=== PATIENT | female | born 1955 | race Caucasian/White ===

== ENCOUNTER 2023-12-22 08:09 | Outpatient (REF) | payer OTHER, SELFPAY ==
--- NOTE | ~2023-12-22 | MM_ITS ---
EXAMINATION: BONE DENSITOMETRY CLINICAL INDICATION: Asymptomatic menopausal state. COMPARISON: This is the patient's baseline examination. TECHNIQUE: Using a [employer] DXA System (software version: 13.1) manufactured by [employer], dual-energy x-ray absorptiometry was performed of the lumbar spine and left hip. The images are of good technical quality. Summary results are attached. FINDINGS: LEFT FEMUR, NECK: BMD 0.972 g/cm2, Z-score 0.5, T-score -0.5, normal. LEFT FEMUR, TOTAL: BMD 1.031 g/cm2, Z-score 0.9, T-score 0.2, normal. AP SPINE L1-L4: BMD 1.189 g/cm2, Z-score 0.9, T-score 0.1, normal. IDENTIFIED RISK FACTORS: Height loss, history of fracture (adult), menopause. HISTORY OF FRACTURE: Spine. MEDICATIONS: Calcium supplements or multivitamin, vitamin D. MM/XR DEXA axial skeleton IMPRESSION: 1. DIAGNOSIS: Normal bone density based on the lowest T-score value of -0.5 in the femoral neck applying World Health Organization criteria. 2. 10-YEAR FRACTURE RISK PREDICTION, FRAX: According to the guidelines, FRAX calculation should only be performed on patients in the osteopenia bone density category. Therefore, FRAX was not performed on this patient. 3. Treatment Recommendations: NOF guidelines recommend consideration for treatment in postmenopausal women and men age 50 and older presenting with the following: -A hip or vertebral (clinical or morphometric) fracture. -T-score less than or equal to -2.5 at the femoral neck or spine after appropriate evaluation to exclude secondary causes. -Low bone mass at the hip or spine and a 10-year fracture probability by FRAX of greater than or equal to 3% for hip fracture or greater than or equal to 20% for major osteoporotic fracture based on the [place] adapted WHO algorithm. 4. Other Recommendations: All treatment decisions require clinical judgment and consideration of individual patient factors, including patient preferences, comorbidities, previous drug use, risk factors not captured in the FRAX model (e.g. frailty, falls, vitamin D deficiency, increased bone turnover, interval significant decline in bone density) and possible under or overestimation of fracture risk by FRAX. FUTURE SCAN RECOMMENDATION: People with diagnosed cases of osteoporosis or at high risk for fracture should have regular bone mineral density tests. For patients eligible for Medicare, routine testing is allowed once every 2 years. The testing frequency can be increased to one year for patients who have rapidly progressing disease, those who are receiving or discontinuing medical therapy to restore bone mass, or have additional risk factors.
== END 2023-12-22 08:10 | disposition home or self-care (01) ==
LOC: HO.MAMMO 08:09
PROVIDERS: PCP Internal Medicine; Visit Provider Internal Medicine
DX: Z13.820 Encounter for screening for osteoporosis (principal); Z78.0 Asymptomatic menopausal state
CPT/HCPCS: 77080

== ENCOUNTER → 2024-01-15 09:02 | Outpatient (BNVA) | payer OTHER, MEDICARE, SELFPAY | PROVIDERS: PCP Internal Medicine; Visit Provider Surgery ==

== ENCOUNTER 2024-02-09 07:58 | Outpatient (AMB) | payer OTHER, SELFPAY ==
--- NOTE | 2024-02-09 08:27 | A.OFFVIS_ITS ---
VS Expanded 02/09/24 08:49 Height 5 ft 3.5 in Weight 201 lb 2 oz BMI 35.1 Body Fat % 42 Body Fat Mass 84.4 Fat Free Mass 116.6 Visceral Fat Rating 13 Body Water % 40.6 Body Water Mass 81.6 Basal Metabolic Rate/Score 1,589 Intake Visit Reasons: [employer] SWL BMI 35.1 Allergies Sulfa (Sulfonamide Antibiotics) Allergy (Intermediate, Verified 02/09/24 08:27) rash Medication List - Last Reconciled 02/09/24 by Juan Thibodeaux MD amlodipine 5 mg PO DAILY calcium carbonate 500 mg PO DAILY citalopram 10 mg PO DAILY citalopram 20 mg PO DAILY estradiol 0.01%(0.1mg/gram) 1 g vaginal 2XW hydrochlorothiazide 12.5 mg PO DAILY levothyroxine mcg PO multivitamin 1 tab PO DAILY omeprazole 20 mg PO DAILY HPI HPI [employer] SWL BMI 35.1: Details: Start time: 8.14am, End time: 8.59am ?I spent 40 minutes speaking with the patient on the phone plus an additional 5 minutes reviewing and updating records for a total of 45 minutes HPI Comments Details: Previous weight loss efforts: extensive trial of different commercial diets Wakes up: 7am, Sleeps: 10pm Breakfast: 10am (eggs, toast, yogurt) Lunch: 1pm (chicken or ham salad) Dinner: 6pm (chicken, turkey) Snacks: 11am (crackers, fruits), occasionally 4pm (fruits or crackers), 8pm (cheese and crackers) Exercise: [employer] Fluids: Coffee: 1-2 cups/day (black), tea iced: rarely, soda: none, juice: none, ETOH: 1/wk (1 glass of wine) PFSH Medical History (Updated 02/09/24 @ 08:55 by Juan Thibodeaux MD) Hypothyroidism GERD (gastroesophageal reflux disease) Anxiety Depression Hypertension Sleep apnea treated with continuous positive airway pressure (CPAP) Surgical History (Updated 01/15/24 @ 10:23 by Juana Redd CMA) Hx of esophagogastroduodenoscopy Hx of colonoscopy Hx of tubal ligation Family History (Updated 01/15/24 @ 10:20 by Juana Redd CMA) Mother Lung cancer Brother Throat cancer Sister Colon cancer Maternal Aunt Cancer Breast CA Social History (Updated 01/15/24 @ 09:53 by Juana Redd [facility]) Alcohol intake: current Alcohol intake frequency: other Comment: 1 wkly Patient Tobacco Use Status: Never used Tobacco Telehealth Telehealth Telehealth Platform: Telephone Location of provider rendering services: practice address Location of patient: address on file Patient Identification confirmed using: Name, : Yes Telehealth method: voice only Patient verbally consented to treatment: Yes Patient verbally consented to billing insurance company: Yes Patient informed of any privacy concerns related to visit: Yes Minutes spent on Phone/Video with Pt.: 45 Assessment & Plan Assessment & Plan (1) Obesity: Code(s): E66.9 - Obesity, unspecified Category: Medical Qualifiers: Obesity type: due to excess calories Obesity classification: adult class 2 (BMI 35 - 39.9) Serious obesity comorbidity presence: with serious comorbidity Body mass index: BMI 35.0-35.9 Qualified Code(s): E66.01 - Morbid (severe) obesity due to excess calories; Z68.35 - Body mass index [BMI] 35.0- 35.9, adult Plan: 1.? Plan for lap sleeve gastrectomy. If diaphragmatic or ventral hernias are present at time of surgery, these will be repaired laparoscopically as well. Risks and complications were discussed in detail including possible conversion to an open procedure, anastomotic leak, bleeding requiring transfusion, small bowel obstruction, , DVT and pulmonary embolism, cardiac, or pulmonary complications, as fci complications such as anastomotic ulcer, insufficient weight loss and vitamin deficiencies. I emphasized the importance of close follow-up, adherence to instructions and good communication. Meal to include lean meat (beef, fish, pork, turkey, chicken), or guatemalan yogurt, or egg whites, or beans with a salad with olive oil and fruits (berries, pears, apples, kiwi). Avoid salt, breads, potatoes, rice, pasta, desserts. 2. You will receive a link of our software del to generate an individualized nutritional and exercise plan specific for you. Please send me a screenshot of the plans you will generate 3.? Please send me weight measurements as soon as possible and then once a week . Always include your diet and exercise plan. 4. The best choice would be to purchase a stationary bike, elliptical or treadmill at home that can track calories. Let me know if you do so I can give y ou an exercise plan. 5. Please follow the diet plan exactly without any change. If you don't like something about the plan or you feel hungry you need to communicate with me so I can help you revise the plan. You should not change the plan yourself. 6. To be scheduled for EGD due to history of GERD. The possibility of biopsies was discussed. Patient needs to avoid use of NSAIDs and aspirin for 1 week prior to EGD. Risks of perforation and bleeding was discussed with the patient. This will be an outpatient procedure with IV sedation. Orders: Orders Hemoglobin A1c Today E03.9 - Hypothyroidism, unspecified, E66.9 - Obesity, unspecified, G47.30 - Sleep apnea, unspecified, I10 - Essential (primary) hypertension, K21.9 - Gastro-esophageal reflux disease without esophagitis, Z68.35 - Body mass index [BMI] 35.0-35.9, adult Complete Blood Count Auto Diff Today E03.9 - Hypothyroidism, unspecified, E66.9 - Obesity, unspecified, G47.30 - Sleep apnea, unspecified, I10 - Essential (primary) hypertension, K21.9 - Gastro-esophageal reflux disease without esoph agitis, Z68.35 - Body mass index [BMI] 35.0-35.9, adult Zinc Today E03.9 - Hypothyroidism, unspecified, E66.9 - Obesity, unspecified, G47.30 - Sleep apnea, unspecified, I10 - Essential (primary) hypertension, K21.9 - Gastro-esophageal reflux disease without esophagitis, Z68.35 - Body mass index [BMI] 35.0-35.9, adult TSH reflex Free T4 Today E03.9 - Hypothyroidism, unspecified, E66.9 - Obesity, unspecified, G47.30 - Sleep apnea, unspecified, I10 - Essential (primary) hypertension, K21.9 - Gastro-esophageal reflux disease without esophagitis, Z68.35 - Body mass index [BMI] 35.0-35.9, adult Vitamin D 25-OH Total Today E03.9 - Hypothyroidism, unspecified, E66.9 - Obesity, unspecified, G47.30 - Sleep apnea, unspecified, I10 - Essential (primary) hypertension, K21.9 - Gastro-esophageal reflux disease without esophagitis, Z68.35 - Body mass index [BMI] 35.0-35.9, adult XR chest 2V Today E03.9 - Hypothyroidism, unspecified, E66.9 - Obesity, unspecified, G47.30 - Sleep apnea, unspecified, I10 - Essential (primary) hypertension, K21.9 - Gastro-esophageal reflux disease without esophagitis, Z68.35 - Body mass index [BMI] 35.0-35.9, adult FL upper GI w air Today E03.9 - Hypothyroidism, unspecified, E66.9 - Obesity, unspecified, G47.30 - Sleep apnea, unspecified, I10 - Essential (primary) hypertension, K21.9 - Gastro-esophageal reflux disease without esophagitis, Z68.35 - Body mass index [BMI] 35.0-35.9, adult Insulin Today E03.9 - Hypothyroidism, unspecified, E66.9 - Obesity, unspecified, G47.30 - Sleep apnea, unspecified, I10 - Essential (primary) hypertension, K21.9 - Gastro-esophageal reflux disease without esophagitis, Z68.35 - Body mass index [BMI] 35.0-35.9, adult H Pylori Breath Test Today E03.9 - Hypothyroidism, unspecified, E66.9 - Obesity, unspecified, G47.30 - Sleep apnea, unspecified, I10 - Essential (primary) hypertension, K21.9 - Gastro-esophageal reflux disease without esophagitis, Z68.35 - Body mass index [BMI] 35.0-35.9, adult Lipid Panel Today E03.9 - Hypothyroidism, unspecified, E66.9 - Obesity, unspecified, G47.30 - Sleep apnea, unspecified, I10 - Essential (primary) hypertension, K21.9 - Gastro-esophageal reflux disease without esophagitis, Z68.35 - Body mass index [BMI] 35.0-35.9, adult IRON PROFILE Today E03.9 - Hypothyroidism, unspecified, E66.9 - Obesity, unspecified, G47.30 - Sleep apnea, unspecified, I10 - Essential (primary) hypertension, K21.9 - Gastro-esophageal reflux disease without esophagitis, Z68.35 - Body mass index [BMI] 35.0-35.9, adult Comprehensive Met. Panel Today E03.9 - Hypothyroidism, unspecified, E66.9 - Obesity, unspecified, G47.30 - Sleep apnea, unspecified, I10 - Essential (primary) hypertension, K21.9 - Gastro-esophageal reflux disease without esophagitis, Z68.35 - Body mass index [BMI] 35.0-35.9, adult Vitamin B12 and Folate Today E03.9 - Hypothyroidism, unspecified, E66.9 - Obesity, unspecified, G47.30 - Sleep apnea, unspecified, I10 - Essential (primary) hypertension, K21.9 - Gastro-esophageal reflux disease without esophagitis, Z68.35 - Body mass index [BMI] 35.0-35.9, adult C Reactive Protein Today E03.9 - Hypothyroidism, unspecified, E66.9 - Obesity, unspecified, G47.30 - Sleep apnea, unspecified, I10 - Essential (primary) hypertension, K21.9 - Gastro-esophageal reflux disease without esophagitis, Z68.35 - Body mass index [BMI] 35.0-35.9, adult Vitamin B1 Today E03.9 - Hypothyroidism, unspecified, E66.9 - Obesity, unspecified, G47.30 - Sleep apnea, unspecified, I10 - Essential (primary) hypertension, K21.9 - Gastro-esophageal reflux disease without esophagitis, Z68.35 - Body mass index [BMI] 35.0-35.9, adult Vitamin A Today E03.9 - Hypothyroidism, unspecified, E66.9 - Obesity, unspecified, G47.30 - Sleep apnea, unspecified, I10 - Essential (primary) hypertension, K21.9 - Gastro-esophageal reflux disease without esophagitis, Z68.35 - Body mass index [BMI] 35.0-35.9, adult Ferritin Today E03.9 - Hypothyroidism, unspecified, E66.9 - Obesity, unspecified, G47.30 - Sleep apnea, unspecified, I10 - Essential (primary) hypertension, K21.9 - Gastro-esophageal reflux disease without esophagitis, Z68.35 - Body mass index [BMI] 35.0-35.9, adult US abdomen comp w elastography Today E03.9 - Hypothyroidism, unspecified, E66.9 - Obesity, unspecified, G47.30 - Sleep apnea, unspecified, I10 - Essential (primary) hypertension, K21.9 - Gastro-esophageal reflux disease without esophagitis, Z68.35 - Body mass index [BMI] 35.0-35.9, adult ECG 12 lead EKG Today E03.9 - Hypothyroidism, unspecified, E66.9 - Obesity, unspecified, G47.30 - Sleep apnea, unspecified, I10 - Essential (primary) hypertension, K21.9 - Gastro-esophageal reflux disease without esophagitis, Z68.35 - Body mass index [BMI] 35.0-35.9, adult Referrals Nutrition/Dietitian Referral E03.9 - Hypothyroidism, unspecified, E66.9 - Obesity, unspecified, G47.30 - Sleep apnea, unspecified, I10 - Essential (primary) hypertension, K21.9 - Gastro-esophageal reflux disease without esophagitis, Z68.35 - Body mass index [BMI] 35.0-35.9, adult Behavioral Health Referral E03.9 - Hypothyroidism, unspecified, E66.9 - Obesity, unspecified, G47.30 - Sleep apnea, unspecified, I10 - Essential (primary) hypertension, K21.9 - Gastro-esophageal reflux disease without esophagitis, Z68.35 - Body mass index [BMI] 35.0-35.9, adult
[2024-02-09 08:49] VITALS: BMI 35.1
== END 2024-02-09 09:00 | disposition home or self-care (01) ==
LOC: HO.HBS 07:58
PROVIDERS: PCP Internal Medicine; Visit Provider Surgery
DX: E66.01 Morbid (severe) obesity due to excess calories (principal); Z68.35 Body mass index [BMI] 35.0-35.9, adult
CPT/HCPCS: 99204

== ENCOUNTER → 2024-02-09 07:58 | Outpatient (BNVA) | payer OTHER, MEDICARE, SELFPAY | PROVIDERS: PCP Internal Medicine; Visit Provider Surgery ==

== ENCOUNTER 2024-02-21 09:23 | Outpatient (REF) | payer MEDICARE, SELFPAY ==
--- NOTE | ~2024-02-21 | US_ITS ---
EXAMINATION: US COMPLETE ABDOMEN WITH LIVER ELASTOGRAPHY CLINICAL INFORMATION: Obesity. COMPARISON: None available. TECHNIQUE: Real-time imaging of the abdominal viscera. Noninvasive ultrasound liver fibrosis assessment is performed using [employer] point quantification shear wave elastography (pSWE) with a C5-2 MHz transducer. Multiple elastography samples are obtained. FINDINGS: PANCREAS: The visualized pancreatic head and body are normal in appearance. The remainder of the pancreas is obscured from visualization by the overlying bowel gas. ABDOMINAL AORTA: The proximal, middle, and distal aortic segments are normal in caliber. INFERIOR VENA CAVA: Visualized portions are normal. LIVER: The liver demonstrates normal size and contour with question of mildly increased echogenicity. No focal lesion or intrahepatic biliary duct dilatation. The right lobe measures 13.8 cm in length. The left lobe measures 12.6 cm in length. Portal flow is towards the liver (hepatopetal). Shear wave liver elastography median stiffness is 1.57 m/s (reference: normal median stiffness is 1.3 m/s or less). IQR/median stiffness to assess sampling precision is 0.12 (reference: good quality data set is IQR/median stiffness of 0.15 or less). GALLBLADDER: There is a 1.2 x 0.5 x 1.1 cm mobile structure in the gallbladder either representing a sludge ball or a nonshadowing stone. The gallbladder is physiologically distended without evidence of wall thickening or pericholecystic fluid. COMMON BILE DUCT: Normal in caliber measuring 0.5 cm in diameter. RIGHT KIDNEY: Normal. No hydronephrosis. No renal calculi or focal parenchymal lesions. The kidney measures 11.0 cm in maximum dimension. LEFT KIDNEY: . No hydronephrosis. No renal calculi . The kidney measures 10.8 cm in maximum dimension. There are pelvic benign Bosniak class I renal cysts noted, the largest measuring 1.4 cm which require no additional imaging or followup. No solid renal masses are seen. SPLEEN: Normal. The spleen measures 12.0 cm in maximum dimension. FREE FLUID: None. US/US abdomen comp w elastography IMPRESSION: 1. Normal sized liver with question of increased echogenicity. 2. Liver elastography: In the absence of other known clinical signs, measurements rule out compensated advanced chronic liver disease. If there are known clinical signs, further testing may be needed for confirmation. REFERENCE: Society of Radiologists in Ultrasound Liver Stiffness Thresholds (2020): LIVER STIFFNESS THRESHOLDS: *Liver Stiffness equal or less than 1.3 m/s: High probability of being normal. *Liver Stiffness less than 1.7 m/s: In the absence of other known clinical signs, rules out compensated advanced chronic liver disease. *Liver Stiffness 1.7-2.1 m/s: Suggestive of compensated advanced chronic liver disease but need further test for confirmation. *Liver Stiffness over 2.1 m/s: Rules in compensated advanced chronic liver disease. *Liver Stiffness over 2.4 m/s: Suggestive of clinically significant portal hypertension. QUALITY OF DATA SET: *IQR/Median value equal or less than 0.15 implies a quality data set. *IQR/Median value over 0.15 implies a poor quality data set. SIGNIFICANT CHANGE FROM PRIOR EXAM: Significant change if liver stiffness measurement is 10% or greater from prior exam. OTHER CONSIDERATIONS: The stage of liver fibrosis may be overestimated in the setting of acute hepatitis, liver inflammation, elevated liver function tests, hepatic vascular congestion, obstructive cholestasis, non-fasting state, and infiltrative diseases such as amyloidosis and lymphoma. In some patients with NAFLD, the liver stiffness thresholds for compensated advanced chronic liver disease may be lower. In causes other than viral hepatitis and NAFLD, liver stiffness thresholds are not well established. Electronically signed by: Valentin Blackburn MD 02/28/2024 05:04 PM EDT
== END 2024-02-21 09:24 | disposition home or self-care (01) ==
LOC: HO.US 09:23
PROVIDERS: PCP Internal Medicine; Visit Provider Surgery
DX: E66.9 Obesity, unspecified (principal); Z68.35 Body mass index [BMI] 35.0-35.9, adult; G47.30 Sleep apnea, unspecified; I10 Essential (primary) hypertension; K21.9 Gastro-esophageal reflux disease without esophagitis; E03.9 Hypothyroidism, unspecified
CPT/HCPCS: 76700; 76981

== ENCOUNTER 2024-02-23 10:29 | Outpatient (REF) | payer MEDICARE, SELFPAY ==
--- NOTE | ~2024-02-23 | XR_ITS ---
EXAMINATION: XR CHEST CLINICAL INFORMATION: E66.9 - Obesity, unspecified COMPARISON: None available. TECHNIQUE: 2 views of the chest were obtained. FINDINGS: The cardiac, hilar, and mediastinal contours are normal. The lungs are clear bilaterally. There is no pneumothorax or pleural effusion. There is no focal osseous or soft tissue abnormality. There are spinal degenerative changes. XR/XR chest 2V IMPRESSION: No active pulmonary disease. Electronically signed by: Vidal Michaels MD 05/04/2024 09:17 PM EST
--- NOTE | 2024-02-23 10:37 | ECG_ITS ---
Test Reason : OBS Blood Pressure : / mmHG Vent. Rate : 060 BPM Atrial Rate : 060 BPM P-R Int : 168 ms QRS Dur : 090 ms QT Int : 436 ms P-R-T Axes : 034 004 030 degrees QTc Int : 436 ms Normal sinus rhythm Minimal voltage criteria for LVH, may be normal variant ( R in aVL ) Borderline ECG No previous ECGs available Referred By: Juan Thibodeaux Electronically Signed By:LUDWIG ALLEN
[2024-02-23 10:57] LABS: MANUAL DIFF FLAG NO
[2024-02-23 11:44] LABS: Basophils Absolute Auto 0.1 X10*3/uL (0.0-0.2); Basophils Percent Auto 0.9 % (0-2); Eosinophils Absolute Auto 0.2 X10*3/uL (0.0-0.4); Eosinophils Percent Auto 2.4 % (0-4); Hematocrit 37.6 % (37.0-47.0); Hemoglobin 12.5 g/dl (12.0-16.0); Imm Gran Abs Auto 0.02 X10*3/uL (0.00-0.03); Imm Gran Pct Auto 0.3 % (0.0-0.4); Lymphocytes Percent Auto 29.5 % (20-40); Mean Corpuscular HGB Conc 33.2 g/dl (31.0-35.0); Mean Corpuscular Hemoglobin 29.8 pg (27.0-33.0); Mean Corpuscular Volume 89.5 fL (80.0-98.0); Mean Platelet Volume 11.5 fL (9.4-12.3); Monocytes Absolute Auto 0.7 X10*3/uL (0.1-1.2); Monocytes Percent Auto 9.9 % (2-11); Neutrophils Absolute Auto 3.9 x10*3/uL (2.0-8.3); Platelet Count 192 X10*3/uL (160-400); Red Cell Distribution Width 12.6 % (11.0-16.0); White Blood Count 6.8 X10*3/uL (4.8-10.8)
[2024-02-23 12:13] LABS: Estimated Average Glucose 105 mg/dL; Hemoglobin A1c % 5.3 % (<6.0)
[2024-02-23 12:38] LABS: Alanine Aminotransferase 15 U/L (0-31); Albumin Level 4.1 g/dL (3.5-5.0); Alkaline Phosphatase 58 U/L (39-117); Anion Gap 10 (12-20); Aspartate Amino Transferase 14 U/L (5-31); Bilirubin Total 0.5 mg/dL (0.0-1.0); Blood Urea Nitrogen 14 mg/dL (9-16); Calcium 9.6 mg/dL (8.4-10.2); Carbon Dioxide 28 mmol/L (22-29); Chloride 107 mmol/L (96-108); Cholesterol 220 mg/dL (<200); Estimated Glomerular Filt Rate > 60; Glucose Random 96 mg/dL (60-115); HDL Cholesterol 48 mg/dL (>40); Iron 96 mcg/dL (30-160); LDL Cholesterol Calculated 146 mg/dL (<100); Percent Iron Saturation 36 % (15-50); Sodium 141 mmol/L (135-145); Total Iron Binding Capacity 269 mcg/dL (228-428); Total Protein 7.7 g/dL (6.5-8.0); Triglycerides 131 mg/dL (<150); Unsaturated Iron Binding 173 ug/dL
[2024-02-23 12:45] LABS: Ferritin 135 ng/mL (10-250); Insulin 7 uU/mL (2-29); TSH reflex Free T4 1.13 uIU/mL (0.32-4.0); Vitamin D 25-OH Total 36.8 ng/mL (>30)
[2024-02-23 13:02] LABS: Folate 10.7 ng/mL (> or = 4.0); Vitamin B12 309 pg/mL (200-900)
[2024-02-27 05:02] LABS: Zinc 74 mcg/dL (60-130)
[2024-02-28 18:59] LABS: Vitamin A 48 mcg/dL (38-98)
[2024-03-03 07:43] LABS: Vitamin B1 8 nmol/L (8-30)
== END 2024-02-23 10:30 | disposition home or self-care (01) ==
LOC: HO.LAB 10:29
PROVIDERS: PCP Internal Medicine; Visit Provider Surgery
DX: E66.9 Obesity, unspecified (principal); Z68.35 Body mass index [BMI] 35.0-35.9, adult; G47.30 Sleep apnea, unspecified; I10 Essential (primary) hypertension; K21.9 Gastro-esophageal reflux disease without esophagitis; E03.9 Hypothyroidism, unspecified; Z13.1 Encounter for screening for diabetes mellitus
CPT/HCPCS: 36415; 71046; 80053; 80061; 82306; 82607; 82728; 82746; 83036; 83525; 83540; 84425; 84443; 84590; 84630; 85025; 86140; 93005

== ENCOUNTER → 2024-02-23 10:58 | Outpatient (BNV) | payer MEDICARE, SELFPAY | PROVIDERS: PCP Internal Medicine; Visit Provider Radiology Diagnostic Radiology | DX: E66.9 Obesity, unspecified (principal) | CPT/HCPCS: 71046 ==

== ENCOUNTER 2024-03-01 08:40 | Outpatient (REF) | payer MEDICARE, SELFPAY ==
--- NOTE | ~2024-03-01 | MM_ITS ---
EXAMINATION: MM SCREENING DIGITAL BREAST TOMOSYNTHESIS, BILATERAL CLINICAL INFORMATION: Screening. Asymptomatic. COMPARISON: Mammography: Comparison is made with available priors TECHNIQUE: Digital breast mammography with tomosynthesis is performed in both the craniocaudal and mediolateral oblique views along with computer-aided detection (CAD). FINDINGS: There are scattered areas of fibroglandular density (ACR BI-RADS breast composition Category b). Right: Focal asymmetry upper outer breast posterior depth with associated architectural distortion. No suspicious calcifications or other abnormal findings. Left: Focal asymmetry lower central breast anterior to middle depth. No suspicious calcifications or other abnormal findings. MM/MM tomosynthesis screening BI IMPRESSION: Additional imaging is recommended ASSESSMENT: BI-RADS BI-RADS 0 - Incomplete: Needs additional Imaging. RECOMMENDATION: 1. Additional views of the bilateral breasts 2. Targeted ultrasound if warranted after review of the additional views. 3. Radiology department staff will contact the patient for additional imaging. Additional Imaging required This examination should not preclude the clinical evaluation of a suspicious palpable abnormality. This patient's information was entered into a reminder system with a target due date for their next mammogram. Electronically signed by: Corinna Vergara DO 03/10/2024 06:35 PM EDT
== END 2024-03-01 08:41 | disposition home or self-care (01) ==
LOC: HO.MAMMO 08:40
PROVIDERS: PCP Internal Medicine; Visit Provider Internal Medicine
DX: Z12.31 Encounter for screening mammogram for malignant neoplasm of breast (principal)
CPT/HCPCS: 77063; 77067

== ENCOUNTER → 2024-03-01 08:43 | Outpatient (BNV) | payer MEDICARE, SELFPAY | PROVIDERS: PCP Internal Medicine; Visit Provider Internal Medicine | DX: Z12.31 Encounter for screening mammogram for malignant neoplasm of breast (principal) | CPT/HCPCS: 77063; 77067 ==

== ENCOUNTER 2024-03-05 10:41 | Day surgery (SDC) | payer MEDICARE, SELFPAY ==
--- NOTE | 2024-03-01 14:31 | P.CONAN_ITS ---
Documented by User: Anni Stafford NP 03/01/24 14:31 HPI - Anesthesia Eval Consult details Narrative: 68yo F for Upper Endoscopy PMFSH Active Problems Active Problems: All Active Problems Hypothyroidism (Acute) GERD (gastroesophageal reflux disease) (Acute) Anxiety (Acute) Depression (Acute) Hypertension (Acute) Sleep apnea treated with continuous positive airway pressure (CPAP) (Acute) BMI 35.0-35.9,adult (Acute) Obesity (Acute) Past Medical History Medical History Hypothyroidism GERD (gastroesophageal reflux disease) Anxiety Depression Hypertension Sleep apnea treated with continuous positive airway pressure (CPAP) Family History Family History Mother Lung cancer Brother Throat cancer Sister Colon cancer Maternal Aunt Cancer Breast CA Surgical History Surgical History Hx of esophagogastroduodenoscopy Hx of colonoscopy Hx of tubal ligation Social History Social History Are you a primary adult care provider to a significant other at home: No Do you presently have visiting nurse or other home services: No Alcohol intake: current Alcohol intake frequency: a few times a month Comment: 1 wkly Patient Tobacco Use Status: Never used Tobacco Use of substances other than those prescribed or required for medical reasons: No Have you been hit, kicked, punched, or otherwise hurt by someone within the past year? If so, by whom?: No Are you DNR?: No Advance Directives: No Advance Directives Information Provided: Yes Recently lost weight without trying: No How much weight loss: Not applicable Eating poorly because of decreased appetite: No Nutrition screen score: 0 Nutrition Risks: No Nutritional Risk Patient : No : No Poor oral hygiene: No Meds Allergies Allergy/AdvReac Type Severity Reaction Status Date / Time Sulfa (Sulfonamide Allergy Intermediate rash Verified 03/05/24 11:33 Antibiotics) Home Medications ?Medication ?Instructions ?Recorded ?Confirmed ?Last Taken ?Type amlodipine 5 mg tablet 5 mg PO DAILY 01/15/24 03/05/24 03/04/24 History calcium carbonate 500 mg PO DAILY 01/15/24 03/05/24 Unknown History citalopram 10 mg tablet 10 mg PO DAILY 01/15/24 03/05/24 Unknown History citalopram 20 mg tablet 20 mg PO DAILY 01/15/24 03/05/24 Unknown History estradiol 0.01% (0.1 mg/gram) 1 g vaginal 2XW 01/15/24 03/05/24 Unknown History vaginal cream levothyroxine 100 mcg tablet 100 mcg PO DAILY 01/15/24 03/05/24 Unknown History multivitamin 1 tab PO DAILY 01/15/24 03/05/24 Unknown History omeprazole 20 mg capsule,delayed 20 mg PO DAILY 01/15/24 03/05/24 Unknown History release hydrochlorothiazide 12.5 mg tablet 12.5 mg PO DAILY 02/09/24 03/05/24 03/04/24 History Assessment and Plan Assessment Anesthesia Assessment: Chart Reviewed Documented by User: Clarita Yoo MD 03/05/24 11:48 PMFSH Past Medical History Medical History Hypothyroidism GERD (gastroesophageal reflux disease) Anxiety Depression Hypertension Sleep apnea treated with continuous positive airway pressure (CPAP) Family History Family History Mother Lung cancer Brother Throat cancer Sister Colon cancer Maternal Aunt Cancer Breast CA Family history of problems with anesthesia: No Surgical History Surgical History Hx of esophagogastroduodenoscopy Hx of colonoscopy Hx of tubal ligation History of Problems with Anesthesia: No Social History Social History Are you a primary adult care provider to a significant other at home: No Do you presently have visiting nurse or other home services: No Alcohol intake: current Alcohol intake frequency: a few times a month Comment: 1 wkly Patient Tobacco Use Status: Never used Tobacco Use of substances other than those prescribed or required for medical reasons: No Have you been hit, kicked, punched, or otherwise hurt by someone within the past year? If so, by whom?: No Are you DNR?: No Advance Directives: No Advance Directives Information Provided: Yes Recently lost weight without trying: No How much weight loss: Not applicable Eating poorly because of decreased appetite: No Nutrition screen score: 0 Nutrition Risks: No Nutritional Risk Patient : No : No Poor oral hygiene: No Meds Allergies Allergy/AdvReac Type Severity Reaction Status Date / Time Sulfa (Sulfonamide Allergy Intermediate rash Verified 03/05/24 11:33 Antibiotics) Home Medications ?Medication ?Instructions ?Recorded ?Confirmed ?Last Taken ?Type amlodipine 5 mg tablet 5 mg PO DAILY 01/15/24 03/05/24 03/04/24 History calcium carbonate 500 mg PO DAILY 01/15/24 03/05/24 Unknown History citalopram 10 mg tablet 10 mg PO DAILY 01/15/24 03/05/24 Unknown History citalopram 20 mg tablet 20 mg PO DAILY 01/15/24 03/05/24 Unknown History estradiol 0.01% (0.1 mg/gram) 1 g vaginal 2XW 01/15/24 03/05/24 Unknown History vaginal cream levothyroxine 100 mcg tablet 100 mcg PO DAILY 01/15/24 03/05/24 Unknown History multivitamin 1 tab PO DAILY 01/15/24 03/05/24 Unknown History omeprazole 20 mg capsule,delayed 20 mg PO DAILY 01/15/24 03/05/24 Unknown History release hydrochlorothiazide 12.5 mg tablet 12.5 mg PO DAILY 02/09/24 03/05/24 03/04/24 History Exam Airway Mallampati Class: II TM Dist: >3cm Neck ROM: Full Heart: rrr Lungs: cta Assessment and Plan Assessment Anesthesia Assessment: Anesthesia Plan Discussed Final Anesthetic Review Family History of Problems with Anesthesia: No History of Problems with Anesthesia: No NPO: Yes ASA Class: III Final Preanesthetic Review: No Changes in Pt Med Stat, Meds/Allgs Chart Review ed, Consent Obtained/Reviewed and Anes Risks/Benef Reviewed Patient Risk: Intermediate Procedure Risk: Low Anesthetic Plan Anesthetic Plan: MAC: Disposition: Standard PACU
[2024-03-05 11:42] VITALS: BP 149/80; PULSE 71; RESP 16; TEMP 36.6; O2SAT 98; BMI 36.2
[2024-03-05] MEDS: Lactated Ringers 1,000 ML 80 ML IVCONT (11:53)
--- NOTE | 2024-03-05 12:36 | MHC.SHP ---
Pre-Procedural Eval Section A - 24 Hr Update-Section A only Date of Service: 03/05/24 The patient is an INPATIENT: No The patient has been examined within 24 hours of the surgical procedure. The History & Physical has been completed within 30 days and I have reviewed it.: Yes Section B - Complete if H&P > 30 days Chief Complaint: Morbid (severe) obesity due to excess calories Details of Present Illness: GERD Relevant Family History (Specify if Yes): No Relevant Social History: None Present Medications: None Medical History: No relevant PMH History of Previous Operations: No relevant previous surgery Allergies: Allergies Allergy/AdvReac Type Severity Reaction Status Date / Time Sulfa (Sulfonamide Allergy Intermediate rash Verified 03/05/24 11:33 Antibiotics) Review of Systems Sugical H&P ROS: Negative: Constitution, Cardiovascular, Respiratory, Neurological, Psychiatric, Hem-Onc, Allergic/Immunologic, Gastrointestinal, Genitourinary, Musculoskeletal, Integumentary, Endocrine and Eyes/Ears/Nose/Throat Exam Surgical H&P Exam: Normal: HEENT, Normal: Heart, Normal: Lungs, Normal: Extremities, Normal: Abdomen, Normal: Skin and Normal: Neurological Plan Diagnosis/Plan: Unchanged (EGD to assess etiology of GERD. Risks of bleeding and perforation were discussed with the patient and she is in agreement with the plan.) I have reviewed the history and physical and performed a pertinent physical examination on my patient. No changes have occurred unless specified. Time Spent With Patient Time: Total time managing care of this patient today ____ minutes.
--- NOTE | 2024-03-05 13:11 | PM.OP ---
Brief Operative Note Date of Service: 03/05/24 Pre-op diagnosis: GERD Post-op diagnosis: same Procedure: PROCEDURE DATE: 03/05/2024 PREOPERATIVE DIAGNOSIS: GERD POSTOPERATIVE DIAGNOSIS: ?Same as above. 1) gastric polyps PROCEDURE: Uahpdisd-[id number]-hzlswafbiubz with biopsies and polypectomy Surgeon: ?Ramez Thibodeaux M.D.. Ph.D. Sewing Machines Salesperson: None ? Anesthesia: IV sedation Estimated blood loss: ?Minimal FINDINGS AND PROCEDURE: ? OPERATIVE INDICATIONS: ?The patient is a 68 year old female known to me who is interested in bariatric surgery. The patient has GERD. Based on this information I recommended an upper endoscopy to evaluate the patient's symptoms. Risks and complications of the surgery were discussed with the patient in advance particularly the possibility of perforation or bleeding that may require surgical intervention. The patient understood the risks and was in agreement with the plan. ? PROCEDURE: After informed consent was obtained by the patient, the patient was ?transferred to the Operating Room and was placed in the supine position.? After successful induction of IV sedation, a mouth block was inserted and the patient was placed in the left lateral decubitus position. An upper endoscopy was performed next, the oropharynx and esophagus appeared within the normal limits. There was no hiatal hernia. The z-line was smooth. Two biopsies were obtained from the distal esophagus 2-3 cm proximal to the GE junction and two additional biopsies from the GE junction. The stomach was entered and it appeared to be of normal size. There were multiple polyps throughout the body of the stomach. One of them was removed with the foceps. There was no gastritis. There was no stricture or ulcer. A biopsy was obtained from the gastric fundus and the antrum. No significant bleeding was noted from any of the biopsy sites. Retroflexion of the scope confirmed a normal GE junction. The scope was then advanced into the duodenum which appeared to be normal as well. At that point the duodenum ?and the stomach were decompressed and the scope was withdrawn from the patient's mouth. The patient extubated and was transferred in stable condition to the Recovery Room for further care. I was present and performed all steps of the procedure. There were no residents to assist with this case. Ramez Thibodeaux M.D., Ph.D. Surgeon: Juan Thibodeaux MD Was an Sewing Machines Salesperson used for this Procedure?: No Estimated blood loss (mL): 0 IV fluids (mL): 400 Urine output (mL): 0 (No Victoria to record output) Pathology: other (1) antrum x1, 2) fundus x1, 3) GE junction x2, 4) distal esophagus x2, 5) gastric polyp x1) Condition: stable Disposition: PACU
[2024-03-05 13:15] VITALS: BP 140/91; PULSE 86; RESP 16; TEMP 36.1; O2SAT 94
[2024-03-05 13:30] VITALS: BP 144/96; PULSE 86; RESP 18; TEMP 36.9; O2SAT 99
== END 2024-03-05 14:10 | disposition home or self-care (01) ==
PROVIDERS: PCP Internal Medicine; Visit Provider Surgery
PROC: 0DJ08ZZ Inspection of Upper Intestinal Tract, Via Natural or Artificial Opening Endoscopic (ICD-10-PCS; CPT 43235; principal; 2024-03-05 12:20)
DX: K21.9 Gastro-esophageal reflux disease without esophagitis (principal); E66.9 Obesity, unspecified; Z68.35 Body mass index [BMI] 35.0-35.9, adult; K31.7 Polyp of stomach and duodenum; E03.9 Hypothyroidism, unspecified; I10 Essential (primary) hypertension; G47.30 Sleep apnea, unspecified; F32.A Depression, unspecified; F41.9 Anxiety disorder, unspecified; Z99.89 Dependence on other enabling machines and devices; Z79.899 Other long term (current) drug therapy; Z88.2 Allergy status to sulfonamides
CPT/HCPCS: 43239; 88305; 88313; 88342; J1100; J1596; J2250; J2704

== ENCOUNTER → 2024-03-05 10:41 | Outpatient (BNV) | payer MEDICARE, SELFPAY | PROVIDERS: PCP Internal Medicine; Visit Provider Surgery | DX: K31.7 Polyp of stomach and duodenum (principal) | CPT/HCPCS: 43239 ==

== ENCOUNTER → 2024-03-11 08:15 | Outpatient (BNVA) | payer MEDICARE, SELFPAY | PROVIDERS: PCP Internal Medicine; Visit Provider Counselor Mental Health ==

== ENCOUNTER → 2024-03-11 08:15 | Outpatient (AMB) | payer MEDICARE, SELFPAY ==
--- NOTE | 2024-03-11 08:00 | MHC.WMTHER ---
Intake Intake Visit Reasons: VIDEO BH Intake Allergies Sulfa (Sulfonamide Antibiotics) Allergy (Intermediate, Verified 03/05/24 11:33) rash PFSH Medical History Hypothyroidism GERD (gastroesophageal reflux disease) Anxiety Depression Hypertension Sleep apnea treated with continuous positive airway pressure (CPAP) Surgical History Hx of esophagogastroduodenoscopy Hx of colonoscopy Hx of tubal ligation Family History Mother Lung cancer Brother Throat cancer Sister Colon cancer Maternal Aunt Cancer Breast CA Social History Are you a primary healthcare specialist to a significant other at home: No Do you presently have visiting nurse or other home services: No Alcohol intake: current Alcohol intake frequency: a few times a month Comment: 1 wkly Patient Tobacco Use Status: Never used Tobacco Behavioral Health Assessment Weight Management Therapy Therapy Notes Details PT is a 68 years old Female, who presents for a visit to complete BH assessment as part of surgical weight loss program. Presenting Concerns Referral Source WMP Provider. PT started the program on 02/09/[address] Espinoza Reason for referral Completion of behavioral health assessment as part of process for weight-loss surgery. Precipitating Event Obesity. Living Situation Current Living Situation Rent At risk of losing current housing? No Satisfied with current living situation? Yes Comments PT lives alone. Food/Weight/Diet History/Relationship with weight She has been heavy since her 31 y/0 daughter was born. History/Relationship with dieting Multiple types of diets. 2 years ago started the WMP at [facility], she was not approved by insurance. Tried Phentermine years ago, but had side effects. Got prescribed Semaglutide but insurance did not approved. Social History Family history and relationship PT is since 2004. She has 2 adult daughters who are 31 and 33. Lost her brother last year due to bone cancer, and she has another 2 brothers and 1 sister. Parents . PT recently moved to [place], where she can be close to her family. She has some cousins and her aunt whom she's very close and a close friend who retired. 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 Developmental history and status PT had reading struggles growing up but never diagnosed with anything. Back then there was no IAP or special ed. Support. Social support In regards surgery, Youngest daughter is encouraging her to do this, and a good friend who knows about it. Aunt, daughters, 3 good friends and a close cousin. Community support PCP. Alevism/Spirituality None. Cultural/Ethnic information . Dad was [place] and mother Telugu. Legal Involvement and History Current or historical involvement with the legal system? None reported. Education Highest grade completed Associate's degree in director global medical affairs education Preferred learning style Written, Learn by doing and Visual Currently enrolled in educational program? No Interested in further educational program? No Educational Interests/Skills Volunteers in the [employer] and the [facility] [employer]. 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 She would like to take fun courses like cooking class, jewelry class. 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 ) and Retired (retired in Jun 2022.) Meaningful activities Attends the [employer] Volunteering Likes to sew, make jewelry, likes to go to [employer] and fair markets. Financial Situation Describe current financial situation Comfortable Financial assistance? None (Social security and alf fund. ) Service Service? No Mental Health and Addiction Treatment Current/Past substance abuse? No Comments Alcohol: usually once at week on weekends, usually splits 1 beer with a friend or has 1 glass of winr. Cigarettes/Tobacco: None. Cannabis/Edibles: None. Current/Past addictive behavior concerns? No Psychiatric history She attended counseling for couple years in 2004 as she was going trough divorce and her mom the year before. She was in therapy for about 5 years. At that time she was diagnosed with Depression. She has been taking citalopram 10mg since 2004. Currently she's not in any type of MH treatment and feels she's stable with her medication. Denies ever been in crisis or hospitalized for mental health. Questionnaires PHQ-9 Over the last 2 weeks, how often have you been bothered by any of the following problems? 1. Little interest or pleasure in doing things: more than half the days 2. Feeling down, depressed, or hopeless: several days 3. Trouble falling or staying asleep, or sleeping too much: more than half the days 4. Feeling tired or having little energy: more than half the days 5. Poor appetite or overeating: more than half the days 6. Feeling bad about yourself - or that you are a failure or have let yourself or your family down: more than half the days 7. Trouble concentrating on things, such as reading the newspaper or watching television: more than half the days 8. Moving or speaking so slowly that other people could have noticed. Or the opposite - being so fidgety or restless that you have been moving around a lot more than usual: not at all 9. Thoughts that you would be better off or of hurting yourself in some way: not at all Total score: 13 Depression Screening Interpretation: Positive (Scores from New PT pack - New one will be administered at next visit. ) Depression Screening Done: Yes Source: Developed by Drs. Walter Verdugo, Patricia Jarquin, Renny Brasher and colleagues, with an educational wiley from [employer]. Binge Eating Scale Group 1 A. I don't feel self-conscious about my wt. or body size when I'm with others. B. I feel concerned about how I look to others, but it normally does not make me fell disappointed with myself C. I do get self-conscious about my appearance and wt. which makes me feel disappointed in myself. D. I feel very self-conscious about my wt. and frequently I feel intense shame and disgust for myself. I try to avoid social contacts because of my self-consciousness. Response Group 1: C Group 2 A. I don't have any difficulty eating slowly in the proper manner. B. Although I seem to gobble down foods, I don't end up feeling stuffed because of eating to much. C. At times, I tend to eat quickly and then, I feel uncomfortably full afterwards. D. I have the habit of bolting down my food, without really chewing it. When this happens I usually feel uncomfortably stuffed because I've eaten to much. Response Group 2: C Group 3 A. I feel capable to control my eating urges when I want to. B. I feel like I have failed to control my eating more than the average person. C. I feel utterly helpless when it comes to feeling in control of my eating urges. D. Because I feel so helpless about controlling my eating I have become very desperate about trying to get control. Response Group 3: B Group 4 A. I don't have the habit of eating when I'm bored. B. I sometimes eat when I'm bored, but often I'm able to get busy and get my mind off food. C. I have a regular habit of eating when I'm bored, but occasionally, I can use some other activity to get my mind off eating. D. I have a strong habit of eating when I'm bored. Nothing seems to help me breath the habit. Response Group 4: D Group 5 A. I'm usually physically hungry when I eat something. B. Occasionally, I eat something on impulse even though I really am not hungry. C. I have the regular habit of eating foods, that I might not really enjoy, to satisfy a hungry feeling even though physically, I don't need the food. D. Although I'm not physically hungry, I get a hungry feeling in my mouth that only seems to be satisfied when I eat a food, like sandwich, that fills my mouth. Sometimes, when I eat the food to satisfy my mouth hunger, I then spit the food out so I won't gain weight. Response Group 5: C Group 6 A. I don't feel any guilt or self-hate after I overeat. B. After I overeat, occasionally I feel guilt or self-hate. C. Almost all the time I experience strong guilt or self-hate after I overeat. Response Group 6: B Group 7 A. I don't lose total control of my eating when dieting even after periods when I overeat. B. Sometimes when I eat a forbidden food on a diet, I feel like I blew it and eat even more. C. Frequently, I have the habit of saying to myself, I've blown it now, why not go all the way, when I overeat on a diet. When that happens I eat more. D. I have a regular habit of starting a strict diets for myself but I break the diets by going on an eating binge. My life seems to be either a feast or famine. Response Group 7: B Group 8 A. I rarely eat so much food that I feel uncomfortably stuffed afterwards. B. Usually about once a month, I each such a quantity of food, I end up feeling very stuffed. C. I have regular periods during the month when I eat large amounts of food, either at mealtime or at snacks. D. I eat so much food that I regularly feel quite uncomfortable after eating and sometimes a bit nauseous. Response Group 8: C Group 9 A. My level of calorie intake does not go up very high or go down very low on a regular basis. B. Sometimes after I overeat, I will try to reduce my caloric intake to almost nothing to compensate for the excess calories I've eaten. C. I have a regular habit of overeating during the night. It seems that my routine is not to be hungry in the morning but overeat in the evening. D. In my adult years, I have had week-long periods where I practically starve myself. This follows periods when I overeat. It seems I live a life of either feast or famine. Response Group 9: B Group 10 A. I usually am able to stop eating when I want to. I know when enough is enough. B. Every so often, I experience a compulsion to eat which I can't seem to control. C. Frequently, I experience strong urges to eat which I seem unable to control, but at other times I can control my eating urges. D. I feel incapable of controlling urges to eat. I have a fear of not being able to stop eating voluntarily. Response Group 10: B Group 11 A. I don't have any problem stopping eating when I feel full. B. I usually can stop eating when I feel full but occasionally overeat leaving me feeling uncomfortably stuffed. C. I have a problem stopping eating once I start and usually I feel uncomfortably stuffed after I eat a meal. D. Because I have a problem not being able to stop eating when I want, I sometimes have to induce vomiting to relieve my stuffed feeling. Response Group 11: B Group 12 A. I seem to eat just as much when I'm with others, Family social gatherings as when I'm by myself. B. Sometimes, when I'm with other persons, I don't eat as much as I want to eat because I'm self-conscious about my eating. C. Frequently, I eat only a small amount of food when others are present, because I'm very embarrassed about my eating. D. I feel so ashamed about overeating that I pick times to overeat when I know no one will see me. I feel like a closet eater. Response Group 12: B Group 13 A. I eat three meals a day with only an occasional between meal snack. B. I eat 3 meals a day, but I also normally snack between meals. C. When I am snacking heavily, I get in the habit of skipping regular meals. D. There are regular periods when I seem to be continually eating, with no planned meals. Response Group 13: C Group 14 A. I don't think much about trying to control unwanted eating urges. B. At least some of the time, I feel my thoughts are pre-occupied with trying to control my eating urges. C. I feel that frequently I spend much time thinking about how much I ate or about trying not to eat anymore. D. It seems to me that most of my waking hours are pre-occupied by thoughts about eating or not eating. I feel like I'm constantly struggling not to eat. Response Group 14: B Group 15 A. I don't think about food a great deal. B. I have strong craving for food but they last only for brief periods of time. C. I have days when I can't seem to think about anything else but food. D. Most of my days seem to be pre-occupied with thoughts about food. I feel like I live to eat. Response Group 15: C Group 16 A. I usually know whether or not I'm physically hungry. I take the right portion of food to satisfy me. B. Occasionally, I feel uncertain about knowing whether or not I'm physically hungry. A these times it's hard to know how much food I should take to satisfy me. C. Even though I might know how many calories I should eat, I don't have any idea what is a normal amount of food for me. Response Group 16: B Binge Eating Score: 24 Score less than 17 Minimal Risk Score between 18-26 Moderate Risk Score between 27-46 High Risk Assessment & Plan Assessment & Plan (1) Depression: Code(s): F32.A - Depression, unspecified Qualifiers: Depression Type: unspecified Qualified Code(s): F32.A - Depression, unspecified Plan PT not cleared today as We will meet again on to continue assessment. BES will be reviewed and PHQ9 repeated at next visit. Telehealth Telehealth Telehealth Platform: [employer] Location of provider rendering services: other Location of patient: address on file Patient Identification confirmed using: Name, : Yes Telehealth method: video Patient verbally consented to treatment: Yes Patient verbally consented to billing insurance company: Yes Patient informed of any privacy concerns related to visit: Yes Minutes spent on Phone/Video with Pt.: 60 Coding Level of Care Code New Pt Tele Psy Diag Eval ([id number]) Patient Type New Diagnoses Depression, unspecified depression type F32.A Depression Type: unspecified Time Spent (min) 55 Comment Start time:8:05, End time: 9:00
== END ==
PROVIDERS: PCP Internal Medicine; Visit Provider Counselor Mental Health
DX: F32.A Depression, unspecified (principal)
CPT/HCPCS: 90791

== ENCOUNTER → 2024-03-28 14:59 | Outpatient (BNVA) | payer OTHER, MEDICARE, SELFPAY | PROVIDERS: PCP Internal Medicine; Visit Provider Counselor Mental Health ==

== ENCOUNTER → 2024-03-28 14:59 | Outpatient (AMB) | payer MEDICARE, SELFPAY ==
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
== END ==
LOC: HO.HBST 14:59
PROVIDERS: PCP Internal Medicine; Visit Provider Counselor Mental Health
DX: F32.A Depression, unspecified (principal)
CPT/HCPCS: 90837

== ENCOUNTER 2024-04-01 07:57 | Outpatient (AMB) | payer MEDICARE, SELFPAY ==
--- NOTE | 2024-04-01 09:14 | A.OFFVIS_ITS ---
VS Expanded 04/01/24 09:32 Height 5 ft 3 in Weight 198 lb 4 oz BMI 35.1 Body Fat % 47.1 Body Fat Mass 93.4 Fat Free Mass 105 Visceral Fat Rating 17 Body Water % 36.3 Body Water Mass 72 Basal Metabolic Rate/Score 1,406 Intake Visit Reasons: TV Pre Op LSG 04/10/24 *SEE COMMENTS* Allergies Sulfa (Sulfonamide Antibiotics) Allergy (Intermediate, Verified 04/01/24 09:15) rash Medication List - Last Reconciled 04/01/24 by Juan Thbiodeaux MD amlodipine 5 mg PO DAILY calcium carbonate 500 mg PO DAILY citalopram 10 mg PO DAILY citalopram 20 mg PO DAILY estradiol 0.01%(0.1mg/gram) 1 g vaginal 2XW hydrochlorothiazide 12.5 mg PO DAILY levothyroxine 100 mcg PO DAILY mecobalamin (vitamin B12) 1,000 mcg sublingual DAILY multivitamin 1 tab PO DAILY omeprazole 20 mg PO DAILY ondansetron 4 mg PO Q12H pantoprazole 40 mg PO DAILY polyethylene glycol 3350 17 grams PO DAILY sucralfate 10 mL PO BID HPI HPI TV Pre Op LSG 04/10/24 *SEE COMMENTS*: Details: Start time: 9.05am, End time: 9.35am ?I spent 25 minutes speaking with the patient on the phone plus an additional 5 minutes reviewing and updating records for a total of 30 minutes [facility] Medical History (Updated 03/11/24 @ 12:28 by Loni Almaguer [facility]) Hypothyroidism GERD (gastroesophageal reflux disease) Anxiety Depression Hypertension Sleep apnea treated with continuous positive airway pressure (CPAP) Surgical History (Updated 03/29/24 @ 12:27 by Huma Bishop RN) Hx of esophagogastroduodenoscopy (03/05/24) Hx of colonoscopy Hx of tubal ligation Family History Mother Lung cancer Brother Throat cancer Sister Colon cancer Maternal Aunt Cancer Breast CA Social History Are you a primary patient care technician to a significant other at home: No Do you presently have visiting nurse or other home services: No Alcohol intake: current Alcohol intake frequency: a few times a month Comment: 1 wkly Patient Tobacco Use Status: Never used Tobacco Telehealth Telehealth Telehealth Platform: Telephone Location of provider rendering services: practice address Location of patient: address on file Patient Identification confirmed using: Name, : Yes Telehealth method: voice only Patient verbally consented to treatment: Yes Patient verbally consented to billing insurance company: Yes Patient informed of any privacy concerns related to visit: Yes Minutes spent on Phone/Video with Pt.: 30 Assessment & Plan Assessment & Plan (1) Obesity: Code(s): E66.9 - Obesity, unspecified Category: Medical Qualifiers: Obesity type: due to excess calories Obesity classification: adult class 2 (BMI 35 - 39.9) Serious obesity comorbidity presence: with serious comorbidity Body mass index: BMI 35.0-35.9 Qualified Code(s): E66.01 - Morbid (severe) obesity due to excess calories; Z68.35 - Body mass index [BMI] 35.0- 35.9, adult Plan: 1. Plan for lap sleeve gastrectomy including upper GI endoscopy. All tests has been completed and reviewed and the patient is cleared for the surgery. ?If diaphragmatic or ventral hernias are present at time of surgery, these will be repaired laparoscopically as well. Risks and complications were discussed in detail including possible conversion to an open procedure, anastomotic leak, bleeding requiring transfusion, small bowel obstruction, , DVT and pulmonary embolism, cardiac, or pulmonary complications, as nursing home complications such as anastomotic ulcer, insufficient weight loss and vitamin deficiencies. I emphasized the importance of close follow-up, adherence to instructions and good communication. So far she has proven to be an excellent communicator and very compliant with all our directions accomplishing a great weight loss. I believe that she is an excellent candidate and she is ready. 2. Preop prescriptions were provided and explained the purpose of each one. Need to be purchased preop. Start Pantoprazole now as you get it from the pharmacy, 1 pill per day. Sucralfate and Zofran are for after surgery as needed. 3. Bowel prep: please do 7 packets ?of Miralax mixing each one with a an 8oz glass of water, crystal light, gatorade zero, or propel ?on 04/08/24 and the same amount on 04/09/24. The Miralax you begin with one packet at a time in 8oz water or crystal light, gatorade zero, or propel ?as early in the day as you can and you do them back to back until you finish them. Continue the protein shakes during ?the bowel prep. 4. Needs to purchase 1oz medicine cups . 5. Needs to purchase Children's liquid Tylenol for postop pain control. 6. Avoid aspirin, motrin, Advil, Aleve, Ibuprofen, Naproxyn. Tylenol is OK. 7. She needs to purchase the Celebrate multivitamins from the hospital's gift shop. 8. Will do basic preop blood work-up any day between Monday04/01/24 and Monday04/05/24 fasting for 12 hours and is scheduled to see the Anesthesiologist prior to the day of surgery. 9. Importance of adherence to postop folllow-up and recommendations was underscored and she understands that. 10. Continue to avoid food and bars and continue with 3 Celebrate REBUILD protein shakes (ONE scoop EACH in 8oz almond milk) at 7am-9am, 10am-12pm and 1pm-3pm and two more Celebrate REBUILD protein shakes with TWO scoops in 8oz of almond milk at at 4pm-6pm and 7pm-9pm 11. No soups, broths or V8 12. The patient's?medical?history has been reviewed and they are considered low risk for post op DVT and therefore DVT prophylaxis is not considered necessary. Travel after surgery was reviewed. The patient has not disclosed any travel plans during the first 30 days after surgery and they have been advised that within the first 30 days after surgery any bus, plane, train or car travel over 2 hours in duration is contraindicated due to the possibility of developing blood clots from immobility. Any travel, needs to include periods of ambulation of 10 minutes in duration every 2 hours.? Patient was instructed to discuss any plans for travel during this period with their bariatric surgeon.? 13. Use your CPAP daily and bring it to the hospital with your mask 14. As of tomorrow, please check your blood pressure daily in the morning. If your blood pressure is: Below 120/70: do not take the Amlodipine or Hydrochlorothiazide 121/71 to 135/85: take HALF Amlodipine and HALF Hydrochlorothiazide Over 136/86: take the whole pill of Amlodipine and whole pill of Hydrochlorothiazide 15. Please take at the day of surgery the following medications: Only the Amlodipine and Hydrochlorothiazide if the blood pressure is high enough based on the parameters descibed in the previous bullet number. 16. Stop any control pills and don't use them for one month after surgery 17. Absolutely no smoking or vaping, or marijuana until the surgery and for at least the first 4 weeks. Only nicotine patches are allowed. 18. Send me weight measurements on Saturday 04/28 and then on Monday04/10/24 the day of surgery before you go to the hospital. 19. Avoid any steroids by mouth for any reason. Let me know if someone prescribes them to you 20. These instructions supersede anything else you read in the handbook, anything you watched in videos or classes or you were told by any other provider. If there is any conflict, you follow the above instructions and nothing else. Orders: Orders Comprehensive Met. Panel Today E03.9 - Hypothyroidism, unspecified, E66.01 - Morbid (severe) obesity due to excess calories, G47.30 - Sleep apnea, unspecified, I10 - Essential (primary) hypertension, K21.9 - Gastro-esophageal reflux disease without esophagitis, Z68.35 - Body mass index [BMI] 35.0-35.9, adult Prothrombin Time INR Today E03.9 - Hypothyroidism, unspecified, E66.01 - Morbid (severe) obesity due to excess calories, G47.30 - Sleep apnea, unspecified, I10 - Essential (primary) hypertension, K21.9 - Gastro-esophageal reflux disease without esophagitis, Z68.35 - Body mass index [BMI] 35.0-35.9, adult Hemoglobin A1c Today E03.9 - Hypothyroidism, unspecified, E66.01 - Morbid (severe) obesity due to excess calories, G47.30 - Sleep apnea, unspecified, I10 - Essential (primary) hypertension, K21.9 - Gastro-esophageal reflux disease without esophagitis, Z68.35 - Body mass index [BMI] 35.0-35.9, adult Lipid Panel Today E03.9 - Hypothyroidism, unspecified, E66.01 - Morbid (severe) obesity due to excess calories, G47.30 - Sleep apnea, unspecified, I10 - Essential (primary) hypertension, K21.9 - Gastro-esophageal reflux disease without esophagitis, Z68.35 - Body mass index [BMI] 35.0-35.9, adult C Reactive Protein Today E03.9 - Hypothyroidism, unspecified, E66.01 - Morbid (severe) obesity due to excess calories, G47.30 - Sleep apnea, unspecified, I10 - Essential (primary) hypertension, K21.9 - Gastro-esophageal reflux disease without esophagitis, Z68.35 - Body mass index [BMI] 35.0-35.9, adult Complete Blood Count Auto Diff Today E03.9 - Hypothyroidism, unspecified, E66.01 - Morbid (severe) obesity due to excess calories, G47.30 - Sleep apnea, unspecified, I10 - Essential (primary) hypertension, K21.9 - Gastro-esophageal reflux disease without esophagitis, Z68.35 - Body mass index [BMI] 35.0-35.9, adult TSH reflex Free T4 Today E03.9 - Hypothyroidism, unspecified, E66.01 - Morbid (severe) obesity due to excess calories, G47.30 - Sleep apnea, unspecified, I10 - Essential (primary) hypertension, K21.9 - Gastro-esophageal reflux disease without esophagitis, Z68.35 - Body mass index [BMI] 35.0-35.9, adult Type and Screen Today E03.9 - Hypothyroidism, unspecified, E66.01 - Morbid (severe) obesity due to excess calories, G47.30 - Sleep apnea, unspecified, I10 - Essential (primary) hypertension, K21.9 - Gastro-esophageal reflux disease without esophagitis, Z68.35 - Body mass index [BMI] 35.0-35.9, adult Partial Thromboplastin Time Today E03.9 - Hypothyroidism, unspecified, E66.01 - Morbid (severe) obesity due to excess calories, G47.30 - Sleep apnea, unspecified, I10 - Essential (primary) hypertension, K21.9 - Gastro-esophageal reflux disease without esophagitis, Z68.35 - Body mass index [BMI] 35.0-35.9, adult Insulin Today E03.9 - Hypothyroidism, unspecified, E66.01 - Morbid (severe) obesity due to excess calories, G47.30 - Sleep apnea, unspecified, I10 - Essential (primary) hypertension, K21.9 - Gastro-esophageal reflux disease without esophagitis, Z68.35 - Body mass index [BMI] 35.0-35.9, adult Medications: New sucralfate 10 mL PO BID 600 mL 2RF K21.9 - Gastro-esophageal reflux disease without esophagitis polyethylene glycol 3350 Mix each measuring cup with 8oz of water, Crystal light, or Gatorade zero, or Propel and do 7 measuring cups on 04/08/24 and another 7 measuring cups on 04/09/24 17 grams PO DAILY 238 grams 0RF Z01.818 - Encounter for other preprocedural examination pantoprazole 40 mg PO DAILY 90 tabs 0RF K21.9 - Gastro-esophageal reflux diseas e without esophagitis ondansetron Only take one every 12 hours as needed if you have nausea 4 mg PO Q12H 20 tabs 0RF nausea and vomiting R11.0 - Nausea
[2024-04-01 09:32] VITALS: BMI 35.1
== END 2024-04-01 09:36 | disposition home or self-care (01) ==
LOC: HO.HBS 07:57
PROVIDERS: PCP Internal Medicine; Visit Provider Surgery
DX: E66.01 Morbid (severe) obesity due to excess calories (principal); Z68.35 Body mass index [BMI] 35.0-35.9, adult
CPT/HCPCS: 99443

== ENCOUNTER 2024-04-01 10:00 | Outpatient (REF) | payer MEDICARE, SELFPAY ==
--- NOTE | ~2024-04-01 | FL_ITS ---
EXAMINATION: XR FLUOROSCOPY UPPER GI WITH AIR CLINICAL INFORMATION: Preoperative evaluation prior to bariatric surgery. COMPARISON: None TECHNIQUE: Fluoroscopic air contrast upper GI examination was performed utilizing standard techniques with thin and thick barium and effervescent granules. Numerous spot images were obtained. FINDINGS: Dual and single contrast images of the esophagus demonstrate normal caliber, contour, and mucosal pattern. No evidence of stricture, mass, or ulcerations identified. Esophageal peristalsis was normal. A small type I hiatal hernia is present. No significant gastroesophageal reflux was seen during the course of the examination and on reflux views. Dual contrast and single contrast images of the stomach demonstrated a normal contour. The gastric rugal folds have a thickened appearance, suggestive of gastritis. There is a small well-circumscribed filling defect in the body the stomach that likely represents a gastric polyp. No masses or ulcerations are seen. Contrast freely passed into the gastric antrum and duodenal bulb without delay. Single and air-contrast images of the duodenal bulb demonstrate no abnormality. The duodenal sweep has a normal appearance, course, and mucosal fold appearance. The imaged proximal jejunum has a normal fold pattern and caliber. FLUOROSCOPY TIME: 5 minutes 3 seconds Number of Spot Images: 6 Number of Cine: 16 DOSE AREA PRODUCT: 4144 uGy-m2 (microgray-meter squared) FL/FL upper GI w air IMPRESSION: 1. Small type I hiatal hernia. 2. Thickened appearance the gastric rugal folds, suggestive of gastritis. 3. Small well-circumscribed filling defect in the body the stomach that likely represents a gastric polyp. Recommend correlation with EGD. This procedure was performed by Matteo Elliott PA-C, and supervised by Dr. Michaels Electronically signed by: Vidal Michaels MD 04/04/2024 03:12 PM EDT
[2024-04-01 11:17] LABS: MANUAL DIFF FLAG NO
[2024-04-01 11:44] LABS: Basophils Absolute Auto 0.1 X10*3/uL (0.0-0.2); Basophils Percent Auto 0.8 % (0-2); Eosinophils Absolute Auto 0.2 X10*3/uL (0.0-0.4); Imm Gran Abs Auto 0.02 X10*3/uL (0.00-0.03); Imm Gran Pct Auto 0.3 % (0.0-0.4); Lymphocytes Absolute Auto 2.1 X10*3/uL (1.2-4.9); Lymphocytes Percent Auto 26.4 % (20-40); Mean Corpuscular HGB Conc 34.2 g/dl (31.0-35.0); Mean Corpuscular Hemoglobin 30.5 pg (27.0-33.0); Mean Corpuscular Volume 89.2 fL (80.0-98.0); Mean Platelet Volume 11.2 fL (9.4-12.3); Monocytes Absolute Auto 0.6 X10*3/uL (0.1-1.2); Monocytes Percent Auto 8.1 % (2-11); Neutrophils Percent Auto 62.4 % (45-73); Platelet Count 213 X10*3/uL (160-400); Red Blood Count 4.26 X10*6/uL (4.20-5.50); Red Cell Distribution Width 12.8 % (11.0-16.0); White Blood Count 7.9 X10*3/uL (4.8-10.8)
[2024-04-01 11:46] LABS: Prothrombin Time 11.9 SEC (10.9-12.4)
[2024-04-01 11:49] LABS: Partial Thromboplastin Time 33.5 SEC (26.0-36.8)
[2024-04-01 11:56] LABS: Estimated Average Glucose 108 mg/dL; Hemoglobin A1C 117.8306 umol/L; Hemoglobin A1c % 5.4 % (<6.0); Total Hemoglobin (HGBA1C) 3284.0897 umol/L
[2024-04-01 12:49] LABS: Alanine Aminotransferase 19 U/L (0-31); Albumin Level 4.4 g/dL (3.5-5.0); Alkaline Phosphatase 59 U/L (39-117); Anion Gap 13 (12-20); Aspartate Amino Transferase 22 U/L (5-31); Bilirubin Total 0.5 mg/dL (0.0-1.0); Blood Urea Nitrogen 17 mg/dL (9-16); C Reactive Protein 1.12 mg/dL (< or = 0.50); Carbon Dioxide 26 mmol/L (22-29); Chloride 104 mmol/L (96-108); Cholesterol 238 mg/dL (<200); Estimated Glomerular Filt Rate > 60; Glucose Random 97 mg/dL (60-115); HDL Cholesterol 55 mg/dL (>40); LDL Cholesterol Calculated 159 mg/dL (<100); Potassium 3.6 mmol/L (3.3-5.1); Sodium 139 mmol/L (135-145); Total Protein 8.1 g/dL (6.5-8.0); Triglycerides 120 mg/dL (<150)
[2024-04-01 12:58] LABS: Insulin 12 uU/mL (2-29); TSH reflex Free T4 0.87 uIU/mL (0.32-4.0)
== END 2024-04-01 10:01 | disposition home or self-care (01) ==
LOC: HO.XRAY 10:00
PROVIDERS: PCP Internal Medicine; Visit Provider Surgery
DX: Z01.818 Encounter for other preprocedural examination (principal); Z13.1 Encounter for screening for diabetes mellitus; E66.9 Obesity, unspecified; Z68.35 Body mass index [BMI] 35.0-35.9, adult; G47.30 Sleep apnea, unspecified; I10 Essential (primary) hypertension; K21.9 Gastro-esophageal reflux disease without esophagitis; E03.9 Hypothyroidism, unspecified
CPT/HCPCS: 36415; 74246; 80053; 80061; 83036; 83525; 84443; 85025; 85610; 85730; 86140

== ENCOUNTER → 2024-04-01 10:08 | Outpatient (BNV) | payer MEDICARE, SELFPAY | PROVIDERS: PCP Internal Medicine; Visit Provider Physician Assistant Surgical | DX: K31.7 Polyp of stomach and duodenum (principal) | CPT/HCPCS: 74246 ==

== ENCOUNTER 2024-04-10 06:07 | Inpatient (IN) | payer MEDICARE, SELFPAY ==
[2024-04-01 15:22] VITALS: BMI 34.5
--- NOTE | 2024-04-08 14:48 | HO.ANESPROP2 ---
Documented by User: Anni Stafford NP 04/08/24 14:49 HPI - Anesthesia Eval Consult details Narrative: 68yo F for Gastrectomy Sleeve,EGD,possibel Diaphragmatic Hernia,possible Ventral Hernia,possible Open PMFSH Active Problems Active Problems: All Active Problems BMI 35.0-35.9,adult (Acute) Obesity (Acute) Hypothyroidism (Acute) GERD (gastroesophageal reflux disease) (Acute) Anxiety (Acute) Depression (Acute) Hypertension (Acute) Sleep apnea treated with continuous positive airway pressure (CPAP) (Acute) Past Medical History Medical History Presence of pessary Back pain History of one miscarriage Hypothyroidism GERD (gastroesophageal reflux disease) Anxiety Depression Hypertension Sleep apnea treated with continuous positive airway pressure (CPAP) Family History Family History Mother Lung cancer Brother Throat cancer Sister Colon cancer PONV (postoperative nausea and vomiting) Maternal Aunt Breast CA Cancer Family history of problems with anesthesia: No Surgical History Surgical History Hx of wisdom tooth extraction Hx of dilation and curettage Hx of esophagogastroduodenoscopy (03/05/24) Hx of colonoscopy Hx of tubal ligation History of Problems with Anesthesia: No Social History Social History Household Members: None Housing: Apartment Are you a primary patient care technician instructor to a significant other at home: No Do you presently have visiting nurse or other home services: No Alcohol intake: current Alcohol intake frequency: a few times a month Comment: 1 wkly Patient Tobacco Use Status: Never used Tobacco e-Cigarette/Vaping Use: Never Used Use of substances other than those prescribed or required for medical reasons: No Have you been hit, kicked, punched, or otherwise hurt by someone within the past year? If so, by whom?: No Are you DNR?: No Advance Directives: No Advance Directives Information Provided: Yes Advance Directives on File: No Recently lost weight without trying: No Nutrition Risks: No Nutritional Risk Poor oral hygiene: No Meds Allergies Allergy/AdvReac Type Severity Reaction Status Date / Time Sulfa (Sulfonamide Allergy Intermediate rash Verified 04/01/24 09:15 Antibiotics) Home Medications ?Medication ?Instructions ?Recorded ?Confirmed ?Last Taken ?Type amlodipine 5 mg tablet 5 mg PO DAILY 01/15/24 04/01/24 03/04/24 History calcium carbonate 500 mg PO DAILY 01/15/24 04/01/24 Unknown History citalopram 10 mg tablet 10 mg PO DAILY 01/15/24 04/01/24 Unknown History citalopram 20 mg tablet 20 mg PO DAILY 01/15/24 04/01/24 Unknown History levothyroxine 100 mcg tablet 100 mcg PO DAILY 01/15/24 04/01/24 Unknown History multivitamin 1 tab PO DAILY 01/15/24 04/01/24 Unknown History omeprazole 20 mg capsule,delayed 20 mg PO DAILY 01/15/24 04/01/24 Unknown History release hydrochlorothiazide 12.5 mg tablet 12.5 mg PO DAILY 02/09/24 04/01/24 03/04/24 History ondansetron 4 mg disintegrating 4 mg PO Q12H PRN nausea and 04/10/24 04/01/24 Unknown History tablet vomiting pantoprazole 40 mg tablet,delayed 40 mg PO DAILY@0630 04/10/24 04/10/24 Unknown History release Exam Height,Weight and Vital Signs: Height 5 ft 3.5 in Weight 89.811 kg Pertinent Lab Results Pertinent Lab Results: Laboratory Tests 04/01/24 10:57 Blood Type A Positive Antibody Screen NEGATIVE Laboratory Tests 04/01/24 11:16 WBC 7.9 Hgb 13.0 Hct 38.0 Plt Count 213 Sodium 139 Potassium 3.6 Chloride 104 Carbon Dioxide 26 BUN 17 H Creatinine 0.78 Narrative Narrative: EKG 02/2024 Vent. Rate : 060 BPM Atrial Rate : 060 BPM P-R Int : 168 ms QRS Dur : 090 ms QT Int : 436 ms P-R-T Axes : 034 004 030 degrees QTc Int : 436 ms Normal sinus rhythm Minimal voltage criteria for LVH, may be normal variant ( R in aVL ) Borderline ECG No previous ECGs available Assessment and Plan Assessment Anesthesia Assessment: Chart Reviewed Final Anesthetic Review Family History of Problems with Anesthesia: No History of Problems with Anesthesia: No Documented by User: Emi Bran MD 04/10/24 07:31 HPI - Anesthesia Eval Consult details Narrative: 68yo F for EGD, LapRoscopic Sleeve Gastrectomy, possibel Diaphragmatic Hernia repair,possible Ventral Hernia repair, possible Open PMFSH Past Medical History Medical History Presence of pessary Back pain History of one miscarriage Hypothyroidism GERD (gastroesophageal reflux disease) Anxiety Depression Hypertension Sleep apnea treated with continuous positive airway pressure (CPAP) Family History Family History Mother Lung cancer Brother Throat cancer Sister Colon cancer PONV (postoperative nausea and vomiting) Maternal Aunt Breast CA Cancer Family history of problems with anesthesia: No Surgical History Surgical History Hx of wisdom tooth extraction Hx of dilation and curettage Hx of esophagogastroduodenoscopy (03/05/24) Hx of colonoscopy Hx of tubal ligation History of Problems with Anesthesia: No Social History Social History Household Members: None Housing: Apartment Are you a primary patient care technician instructor to a significant other at home: No Do you presently have visiting nurse or other home services: No Alcohol intake: current Alcohol intake frequency: a few times a month Comment: 1 wkly Patient Tobacco Use Status: Never used Tobacco e-Cigarette/Vaping Use: Never Used Use of substances other than those prescribed or required for medical reasons: No Have you been hit, kicked, punched, or otherwise hurt by someone within the past year? If so, by whom?: No Are you DNR?: No Advance Directives: No Advance Directives Information Provided: Yes Advance Directives on File: No Recently lost weight without trying: No Nutrition Risks: No Nutritional Risk Poor oral hygiene: No Meds Allergies Allergy/AdvReac Type Severity Reaction Status Date / Time Sulfa (Sulfonamide Allergy Intermediate rash Verified 04/01/24 09:15 Antibiotics) Home Medications ?Medication ?Instructions ?Recorded ?Confirmed ?Last Taken ?Type amlodipine 5 mg tablet 5 mg PO DAILY 01/15/24 04/01/24 03/04/24 History calcium carbonate 500 mg PO DAILY 01/15/24 04/01/24 Unknown History citalopram 10 mg tablet 10 mg PO DAILY 01/15/24 04/01/24 Unknown History citalopram 20 mg tablet 20 mg PO DAILY 01/15/24 04/01/24 Unknown History levothyroxine 100 mcg tablet 100 mcg PO DAILY 01/15/24 04/01/24 Unknown History multivitamin 1 tab PO DAILY 01/15/24 04/01/24 Unknown History omeprazole 20 mg capsule,delayed 20 mg PO DAILY 01/15/24 04/01/24 Unknown History release hydrochlorothiazide 12.5 mg tablet 12.5 mg PO DAILY 02/09/24 04/01/24 03/04/24 History ondansetron 4 mg disintegrating 4 mg PO Q12H PRN nausea and 04/10/24 04/01/24 Unknown History tablet vomiting pantoprazole 40 mg tablet,delayed 40 mg PO DAILY@0630 04/10/24 04/10/24 Unknown History release Exam Height,Weight and Vital Signs: Height 5 ft 3.5 in Weight 89.811 kg Vital Signs Temp Pulse Resp BP Pulse Ox O2 Del Method 04/10/24 06:27 96.8 F 77 16 134/78 96 Room Air Airway Mallampati Class: II TM Dist: >3cm Neck ROM: Full Loose/Missing/Broken Teeth: Yes (Teeth extracted. Denies broken or loose teeth) Heart: RRR Lungs: CTAB Assessment and Plan Assessment Anesthesia Assessment: Anesthesia Plan Discussed and Chart Reviewed Final Anesthetic Review Family History of Problems with Anesthesia: No History of Problems with Anesthesia: No NPO: Yes ASA Class: III Final Preanesthetic Review: No Changes in Pt Med Stat, Meds/Allgs Chart Reviewed, Consent Obtained/Reviewed and Anes Risks/Benef Reviewed Patient Risk: Intermediate Procedure Risk: Intermediate Assessment/Block/Sedation in SS: Assess/Block/Sedation-SS Anesthetic Plan Anesthetic Plan: GA Disposition: Standard PACU and Inp. Admit - Standard Bed
[2024-04-10] VITALS (12 sets, daily range): BP systolic 117–134; BP diastolic 58–78; PULSE 63–77; RESP 10–20; TEMP 36–36.4; O2SAT 93–98; BMI 33.0
[2024-04-10] MEDS: Lactated Ringers 1,000 ML 999 ML IV (06:48)
[2024-04-10] MEDS: Aprepitant 32 MG/4.4 ML VIAL IVPUSH (06:54)
--- NOTE | 2024-04-10 07:34 | MHC.SHP ---
Pre-Procedural Eval Section A - 24 Hr Update-Section A only Date of Service: 04/10/24 The patient is an INPATIENT: Yes The patient has been examined within 24 hours of the surgical procedure. The History & Physical has been completed within 30 days and I have reviewed it.: Yes Section B - Complete if H&P > 30 days Chief Complaint: Obesity Relevant Family History (Specify if Yes): No Relevant Social History: None Present Medications: None Medical History: No relevant PMH History of Previous Operations: No relevant previous surgery Allergies: Allergies Allergy/AdvReac Type Severity Reaction Status Date / Time Sulfa (Sulfonamide Allergy Intermediate rash Verified 04/01/24 09:15 Antibiotics) Review of Systems Sugical H&P ROS: Negative: Constitution, Cardiovascular, Respiratory, Neurological, Psychiatric, Hem-Onc, Allergic/Immunologic, Gastrointestinal, Genitourinary, Musculoskeletal, Integumentary, Endocrine and Eyes/Ears/Nose/Throat Exam Surgical H&P Exam: Normal: HEENT, Normal: Heart, Normal: Lungs, Normal: Extremities, Normal: Abdomen, Normal: Skin and Normal: Neurological Plan Diagnosis/Plan: Unchanged I have reviewed the history and physical and performed a pertinent physical examination on my patient. No changes have occurred unless specified. Time Spent With Patient Time: Total time managing care of this patient today ____ minutes.
[2024-04-10] MEDS: ceFAZolin Sodium/Dextrose,Iso 2 GM/50 ML PIGGYBACK IV ×2 (07:50→13:21)
[2024-04-10] MEDS: Acetaminophen 1,000 MG/100 ML PIGGYBACK 400 MG IV (09:45)
[2024-04-10] MEDS: Haloperidol Lactate 5 MG/ML VIAL 1 MG IVPUSH (10:24)
--- NOTE | 2024-04-10 10:24 | PM.OP ---
Brief Operative Note Date of Service: 04/10/24 Pre-op diagnosis: Severe obesity with a BMI of 35 kg/m2 and comorbidities (see below) Post-op diagnosis: same Procedure: INITIAL PATIENT BMI ON PRESENTATION AT OUR OFFICE: 35 kg/m2 LAST BMI BEFORE SURGERY: 35 kg/m2 COMORBIDITIES: hypertension, sleep apnea on CPAP, depression, anxiety, GERD, hypothyroidism, liver steatosis PROCEDURE: Esophago-gastroscopy, laparoscopic lysis of adhesions, laparoscopic sleeve gastrectomy and laparoscopic gastropexy INDICATIONS: This is a 68 year-old female who was electively scheduled for laparoscopic, possibly open sleeve gastrectomy. The risks and complications of the procedure were discussed with the patient in advance, particularly the possibility of ; pulmonary embolism; staple line leak; bleeding; GERD; cardiac, pulmonary, or renal complications; as well as long-term problems such as insufficient weight loss, vitamin deficiency, strictures, or ulcers. The patient understood all the risks, and was in agreement to proceed with surgery. DESCRIPTION OF PROCEDURE: After informed consent was obtained from the patient, the patient was given preoperative antibiotics, and was transferred to the operating room. After successful induction of general anesthesia, pneumatic compression devices were placed on both lower extremities. An upper endoscopy was performed next. The oropharynx and esophagus appeared to be within normal limits. There was no diaphragmatic hernia present consistent with the findings of the preoperative upper GI. The stomach was entered. Then after all fluid and air were suctioned and the stomach was fully decompressed, the scope was withdrawn and secured in the mid esophagus. The patient was then prepped and draped in the usual sterile manner, and abdominal access was established at the right upper quadrant with the Ely technique. A 12 mm blunt port was inserted, and the abdomen was insufflated with CO2 to a pressure of 15 mmHg. Under direct visualization, additional ports were placed, specifically two 5 mm Versi-step ports to the left upper quadrant, and a 5 mm Versi-Step port to the right upper quadrant. 1% lidocaine plain was used to infiltrate all port sites as well as all fascia defects. Using the EndoClose suture passer device, I placed a #1 Polysorb tie across the falciform ligament in order to retract it up against the abdominal wall and prevent injury of the ligament with our instruments during the procedure. Following that, the patient was placed in a steep reverse Trendelenburg position. An additional 5 mm port was placed to the right flank for the Mediflex retractor that was used to retract the left lobe of the liver. The gastro-esophageal fat pad was opened with the ultrasonic device (Thunderbeat, Olympus) and the anterior esophagus and hiatus were exposed. The angle of His was opened with the ultrasonic device the fundus of the stomach from any diaphragmatic and splenic attachments. I then opened the gastrocolic ligament between the transverse colon and the greater curvature of the stomach with the ultrasonic device to enter the lesser sac and facilitate the ligation of the short gastric vessels. I started at a mid-point along the greater curvature and using the Thunderbeat, all short gastric vessels were divided all the way to the angle of His until the left jass was completely dissected at its entirety. I then divided the gastro-colic ligament distally to a distance of about 3-4 cm proximal to the pylorus. There were extensive congenital adhesions between the pancreas and posterior gastric wall. Those were lysed completely with the ultrasonic device. Adhesiolysis took approximately 45 min to complete. The stomach was then divided transversely with two Endo AMADO-45 purple and four AMADO-60 articulating purple loads using the [employer] stapler and loads. Every effort was made that the gastric sleeve had a tubular shape and an even caliber throughout. Once the sleeve resection was completed, the staple line of the gastric sleeve was reinforced with Hemoclips. The resected stomach was retrieved without difficulty from the Ely port. A gastropexy was then performed in order to prevent postoperative GERD and partial gastric volvulus. Several interrupted 2.0 Surgidac sutures were placed between the sleeve's staple line and the previously divided greater omentum and gastro-colic ligament using the Endo-Stitch device. ?An upper endoscopy was performed. There was no narrowing at the GE junction. The scope was easily advanced all the way to the pylorus which was clearly visualized. There was no narrowing anywhere and the sleeve's caliber was even throughout. The sleeve's staple line was inspected and there was no evidence of ischemia, bleeding or dehiscence. At that point the gastroscope was withdrawn from the patient?s mouth while we were decompressing the bowel and the stomach from any remaining air. I looked into the lesser sac to see how the sleeve was situating and it was situating well. There was no bleeding from the staple line, spleen, or short gastric vessels. The Mediflex retractor was removed, and the undersurface of the liver was inspected and there was no bleeding. The patient was placed in supine position. I closed the fascial defect of the 12 mm port site with a figure of eight #1 Polysorb suture. Then 30cc Ropivacaine plain with 10 mg of Dexamethasone were used to infiltrate the fascial closure as well as all skin incisions. At this point, the abdomen was deflated, all ports were removed under direct vision, and no bleeding was noted from any of the port sites. The skin incisions were irrigated with saline and were closed with 4-0 absorbable monofilament sutures. Steri-Strips and OpSites were used to cover all incisions. The patient was extubated and was transferred in stable condition to the recovery room for further care. I was present and performed all cline parts of the procedure. Ms. Ceron was the salon shampoo assistant. There were no residents to assist with this case. Ramez Thibodeaux MD, PhD, FACS Surgeon: Juan Thibodeaux MD Anesthesia: GETA, local and other (TAP block) Was an Compensation Specialist used for this Procedure?: Yes Compensation Specialist: Marlin Ceron Estimated blood loss (mL): 10 IV fluids (mL): 2,000 Urine output (mL): 0 (No Victoria to record output) Pathology: other (1) Stomach, 2) fat pad x2) Condition: stable Disposition: PACU
--- NOTE | 2024-04-10 10:32 | P.PNGS_ITS ---
Subjective Subjective Date of Service: 04/11/24 Interval history: Feels well. Mild incisional pain. She is tolerating phase 1 bariatric diet Physical Exam 2 Vital Signs: Vital Signs: Last Vital Signs Temp 97.5 F 04/10/24 10:19 Pulse 72 04/10/24 10:24 Resp 11 L 04/10/24 10:24 BP 117/71 04/10/24 10:24 Pulse Ox 94 04/10/24 10:24 O2 Del Method Nasal Cannula wit h Capnography 04/10/24 10:24 O2 Flow Rate 2 04/10/24 10:24 BMI result Body Mass Index 33.0 GI: Inspection: Yes normal to inspection, Yes incision (clean, dry and intact) and Yes obesity Palpation (GI): Soft to palpation Extrem: Right lower extremity: normal to inspection (no calf tenderness) L eft lower extremity: normal to inspection (no calf tenderness) Objective Data Active Medications Fentanyl (Fentanyl Citrate/Pf 100 Mcg/2 Ml Vial) 25 mcg IVPUSH Q5M PRN PRN Reason: Pain, Moderate to Severe (Pain Scale 4-10) Stop: 04/10/24 13:32 Hydromorphone HCl (Hydromorphone Hcl 0.5 Mg/0.5 Ml Syringe) 0.25 mg IVPUSH Q5M PRN PRN Reason: Pain, Moderate to Severe (Pain Scale 4-10) Stop: 04/10/24 13:32 Lactated Ringer's (Lr) 1,000 mls @ 100 mls/hr IVCONT .Q10H PATRICK Last Admin: 04/10/24 06:48 Dose: Not Given Documented By: RUMA Non-Admin Reason: Duplicate Order Labs 04/11/24 05:39 04/10/24 10:47 Procedures Date of Service Date of Service: 04/11/24 Progress Note: A&P Assessment and plan (1) Obesity: Status: Acute Assessment and Plan: s/p laparoscopic sleeve gastrectomy, lysis of adhesions, diaphragmatic hernia repair and gastropexy Doing well Will check am labs and if OK the patient will be discharged home (2) BMI 35.0-35.9,adult: Status: Acute (3) Hypothyroidism: Status: Acute (4) Hypertension: Status: Acute (5) Anxiety: Status: Acute (6) Depression: Status: Acute (7) GERD (gastroesophageal reflux disease): Status: Acute (8) Sleep apnea treated with continuous positive airway pressure (CPAP): Status: Acute (9) Fatty liver: Status: Acute (10) Hepatomegaly: Status: Acute (11) Congenital intra-abdominal adhesions: Status: Acute (12) S/P laparoscopic sleeve gastrectomy: Status: Acute Time Spent With Patient Time: Total time managing care of this patient today ____ minutes. Quality Stroke Does the patient have a stroke diagnosis?: No VTE Prior VTE?: No VTE Risk Level:: Surgical - moderate VTE Device Contraindication: N/A - Device Ordered VTE Drug Contraindication: Treatment Not Indicated
--- NOTE | 2024-04-10 10:36 | P.DS_ITS ---
DS: Providers Provider Date of Service: 04/11/24 Date of admission: 04/10/24 06:07 Primary care physician: Hector Soares DO, MD DS: Diagnosis Discharge Diagnosis (1) Obesity: Status: Acute (2) BMI 35.0-35.9,adult: Status: Acute (3) Hypothyroidism: Status: Acute (4) Hypertension: Status: Acute (5) Anxiety: Status: Acute (6) Depression: Status: Acute (7) GERD (gastroesophageal reflux disease): Status: Acute (8) Sleep apnea treated with continuous positive airway pressure (CPAP): Status: Acute (9) Fatty liver: Status: Acute (10) Hepatomegaly: Status: Acute (11) Congenital intra-abdominal adhesions: Status: Acute (12) S/P laparoscopic sleeve gastrectomy: Status: Acute DS: Summary Hospital Course Hospital Course: ADMITTING DIAGNOSIS: morbid obesity,?fatty liver, hypothyroidism, HTN, TOM, GERD, anxiety, depression ? DISCHARGE DIAGNOSIS: same, s/p laparoscopic sleeve gastrectomy and gastropexy ? PAST SURGICAL HISTORY:? Hx of esophagogastroduodenoscopy Hx of colonoscopy Hx of tubal ligation ? PROCEDURE: upper endoscopy, laparoscopic sleeve gastrectomy and repair of diaphragmatic hernia hernia ? DISCHARGE SUMMARY: ? History of Present Illness: ? The patient is a?68 year-old woman with a BMI of?33 kg/m2 and associated co- morbidities as described above. The patient had extensive work-up, lost?12.2 lbs preoperatively and was electively scheduled for laparoscopic, possible open sleeve gastrectomy and gastropexy. Risks and complications of the surgery were discussed with the patient in advance, particularly the possibility of , p ulmonary embolism, anastomotic leak, bleeding, bowel injury, GERD, cardiac, renal or pulmonary complications. The patient understood all the risks and was in agreement with the surgical plan. ? Hospital Course: ? The patient underwent an uneventful laparoscopic sleeve gastrectomy with gastropexy on the day of admission. Postoperatively, the patient was transferred to the surgical floor. The patient received IV Acetaminophen and IV dilaudid for pain control. Patient was started on bariatric phase 1 diet POD #0. On postoperative day one, the patient was feeling well without nausea, vomiting, fevers, or tachycardia. The patient had some mild incisional pain and the abdomen was soft.? ? On the morning of postoperative day one, the patient was continued on 1 ounce of water or ice every half hour. During the day, the patient did fairly well, having some incisional pain, but able to ambulate adequately and to tolerate liquids well. ? Since the patient is doing well, we decided that the patient was ready to be discharged. The patient was given instructions to follow-up with me next week and to call my office for any fever over 101, persistent abdominal pain, nausea, vomiting, GERD, symptoms of DVT such as calf tenderness, or leg swelling, or pulmonary embolism such as chest pain or shortness of breath.? The patient was also instructed to drink 40-60 ounces of liquids per day using the 1-ounce cups. The patient had been given prescriptions for Tylenol for pain, Zofran prn for nausea, and pantoprazole and carafate previously. The patient was encouraged to ambulate and use the incentive spirometer. The patient was allowed to shower, but no baths, and encouraged to stay active at home. All of these instructions were given to the patient personally. All questions were answered and the patient understood all instructions, the instructions were also given to the patient in print. Time Attestation Discharge Coordination Time (in mins): 30 Quality: Safe Use of Opioids Does Pt have an Active Cancer Diagnosis on the Problem List?: No Quality: Stroke Does the patient have a stroke diagnosis?: No Physical Exam Vital Signs: Vital Signs: Last Vital Signs Temp 97.5 F 04/10/24 10:19 Pulse 67 04/10/24 10:34 Resp 10 L 04/10/24 10:34 BP 117/65 04/10/24 10:34 Pulse Ox 96 04/10/24 10:34 O2 Del Method Nasal Cannula wit h Capnography 04/10/24 10:34 O2 Flow Rate 3 04/10/24 10:34 BMI result Body Mass Index 33.0 DS: Data Data Completed and Pending Pending studies at discharge: Pending at discharge 04/10/24 10:07 Surgical [PTH] Routine Discharge Plan Discharge Anticipated Discharge Date/Time: 04/11/24 10:00 Patient Disposition: Home, Self-Care Discharge Diagnosis: s/p laparoscopic sleeve gastrectomy with gastropexy Referrals: Hector Soares DO, MD [Primary Care Provider] - 1 Week Discharge Medications: Continued pantoprazole 40 mg tablet,delayed release (DR/EC) 40 mg PO DAILY@0630 levothyroxine 100 mcg tablet 100 mcg PO DAILY citalopram 10 mg tablet 10 mg PO DAILY citalopram 20 mg tablet 20 mg PO DAILY Held amlodipine 5 mg tablet 5 mg PO DAILY Hold Instructions: Resume on 04/12/24. Check your blood pressure every morning as soon as you wake up and send it to Dr. Thibodeaux. Do no take the blood pressure medication if the blood pressure is below 120/70. Wait every day to hear back from Dr. Thibodeaux before you take the medication. Discontinued mecobalamin (vitamin B12) 1,000 mcg tablet,disintegrating 1,000 mcg sublingual DAILY Qty: 90 0RF Rx Instructions: place tablet under tongue and allow to dissolve for at least30 secs before swallowing calcium carbonate 500 mg calcium (1,250 mg) tablet 500 mg PO DAILY multivitamin Tablet 1 tab PO DAILY hydrochlorothiazide 12.5 mg tablet 12.5 mg PO DAILY Discharge Orders: Discharge Order (Routine); Ordered 04/11/24 Ordered By: Juan Thibodeaux Activity on Discharge: No heavy lifting Stand Alone Forms: Patient Portal Discharge page Print Language: Welsh Care Plan Goals: weight loss Health Concerns: obesity Plan of Treatment: No tub baths, sex or returning to work until discussed at first post op appointment. No alcohol, tobacco or illegal drug use. Continue to use incentive spirometer hourly while awake. Walk in home for 5- 10 minutes every 2 hours during the first week. Wear abdominal binder with activity. Follow all meal plan instructions from your bariatric surgeon. Review bariatric handbook and call with any questions. Discharge Instructions 1. Please call your doctor or come back to the emergency room should any new symptoms arise. 2. Activity: abstain from alcohol,? limited stair climbing, no bending, no driving, no exercise, no illicit substances, no lifting, no sex, no tub bath, no work. 4. Diet: follow your bariatric surgeons recommendations for advancing diet. 5. Dressing Change/Wound Care: Your incisions are covered with waterproof d ressings. You can shower with these and pat dry. Do not rub over dressings or incisions. If the area is tender, you may apply an ice pack for short intervals (no more than 20 minutes on, followed by at least 20 minutes off). Do not apply heat. Do not use creams, lotions, or topical antibiotics unless instructed to do so by your surgeon. 6. Call your doctor if: - Your temperature exceeds 101.5 F - You experience excessive pain or swelling - You have an unexpected reaction to medication - You have excessive bleeding - You experience continued vomiting/nausea - Your incision begins to separate - Your incision shows signs of infection such as increased redness, swelling, excessive pain, heat, or drainage (light blood or clear fluid is normal) General instructions: No lifting greater than 10 lbs for the next 6 weeks. [address] driving within 24 hours of taking narcotic pain medications. If you do not move your bowels in the next 2 days, please take milk of magnesia over the counter. Please follow the post op diet and do not advance your diet until you are seen in the office in about 2 weeks. Please walk around your home every hour or two to prevent blood clots from forming in your legs. You do not need to wake from sleeping to walk. Please sleep in a bed or couch to prevent kinking at the hips and knees. Please take your incentive spirometer (your lung building maintenance custodian) home with you and use it for the next few days to prevent pneumonias. You may shower, no hot tubs, baths or swimming pools. Please call the office with any questions or concerns such as increasing abdominal pain, fever, chills, shortness of breath, chest pain, leg pain or swelling, or redness or drainage from your incisions. Please make sure you are consuming 40-60 ounces of total fluids per day. Avoid all carbonation. Do not hesitate to contact the office with any questions at . The patient's medical history has been reviewed and they are considered low risk for post op DVT and therefore DVT prophylaxis is not considered necessary. Travel after surgery was reviewed. The patient has not disclosed any travel plans during the first 30 days after surgery and they have been advised that within the first 30 days after surgery any bus, plane, train or car travel over 2 hours in duration is contraindicated due to the possibility of developing blood clots from immobility. Any travel, needs to include periods of ambulation of 10 minutes in duration every 2 hours.? The patient was instructed to discuss any plans for travel during this period with their bariatric surgeon. Assessment: s/p laparoscopic sleeve gastrectomy with gastropexy Discharge Date/Time: 04/11/24 09:34
[2024-04-10] MEDS: Metoclopramide HCl 10 MG/2 ML VIAL IVPUSH (10:51)
[2024-04-10 10:58] LABS: Hematocrit 33.8 % (37.0-47.0); Hemoglobin 11.6 g/dl (12.0-16.0)
[2024-04-10 11:11] LABS: Anion Gap 14 (12-20); Blood Urea Nitrogen 17 mg/dL (9-16); Calcium 8.9 mg/dL (8.4-10.2); Carbon Dioxide 24 mmol/L (22-29); Chloride 103 mmol/L (96-108); Creatinine Clr Calc Pharmacy 70.8; Estimated Glomerular Filt Rate > 60; Glucose Random 137 mg/dL (60-115); Potassium 3.9 mmol/L (3.3-5.1); Sodium 137 mmol/L (135-145)
[2024-04-10] MEDS: Lactated Ringers 1,000 ML 100 ML IVCONT ×2 (12:43→22:50)
--- NOTE | 2024-04-10 13:27 | PHA.MEDREC ---
Addendum entered by Roselia Chester RPh 04/10/24 14:05: Reviewed by [facility] Original Note: Pharmacy Consult ? Medication Reconciliation Pharmacy reviewed med rec done by nursing. Claims matched list. I spoke with patient and she was able to confirm the medications. She confirmed her Levothyroxine 100mcg tab once daily in the morning. She confirmed her Dr switched her Omeprazole 20mg to Pantoprazole 40mg tabs once daily about 1 week ago. The patient confirmed she has Ondansentron 4mg and Sucralfate oral suspension at home and is going to start those after her surgery. Patient states she finished the Polethylene Glycol powder a few days ago for surgery. She confimed she took her Amlodipine 5mg tab and Hydrochlorothiazide 12.5 mg tab this morning and everything else was yesterday.
[2024-04-10] MEDS: Acetaminophen 1,000 MG/100 ML PIGGYBACK 16.7 MG IV ×2 (15:20→20:59)
[2024-04-10] MEDS: Famotidine/PF 20 MG/2 ML VIAL IVPUSH (21:00)
[2024-04-10] MEDS: 0.9 % Sodium Chloride Flush 3 ML SYRINGE IVFLUSH (21:00)
[2024-04-11] MEDS: Acetaminophen 1,000 MG/100 ML PIGGYBACK 16.7 MG IV (03:05)
[2024-04-11 03:23] VITALS: BP 133/68; PULSE 63; RESP 16; TEMP 36.1; O2SAT 96
[2024-04-11] MEDS: Levothyroxine Sodium 100 MCG TABLET PO (05:53)
[2024-04-11 07:39] VITALS: BP 127/62; PULSE 61; RESP 16; TEMP 36.1; O2SAT 98
[2024-04-11 07:52] LABS: Anion Gap 16 (12-20); Blood Urea Nitrogen 14 mg/dL (9-16); Carbon Dioxide 20 mmol/L (22-29); Chloride 105 mmol/L (96-108); Creatinine Clr Calc Pharmacy 84.5; Estimated Glomerular Filt Rate > 60; Glucose Random 77 mg/dL (60-115); Potassium 4.1 mmol/L (3.3-5.1); Sodium 137 mmol/L (135-145)
[2024-04-11] MEDS: Famotidine/PF 20 MG/2 ML VIAL IVPUSH (08:25)
--- NOTE | 2024-04-11 09:01 | HO.POSTANES ---
Post Anesthesia Evaluation Post Anesthesia Evaluation Date of Service: 04/10/24 Vital Signs: Vital Signs Temp Pulse Resp BP Pulse Ox O2 Del Method 04/11/24 07:39 96.9 F 61 16 127/62 98 Room Air 04/11/24 03:23 96.9 F 63 16 133/68 96 Room Air 04/10/24 23:42 96.8 F 64 16 125/69 96 Room Air Anesthesia: General Endotracheal-GETA Mental Status: Awake Pain Control: Satisfactory Nausea/Vomiting: None Hydration: Adequate Anesthesia-Related Issues: No Anes. Related Issues
--- NOTE | 2024-04-11 09:15 | MHC.CM.PN ---
IMM delivered. Patient lives in an apartment alone. Functionally independent. Uses CPAP, supplies through [employer]. PCP Hector Soares DO Reports she has an HCP naming her brother, Garrett Cespedes, as HCA. Copy requested. DP: Medically cleared for dc home self care. Friend will transport at 930am.
[2024-04-11 09:17] LABS: Basophils Percent Auto 0.3 % (0-2); Eosinophils Percent Auto 0.1 % (0-4); Hematocrit 36.5 % (37.0-47.0); Hemoglobin 12.3 g/dl (12.0-16.0); Imm Gran Abs Auto 0.04 X10*3/uL (0.00-0.03); Imm Gran Pct Auto 0.3 % (0.0-0.4); Lymphocytes Absolute Auto 2.5 X10*3/uL (1.2-4.9); Lymphocytes Percent Auto 19.5 % (20-40); Mean Corpuscular HGB Conc 33.7 g/dl (31.0-35.0); Mean Corpuscular Hemoglobin 29.9 pg (27.0-33.0); Mean Corpuscular Volume 88.6 fL (80.0-98.0); Mean Platelet Volume 11.7 fL (9.4-12.3); Monocytes Absolute Auto 1.1 X10*3/uL (0.1-1.2); Monocytes Percent Auto 8.2 % (2-11); Neutrophils Absolute Auto 9.2 x10*3/uL (2.0-8.3); Neutrophils Percent Auto 71.6 % (45-73); Platelet Count 203 X10*3/uL (160-400); Red Blood Count 4.12 X10*6/uL (4.20-5.50); Red Cell Distribution Width 12.6 % (11.0-16.0); White Blood Count 12.8 X10*3/uL (4.8-10.8)
[2024-04-11 09:21] LABS: MANUAL DIFF FLAG NO
== END 2024-04-11 09:34 | disposition home or self-care (01) | DRG 620 ==
LOC: HO.SSSA 06:08 → HO.S3 10:25
PROVIDERS: Physician Assistant Surgical; Admitting Provider Surgery; PCP Internal Medicine; Visit Provider Surgery
PROC: 0DB64Z3 Excision of Stomach, Percutaneous Endoscopic Approach, Vertical (ICD-10-PCS; CPT 43845; principal; 2024-04-10 07:30)
DX: E66.01 Morbid (severe) obesity due to excess calories (principal); Q43.3 Congenital malformations of intestinal fixation; E03.9 Hypothyroidism, unspecified; I10 Essential (primary) hypertension; G47.33 Obstructive sleep apnea (adult) (pediatric); F41.9 Anxiety disorder, unspecified; F32.A Depression, unspecified; K21.9 Gastro-esophageal reflux disease without esophagitis; K76.0 Fatty (change of) liver, not elsewhere classified; Z68.35 Body mass index [BMI] 35.0-35.9, adult; Z79.890 Hormone replacement therapy; Z79.899 Other long term (current) drug therapy
CPT/HCPCS: 36415; 80048; 85014; 85018; 85025; 86850; 86900; 86901; 88304; 88305; 88307; 88342; A4649; C9145; J0131; J0690; J1100; J1171; J1630; J2003; J2250; J2405; J2704; J2765; J2795; J3010; J7120

== ENCOUNTER → 2024-04-10 06:07 | Outpatient (BNV) | payer MEDICARE, SELFPAY | PROVIDERS: Admitting Provider Surgery; PCP Internal Medicine; Visit Provider Surgery | DX: E66.01 Morbid (severe) obesity due to excess calories (principal); Z68.35 Body mass index [BMI] 35.0-35.9, adult; Z98.84 Bariatric surgery status | CPT/HCPCS: 43659; 43775; 99024; 99499 ==

== ENCOUNTER 2024-04-16 12:05 | Outpatient (AMB) | payer MEDICARE, SELFPAY ==
--- NOTE | 2024-04-16 12:15 | MHC.OFFVISWM ---
VS Expanded 04/16/24 12:26 BP 130/80 Blood Pressure Location Rt brachial Blood Pressure Position Sitting Pulse 78 Pulse Source Pulse Oximeter Temp 98.5 F Temperature Source Temporal Artery Scan Pulse Oximetry 97 Oxygen Delivery Method Room Air Height 5 ft 3 in Weight 182 lb BMI 32.2 Body Fat % 42.1 Body Fat Mass 76.6 Fat Free Mass 105.4 Visceral Fat Rating 12.0 Body Water % 40.8 Body Water Mass 74.2 Muscle Mass/Score 100.0 Basal Metabolic Rate/Score 1,454 Intake Visit Reasons: (OV) PO LSG 04/10/24 Allergies Sulfa (Sulfonamide Antibiotics) Allergy (Intermediate, Verified 04/16/24 12:20) rash HPI Comments Details: Patient is a pleasant 68-year-old female who is 6 days post sleeve gastrectomy performed on 04/10/2024. She is tolerating 3 celebrate rebuild shakes with 1 scoop each and proximally 40 oz of fluids. She has moved her bowels and offers no significant complaints today. [facility] Medical History Presence of pessary Back pain History of one miscarriage Hypothyroidism GERD (gastroesophageal reflux disease) Anxiety Depression Hypertension Sleep apnea treated with continuous positive airway pressure (CPAP) Surgical History Hx of wisdom tooth extraction Hx of dilation and curettage Hx of esophagogastroduodenoscopy (03/05/24) Hx of colonoscopy Hx of tubal ligation Family History Mother Lung cancer Brother Throat cancer Sister Colon cancer PONV (postoperative nausea and vomiting) Maternal Aunt Breast CA Cancer Social History Household Members: Children Caregiver staying overnight: No Housing: Apartment Are you a primary health care specialist to a significant other at home: No Do you presently have visiting nurse or other home services: No 75 years or older and lives alone: No Alcohol intake: current Alcohol intake frequency: a few times a month Comment: 1 wkly Patient Tobacco Use Status: Never used Tobacco e-Cigarette/Vaping Use: Never Used service: No Physical Exam Vital Signs: Last Vital Signs Temp 98.5 F 04/16/24 12:26 Pulse 78 04/16/24 12:26 BP 130/80 04/16/24 12:26 Pulse Ox 97 04/16/24 12:26 Oxygen Delivery Method Room Air 04/16/24 12:26 BMI result Body Mass Index 32.2 GI Inspection: Yes incision (Clean, dry, intact.) Assessment & Plan Assessment & Plan (1) S/P laparoscopic sleeve gastrectomy: Code(s): Z98.84 - Bariatric surgery status Category: Surgical Plan: POD 6 s/p LSG on 04/10/[address] Thibodeaux Weight loss prior to surgery was 3.7 pounds or 1.8 % TBWL. Original weight on 02/09/2024 was 201.2 pounds and op weight was 197.5 pounds. Be sure to text Dr Thibodeaux exactly 1 week after surgery your weight from your home scale so he can adjust your meal plan. Continue meal plan until f/u catracho Stringer in 2 weeks May shower, no submersion in bath for another week Continue abdominal binder with activity and exercise for the next 2 weeks. Exercise prior to surgery was walking outside, stationary bike and gym membership at the [facility] and may resume No abdominal exercises for 6 weeks post operatively Will be emailed link to post op video for review Reminded of the pace of drinking, 2 mL per minute, 1 oz/15 min.
[2024-04-16 12:26] VITALS: BP 130/80; PULSE 78; TEMP 36.9; O2SAT 97; BMI 32.2
== END 2024-04-16 14:38 | disposition home or self-care (01) ==
PROVIDERS: PCP Internal Medicine; Visit Provider Physician Assistant Surgical
DX: Z98.84 Bariatric surgery status (principal)
CPT/HCPCS: 99024

== ENCOUNTER → 2024-04-16 12:05 | Outpatient (BNVA) | payer MEDICARE, SELFPAY | PROVIDERS: PCP Internal Medicine; Visit Provider Physician Assistant Surgical | DX: Z48.815 Encounter for surgical aftercare following surgery on the digestive system (principal); Z98.84 Bariatric surgery status | CPT/HCPCS: 99212 ==

== ENCOUNTER → 2024-04-17 08:09 | Outpatient (BNVA) | payer MEDICARE, SELFPAY | PROVIDERS: PCP Internal Medicine; Visit Provider Counselor Mental Health ==

== ENCOUNTER → 2024-04-17 08:09 | Outpatient (AMB) | payer OTHER, SELFPAY ==
--- NOTE | 2024-04-17 08:05 | A.OFFWM_ITS ---
Intake Intake Visit Reasons: VIDEO PO LSG 04/10/24 Allergies Sulfa (Sulfonamide Antibiotics) Allergy (Intermediate, Verified 04/16/24 12:20) rash PFSH Medical History Presence of pessary Back pain History of one miscarriage Hypothyroidism GERD (gastroesophageal reflux disease) Anxiety Depression Hypertension Sleep apnea treated with continuous positive airway pressure (CPAP) Surgical History Hx of wisdom tooth extraction Hx of dilation and curettage Hx of esophagogastroduodenoscopy (03/05/24) Hx of colonoscopy Hx of tubal ligation Family History Mother Lung cancer Brother Throat cancer Sister Colon cancer PONV (postoperative nausea and vomiting) Maternal Aunt Breast CA Cancer Social History Household Members: Children Caregiver staying overnight: No Housing: Apartment Are you a primary healthcare consultant to a significant other at home: No Do you presently have visiting nurse or other home services: No 75 years or older and lives alone: No Alcohol intake: current Alcohol intake frequency: a few times a month Comment: 1 wkly Patient Tobacco Use Status: Never used Tobacco e-Cigarette/Vaping Use: Never Used service: No Behavioral Health Assessment Weight Management Therapy Therapy Notes Details Subjective: PT reports she had a good recovery. She had bariatric surgery on 04/10/2024. PT reports feeling well emotionally, slight worries about her adjustment and with desires to return to work next week as she likes to be busy. PT stated her provider has recommended not to return to work next week and focus on her recovery. PT also presents concern about not taking psych meds since had the surgery. Objective: PT presents for a follow up visit. Assessed functioning and mental status. Processed her recovery and adjustment post-op. Reflected on underlying reasons to return to work next week and analyzed pros/cons, while gently challenge underlying anxiety and fears of getting bored and/or feeling lonely when not doing things. Decision making exercise for her to keep in mind importance of allow time to adjust to post-op life and new habits she's learning. Validated and normalized her feelings while reflected on safety and importance to follow instructions, communicate with provider and follow their recommend ations. Discussed supports and hobbies/interest and ways to engage in these while in recovery. Behavior activation discussed to structure her day, while proving tips to follow meal plan. PT was educated about h SSRI's work in the brain for depression, and was advised to discuss with her PC-provider about if not continuing current meds will be beneficial or not as she might have sudden depressive Sx or if she can lower the dosage and start tampering to eventually be off since this has been her intention. Reminded client to be aware of her body and Sx for early detection of possible relapse with depression. Assessment/Response: * Mental status: mild worried but good functioning. denies depression * Risk reported/identified: None. PT open, active and engaged. She was reflective and responded well to modality. Plan: PHQ-9 will be administered at next visit. We will be working on triggers and emotions around food as the holidays are coming. Assessment & Plan Assessment & Plan (1) Depression: Code(s): F32.A - Depression, unspecified Qualifiers: Depression Type: unspecified Qualified Code(s): F32.A - Depression, unspecified Plan PT was instructed to reach out to PCP for guidance around starting her psych meds. She has not take them since surgery but is afraid her symptoms of depression might return, however she have thought for a while to be of of them. Next del in 1 week. 04/24/2024 at 11am, Telehealth Telehealth Telehealth Telehealth Platform: [facility] Location of provider rendering services: other Location of patient: address on file Patient Identification confirmed using: Name, : Yes Telehealth method: video Patient verbally consented to treatment: Yes Patient verbally consented to billing insurance company: Yes Patient informed of any privacy concerns related to visit: Yes Minutes spent on Phone/Video with Pt.: 55 Coding Level of Care Code Established Pt Tele Psytx >53 mins ([id number]) Patient Type Established Diagnoses Depression, unspecified depression type F32.A Depression Type: unspecified Time Spent (min) 55 Comment Start time: 8:05am, End time: 9:00am.
== END ==
PROVIDERS: PCP Internal Medicine; Visit Provider Counselor Mental Health
DX: F32.A Depression, unspecified (principal)
CPT/HCPCS: 90837

== ENCOUNTER 2024-04-24 10:21 | Outpatient (AMB) | payer MEDICARE, SELFPAY ==
--- NOTE | 2024-04-24 10:10 | MHC.WMTHER ---
Intake Intake Visit Reasons: VIDEO PO LSG 04/10/24 Allergies Sulfa (Sulfonamide Antibiotics) Allergy (Intermediate, Verified 05/22/24 08:35) rash PFSH Medical History (Updated 05/22/24 @ 09:31 by Giacomo Lewis MD) 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 Presence of pessary Back pain History of one miscarriage Hypothyroidism GERD (gastroesophageal reflux disease) Anxiety Depression Hypertension Sleep apnea treated with continuous positive airway pressure (CPAP) Surgical History S/P laparoscopic sleeve gastrectomy Hx of wisdom tooth extraction Hx of dilation and curettage Hx of esophagogastroduodenoscopy (03/05/24) Hx of colonoscopy Hx of tubal ligation Family History Mother Lung cancer Brother Multiple myeloma Sister PONV (postoperative nausea and vomiting) Breast CA, Onset Age: 40 Maternal Aunt Colon cancer Family/Other Breast CA, Onset Age: 40 Maternal Uncle Esophageal cancer Prostate cancer Maternal Aunt Lung cancer Maternal Aunt Cancer of kidney Maternal Aunt Breast CA Social History Household Members: Children Housing: Apartment Are you a primary critical care cns to a significant other at home: No Do you presently have visiting nurse or other home services: No Alcohol intake: current Alcohol intake frequency: a few times a month Comment: 1 wkly Patient Tobacco Use Status: Never used Tobacco e-Cigarette/Vaping Use: Never Used service: No Behavioral Health Assessment Weight Management Therapy Therapy Notes Details Subjective: -PT reports she is doing very well. Sleeping good, denies having food thoughts or cravings for anything. starting to feel hungry in the mornings. -PT has some mild challenges as she only has 2 flavors of shake. -During the weekend she went to a craft fair and had some challenges with the smells of soup as she enjoys soup. - has been doing at least 3 walks at week, her goal is 4-5. She's planning to return to the gym next week. - Most recent weight 179Lbs. - PT attended the peer support yesterday. Reports it was great. - Re-started the Citalopram 30mg again on Monday per PCP advise. Objective: PT presents for a follow up visit via Telehealth. Discussed functioning and progress. Processed ongoing challenges with a close friend. Supportive client adopting assertive approach to address issues, become open an direct and set some boundaries around food situation. Used Supportive therapy CPT and CBT interventions. Assessment/Response: Mental status: Euthymic. open, alert, oritned X3. Good functioning. Risk reported/identified: WNL. PT engaged and cooperative, stable Sx. Responded well to modality. Food/Weight/Diet Expectations of change Initial weight pre-op: 201Lbs 04/16 - PO: 182Lbs 04/24 - PO: 179Lbs Assessment & Plan Assessment & Plan (1) Depression: Code(s): F32.A - Depression, unspecified Qualifiers: Depression Type: unspecified Qualified Code(s): F32.A - Depression, unspecified Plan Follow up in 3 weeks. Next del: 05/15/2024 at 1pm, Telehealth. Telehealth Telehealth Telehealth Platform: [facility] Location of provider rendering services: other Location of patient: address on file Patient Identification confirmed using: Name, : Yes Telehealth method: video Patient verbally consented to treatment: Yes Patient verbally consented to billing insurance company: Yes Patient informed of any privacy concerns related to visit: Yes Minutes spent on Phone/Video with Pt.: 55 Coding Level of Care Code Established Pt Tele Psytx >53 mins (39555) Patient Type Established Diagnoses Depression, unspecified depression type F32.A Depression Type: unspecified Time Spent (min) 55
== END 2024-04-24 15:11 | disposition home or self-care (01) ==
PROVIDERS: PCP Internal Medicine; Visit Provider Counselor Mental Health
DX: F32.A Depression, unspecified (principal)
CPT/HCPCS: 90837

== ENCOUNTER → 2024-04-29 13:30 | Outpatient (BNV) | payer MEDICARE, SELFPAY | PROVIDERS: PCP Internal Medicine; Visit Provider Radiology Diagnostic Radiology | DX: N63.15 Unspecified lump in the right breast, overlapping quadrants (principal) | CPT/HCPCS: 76642; 77066; G0279 ==

== ENCOUNTER 2024-04-29 14:18 | Outpatient (REF) | payer MEDICARE, SELFPAY ==
--- NOTE | ~2024-04-29 | MM_ITS ---
EXAMINATION: MM DIAGNOSTIC DIGITAL BREAST TOMOSYNTHESIS, BILATERAL US BREAST LIMITED, BILATERAL MAMMOGRAPHY: CLINICAL INFORMATION: Diagnostic exam; follow-up LEFT breast focal asymmetries in the 6:00 axis, mid to anterior depth; follow-up RIGHT breast upper outer focal asymmetry with possible area of distortion, posterior one third. COMPARISON: Mammography: Screening mammography 03/01/2024, and outside exams 09/26/2022, 05/05/2020, 04/17/2020, 03/13/2018 ([facility]) TECHNIQUE: Digital breast tomosynthesis is performed in the following views: Bilateral 3-D spot compression CC and MLO views. Computer-aided diagnosis was used for this study. This was followed by targeted bilateral breast ultrasound. FINDINGS: There are scattered areas of fibroglandular density (ACR BI-RADS breast composition Category b). RIGHT BREAST: -Within the approximate 9:00 axis of the right breast, posterior one third, there is a focus of architectural distortion present, suspicious. We will evaluate this with ultrasound. LEFT BREAST: -Within the 6:00 and 7:00 axes of the mid to anterior left breast, there is an oval circumscribed mass measuring 0.6 cm in diameter, and an abutting circumscribed oval mass or masses measuring 1.6 cm. We will evaluate these with ultrasound. Prior ultrasound left 05/05/2020 demonstrated cysts in this region. ULTRASOUND: CLINICAL INFORMATION: As above. COMPARISON: Left breast ultrasound 05/05/2020. TECHNIQUE: Targeted sonographic evaluation bilateral breasts was performed using a high frequency linear transducer. Right breast upper outer quadrant was examined as well as the right axilla; left breast 6:00 and 7:00 regions were evaluated to include the regions of mammographic concern. Selected archived documentation. FINDINGS: RIGHT BREAST: - The 9:00 axis, 13 cm from the nipple, there is a 0.8 x 0.9 x 0.9 cm mixed echogenicity oval lesion, wider than tall, posterior acoustic shadowing, irregular margins, with mild echogenic changes in the surrounding fat with an appearance of sonographic desmoplasia. Finding is suspicious and ultrasound-guided biopsy is recommended. No abnormal lymph nodes detected in the right axilla. LEFT BREAST: - There is a minimally complicated cysts measuring 1.2 x 1.3 x 0.8 cm in the 7:00 axis left breast, 3 cm from the nipple. Immediately adjacent in the 6:00 axis of the left breast, there is a 5 mm oval minimally complicated cyst. Essentially both are similar in appearance to 05/05/2020. These are benign. No further follow-up recommended. MM/MM tomosynthesis added view BI IMPRESSION: 1. Suspicious 0.8 x 0.9 x 0.9 cm mixed echogenicity oval mass 9:00 axis right breast, 13 cm from the nipple, for which ultrasound-guided biopsy is recommended. 2. No abnormal right lymphadenopathy identified. 3. Benign cysts inferior anterior left breast. 4. Findings and recommendations were discussed with the patient in detail, who appears in understanding. OVERALL ASSESSMENT: Mammography: BI-RADS 4 - Suspicious finding Ultrasound: BI-RADS 4 - Suspicious finding RECOMMENDATION: Biopsy recommended This patient's information was entered into a reminder system with a target due date for their next mammogram. Electronically signed by: Vidal Michaels MD 04/29/2024 03:47 PM [facility]
== END 2024-04-29 14:19 | disposition home or self-care (01) ==
LOC: HO.MAMMO 14:18
PROVIDERS: PCP Internal Medicine; Visit Provider Internal Medicine
DX: N64.89 Other specified disorders of breast (principal)
CPT/HCPCS: 76642; 77062; 77066

== ENCOUNTER 2024-05-07 11:49 | Outpatient (AMB) | payer MEDICARE, SELFPAY ==
--- NOTE | 2024-05-07 11:51 | A.OFFVIS_ITS ---
VS Expanded 05/07/24 11:58 BP 121/67 Blood Pressure Location Rt brachial Blood Pressure Position Sitting Pulse 70 Pulse Source Pulse Oximeter Temp 96.9 F Temperature Source Temporal Artery Scan Pulse Oximetry 96 Oxygen Delivery Method Room Air Height 5 ft 3 in Weight 173 lb BMI 30.6 Body Fat % 39.9 Body Fat Mass 69.0 Fat Free Mass 103.8 Visceral Fat Rating 11.0 Body Water % 42.3 Body Water Mass 73.2 Muscle Mass/Score 98.6 Basal Metabolic Rate/Score 1,423 Intake Visit Reasons: (OV) PO LSG 04/10/24 Allergies Sulfa (Sulfonamide Antibiotics) Allergy (Intermediate, Verified 05/07/24 11:53) rash HPI Comments Details: This?a?68?yo female who is s/p LSG without hiatal hernia repair on?04/10/2024. Presents for 1 month post op visit. Weight today is 173 pounds, with a BMI of 30.6. There has been a 28.2 pound weight loss,(initial weight 201.2 pounds) since starting the program on 02/09/2024 reflecting a 14% total body weight loss and a weight loss of 24.5 pounds since surgery (operative weight 197.5 pounds) reflecting a 12.4% TBWL since surgery. No complaints of nausea, emesis, abdominal pain or reflux. Reports infrequent but normal bowel movements every [] days and uses stool softeners regularly. Original weight on 02/09/2024 was 201.2 pounds and op weight was 197.5 pounds. Present meal plan includes: Celebrate rebuild 2 scoops at 8-10, 11-1 Celebrate rebuild 1 scoop at 2-4 Celebrate or Orgain bar at 5-8 Drinking 12 oz ? Exercise routine includes: stationary bike 20 min 2-3 x per day, burning 300 ami per day walking 2-3 mi 3 d per week [facility] Medical History (Updated 05/02/24 @ 00:03 by Yamilka Osorio) Presence of pessary Back pain History of one miscarriage Hypothyroidism GERD (gastroesophageal reflux disease) Anxiety Depression Hypertension Sleep apnea treated with continuous positive airway pressure (CPAP) Surgical History (Updated 05/07/24 @ 11:58 by Socorro Montana CMA) S/P laparoscopic sleeve gastrectomy Hx of wisdom tooth extraction Hx of dilation and curettage Hx of esophagogastroduodenoscopy (03/05/24) Hx of colonoscopy Hx of tubal ligation Family History Mother Lung cancer Brother Throat cancer Sister Colon cancer PONV (postoperative nausea and vomiting) Maternal Aunt Breast CA Cancer Social History Household Members: Children Caregiver staying overnight: No Housing: Apartment Are you a primary intensive care medicine specialist to a significant other at home: No Do you presently have visiting nurse or other home services: No 75 years or older and lives alone: No Alcohol intake: current Alcohol intake frequency: a few times a month Comment: 1 wkly Patient Tobacco Use Status: Never used Tobacco e-Cigarette/Vaping Use: Never Used service: No Physical Exam Vital Signs: Last Vital Signs Temp 96.9 F 05/07/24 11:58 Pulse 70 05/07/24 11:58 BP 121/67 05/07/24 11:58 Pulse Ox 96 05/07/24 11:58 Oxygen Delivery Method Room Air 05/07/24 11:58 BMI result Body Mass Index 30.6 Const General: healthy appearing and no acute distress Resp Effort & Inspection: normal respiratory effort Auscultation: clear to auscultation bilaterally Cardio Rate: regular rate Rhythm: regular rhythm GI Auscultation: normal bowel sounds Extrem General: Yes normal to inspection Assessment & Plan Assessment & Plan (1) S/P laparoscopic sleeve gastrectomy: Code(s): Z98.84 - Bariatric surgery status Category: Surgical Plan: Patient will continue to correspond with Dr. Thibodeaux on a weekly basis. Strongly encouraged to increase her fluid intake including water, crystal light, Gatorade zero. Discussed the relation between fluid intake and constipation. She will continue to monitor and increase her fluids for a goal of 50-60 oz per day. Continue to exercise as she is doing. Return to clinic 3-4 weeks.
[2024-05-07 11:58] VITALS: BP 121/67; PULSE 70; TEMP 36.1; O2SAT 96; BMI 30.6
== END 2024-05-07 13:02 | disposition home or self-care (01) ==
PROVIDERS: PCP Internal Medicine; Visit Provider Physician Assistant Surgical
DX: Z98.84 Bariatric surgery status (principal)
CPT/HCPCS: 99024

== ENCOUNTER → 2024-05-07 11:49 | Outpatient (BNVA) | payer MEDICARE, SELFPAY | PROVIDERS: PCP Internal Medicine; Visit Provider Physician Assistant Surgical | DX: Z71.3 Dietary counseling and surveillance (principal); Z98.84 Bariatric surgery status | CPT/HCPCS: 99212 ==

== ENCOUNTER 2024-05-09 14:34 | Outpatient (AMB) | payer MEDICARE, SELFPAY ==
--- NOTE | 2024-05-09 14:38 | MHC.OFFVIS ---
Vital Signs 05/09/24 15:07 Height 5 ft 3 in Weight 175 lb 8 oz BMI 31.1 BP 137/65 Blood Pressure Location Lt brachial Position Sitting Pulse 76 Intake Visit Reasons: (R) Breast US BX 9:00 asymmetry Intake Note: Patient is seen in office for ultrasound biospy consult, right breast 9 0'clock asymmetry. Pt c/o: had multiple cyst in the past under observation, had a mm and a new lump was found and is sched to be bx, denies prior breast surgeries or complications Bx sched: 05/16/24 us/mm: 04/29/24 Rn Transplant Required: No Director Of Recruitment: Director Of Recruitment Present Accompanied by: Family/Other Allergies Sulfa (Sulfonamide Antibiotics) Allergy (Intermediate, Verified 05/09/24 14:51) rash HPI Comments Details: 68-year-old female patient found to have a suspicious density in the right breast at the 9 o'clock position confirmed by ultrasound on 04/29/2024. Findings were felt to be suspicious for malignancy an ultrasound-guided core biopsy was recommended (BI-RADS 4). She denies a previous history of breast problems or breast surgery but does have a strong family history of breast cancer including her sister (40), maternal cousin, and maternal aunt all with breast cancer. She denies any breast symptoms including breast pain, skin changes, nipple discharge or palpable masses. She is 3 para 2 with 1 miscarriage and did not breastfeed her children. She is scheduled for an ultrasound-guided core biopsy at the [facility] on 05/16/2024. [facility] Medical History Presence of pessary Back pain History of one miscarriage Hypothyroidism GERD (gastroesophageal reflux disease) Anxiety Depression Hypertension Sleep apnea treated with continuous positive airway pressure (CPAP) Surgical History S/P laparoscopic sleeve gastrectomy Hx of wisdom tooth extraction Hx of dilation and curettage Hx of esophagogastroduodenoscopy (03/05/24) Hx of colonoscopy Hx of tubal ligation Family History Mother Lung cancer Brother Multiple myeloma Sister PONV (postoperative nausea and vomiting) Breast CA, Onset Age: 40 Maternal Aunt Colon cancer Family/Other Breast CA, Onset Age: 40 Maternal Uncle Esophageal cancer Prostate cancer Maternal Aunt Lung cancer Maternal Aunt Cancer of kidney Maternal Aunt Breast CA Social History Household Members: Children Caregiver staying overnight: No Housing: Apartment Are you a primary pharmacy care coordinator to a significant other at home: No Do you presently have visiting nurse or other home services: No 75 years or older and lives alone: No Alcohol intake: current Alcohol intake frequency: a few times a month Comment: 1 wkly Patient Tobacco Use Status: Never used Tobacco e-Cigarette/Vaping Use: Never Used service: No Female Reproductive History Menstrual Age of Menarche: 14 Age of menopause: 51 Total pregnancies: 3 Number of Living Children: 2 Review of Systems Const All systems reviewed & are unremarkable except as noted in HPI and below Denies chills, Denies fever(s), Denies headache(s), Denies poor appetite and Denies weakness ENT Denies headache(s) Card Denies chest pain, Denies irregular heart rhythm, Denies palpitations and Denies dyspnea Resp Denies cough, Denies excessive phlegm production and Denies dyspnea GI Denies abdominal pain, Denies bloating, Denies change in bowel habits, Denies constipation, Denies heartburn, Denies diarrhea, Denies nausea and Denies vomiting Denies urinary frequency Musc Denies back pain, Denies muscle weakness and Denies numbness Skin/Breast Denies changing lesions and Denies unusual bruising Neuro Denies headache(s), Denies numbness, Denies paresthesias and Denies weakness Psych Denies anxiety and Denies depression Endo Denies palpitations Dimitrios/Lymph Denies lymphadenopathy Physical Exam Const General: cooperative and no acute distress Nutritional Appearance: well nourished Orientation/consciousness: patient oriented x3 Limitations: no limitations HEENT Head: Yes normocephalic and Yes atraumatic Ears: hearing grossly normal bilaterally Chest Other: Left breast: No skin change, no nipple retraction, no nipple discharge, no palpable mass, no enlarged lymph nodes. Right breast: No skin change, no nipple retraction, no nipple discharge, palpable density noted in the 9 o'clock position mobile within the breast tissue measuring approximately 1 cm in diameter, no enlarged lymph nodes Chest/axillae images: 1. Site of palpable mass, no fixation to chest wall or skin, no skin changes. Resp Effort & Inspection: normal respiratory effort, no audible wheezes, no cough and no respiratory distress Cardio Jugular venous distension: no JVD GI Inspection: Yes normal to inspection Skin Other: Warm, dry, no rash Neuro General: patient oriented x3 Extrem General: Yes no clubbing, cyanosis or edema Assessment & Plan Assessment & Plan (1) Abnormal mammogram of right breast: Code(s): R92.8 - Other abnormal and inconclusive findings on diagnostic imaging of breast Category: Medical (2) Abnormal ultrasound of breast: Code(s): R92.8 - Other abnormal and inconclusive findings on diagnostic imaging of breast Category: Medical Plan 68-year-old female patient presenting with a recent screening mammogram and subsequent follow-up mammogram and ultrasound which confirmed a suspicious density in the right breast at the 9 o'clock position felt to be high suspicion for malignancy (BI-RADS 4). On examination there is indeed a palpable mass in the 9 o'clock position corresponding to the mammogram and ultrasound findings. She denies a previous history of breast problems or breast surgery. She does have a strong family history of breast cancer in her sister and maternal cousin and maternal aunt. She is scheduled for an ultrasound-guided core biopsy at the [facility] on 05/16/2024. We did discussed genetic testing and she is not interested at this time but will consider in the future. I have asked her to return approximately 1 week following the biopsy to review the pathology results and discuss treatment options. She expressed understanding and agrees with the plan. Coding Level of Care Code New Pt Level 4 (85606) Diagnoses Abnormal mammogram of right breast R92.8 Abnormal ultrasound of breast R92.8
[2024-05-09 15:07] VITALS: BP 137/65; PULSE 76; BMI 31.1
--- OUTSIDE RECORDS SUMMARY | 2024-05-15 04:06 | XMS_ITS ---
Author Organization [facility], Address [address] [place] [address] Care Team Providers Care Head Transfer Clerk Name Role Phone David Cortes Unavailable [phone] ALLERGIES, ADVERSE REACTIONS, ALERTS Substance Code Code System Type Reaction Severity Status Start Date End Date Sulfa (Sulfonamide Antibiotics) RxNorm Drug allergy () 0 Sulfa (Sulfonamide Antibiotics) Unknown Drug allergy () 1 No known non-drug allergies RxNorm Other substance tonya rgy () 1 MEDICATIONS Medication Code Code System Start Date Stop Date Route Dosage Directions Fill Instructions Levoxyl RxNorm 022 citalopram RxNorm 022 amlodipine RxNorm 022 hydrochlorothiazide RxNorm 022 Paxlovid (EUA) 3363258 RxNorm 022 2021 oral 3 LEVOTHYROXINE 0.100MG (100MCG) TAB RxNorm 023 ALBUTEROL HFA INH (200 PUFFS)8.5GM RxNorm 2021 2 OMEPRAZOLE 20MG CAPSULES RxNorm 2021 benzonatate 418762 RxNorm 022 022 oral 1 tamsulosin 065397 RxNorm 02/06/20 oral 1 PROBLEMS Problem Name Code Code System Start Date End Date Stat Hypertension 71873092 [facility] 10/25/2021 Active Depression 42951678 [facility] 10/25/2021 Active Hypothyroidism 49576439 [facility] 10/25/2021 Activ e COVID-19, confirmed by labor atory testing 779034674 [facility] 10/25/2021 Inactive Asthma 472960355 [facility] Active Gastro-esophageal reflux disease 741395488 [facility] Active Cystocele, unspecified 822781105 [facility] 02/05/2023 Active Retention of urine, unspecified 367866294 [facility] 02/05/2023 Active ENCOUNTERS Encounter Diagnosis Code Code System Date Stat us Cystocele, unspecified 041308640 [facility] 02/05/2023 Ac tive Retention of urine, unspecified 504723744 [facility] 2022 Active IMMUNIZATIONS * None VITAL SIGNS Code Code System Vitals Name Date Value and Un its 8462-4 [facility] Blood Pressure-Diastolic 02/05/2023 83 mmHg 8480-6 [facility] Blood Pressure-Systolic 02/05/2023 1 21 mmHg 8867-4 [facility] Heart Rate 02/05/2023 78 /min 9279-1 [facility] Respiratory Rate 02/05/2023 18 /min 8310-5 inc Body Temperature 02/05/2023 97.8 F 57241-3 inc Oxygen Saturation 02/05/2023 96 % SOCIAL HISTORY * None PROCEDURES * None MEDICAL EQUIPMENT * Patient has no history of implantable devices ASSESSMENT * None TREATMENT PLAN Type Description Date MEDICATION Take 1 cap by mouth daily 02/06/20 23 APPOINTMENT If not feeling luzmaria r in 3 day(s), please see your primary care physician. If you do not have a primary care physician, please return to this clinic. 02/05/2023 Lab Tests None GOALS * None HEALTH CONCERNS * No Health Concerns FUNCTIONAL AND COGNITIVE STATUS * None CONSULTATION NOTES * None DISCHARGE SUMMARY NOTES * None HISTORY AND PHYSICAL NOTES * Reason for visit - Illness IMAGING NOTES * None LABORATORY REPORT NARRATIVE NOTES * None PATHOLOGY REPORT NARRATIVE NOTES * None PROGRESS NOTES * None
--- OUTSIDE RECORDS SUMMARY | 2024-05-15 04:06 | XMS_ITS ---
Author Organization [facility], Address [address] [place] [address] Care Team Providers Care Student Counselor Name Role Phone David Cortes Unavailable [phone] ALLERGIES, ADVERSE REACTIONS, ALERTS Substance Code Code System Type Reaction Severity Status Start Date End Date Sulfa (Sulfonamide Antibiotics) Unknown Drug allergy () 1 Sulfa (Sulfonamide Antibiotics) RxNorm Drug allergy () 0 No known non-drug allergies RxNorm Other substance tonya rgy () 1 MEDICATIONS Medication Code Code System Start Date Stop Date Route Dosage Directions Fill Instructions Levoxyl RxNorm 022 citalopram RxNorm 022 amlodipine RxNorm 022 hydrochlorothiazide RxNorm 022 Paxlovid (EUA) 0187084 RxNorm 022 2021 oral 3 LEVOTHYROXINE 0.100MG (100MCG) TAB RxNorm 023 ALBUTEROL HFA INH (200 PUFFS)8.5GM RxNorm 2021 2 OMEPRAZOLE 20MG CAPSULES RxNorm 2021 benzonatate 565483 RxNorm 022 022 oral 1 tamsulosin 967867 RxNorm 02/06/20 oral 1 PROBLEMS Problem Name Code Code System Start Date End Date Stat Hypertension 64549461 [facility] 10/25/2021 Active Depression 31742927 [facility] 10/25/2021 Active Hypothyroidism 91364105 [facility] 10/25/2021 Activ e COVID-19, confirmed by labor atory testing 485900661 [facility] 10/25/2021 Inactive Asthma 791670500 [facility] Active Gastro-esophageal reflux disease 922251821 [facility] Active Cystocele, unspecified 626345934 [facility] 02/05/2023 Active Retention of urine, unspecified 848931360 [facility] 02/05/2023 Active ENCOUNTERS Encounter Diagnosis Code Code System Date Stat us Cystocele, unspecified 489912572 [facility] 02/05/2023 Ac tive Retention of urine, unspecified 032872789 [facility] 2022 Active IMMUNIZATIONS * None VITAL SIGNS Code Code System Vitals Name Date Value and Un its 8462-4 [facility] Blood Pressure-Diastolic 02/05/2023 83 mmHg 8480-6 [facility] Blood Pressure-Systolic 02/05/2023 1 21 mmHg 8867-4 [facility] Heart Rate 02/05/2023 78 /min 9279-1 [facility] Respiratory Rate 02/05/2023 18 /min 8310-5 inc Body Temperature 02/05/2023 97.8 F 61663-0 inc Oxygen Saturation 02/05/2023 96 % SOCIAL [...]
== END 2024-05-09 15:12 | disposition home or self-care (01) ==
PROVIDERS: PCP Internal Medicine; Visit Provider Surgery
DX: R92.8 Other abnormal and inconclusive findings on diagnostic imaging of breast (principal)
CPT/HCPCS: 99204

== ENCOUNTER → 2024-05-09 14:34 | Outpatient (BNVA) | payer MEDICARE, SELFPAY | PROVIDERS: PCP Internal Medicine; Visit Provider Surgery | DX: R92.8 Other abnormal and inconclusive findings on diagnostic imaging of breast (principal) | CPT/HCPCS: 99202 ==

== ENCOUNTER → 2024-05-15 13:12 | Outpatient (AMB) | payer MEDICARE, SELFPAY ==
--- NOTE | 2024-05-15 13:05 | A.OFFWM_ITS ---
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 Presence of pessary Back pain History of one miscarriage Hypothyroidism GERD (gastroesophageal reflux disease) Anxiety Depression Hypertension Sleep apnea treated with continuous positive airway pressure (CPAP) Surgical History S/P laparoscopic sleeve gastrectomy Hx of wisdom tooth extraction Hx of dilation and curettage Hx of esophagogastroduodenoscopy (03/05/24) Hx of colonoscopy Hx of tubal ligation Family History Mother Lung cancer Brother Multiple myeloma Sister PONV (postoperative nausea and vomiting) Breast CA, Onset Age: 40 Maternal Aunt Colon cancer Family/Other Breast CA, Onset Age: 40 Maternal Uncle Esophageal cancer Prostate cancer Maternal Aunt Lung cancer Maternal Aunt Cancer of kidney Maternal Aunt Breast CA Social History Household Members: Children Caregiver staying overnight: No Housing: Apartment Are you a primary acute care occupational therapist to a significant other at home: No Do you presently have visiting nurse or other home services: No 75 years or older and lives alone: No Alcohol intake: current Alcohol intake frequency: holidays/special occasions only Comment: 1 wkly Patient Tobacco Use Status: Never used Tobacco e-Cigarette/Vaping Use: Never Used service: No Female Reproductive History Menstrual Age of Menarche: 14 Behavioral Health Assessment Weight Management Therapy Therapy Notes Details Subjective: PT reports feeling very well emotionally. Had a great time during and has been able to manage herself effectively during the holidays and events she attended. Expresses excitement about an upcoming trip to [place] to visit her daughter. Objective: PT presents for a follow-up visit via Telehealth. Discussed her current functioning and emotional well-being. Focused on the relationship with food, specifically addressing how restriction leads to unhealthy cycles of hunger, overeating, and unhealthy food choices. Assessment/Response: * Mental status:WNL. No signs of acute distress or emotional instability noted during the session. * Risk reported/identified: WNL PT was active in session and responded well to interventions. Food/Weight/Diet Expectations of change Initial weight pre-op: 201Lbs 04/16 - PO: 182Lbs 04/24 - PO: 179Lbs 05/15/2024- PO: 171Lbs Target weight: 150Lbs. Assessment & Plan Assessment & Plan (1) Depression: Code(s): F32.A - Depression, unspecified Qualifiers: Depression Type: unspecified Qualified Code(s): F32.A - Depression, uns pecified Plan Follow up after trip. Next del: 06/10/2024 Telehealth Telehealth Telehealth Platform: [email or web address] Location of provider rendering services: other Location of patient: address on file Patient Identification confirmed using: Name, : Yes Telehealth method: video Patient verbally consented to treatment: Yes Patient verbally consented to billing insurance company: Yes Patient informed of any privacy concerns related to visit: Yes Minutes spent on Phone/Video with Pt.: 55 Coding Level of Care Code Established Pt Tele Psytx >53 mins (75036) Patient Type Established Diagnoses Depression, unspecified depression type F32.A Depression Type: unspecified Time Spent (min) 55
--- OUTSIDE RECORDS SUMMARY | 2024-05-16 02:23 | XMS_ITS ---
Author Organization [facility], Address [address] [place] [address] Care Team Providers Care Surveillance System Monitor Name Role Phone David Cortes Unavailable [phone] ALLERGIES, ADVERSE REACTIONS, ALERTS Substance Code Code System Type Reaction Severity Status Start Date End Date Sulfa (Sulfonamide Antibiotics) RxNorm Drug allergy () 0 No known non-drug allergies RxNorm Other substance tonya rgy () 1 Sulfa (Sulfonamide Antibiotics) Unknown Drug allergy () 1 MEDICATIONS Medication Code Code System Start Date Stop Date Route Dosage Directions Fill Instructions Levoxyl RxNorm 022 citalopram RxNorm 022 amlodipine RxNorm 022 hydrochlorothiazide RxNorm 022 Paxlovid (EUA) 7183955 RxNorm 022 2021 oral 3 LEVOTHYROXINE 0.100MG (100MCG) TAB RxNorm 023 ALBUTEROL HFA INH (200 PUFFS)8.5GM RxNorm 2021 2 OMEPRAZOLE 20MG CAPSULES RxNorm 2021 benzonatate 899526 RxNorm 022 022 oral 1 tamsulosin 664538 RxNorm 02/06/20 oral 1 PROBLEMS Problem Name Code Code System Start Date End Date Stat Hypertension 79752037 [facility] 10/25/2021 Active Depression 69206826 [facility] 10/25/2021 Active Hypothyroidism 52004554 [facility] 10/25/2021 Activ e COVID-19, confirmed by labor atory testing 021410101 [facility] 10/25/2021 Inactive Asthma 327287141 [facility] Active Gastro-esophageal reflux disease 092414941 [facility] Active Cystocele, unspecified 922518338 [facility] 02/05/2023 Active Retention of urine, unspecified 964944376 [facility] 02/05/2023 Active ENCOUNTERS Encounter Diagnosis Code Code System Date Stat us Cystocele, unspecified 021551736 [facility] 02/05/2023 Ac tive Retention of urine, unspecified 405566790 [facility] 2022 Active IMMUNIZATIONS * None VITAL SIGNS Code Code System Vitals Name Date Value and Un its 8462-4 [facility] Blood Pressure-Diastolic 02/05/2023 83 mmHg 8480-6 [facility] Blood Pressure-Systolic 02/05/2023 1 21 mmHg 8867-4 [facility] Heart Rate 02/05/2023 78 /min 9279-1 [facility] Respiratory Rate 02/05/2023 18 /min 8310-5 inc Body Temperature 02/05/2023 97.8 F 13748-2 inc Oxygen Saturation 02/05/2023 96 % SOCIAL [...]
--- OUTSIDE RECORDS SUMMARY | 2024-05-16 02:23 | XMS_ITS ---
Author Organization [facility], Address [address] [place] [address] Care Team Providers Care Import Export Clerk Name Role Phone David Cortes Unavailable [phone] ALLERGIES, ADVERSE REACTIONS, ALERTS Substance Code Code [...] RxNorm 022 hydrochlorothiazide RxNorm 022 Paxlovid (EUA) 5289116 RxNorm 022 2021 oral 3 LEVOTHYROXINE 0.100MG (100MCG) TAB RxNorm 023 ALBUTEROL HFA INH (200 PUFFS)8.5GM RxNorm 2021 2 OMEPRAZOLE 20MG CAPSULES RxNorm 2021 benzonatate 561127 RxNorm 022 022 oral 1 tamsulosin 958547 RxNorm 02/06/20 oral 1 PROBLEMS Problem Name Code Code System Start Date End Date Stat Hypertension 44611214 [facility] 10/25/2021 Active Depression 07030396 [facility] 10/25/2021 Active Hypothyroidism 28284441 [facility] 10/25/2021 Activ e COVID-19, confirmed by labor atory testing 190739895 [facility] 10/25/2021 Inactive Asthma 047896502 [facility] Active Gastro-esophageal reflux disease 644092729 [facility] Active Cystocele, unspecified 852085415 [facility] 02/05/2023 Active Retention of urine, unspecified 835994967 [facility] 02/05/2023 Active ENCOUNTERS Encounter Diagnosis Code Code System Date Stat us Cystocele, unspecified 155204637 [facility] 02/05/2023 Ac tive Retention of urine, unspecified 200582564 [facility] 2022 Active IMMUNIZATIONS * None VITAL SIGNS Code Code System Vitals Name Date Value and Un its 8462-4 [facility] Blood Pressure-Diastolic 02/05/2023 83 mmHg 8480-6 [facility] Blood Pressure-Systolic 02/05/2023 1 21 mmHg 8867-4 [facility] Heart Rate 02/05/2023 78 /min 9279-1 [facility] Respiratory Rate 02/05/2023 18 /min 8310-5 inc Body Temperature 02/05/2023 97.8 F 86573-3 inc Oxygen Saturation 02/05/2023 96 % SOCIAL [...]
== END ==
PROVIDERS: PCP Internal Medicine; Visit Provider Counselor Mental Health
DX: F32.A Depression, unspecified (principal)
CPT/HCPCS: 90837

== ENCOUNTER 2024-05-16 07:50 | Outpatient (REF) | payer MEDICARE, SELFPAY ==
--- NOTE | ~2024-05-16 | MM_ITS ---
PROCEDURE: ULTRASOUND-GUIDED RIGHT BREAST BIOPSY CLINICAL INFORMATION: Solid irregular mass in the right breast at 9:00 13 cm from the nipple COMPARISON: Comparison is made with available prior examinations. TECHNIQUE: The details of the procedure, as well as the risks, benefits, and alternatives to the procedure were explained to the patient in detail and all of her questions were answered, after which, written informed consent was obtained. PROCEDURE: Prior to the procedure, sonography revealed a solid irregular mass at 9:00 13 cm from nipple correlating with architectural distortion in the right breast on mammography.. A time-out was performed, the lesion intended for biopsy was targeted and the skin of the right breast was then prepped and draped in the usual sterile fashion. Using sonographic guidance, sterile technique, and 1% lidocaine without epinephrine for local anesthesia, a total of 6 cores were obtained through the targeted area with a 14 biopsy device. At the completion of tissue sampling, a single open coil metallic clip was deposited at the biopsy site. An appropriate sample was obtained. The postprocedure 2-view direct digital mammogram reveals satisfactory positioning of the biopsy clip. The patient tolerated the procedure well and, after assuring adequate hemostasis, was discharged in good condition after reviewing postbiopsy breast care instructions. Final pathology results are pending. MM/MM tomosynthesis diagnostic RT IMPRESSION: 1. Uncomplicated sonographically-guided core biopsy of the right breast. The 2-view direct digital postprocedure mammogram reveals satisfactory positioning of the biopsy clip. 2. Final pathology results are pending. A separate report with final recommendations will be issued once these results are made available. Electronically signed by: Corinna Vergara DO 05/16/2024 11:01 AM FELICIANO
[2024-05-16] MEDS: Sodium Bicarbonate 8.4% 50 MEQ/50 ML VIAL SUBCUT (08:44)
[2024-05-16] MEDS: Lidocaine HCl 1 % 20 ML VIAL 9 ML SUBCUT (08:45)
== END 2024-05-16 07:51 | disposition home or self-care (01) ==
LOC: HO.MAMMO 07:50
PROVIDERS: PCP Internal Medicine; Visit Provider Surgery
DX: C50.811 Malignant neoplasm of overlapping sites of right female breast (principal); D05.11 Intraductal carcinoma in situ of right breast; Z17.0 Estrogen receptor positive status [ER+]; Z17.22 Progesterone receptor negative status; R92.8 Other abnormal and inconclusive findings on diagnostic imaging of breast
CPT/HCPCS: 19083; 77061; 77065; 88305; 88341; 88342; 88360; A4648; C1894; J2003

== ENCOUNTER → 2024-05-16 08:00 | Outpatient (BNV) | payer MEDICARE, SELFPAY | PROVIDERS: PCP Internal Medicine; Visit Provider Internal Medicine | DX: N63.15 Unspecified lump in the right breast, overlapping quadrants (principal) | CPT/HCPCS: 19083; 77065 ==

== ENCOUNTER 2024-05-22 08:18 | Outpatient (AMB) | payer MEDICARE, SELFPAY ==
--- NOTE | 2024-05-22 08:29 | A.OFFVIS_ITS ---
Vital Signs 05/22/24 08:35 Height 5 ft 3 in Weight 170 lb BMI 30.1 BP 131/69 Blood Pressure Location Rt brachial Position Sitting Pulse 70 Intake Visit Reasons: s/p biopsy (results) Intake Note: Patient here to discuss RT br US bx. Director Informatics Required: No Accompanied by: cousin Iraida Allergies Sulfa (Sulfonamide Antibiotics) Allergy (Intermediate, Verified 05/22/24 08:35) rash Medication List - Last Reconciled 05/22/24 by Giacomo Lewis MD amlodipine 5 mg PO DAILY citalopram 10 mg PO DAILY citalopram 20 mg PO DAILY levothyroxine 100 mcg PO DAILY pantoprazole 40 mg PO DAILY@0630 sucralfate mL PO HPI Comments Details: 68-year-old female patient found to have a suspicious density in the right breast at the 9 o'clock position confirmed by ultrasound on 04/29/2024. Findings were felt to be suspicious for malignancy an ultrasound-guided core biopsy was recommended (BI-RADS 4). She denies a previous history of breast problems or breast surgery but does have a strong family history of breast cancer including her sister (40), maternal cousin, and maternal aunt all with breast cancer. She denies any breast symptoms including breast pain, skin changes, nipple discharge or palpable masses. She is 3 para 2 with 1 miscarriage and did not breastfeed her children. 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 - Ductal carcinoma in-situ, nuclear grade 1. Estrogen receptor: Positive (100% of tumor cells; strong intensity) Progesterone receptor: Negative (0%; appropriate positive internal control) HER2: Negative (0; appropriate positive control) Proliferation index: Low (5% of tumor cells by Ki-67 immunostaining) Breast Biopsy Data Synopsis Procedure: Core biopsy Specimen laterality: Right mass at 9 o'clock Histologic type: Mixed ductal and lobular phenotype Histologic grade (Graciela/MSBR histologic score): 1 - Glandular/tubular differentiation: Score: 3 - Nuclear pleomorphism: Score: 1 - Mitotic rate: Score: 1 Tumor size: Largest linear diameter: 7 mm Ductal carcinoma in situ: Present Lymphovascular invasion: Not identified Microcalcifications: Not identified Staging: cT1b cN0, PFSH Medical History (Updated 05/22/24 @ 09:31 by Giacomo Lewis MD) 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 Presence of pessary Back pain History of one miscarriage Hypothyroidism GERD (gastroesophageal reflux disease) Anxiety Depression Hypertension Sleep apnea treated with continuous positive airway pressure (CPAP) Surgical History S/P laparoscopic sleeve gastrectomy Hx of wisdom tooth extraction Hx of dilation and curettage Hx of esophagogastroduodenoscopy (03/05/24) Hx of colonoscopy Hx of tubal ligation Family History Mother Lung cancer Brother Multiple myeloma Sister PONV (postoperative nausea and vomiting) Breast CA, Onset Age: 40 Maternal Aunt Colon cancer Family/Other Breast CA, Onset Age: 40 Maternal Uncle Esophageal cancer Prostate cancer Maternal Aunt Lung cancer Maternal Aunt Cancer of kidney Maternal Aunt Breast CA Social History Household Members: Children Housing: Apartment Are you a primary health care recruiter to a significant other at home: No Do you presently have visiting nurse or other home services: No Alcohol intake: current Alcohol intake frequency: a few times a month Comment: 1 wkly Patient Tobacco Use Status: Never used Tobacco e-Cigarette/Vaping Use: Never Used service: No Female Reproductive History Menstrual Age of Menarche: 14 Review of Systems Const All systems reviewed & are unremarkable except as noted in HPI and below Denies chills, Denies fever(s), Denies headache(s), Denies poor appetite and Denies weakness ENT Denies headache(s) Card Denies chest pain, Denies irregular heart rhythm, Denies palpitations and Denies dyspnea Resp Denies cough, Denies excessive phlegm production and Denies dyspnea GI Denies abdominal pain, Denies bloating, Denies change in bowel habits, Denies constipation, Denies heartburn, Denies diarrhea, Denies nausea and Denies vomiting Denies urinary frequency Musc Denies back pain, Denies muscle weakness and Denies numbness Skin/Breast Denies changing lesions and Denies unusual bruising Neuro Denies headache(s), Denies numbness, Denies paresthesias and Denies weakness Psych Denies anxiety and Denies depression Endo Denies palpitations Dimitrios/Lymph Denies lymphadenopathy Physical Exam Const General: cooperative and no acute distress Nutritional Appearance: well nourished Orientation/consciousness: patient oriented x3 Limitations: no limitations HEENT Head: Yes normocephalic and Yes atraumatic Ears: hearing grossly normal bilaterally Chest Other: Left breast: No skin change, no nipple retraction, no nipple discharge, no palpable mass, no enlarged lymph nodes. Right breast: No skin change, no nipple retraction, no nipple discharge, palpable density noted in the 9 o'clock position mobile within the breast tissue measuring approximately 1 cm in diameter, no enlarged lymph nodes Resp Effort & Inspection: normal respiratory effort, no audible wheezes, no cough and no respiratory distress Cardio Jugular venous distension: no JVD GI Inspection: Yes normal to inspection Skin Other: Warm, dry, no rash Neuro Other: Mobility Assessment: 1. 3 meter assessment time (seconds): 4 2. 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 Pathology confirmed an invasive breast carcinoma with ductal and lobular features, ER positive, OH negative, HER2 Duarte negative, Ki-67 low. Pathology results were reviewed in detail with the patient and her cousin and treatment options reviewed in detail. Surgical options include right breast lumpectomy with localizer and right axillary sentinel node biopsy, right simple mastectomy with sentinel node biopsy, with or without reconstruction. We also discussed genetic testing given her strong family history of breast cancer and her 2 daughters (1 of which may actually have been diagnosed with BRCA). After discussion of the procedure, risks, and alternatives, she is consenting to a right breast lumpectomy with localizer and right axillary sentinel node biopsy. She was also consenting to genetic testing which will be performed on Monday this week. She will be traveling to [place] to visit her daughter over the holidays and will plan on doing the surgery as soon as she returns. 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
[2024-05-22 08:35] VITALS: BP 131/69; PULSE 70; BMI 30.1
== END 2024-05-22 09:20 | disposition home or self-care (01) ==
PROVIDERS: PCP Internal Medicine; Visit Provider Surgery
DX: C50.811 Malignant neoplasm of overlapping sites of right female breast (principal)
CPT/HCPCS: 99214

== ENCOUNTER → 2024-05-22 08:18 | Outpatient (BNVA) | payer MEDICARE, SELFPAY | PROVIDERS: PCP Internal Medicine; Visit Provider Surgery | DX: C50.811 Malignant neoplasm of overlapping sites of right female breast (principal) | CPT/HCPCS: 99212 ==

== ENCOUNTER → 2024-05-24 11:28 | Outpatient (BNVA) | payer MEDICARE, SELFPAY | PROVIDERS: PCP Internal Medicine; Visit Provider Surgery | DX: Z13.79 Encounter for other screening for genetic and chromosomal anomalies (principal) | CPT/HCPCS: 99211 ==

== ENCOUNTER 2024-06-10 08:38 | Outpatient (AMB) | payer MEDICARE, SELFPAY ==
--- NOTE | 2024-06-10 08:46 | A.OFFVIS_ITS ---
VS Expanded 06/10/24 08:47 BP 117/57 L Blood Pressure Location Lt brachial Blood Pressure Position Sitting Pulse 65 Pulse Source Pulse Oximeter Pulse Oximetry 98 Height 5 ft 3 in Weight 158 lb BMI 28.0 Body Fat % 47.4 Body Fat Mass 106.4 Fat Free Mass 118.0 Visceral Fat Rating 14.0 Body Water % 37.5 Body Water Mass 84.2 Muscle Mass/Score 112.0 Basal Metabolic Rate/Score 1,673 Intake Visit Reasons: (OV) PO LSG 04/10/24 Multiple Drum Sander Helper Required: No Allergies Sulfa (Sulfonamide Antibiotics) Allergy (Intermediate, Verified 06/10/24 08:50) rash Medication List - Last Reconciled 06/10/24 by ZAIRA Rocha amlodipine 5 mg PO DAILY citalopram 10 mg PO DAILY citalopram 20 mg PO DAILY levothyroxine 100 mcg PO DAILY pantoprazole 40 mg PO DAILY@0630 sucralfate mL PO HPI Comments Details: This?a?68?yo female who is s/p LSG without hiatal hernia repair on?04/10/2024. Presents for 2 month post op visit. Weight today is 158 pounds, with a BMI of 28. There has been a 43.2 pound weight loss,(initial weight 201.2 pounds) since starting the program on 02/09/2024 reflecting a 27.3% total body weight loss and a weight loss of 39.5 pounds since surgery (operative weight 197.5 pounds) reflecting a 20% TBWL since surgery. No complaints of nausea, emesis, abdominal pain or reflux. Reports infrequent but normal bowel movements every 2-3 days and uses stool softeners regularly. Taking celebrate MVI Present meal plan includes: isopure 1/2 scoop at 8-10 Orgain bar 11-1 Celebrate 1/2 scoop 2-4 meal at 5 with 3 forks protein and 3 forks veg Drinking 40 oz water ? Exercise routine includes: [employer] 3 days per week treadmill/elliptical/bike stationary bike 60 min 3-4 x per day, burning 400 ami per day PFSH Medical History 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 Presence of pessary Back pain History of one miscarriage Hypothyroidism GERD (gastroesophageal reflux disease) Anxiety Depression Hypertension Sleep apnea treated with continuous positive airway pressure (CPAP) Surgical History S/P laparoscopic sleeve gastrectomy Hx of wisdom tooth extraction Hx of dilation and curettage Hx of esophagogastroduodenoscopy (03/05/24) Hx of colonoscopy Hx of tubal ligation Family History Mother Lung cancer Brother Multiple myeloma Sister PONV (postoperative nausea and vomiting) Breast CA, Onset Age: 40 Maternal Aunt Colon cancer Family/Other Breast CA, Onset Age: 40 Maternal Uncle Esophageal cancer Prostate cancer Maternal Aunt Lung cancer Maternal Aunt Cancer of kidney Maternal Aunt Breast CA Social History Household Members: Children Caregiver staying overnight: No Housing: Apartment Are you a primary memory care program resident to a significant other at home: No Do you presently have visiting nurse or other home services: No 75 years or older and lives alone: No Alcohol intake: current Alcohol intake frequency: a few times a month Comment: 1 wkly Patient Tobacco Use Status: Never used Tobacco e-Cigarette/Vaping Use: Never Used service: No Female Reproductive History Menstrual Age of Menarche: 14 Physical Exam Vital Signs: Last Vital Signs Pulse 65 06/10/24 08:47 BP 117/57 L 06/10/24 08:47 Pulse Ox 98 06/10/24 08:47 BMI result Body Mass Index 28.0 Const General: healthy appearing and no acute distress Resp Effort & Inspection: normal respiratory effort Auscultation: clear to auscultation bilaterally Cardio Rate: regular rate Rhythm: regular rhythm GI Auscultation: normal bowel sounds Extrem General: Yes normal to inspection Assessment & Plan Assessment & Plan (1) S/P laparoscopic sleeve gastrectomy: Code(s): Z98.84 - Bariatric surgery status Category: Surgical Plan: Overall, patient is doing well. She is going to be communicating with Dr. Thibodeaux this Monday with her weight and to request a change in her meal plan. She was away at her daughter's house in [place] for the holiday season and has since returned. She is returning to the gym and using her stationary bike at home. She has made good progress. She does wish to expand her meal plan which she will discuss with him on Monday. She is having some mild constipation although moved her bowels on Monday, add senna. Encouraged to continue to text weekly and with any questions or concerns. Return to the office 1 month Medications: New sennosides (senna) 17.2 mg (2 x 8.6 mg) PO BEDTIME PRN 30 tabs 2RF constipation
[2024-06-10 08:47] VITALS: BP 117/57; PULSE 65; O2SAT 98; BMI 28.0
--- OUTSIDE RECORDS SUMMARY | 2024-06-10 08:54 | XMS_ITS ---
Author Organization [facility], Address [address] [place] [address] Care Team Providers Care Chip Unloader Name Role Phone David Cortes Unavailable [phone] ALLERGIES, ADVERSE REACTIONS, ALERTS Substance Code Code [...] RxNorm 022 hydrochlorothiazide RxNorm 022 Paxlovid (EUA) 1050220 RxNorm 022 2021 oral 3 LEVOTHYROXINE 0.100MG (100MCG) TAB RxNorm 023 ALBUTEROL HFA INH (200 PUFFS)8.5GM RxNorm 2021 2 OMEPRAZOLE 20MG CAPSULES RxNorm 2021 benzonatate 295276 RxNorm 022 022 oral 1 tamsulosin 238285 RxNorm 02/06/20 oral 1 PROBLEMS Problem Name Code Code System Start Date End Date Stat Hypertension 65139787 [facility] 10/25/2021 Active Depression 74370139 [facility] 10/25/2021 Active Hypothyroidism 83377510 [facility] 10/25/2021 Activ e COVID-19, confirmed by labor atory testing 367936324 [facility] 10/25/2021 Inactive Asthma 282038502 [facility] Active Gastro-esophageal reflux disease 582704553 [facility] Active Cystocele, unspecified 716550266 [facility] 02/05/2023 Active Retention of urine, unspecified 557315035 [facility] 02/05/2023 Active ENCOUNTERS Encounter Diagnosis Code Code System Date Stat us Cystocele, unspecified 089840176 [facility] 02/05/2023 Ac tive Retention of urine, unspecified 619535168 [facility] 2022 Active IMMUNIZATIONS * None VITAL SIGNS Code Code System Vitals Name Date Value and Un its 8462-4 [facility] Blood Pressure-Diastolic 02/05/2023 83 mmHg 8480-6 [facility] Blood Pressure-Systolic 02/05/2023 1 21 mmHg 8867-4 [facility] Heart Rate 02/05/2023 78 /min 9279-1 [facility] Respiratory Rate 02/05/2023 18 /min 8310-5 inc Body Temperature 02/05/2023 97.8 F 79678-4 inc Oxygen Saturation 02/05/2023 96 % SOCIAL [...]
--- OUTSIDE RECORDS SUMMARY | 2024-06-10 08:54 | XMS_ITS ---
Author Organization [facility], Address [address] [place] [address] Care Team Providers Care Ocean Export Account Manager Name Role Phone David Cortes Unavailable [phone] ALLERGIES, ADVERSE REACTIONS, ALERTS Substance Code Code [...] RxNorm 022 hydrochlorothiazide RxNorm 022 Paxlovid (EUA) 4890049 RxNorm 022 2021 oral 3 LEVOTHYROXINE 0.100MG (100MCG) TAB RxNorm 023 ALBUTEROL HFA INH (200 PUFFS)8.5GM RxNorm 2021 2 OMEPRAZOLE 20MG CAPSULES RxNorm 2021 benzonatate 787073 RxNorm 022 022 oral 1 tamsulosin 356481 RxNorm 02/06/20 oral 1 PROBLEMS Problem Name Code Code System Start Date End Date Stat Hypertension 04199464 [facility] 10/25/2021 Active Depression 03388234 [facility] 10/25/2021 Active Hypothyroidism 94223771 [facility] 10/25/2021 Activ e COVID-19, confirmed by labor atory testing 479173640 [facility] 10/25/2021 Inactive Asthma 845000680 [facility] Active Gastro-esophageal reflux disease 818313013 [facility] Active Cystocele, unspecified 360929339 [facility] 02/05/2023 Active Retention of urine, unspecified 250607117 [facility] 02/05/2023 Active ENCOUNTERS Encounter Diagnosis Code Code System Date Stat us Cystocele, unspecified 613749726 [facility] 02/05/2023 Ac tive Retention of urine, unspecified 008001408 [facility] 2022 Active IMMUNIZATIONS * None VITAL SIGNS Code Code System Vitals Name Date Value and Un its 8462-4 [facility] Blood Pressure-Diastolic 02/05/2023 83 mmHg 8480-6 [facility] Blood Pressure-Systolic 02/05/2023 1 21 mmHg 8867-4 [facility] Heart Rate 02/05/2023 78 /min 9279-1 [facility] Respiratory Rate 02/05/2023 18 /min 8310-5 inc Body Temperature 02/05/2023 97.8 F 09200-5 inc Oxygen Saturation 02/05/2023 96 % SOCIAL [...]
== END 2024-06-10 09:28 | disposition home or self-care (01) ==
PROVIDERS: PCP Internal Medicine; Visit Provider Physician Assistant Surgical
DX: Z98.84 Bariatric surgery status (principal)
CPT/HCPCS: 99024

== ENCOUNTER → 2024-06-10 11:24 | Outpatient (AMB) | payer MEDICARE, SELFPAY ==
--- NOTE | 2024-06-10 11:10 | MHC.WMTHER ---
Intake Intake Visit Reasons: VIDEO F/U Allergies Sulfa (Sulfonamide Antibiotics) Allergy (Intermediate, Verified 06/10/24 08:50) rash PFSH Medical History 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 Presence of pessary Back pain History of one miscarriage Hypothyroidism GERD (gastroesophageal reflux disease) Anxiety Depression Hypertension Sleep apnea treated with continuous positive airway pressure (CPAP) Surgical History S/P laparoscopic sleeve gastrectomy Hx of wisdom tooth extraction Hx of dilation and curettage Hx of esophagogastroduodenoscopy (03/05/24) Hx of colonoscopy Hx of tubal ligation Family History Mother Lung cancer Brother Multiple myeloma Sister PONV (postoperative nausea and vomiting) Breast CA, Onset Age: 40 Maternal Aunt Colon cancer Family/Other Breast CA, Onset Age: 40 Maternal Uncle Esophageal cancer Prostate cancer Maternal Aunt Lung cancer Maternal Aunt Cancer of kidney Maternal Aunt Breast CA Social History Household Members: Children Caregiver staying overnight: No Housing: Apartment Are you a primary farm or ranch animal caretaker to a significant other at home: No Do you presently have visiting nurse or other home services: No 75 years or older and lives alone: No Alcohol intake: current Alcohol intake frequency: a few times a month Comment: 1 wkly Patient Tobacco Use Status: Never used Tobacco e-Cigarette/Vaping Use: Never Used service: No Female Reproductive History Menstrual Age of Menarche: 14 Behavioral Health Assessment Weight Management Therapy Therapy Notes Details Subjective: PT presents for a follow-up visit via Telehealth. She reports a small cancerous tumor was found in her right breast. Although worried, she states she is doing well in general. PT shared that she had a great time visiting her daughter and is doing well with her weight loss. She expressed a desire for support with assertiveness, as she identifies herself as a people pleaser, which she believes could hinder her weight loss journey. Objective: During the session, PT was engaged and reflective. She appeared emotionally stable and open to discussing her concerns. CBT-based interventions were used to help process emotions triggered by the recent medical issue. Focus was placed on assertiveness, as PT continues to face challenges in saying no and overcoming people-pleasing behaviors. Provider Recommended 2 books re: assertiveness and stress management. Assessment/Response: Mental status: WNL Risk reported/identified: None PT is processing her emotions related to the cancer diagnosis, acknowledging worries but maintaining a positive outlook. Assertiveness remains an ongoing challenge, as she struggles with people-pleasing behaviors that may interfere with her weight loss progress. CBT interventions were effective in helping her reflect on her feelings, explore communication patterns, and address stress. Food/Weight/Diet Expectations of change Initial weight pre-op: 201Lbs 04/16 - PO: 182Lbs 04/24 - PO: 179Lbs 05/15/2024- PO: 171Lbs 06/10/2024 - PO: 158Lbs Target weight: 150 lbs. Assessment & Plan Assessment & Plan (1) Depression: Code(s): F32.A - Depression, unspecified Qualifiers: Depression Type: unspecified Qualified Code(s): F32.A - Depression, unspecified Plan Continue working on assertiveness training to address challenges with people-pleasing. Monitor for emotional changes, particularly related to the medical issue. Follow up in 2 weeks to assess progress and provide continued support. Next del: 06/25/2024 at 9am, Video. Telehealth Telehealth Telehealth Platform: [employer] Location of provider rendering services: other Location of patient: address on file Patient Identification confirmed using: Name, : Yes Telehealth method: video Patient verbally consented to treatment: Yes Patient verbally consented to billing insurance company: Yes Patient informed of any privacy concerns related to visit: Yes Minutes spent on Phone/Video with Pt.: 55 Coding Level of Care Code Established Pt Tele Psytx >53 mins ([id number]) Patient Type Established Diagnoses Depression, unspecified depression type F32.A Depression Type: unspecified Time Spent (min) 55
--- OUTSIDE RECORDS SUMMARY | 2024-06-10 13:09 | XMS_ITS ---
Author Organization [facility], Address [address] [place] [address] Care Team Providers Care Interventional Neuroradiologist Name Role Phone David Cortes Unavailable [phone] ALLERGIES, ADVERSE REACTIONS, ALERTS Substance Code Code [...] RxNorm 022 hydrochlorothiazide RxNorm 022 Paxlovid (EUA) 0208174 RxNorm 022 2021 oral 3 LEVOTHYROXINE 0.100MG (100MCG) TAB RxNorm 023 ALBUTEROL HFA INH (200 PUFFS)8.5GM RxNorm 2021 2 OMEPRAZOLE 20MG CAPSULES RxNorm 2021 benzonatate 081609 RxNorm 022 022 oral 1 tamsulosin 883203 RxNorm 02/06/20 oral 1 PROBLEMS Problem Name Code Code System Start Date End Date Stat Hypertension 85378662 [facility] 10/25/2021 Active Depression 58143834 [facility] 10/25/2021 Active Hypothyroidism 49869200 [facility] 10/25/2021 Activ e COVID-19, confirmed by labor atory testing 111217421 [facility] 10/25/2021 Inactive Asthma 495731616 [facility] Active Gastro-esophageal reflux disease 054248130 [facility] Active Cystocele, unspecified 341634777 [facility] 02/05/2023 Active Retention of urine, unspecified 703734724 [facility] 02/05/2023 Active ENCOUNTERS Encounter Diagnosis Code Code System Date Stat us Cystocele, unspecified 452508243 [facility] 02/05/2023 Ac tive Retention of urine, unspecified 767306036 [facility] 2022 Active IMMUNIZATIONS * None VITAL SIGNS Code Code System Vitals Name Date Value and Un its 8462-4 [facility] Blood Pressure-Diastolic 02/05/2023 83 mmHg 8480-6 [facility] Blood Pressure-Systolic 02/05/2023 1 21 mmHg 8867-4 [facility] Heart Rate 02/05/2023 78 /min 9279-1 [facility] Respiratory Rate 02/05/2023 18 /min 8310-5 inc Body Temperature 02/05/2023 97.8 F 74452-2 inc Oxygen Saturation 02/05/2023 96 % SOCIAL [...]
--- OUTSIDE RECORDS SUMMARY | 2024-06-10 13:10 | XMS_ITS ---
Author Organization [facility], Address [address] [place] [address] Care Team Providers Care Mobile Disc Jockey Name Role Phone David Cortes Unavailable [phone] ALLERGIES, ADVERSE REACTIONS, ALERTS Substance Code Code [...] RxNorm 022 hydrochlorothiazide RxNorm 022 Paxlovid (EUA) 8709992 RxNorm 022 2021 oral 3 LEVOTHYROXINE 0.100MG (100MCG) TAB RxNorm 023 ALBUTEROL HFA INH (200 PUFFS)8.5GM RxNorm 2021 2 OMEPRAZOLE 20MG CAPSULES RxNorm 2021 benzonatate 907496 RxNorm 022 022 oral 1 tamsulosin 178463 RxNorm 02/06/20 oral 1 PROBLEMS Problem Name Code Code System Start Date End Date Stat Hypertension 93293560 [facility] 10/25/2021 Active Depression 84204418 [facility] 10/25/2021 Active Hypothyroidism 46333648 [facility] 10/25/2021 Activ e COVID-19, confirmed by labor atory testing 633004421 [facility] 10/25/2021 Inactive Asthma 631287933 [facility] Active Gastro-esophageal reflux disease 658089304 [facility] Active Cystocele, unspecified 960602625 [facility] 02/05/2023 Active Retention of urine, unspecified 103113675 [facility] 02/05/2023 Active ENCOUNTERS Encounter Diagnosis Code Code System Date Stat us Cystocele, unspecified 185520590 [facility] 02/05/2023 Ac tive Retention of urine, unspecified 099005029 [facility] 2022 Active IMMUNIZATIONS * None VITAL SIGNS Code Code System Vitals Name Date Value and Un its 8462-4 [facility] Blood Pressure-Diastolic 02/05/2023 83 mmHg 8480-6 [facility] Blood Pressure-Systolic 02/05/2023 1 21 mmHg 8867-4 [facility] Heart Rate 02/05/2023 78 /min 9279-1 [facility] Respiratory Rate 02/05/2023 18 /min 8310-5 inc Body Temperature 02/05/2023 97.8 F 89385-1 inc Oxygen Saturation 02/05/2023 96 % SOCIAL [...]
== END ==
PROVIDERS: PCP Internal Medicine; Visit Provider Counselor Mental Health
DX: F32.A Depression, unspecified (principal)
CPT/HCPCS: 90837

== ENCOUNTER 2024-06-12 08:46 | Outpatient (REF) | payer MEDICARE, SELFPAY ==
--- NOTE | ~2024-06-12 | US_ITS ---
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 COMPARISON: Comparison is made with available prior examinations. TECHNIQUE NEEDLE LOC: Proper informed consent is obtained from the patient after discussion of the procedure, potential risks and complications, and alternatives including declining the procedure today. Patient was given an opportunity for questions. The patient appeared to understand. The patient consented to the procedure and signed the consent form. GUIDANCE: Ultrasound APPROACH: Lateral. TARGET: Solid irregular mass 9:00 13 cm from the nipple.. ANESTHESIA: carbonated lidocaine 1%: 6 mL. RADIOFREQUENCY TAG: ID # [id number] RF Tag ID confirmed with LOCalizer Guidance System prior to placement. The skin is prepped and local anesthesia administered. The needle is positioned and RFID tag deployed. Final post procedure mammogram images demonstrate the LOCalizer RF tag to reside within the mass at 9:00 adjacent to the marker clip The patient tolerated the procedure well and had no immediate complications. Dressing placed and home instructions reviewed. US/US Breast RF Tag Device Right IMPRESSION: -Status post right breast ultrasound RFID localization. Electronically signed by: Corinna Vergara DO 06/26/2024 02:20 PM [facility]
--- NOTE | ~2024-06-12 | MM_ITS ---
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 COMPARISON: Comparison is made with available prior examinations. TECHNIQUE NEEDLE LOC: Proper informed consent is obtained from the patient after discussion of the procedure, potential risks and complications, and alternatives including declining the procedure today. Patient was given an opportunity for questions. The patient appeared to understand. The patient consented to the procedure and signed the consent form. GUIDANCE: Ultrasound APPROACH: Lateral. TARGET: Solid irregular mass 9:00 13 cm from the nipple.. ANESTHESIA: carbonated lidocaine 1%: 6 mL. RADIOFREQUENCY TAG: ID # [id number] RF Tag ID confirmed with LOCalizer Guidance System prior to placement. The skin is prepped and local anesthesia administered. The needle is positioned and RFID tag deployed. Final post procedure mammogram images demonstrate the LOCalizer RF tag to reside within the mass at 9:00 adjacent to the marker clip The patient tolerated the procedure well and had no immediate complications. Dressing placed and home instructions reviewed. MM/MM tomosynthesis diagnostic RT IMPRESSION: -Status post right breast ultrasound RFID localization. Electronically signed by: Corinna Vergara DO 06/26/2024 02:20 PM [facility]
--- NOTE | ~2024-06-12 | MM_ITS ---
EXAMINATION: MM MAMMOGRAM GUIDED RFID LOCALIZATION BREAST, Right CLINICAL INFORMATION: Right breast mass 9:00 biopsy with pathology of invasive ductal carcinoma and ductal carcinoma in situ. COMPARISON: Comparison is made with available prior examinations. TECHNIQUE NEEDLE LOC: Proper informed consent is obtained from the patient after discussion of the procedure, potential risks and complications, and alternatives including declining the procedure today. Patient was given an opportunity for questions. The patient appeared to understand. The patient consented to the procedure and signed the consent form. GUIDANCE: Digital mammography. APPROACH: Lateral. TARGET: Solid irregular mass 9:00 13 cm from the nipple.. ANESTHESIA: carbonated lidocaine 1%: 6 mL. RADIOFREQUENCY TAG: ID # [id number] RF Tag ID confirmed with LOCalizer Guidance System prior to placement. The skin is prepped and local anesthesia administered. The needle is positioned and RFID tag deployed. Final images demonstrate the LOCalizer RF tag to reside within the mass at 9:00 adjacent to the marker clip The patient tolerated the procedure well and had no immediate complications. Dressing placed and home instructions reviewed.
--- OUTSIDE RECORDS SUMMARY | 2024-06-12 08:51 | XMS_ITS ---
Author Organization [facility], Address [address] [place] [address] Care Team Providers Care Summons Server Name Role Phone David Cortes Unavailable [phone] ALLERGIES, ADVERSE REACTIONS, ALERTS Substance Code Code System Type Reaction Severity Status Start Date End Date Sulfa (Sulfonamide Antibiotics) Unknown Drug allergy () 1 No known non-drug allergies RxNorm Other substance tonya rgy () 1 Sulfa (Sulfonamide Antibiotics) RxNorm Drug allergy () 0 MEDICATIONS Medication Code Code System Start Date Stop Date Route Dosage Directions Fill Instructions Levoxyl RxNorm 022 citalopram RxNorm 022 amlodipine RxNorm 022 hydrochlorothiazide RxNorm 022 Paxlovid (EUA) 4758200 RxNorm 022 2021 oral 3 LEVOTHYROXINE 0.100MG (100MCG) TAB RxNorm 023 ALBUTEROL HFA INH (200 PUFFS)8.5GM RxNorm 2021 2 OMEPRAZOLE 20MG CAPSULES RxNorm 2021 benzonatate 306320 RxNorm 022 022 oral 1 tamsulosin 618103 RxNorm 02/06/20 oral 1 PROBLEMS Problem Name Code Code System Start Date End Date Stat Hypertension 98998195 [facility] 10/25/2021 Active Depression 08283848 [facility] 10/25/2021 Active Hypothyroidism 83238694 [facility] 10/25/2021 Activ e COVID-19, confirmed by labor atory testing 183034659 [facility] 10/25/2021 Inactive Asthma 803936302 [facility] Active Gastro-esophageal reflux disease 190261184 [facility] Active Cystocele, unspecified 038379641 [facility] 02/05/2023 Active Retention of urine, unspecified 770858090 [facility] 02/05/2023 Active ENCOUNTERS Encounter Diagnosis Code Code System Date Stat us Cystocele, unspecified 259055839 [facility] 02/05/2023 Ac tive Retention of urine, unspecified 005497253 [facility] 2022 Active IMMUNIZATIONS * None VITAL SIGNS Code Code System Vitals Name Date Value and Un its 8462-4 [facility] Blood Pressure-Diastolic 02/05/2023 83 mmHg 8480-6 Loinc Blood Pressure-Systolic 02/05/2023 1 21 mmHg 8867-4 [facility] Heart Rate 02/05/2023 78 /min 9279-1 [facility] Respiratory Rate 02/05/2023 18 /min 8310-5 inc Body Temperature 02/05/2023 97.8 F 13492-4 inc Oxygen Saturation 02/05/2023 96 % SOCIAL [...]
--- OUTSIDE RECORDS SUMMARY | 2024-06-12 08:51 | XMS_ITS ---
Author Organization [facility], Address [address] [place] [address] Care Team Providers Care Insurance Agents Supervisor Name Role Phone David Cortes Unavailable [phone] ALLERGIES, ADVERSE REACTIONS, ALERTS Substance Code Code System Type Reaction Severity Status Start Date End Date No known non-drug allergies RxNorm Other substance tonya rgy () 1 Sulfa (Sulfonamide Antibiotics) RxNorm Drug allergy () 0 Sulfa (Sulfonamide Antibiotics) Unknown Drug allergy () 1 MEDICATIONS Medication Code Code System Start Date Stop Date Route Dosage Directions Fill Instructions Levoxyl RxNorm 022 citalopram RxNorm 022 amlodipine RxNorm 022 hydrochlorothiazide RxNorm 022 Paxlovid (EUA) 5955138 RxNorm 022 2021 oral 3 LEVOTHYROXINE 0.100MG (100MCG) TAB RxNorm 023 ALBUTEROL HFA INH (200 PUFFS)8.5GM RxNorm 2021 2 OMEPRAZOLE 20MG CAPSULES RxNorm 2021 benzonatate 126155 RxNorm 022 022 oral 1 tamsulosin 950583 RxNorm 02/06/20 oral 1 PROBLEMS Problem Name Code Code System Start Date End Date Stat Hypertension 96547513 [facility] 10/25/2021 Active Depression 42891981 [facility] 10/25/2021 Active Hypothyroidism 53356389 [facility] 10/25/2021 Activ e COVID-19, confirmed by labor atory testing 710093267 [facility] 10/25/2021 Inactive Asthma 955686143 [facility] Active Gastro-esophageal reflux disease 993473123 [facility] Active Cystocele, unspecified 097433923 [facility] 02/05/2023 Active Retention of urine, unspecified 882836933 [facility] 02/05/2023 Active ENCOUNTERS Encounter Diagnosis Code Code System Date Stat us Cystocele, unspecified 537198172 [facility] 02/05/2023 Ac tive Retention of urine, unspecified 157119278 [facility] 2022 Active IMMUNIZATIONS * None VITAL SIGNS Code Code System Vitals Name Date Value and Un its 8462-4 Loinc Blood Pressure-Diastolic 02/05/2023 83 mmHg 8480-6 Loinc Blood Pressure-Systolic 02/05/2023 1 21 mmHg 8867-4 [facility] Heart Rate 02/05/2023 78 /min 9279-1 Loinc Respiratory Rate 02/05/2023 18 /min 8310-5 inc Body Temperature 02/05/2023 97.8 F 64978-6 inc Oxygen Saturation 02/05/2023 96 % SOCIAL [...]
== END 2024-06-12 08:47 | disposition home or self-care (01) ==
LOC: HO.MAMMO 08:46
PROVIDERS: PCP Internal Medicine; Visit Provider Surgery
DX: C50.911 Malignant neoplasm of unspecified site of right female breast (principal); N63.15 Unspecified lump in the right breast, overlapping quadrants
CPT/HCPCS: 19281; 19285; 77061; 77065; C1819

== ENCOUNTER → 2024-06-12 09:00 | Outpatient (BNV) | payer MEDICARE, SELFPAY | PROVIDERS: PCP Internal Medicine; Visit Provider Internal Medicine | DX: C50.911 Malignant neoplasm of unspecified site of right female breast (principal) | CPT/HCPCS: 19281; 77065; G0279 ==

== ENCOUNTER 2024-06-17 06:25 | Day surgery (SDC) | payer MEDICARE, SELFPAY ==
--- OUTSIDE RECORDS SUMMARY | 2024-05-22 11:24 | XMS_ITS ---
Author Organization [facility], Address [address] [place] [address] Care Team Providers Care Rn Advanced Name Role Phone David Cortes Unavailable [phone] ALLERGIES, ADVERSE REACTIONS, ALERTS Substance Code Code [...] RxNorm 022 hydrochlorothiazide RxNorm 022 Paxlovid (EUA) 5090099 RxNorm 022 2021 oral 3 LEVOTHYROXINE 0.100MG (100MCG) TAB RxNorm 023 ALBUTEROL HFA INH (200 PUFFS)8.5GM RxNorm 2021 2 OMEPRAZOLE 20MG CAPSULES RxNorm 2021 benzonatate 228336 RxNorm 022 022 oral 1 tamsulosin 989730 RxNorm 02/06/20 oral 1 PROBLEMS Problem Name Code Code System Start Date End Date Stat Hypertension 66826066 [facility] 10/25/2021 Active Depression 10635879 [facility] 10/25/2021 Active Hypothyroidism 50978503 [facility] 10/25/2021 Activ e COVID-19, confirmed by labor atory testing 820498092 [facility] 10/25/2021 Inactive Asthma 010234808 [facility] Active Gastro-esophageal reflux disease 231448054 [facility] Active Cystocele, unspecified 003165731 [facility] 02/05/2023 Active Retention of urine, unspecified 671043801 [facility] 02/05/2023 Active ENCOUNTERS Encounter Diagnosis Code Code System Date Stat us Cystocele, unspecified 052922307 [facility] 02/05/2023 Ac tive Retention of urine, unspecified 714808846 [facility] 2022 Active IMMUNIZATIONS * None VITAL SIGNS Code Code System Vitals Name Date Value and Un its 8462-4 Lo[facility] Blood Pressure-Diastolic 02/05/2023 83 mmHg 8480-6 [facility] Blood Pressure-Systolic 02/05/2023 1 21 mmHg 8867-4 [facility] Heart Rate 02/05/2023 78 /min 9279-1 [facility] Respiratory Rate 02/05/2023 18 /min 8310-5 inc Body Temperature 02/05/2023 97.8 F 86431-1 inc Oxygen Saturation 02/05/2023 96 % SOCIAL [...]
--- OUTSIDE RECORDS SUMMARY | 2024-05-22 11:24 | XMS_ITS ---
Author Organization [facility], Address [address] [place] [address] Care Team Providers Care Qa Auditor Name Role Phone David Cortes Unavailable [phone] ALLERGIES, ADVERSE REACTIONS, ALERTS Substance Code Code [...] RxNorm 022 hydrochlorothiazide RxNorm 022 Paxlovid (EUA) 5716973 RxNorm 022 2021 oral 3 LEVOTHYROXINE 0.100MG (100MCG) TAB RxNorm 023 ALBUTEROL HFA INH (200 PUFFS)8.5GM RxNorm 2021 2 OMEPRAZOLE 20MG CAPSULES RxNorm 2021 benzonatate 371906 RxNorm 022 022 oral 1 tamsulosin 610696 RxNorm 02/06/20 oral 1 PROBLEMS Problem Name Code Code System Start Date End Date Stat Hypertension 11193944 [facility] 10/25/2021 Active Depression 96859606 [facility] 10/25/2021 Active Hypothyroidism 85093014 [facility] 10/25/2021 Activ e COVID-19, confirmed by labor atory testing 593386571 [facility] 10/25/2021 Inactive Asthma 405960490 [facility] Active Gastro-esophageal reflux disease 093077719 [facility] Active Cystocele, unspecified 499144931 [facility] 02/05/2023 Active Retention of urine, unspecified 364877884 [facility] 02/05/2023 Active ENCOUNTERS Encounter Diagnosis Code Code System Date Stat us Cystocele, unspecified 794951700 [facility] 02/05/2023 Ac tive Retention of urine, unspecified 031528518 [facility] 2022 Active IMMUNIZATIONS * None VITAL SIGNS Code Code System Vitals Name Date Value and Un its 8462-4 [facility] Blood Pressure-Diastolic 02/05/2023 83 mmHg 8480-6 [facility] Blood Pressure-Systolic 02/05/2023 1 21 mmHg 8867-4 [facility] Heart Rate 02/05/2023 78 /min 9279-1 [facility] Respiratory Rate 02/05/2023 18 /min 8310-5 inc Body Temperature 02/05/2023 97.8 F 11121-6 inc Oxygen Saturation 02/05/2023 96 % SOCIAL [...]
[2024-06-13 08:11] VITALS: BMI 30.1
--- NOTE | 2024-06-13 14:22 | P.CONAN_ITS ---
Documented by User: Anni Stafford NP 06/13/24 14:24 HPI - Anesthesia Eval Consult details Narrative: 68yo F for Right Breast Lumpectomy w/LOCalizer, [place] Node Biopsy s/p gastric sleeve 04/2024 with GA-ETT 7 PMFSH Active Problems Active Problems: All Active Problems 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 (Acute) S/P laparoscopic sleeve gastrectomy (Acute) Congenital intra-abdominal adhesions (Acute) Hepatomegaly (Acute) Fatty liver (Acute) BMI 35.0-35.9,adult (Acute) Obesity (Acute) Hypothyroidism (Acute) GERD (gastroesophageal reflux disease) (Acute) Anxiety (Acute) Depression (Acute) Hypertension (Acute) Sleep apnea treated with continuous positive airway pressure (CPAP) (Acute) Past Medical History Medical History (Updated 06/17/24 @ 07:06 by Vivi Chase RN) 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 Presence of pessary Back pain History of one miscarriage Hypothyroidism GERD (gastroesophageal reflux disease) Anxiety Depression Hypertension Sleep apnea treated with continuous positive airway pressure (CPAP) Family History Family History Mother Lung cancer Brother Multiple myeloma Sister PONV (postoperative nausea and vomiting) Breast CA, Onset Age: 40 Maternal Aunt Colon cancer Family/Other Breast CA, Onset Age: 40 Maternal Uncle Esophageal cancer Prostate cancer Maternal Aunt Lung cancer Maternal Aunt Cancer of kidney Maternal Aunt Breast CA Family history of problems with anesthesia: No Surgical History Surgical History S/P laparoscopic sleeve gastrectomy Hx of wisdom tooth extraction Hx of dilation and curettage Hx of esophagogastroduodenoscopy (03/05/24) Hx of colonoscopy Hx of tubal ligation History of Problems with Anesthesia: No Social History Social History Household Members: Children Housing: Apartment Are you a primary career development facilitator to a significant other at home: No Do you presently have visiting nurse or other home services: No Alcohol intake: current Alcohol intake frequency: holidays/special occasions only Comment: 1 wkly Patient Tobacco Use Status: Never used Tobacco e-Cigarette/Vaping Use: Never Used Use of substances other than those prescribed or required for medical reasons: No Have you been hit, kicked, punched, or otherwise hurt by someone within the past year? If so, by whom?: No Are you DNR?: No Advance Directives: No Advance Directives Information Provided: Yes (HCP brother Garrett Cespedes [phone] (per patient)) Advance Directives on File: No (Not on file) Recently lost weight without trying: Yes How much weight loss: 34pounds or more Eating poorly because of decreased appetite: No Nutrition screen score: 6 Patient : No : No Poor oral hygiene: Yes (molars x2 missing) service: No Meds Allergies Allergy/AdvReac Type Severity Reaction Status Date / Time adhesive Allergy Intermediate ITCHING, Verified 06/17/24 07:09 RASH Sulfa (Sulfonamide Allergy Intermediate rash Verified 06/17/24 07:06 Antibiotics) Home Medications ?Medication ?Instructions ?Recorded ?Confirmed ?Last Taken ?Type citalopram 10 mg tablet 10 mg PO DAILY 01/15/24 06/17/24 06/17/24 History citalopram 20 mg tablet 20 mg PO DAILY 01/15/24 06/17/24 06/17/24 History levothyroxine 100 mcg tablet 100 mcg PO DAILY 01/15/24 06/17/24 06/17/24 History pantoprazole 40 mg tablet,delayed 40 mg PO DAILY@0630 04/10/24 06/17/24 06/17/24 History release sucralfate 100 mg/mL oral 1 ml PO DAILY 05/07/24 06/17/24 06/16/24 History suspension Exam Height,Weight and Vital Signs: Height 5 ft 3 in Weight 77.111 kg Pertinent Lab Results Pertinent Lab Results: Laboratory Tests 04/11/24 04/11/24 05:39 09:05 WBC 12.8 H Hgb 12.3 Hct 36.5 L Plt Count 203 Sodium 137 Potassium 4.1 Chloride 105 Carbon Dioxide 20 L BUN 14 Creatinine 0.67 Narrative Narrative: EKG 02/2024 Vent. Rate : 060 BPM Atrial Rate : 060 BPM P-R Int : 168 ms QRS Dur : 090 ms QT Int : 436 ms P-R-T Axes : 034 004 030 degrees QTc Int : 436 ms Normal sinus rhythm Minimal voltage criteria for LVH, may be normal variant ( R in aVL ) Borderline ECG No previous ECGs available Assessment and Plan Assessment Anesthesia Assessment: Chart Reviewed Final Anesthetic Review Family History of Problems with Anesthesia: No History of Problems with Anesthesia: No Documented by User: Darshan Briggs MD 06/17/24 11:17 [facility] Past Medical History Medical History (Updated 06/17/24 @ 07:06 by Vivi Chase, RN) 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 Presence of pessary Back pain History of one miscarriage Hypothyroidism GERD (gastroesophageal reflux disease) Anxiety Depression Hypertension Sleep apnea treated with continuous positive airway pressure (CPAP) Family History Family History Mother Lung cancer Brother Multiple myeloma Sister PONV (postoperative nausea and vomiting) Breast CA, Onset Age: 40 Maternal Aunt Colon cancer Family/Other Breast CA, Onset Age: 40 Maternal Uncle Esophageal cancer Prostate cancer Maternal Aunt Lung cancer Maternal Aunt Cancer of kidney Maternal Aunt Breast CA Surgical History Surgical History S/P laparoscopic sleeve gastrectomy Hx of wisdom tooth extraction Hx of dilation and curettage Hx of esophagogastroduodenoscopy (03/05/24) Hx of colonoscopy Hx of tubal ligation Social History Social History Household Members: Children Housing: Apartment Are you a primary career development facilitator to a significant other at home: No Do you presently have visiting nurse or other home services: No Alcohol intake: current Alcohol intake frequency: holidays/special occasions only Comment: 1 wkly Patient Tobacco Use Status: Never used Tobacco e-Cigarette/Vaping Use: Never Used Use of substances other than those prescribed or required for medical reasons: No Have you been hit, kicked, punched, or otherwise hurt by someone within the past year? If so, by whom?: No Are you DNR?: No Advance Directives: No Advance Directives Information Provided: Yes (HCP brother Garrett Cespedes [phone] (per patient)) Advance Directives on File: No (Not on file) Recently lost weight without trying: Yes How much weight loss: 34pounds or more Eating poorly because of decreased appetite: No Nutrition screen score: 6 Patient : No : No Poor oral hygiene: Yes (molars x2 missing) service: No Meds Allergies Allergy/AdvReac Type Severity Reaction Status Date / Time adhesive Allergy Intermediate ITCHING, Verified 06/17/24 07:09 RASH Sulfa (Sulfonamide Allergy Intermediate rash Verified 06/17/24 07:06 Antibiotics) Home Medications ?Medication ?Instructions ?Recorded ?Confirmed ?Last Taken ?Type citalopram 10 mg tablet 10 mg PO DAILY 01/15/24 06/17/24 06/17/24 History citalopram 20 mg tablet 20 mg PO DAILY 01/15/24 06/17/24 06/17/24 History levothyroxine 100 mcg tablet 100 mcg PO DAILY 01/15/24 06/17/24 06/17/24 History pantoprazole 40 mg tablet,delayed 40 mg PO DAILY@0630 04/10/24 06/17/24 06/17/24 History release sucralfate 100 mg/mL oral 1 ml PO DAILY 05/07/24 06/17/24 06/16/24 History suspension Exam Airway Mallampati Class: III TM Dist: >3cm Neck ROM: Full Assessment and Plan Assessment Anesthesia Assessment: Anesthesia Plan Discussed Final Anesthetic Review NPO: Yes ASA Class: III Final Preanesthetic Review: No Changes in Pt Med Stat, Meds/Allgs Chart Reviewed, Consent Obtained/Reviewed, Anes Risks/Benef Reviewed and DNR Form (If Appl.) Patient Risk: Intermediate Procedure Risk: Low Anesthetic Plan Anesthetic Plan: GA Disposition: Standard PACU
[2024-06-17] VITALS (7 sets, daily range): BP systolic 122–136; BP diastolic 60–72; PULSE 47–67; RESP 14–16; TEMP 36.7–36.8; O2SAT 97–99; BMI 28.6
--- NOTE | ~2024-06-17 | NM_ITS ---
EXAMINATION: Nuclear medicine sentinel node with imaging. CLINICAL INDICATION: Right breast cancer, invasive ductal COMPARISON: Ultrasound breast 06/12/2024. TECHNIQUE: Following explaining right lymphoscintigraphy breast procedure benefits in risk, a written consent was obtained. Patient was placed supine on stretcher and the area of the right breast areola was cleaned and draped in usual sterile manner. Initially 4% and lidocaine jelly cream was applied 30 minutes before the procedure. 0.5 mCi of technetium 99m lymphoseek divided in 4 equal parts was injected in 4 quadrants around the right breast on mediolateral without immediate palpitations. Imaging was obtained approximately 30 minutes later. Patient peralta 6 Well. FINDINGS: There is isotope activity seen in 4 quadrants around the right breast areola. There is solitary dominant activity seen in the right anterior axillary lymph node and several additional small areas of isotope activity in the upper right anterior axilla. NM/NM sentinel node w imaging IMPRESSION: Right breast lymphoscintigraphy reveals a dominant right anterior axillary lymph node and several additional smaller lymph nodes higher up. Electronically signed by: Clark Grady MD 06/17/2024 10:17 AM [facility]
--- NOTE | ~2024-06-17 | MM_ITS ---
EXAMINATION: MM SPECIMEN X-RAY BREAST, RIGHT BREAST CLINICAL INDICATION: Invasive ductal carcinoma of right breast. COMPARISON: RFID tag placement 06/12/2024. TECHNIQUE: Single radiograph of the excised breast tissue is performed using digital mammography. FINDINGS: Specimen radiograph demonstrates the presence of the RFID tag, open coil biopsy clip, and spiculated calcified lesion within the periphery of the specimen. Results were called to Dr. Giacomo Lewis in the operating room at the time of imaging. Electronically signed by: Vidal Michaels MD 06/17/2024 04:25 PM [facility]
[2024-06-17] MEDS: Lidocaine HCl 4 % Topical 50 ML SOLUTION 1 APPL TOPICAL (07:30)
[2024-06-17] MEDS: Lactated Ringers 1,000 ML 100 ML IVCONT (07:41)
--- NOTE | 2024-06-17 11:38 | MHC.SHP ---
Pre-Procedural Eval Section A - 24 Hr Update-Section A only Date of Service: 06/17/24 The patient is an INPATIENT: No Changes since office visit: Yes Patient answered all questions; No Cold of Flu in the past 2 weeks, No New Medical Problems and No Changes in Medication The patient has been examined within 24 hours of the surgical procedure. The History & Physical has been completed within 30 days and I have reviewed it.: Yes Section B - Complete if H&P > 30 days Chief Complaint: Malignant neoplasm of unspecified site of right Allergies: Allergies Allergy/AdvReac Type Severity Reaction Status Date / Time adhesive Allergy Intermediate ITCHING, Verified 06/17/24 07:09 RASH Sulfa (Sulfonamide Allergy Intermediate rash Verified 06/17/24 07:06 Antibiotics) Plan Diagnosis/Plan: Unchanged I have reviewed the history and physical and performed a pertinent physical examination on my patient. No changes have occurred unless specified. Time Spent With Patient Time: Total time managing care of this patient today ____ minutes.
--- NOTE | 2024-06-17 13:39 | W.PM.OPN ---
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 Pathology revealed invasive ductal carcinoma with lobular features and DCIS Operative findings: Marking clip and localizing clip within the specimen. Specimen: Lumpectomy right breast, superior and posterior margin revision, sentinel node 1, 2, and 3 Estimated blood loss: 10 mL Complications: None Procedure details: Patient was brought to the OR and placed in a supine position. After administering general anesthesia the patient's right breast was prepped with ChloraPrep and draped in a sterile fashion. A surgical time-out was called the consent confirmed. Patient received preoperative antibiotics and Venodyne boots were in place. Local anesthesia was infiltrated in the right breast based on the insertion site of the localizing clip. A curvilinear incision was then made with a scalpel and the 9 o'clock position of the right breast. This was carried out through subcutaneous tissue. Superior and inferior skin flaps were then created with electrocautery. A core of tissue around the localizing clip was then created with the electrocautery continuing down to chest wall. Lesion was then excised off the chest wall and excised completely. The lesion was marked with a long suture on the lateral margin, short suture on the superior margin and looped suture on the posterior margin. A palpable tumor was noted at the posterior superior margin of the specimen therefore an additional core of tissue of the superior and posterior margin was performed. This was sent to pathology as well with the same markings as above. Wounds were then checked for hemostasis. The gamma probe was then used through the same incision which was closed with the axilla and strong signal identified. Using combination of blunt and electrocautery dissection a sentinel node 1. Was identified and sent to pathology as sentinel node 1. Two additional nodes were also identified with radio activity consistent with a sentinel node. These were sent as sentinel node 2. And 3. No additional palpable or radioactive nodes were identified at this time. Wounds were then irrigated with saline solution and suctioned dry. Clavipectoral fascia was reapproximated using interrupted 3-0 Polysorb sutures. Subcutaneous tissue and deep breast tissue were also reapproximated using interrupted 3-0 Polysorb sutures. Dermis was reapproximated using interrupted 3-0 Polysorb sutures. Skin was closed using a running subcuticular 4-0 Polysorb suture. Steri-Strips, 2 x 2 gauze and Tegaderm were then applied. Patient tolerated the procedure well. Sponge, instrument, and needle counts reported as correct. The patient was transferred to PACU stable condition. Breast [place] Node Biopsy Substrate(s) used for sentinel node biopsy in the non-neoadjuvant setting: Radiotracer Substrate(s) used for sentinel node biopsy in the neoadjuvant setting: N/A All colored nodes or non-colored nodes present at the end of a dye filled lymphatic channel were removed, if dye was used as the substrate for localization: N/A All significantly radioactive nodes were removed, if radionuclide was used as the substrate for localization: Yes All palpably suspicious nodes were removed, if present: Yes If clips were placed in pathology-involved nodes, those nodes were identified and removed: N/A Procedure performed with curative intent?: Yes General Surg. - Synoptic Notes Breast [place] Node Biopsy Substrate(s) used for sentinel node biopsy in the non-neoadjuvant setting: Radiotracer Substrate(s) used for sentinel node biopsy in the neoadjuvant setting: N/A All colored nodes or non-colored nodes present at the end of a dye filled lymphatic channel were removed, if dye was used as the substrate for localization: N/A All significantly radioactive nodes were removed, if radionuclide was used as the substrate for localization: Yes All palpably suspicious nodes were removed, if present: Yes If clips were placed in pathology-involved nodes, those nodes were identified and removed: N/A Procedure performed with curative intent?: Yes
== END 2024-06-17 15:18 | disposition home or self-care (01) ==
PROVIDERS: PCP Internal Medicine; Visit Provider Surgery
PROC: (CPT 19301; principal; 2024-06-17 11:00)
PROC: (CPT 19301; 2024-06-17 11:00)
DX: C50.411 Malignant neoplasm of upper-outer quadrant of right female breast (principal); Z17.0 Estrogen receptor positive status [ER+]; Z17.22 Progesterone receptor negative status; Z17.32 Human epidermal growth factor receptor 2 negative status; Z80.3 Family history of malignant neoplasm of breast; I10 Essential (primary) hypertension; G47.33 Obstructive sleep apnea (adult) (pediatric); F32.A Depression, unspecified; F41.9 Anxiety disorder, unspecified; Z96.0 Presence of urogenital implants; Z99.89 Dependence on other enabling machines and devices; Z79.899 Other long term (current) drug therapy; Z88.2 Allergy status to sulfonamides; Z98.84 Bariatric surgery status; Z98.51 Tubal ligation status
CPT/HCPCS: 19301; 38525; 38900; 78195; 88307; 88342; A9520; C1889; J0131; J0690; J1100; J2003; J2250; J2405; J2704; J2795; J3010

== ENCOUNTER → 2024-06-17 06:25 | Outpatient (BNV) | payer MEDICARE, SELFPAY | PROVIDERS: PCP Internal Medicine; Visit Provider Surgery | DX: C50.411 Malignant neoplasm of upper-outer quadrant of right female breast (principal) | CPT/HCPCS: 19301; 38525; 38900 ==

== ENCOUNTER → 2024-06-17 08:28 | Outpatient (BNV) | payer MEDICARE, SELFPAY | PROVIDERS: PCP Internal Medicine; Visit Provider Radiology Diagnostic Radiology | DX: C50.811 Malignant neoplasm of overlapping sites of right female breast (principal) | CPT/HCPCS: 78195 ==

== ENCOUNTER 2024-06-25 09:13 | Outpatient (AMB) | payer MEDICARE, SELFPAY ==
--- NOTE | 2024-06-25 09:05 | A.OFFWM_ITS ---
Intake Intake Visit Reasons: VIDEO PO LSG 04/10/24 Allergies adhesive Allergy (Intermediate, Verified 06/17/24 07:09) ITCHING, RASH Sulfa (Sulfonamide Antibiotics) Allergy (Intermediate, Verified 06/17/24 07:06) rash [facility] Medical History (Updated 06/17/24 @ 07:06 by Vivi Chase, RN) 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 Presence of pessary Back pain History of one miscarriage Hypothyroidism GERD (gastroesophageal reflux disease) Anxiety Depression Hypertension Sleep apnea treated with continuous positive airway pressure (CPAP) Surgical History S/P laparoscopic sleeve gastrectomy Hx of wisdom tooth extraction Hx of dilation and curettage Hx of esophagogastroduodenoscopy (03/05/24) Hx of colonoscopy Hx of tubal ligation Family History Mother Lung cancer Brother Multiple myeloma Sister PONV (postoperative nausea and vomiting) Breast CA, Onset Age: 40 Maternal Aunt Colon cancer Family/Other Breast CA, Onset Age: 40 Maternal Uncle Esophageal cancer Prostate cancer Maternal Aunt Lung cancer Maternal Aunt Cancer of kidney Maternal Aunt Breast CA Social History Household Members: Children Caregiver staying overnight: No Housing: Apartment Are you a primary date night caregiver to a significant other at home: No Do you presently have visiting nurse or other home services: No 75 years or older and lives alone: No Alcohol intake: current Alcohol intake frequency: holidays/special occasions only Comment: 1 wkly Patient Tobacco Use Status: Never used Tobacco e-Cigarette/Vaping Use: Never Used service: No Female Reproductive History Menstrual Age of Menarche: 14 Behavioral Health Assessment Weight Management Therapy Therapy Notes Details Subjective: PT reports she had a breast procedure last week to remove the breast cancer and is currently focused on staying busy. She plans to start yoga today but mentions struggling to use the bike at home as advised by her doctor. PT expresses some difficulty in balancing physical activity with her recovery process. Objective: PT presents for a follow-up visit via Telehealth. Discussed ongoing medical treatment for breast cancer, including recovery challenges and current physical restrictions. Processed PT's fears related to the treatment and recovery, and collaboratively created a list of questions for her provider to address any concerns. Explored boundary-setting techniques as discussed in the previous session; PT reports she has started reading one of the suggested books. Worked on behavioral activation by setting realistic goals for increasing exercise at home and provided CBT-based interventions to reduce overthinking. PT was encouraged to engage in activity-based thinking patterns to counter negative or catastrophic thinking related to exercise and recovery. Assessment/Response: * Mental status: PT reports some worry but overall is coping well and adjusting to her medical treatments. * Risk reported/identified:None PT responded well to intevrentions. Plan: -Continue to work on physical activity g oals while maintaining balance with recovery. -Follow-up in 3 weeks to assess progress with exercise and emotional well-being. -Encourage continued reading of the raffy lynne books for boundary-setting and emotional processing. -Reinforce use of CBT techniques for man aging thoughts around recovery and self- care. Food/Weight/Diet Expectations of change Initial weight pre-op: 201Lbs 04/16 - PO: 182Lbs 04/24 - PO: 179Lbs 05/15/2024- PO: 171Lbs 06/10/2024 - PO: 158Lbs 06/25/2024 - PO: 157Lbs Target weight: 150 lbs. New meal plan: 2 shakes, 1 bar and 1 meal (dinner protein/veggies). Exercise plan: using stationary bike 3-4 days at week. Doing yoga Assessment & Plan Assessment & Plan (1) Depression: Code(s): F32.A - Depression, unspecified Qualifiers: Depression Type: unspecified Qualified Code(s): F32.A - Depression, unspecified Plan Follow up in 3 weeks. Next del: 07/16/2024 at 9am, [facility] Telehealth Telehealth Telehealth Platform: [employer] Mobile Location of provider rendering services: other Location of patient: address on file Patient Identification confirmed using: Name, : Yes Telehealth method: video Patient verbally consented to treatment: Yes Patient verbally consented to billing insurance company: Yes Patient informed of any privacy concerns related to visit: Yes Minutes spent on Phone/Video with Pt.: 50 Coding Level of Care Code Established Pt Tele Psytx 45 mins (82040) Patient Type Established Diagnoses Depression, unspecified depression type F32.A Depression Type: unspecified Time Spent (min) 50
--- OUTSIDE RECORDS SUMMARY | 2024-06-25 09:48 | XMS_ITS ---
Author Organization [facility], Address [address] [place] [address] Care Team Providers Care Octave Board Assembler Name Role Phone David Cortes Unavailable [phone] ALLERGIES, ADVERSE REACTIONS, ALERTS Substance Code Code [...] RxNorm 022 hydrochlorothiazide RxNorm 022 Paxlovid (EUA) 7787335 RxNorm 022 2021 oral 3 LEVOTHYROXINE 0.100MG (100MCG) TAB RxNorm 023 ALBUTEROL HFA INH (200 PUFFS)8.5GM RxNorm 2021 2 OMEPRAZOLE 20MG CAPSULES RxNorm 2021 benzonatate 663226 RxNorm 022 022 oral 1 tamsulosin 316412 RxNorm 02/06/20 oral 1 PROBLEMS Problem Name Code Code System Start Date End Date Stat Hypertension 77206390 [facility] 10/25/2021 Active Depression 05965381 [facility] 10/25/2021 Active Hypothyroidism 50426261 [facility] 10/25/2021 Activ e COVID-19, confirmed by labor atory testing 208876945 [facility] 10/25/2021 Inactive Asthma 569756099 [facility] Active Gastro-esophageal reflux disease 098180972 [facility] Active Cystocele, unspecified 389960463 [facility] 02/05/2023 Active Retention of urine, unspecified 437683138 [facility] 02/05/2023 Active ENCOUNTERS Encounter Diagnosis Code Code System Date Stat us Cystocele, unspecified 844422074 [facility] 02/05/2023 Ac tive Retention of urine, unspecified 389826006 [facility] 2022 Active IMMUNIZATIONS * None VITAL SIGNS Code Code System Vitals Name Date Value and Un its 8462-4 [facility] Blood Pressure-Diastolic 02/05/2023 83 mmHg 8480-6 [facility] Blood Pressure-Systolic 02/05/2023 1 21 mmHg 8867-4 [facility] Heart Rate 02/05/2023 78 /min 9279-1 [facility] Respiratory Rate 02/05/2023 18 /min 8310-5 inc Body Temperature 02/05/2023 97.8 F 34038-8 inc Oxygen Saturation 02/05/2023 96 % SOCIAL [...]
--- OUTSIDE RECORDS SUMMARY | 2024-06-25 09:48 | XMS_ITS ---
Author Organization [facility], Address [address] [place] [address] Care Team Providers Care Oracle Fusion Middleware Developer Name Role Phone David Cortes Unavailable [phone] ALLERGIES, ADVERSE REACTIONS, ALERTS Substance Code Code [...] RxNorm 022 hydrochlorothiazide RxNorm 022 Paxlovid (EUA) 3901414 RxNorm 022 2021 oral 3 LEVOTHYROXINE 0.100MG (100MCG) TAB RxNorm 023 ALBUTEROL HFA INH (200 PUFFS)8.5GM RxNorm 2021 2 OMEPRAZOLE 20MG CAPSULES RxNorm 2021 benzonatate 831084 RxNorm 022 022 oral 1 tamsulosin 552672 RxNorm 02/06/20 oral 1 PROBLEMS Problem Name Code Code System Start Date End Date Stat Hypertension 45330384 [facility] 10/25/2021 Active Depression 63316795 [facility] 10/25/2021 Active Hypothyroidism 17868247 [facility] 10/25/2021 Activ e COVID-19, confirmed by labor atory testing 790254326 [facility] 10/25/2021 Inactive Asthma 552629254 [facility] Active Gastro-esophageal reflux disease 900523647 [facility] Active Cystocele, unspecified 441000815 [facility] 02/05/2023 Active Retention of urine, unspecified 609073195 [facility] 02/05/2023 Active ENCOUNTERS Encounter Diagnosis Code Code System Date Stat us Cystocele, unspecified 820436250 [facility] 02/05/2023 Ac tive Retention of urine, unspecified 136065273 [facility] 2022 Active IMMUNIZATIONS * None VITAL SIGNS Code Code System Vitals Name Date Value and Un its 8462-4 [facility] Blood Pressure-Diastolic 02/05/2023 83 mmHg 8480-6 [facility] Blood Pressure-Systolic 02/05/2023 1 21 mmHg 8867-4 [facility] Heart Rate 02/05/2023 78 /min 9279-1 [facility] Respiratory Rate 02/05/2023 18 /min 8310-5 inc Body Temperature 02/05/2023 97.8 F 70350-7 inc Oxygen Saturation 02/05/2023 96 % SOCIAL [...]
== END 2024-06-25 10:59 | disposition home or self-care (01) ==
LOC: HO.HBST 09:13
PROVIDERS: PCP Internal Medicine; Visit Provider Counselor Mental Health
DX: F32.A Depression, unspecified (principal)
CPT/HCPCS: 90834

== ENCOUNTER 2024-06-27 10:54 | Outpatient (AMB) | payer MEDICARE, SELFPAY ==
--- NOTE | 2024-06-27 10:55 | A.OFFVIS_ITS ---
Vital Signs 3 06/27/24 11:04 Height 5 ft 3 in Weight 159 lb BMI 28.2 BP 128/59 L Blood Pressure Location Lt brachial Position Sitting Pulse 67 Intake Visit Reasons: S/P Rt. breast lumpect. & SN bx, genetic results Intake Note: Patient is seen in office for post op assessment post right breast lumpectomy with localizer, right axillary sentinel node biopsy. Pt c/o:for the past week incision is sore and tender, and feels a bulge in place, denies redness, discharge or any signs of infection surgery: 06/17/24 Construction Driver Required: No Accompanied by: Self / Same As Patient Allergies adhesive Allergy (Intermediate, Verified 06/27/24 11:04) ITCHING, RASH Sulfa (Sulfonamide Antibiotics) Allergy (Intermediate, Verified 06/27/24 11:04) rash Medication List - Last Reconciled 06/27/24 by Giacomo Lewis MD citalopram 10 mg PO DAILY citalopram 20 mg PO DAILY levothyroxine 100 mcg PO DAILY pantoprazole 40 mg PO DAILY@0630 sennosides (senna) 17.2 mg (2 x 8.6 mg) PO BEDTIME PRN sucralfate 1 mL PO DAILY HPI Comments Details: 68-year-old female patient found to have a suspicious density in the right breast at the 9 o'clock position confirmed by ultrasound on 04/29/2024. Findings were felt to be suspicious for malignancy an ultrasound-guided core biopsy was recommended (BI-RADS 4). She denies a previous history of breast problems or breast surgery but does have a strong family history of breast cancer including her sister (40), maternal cousin, and maternal aunt all with breast cancer. She denies any breast symptoms including breast pain, skin changes, nipple discharge or palpable masses. She is 3 para 2 with 1 miscarriage and did not breastfeed her children. 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 She underwent a right breast lumpectomy with sentinel node biopsy on 06/17/2024. 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 Posterior margin was positive on the initial specimen. A 2nd specimen performed on the same day of the posterior and superior margin was negative for any additional tumor. Margins were approximately 3 mm at the closest margin. She tolerated the procedure well but did have a small hematoma postoperatively with ecchymosis. She has some discomfort at the site. She underwent genetic testing as well on 05/24/2024. This revealed no clinically significant mutations and no mutations of uncertain significance. She was provided with a copy of the pathology and genetic testing results. [facility] Medical History 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 Presence of pessary Back pain History of one miscarriage Hypothyroidism GERD (gastroesophageal reflux disease) Anxiety Depression Hypertension Sleep apnea treated with continuous positive airway pressure (CPAP) Surgical History History of lumpectomy of right breast (06/17/24) S/P laparoscopic sleeve gastrectomy Hx of wisdom tooth extraction Hx of dilation and curettage Hx of esophagogastroduodenoscopy (03/05/24) Hx of colonoscopy Hx of tubal ligation Family History Mother Lung cancer Brother Multiple myeloma Sister PONV (postoperative nausea and vomiting) Breast CA, Onset Age: 40 Maternal Aunt Colon cancer Family/Other Breast CA, Onset Age: 40 Maternal Uncle Esophageal cancer Prostate cancer Maternal Aunt Lung cancer Maternal Aunt Cancer of kidney Maternal Aunt Breast CA Social History Household Members: Children Caregiver staying overnight: No Housing: Apartment Are you a primary critical care nurse to a significant other at home: No Do you presently have visiting nurse or other home services: No 75 years or older and lives alone: No Alcohol intake: current Alcohol intake frequency: holidays/special occasions only Comment: 1 wkly Patient Tobacco Use Status: Never used Tobacco e-Cigarette/Vaping Use: Never Used service: No Female Reproductive History Menstrual Age of Menarche: 14 Review of Systems Const All systems reviewed & are unremarkable except as noted in HPI and below Physical Exam Vital Signs: Last Vital Signs Pulse 67 06/27/24 11:04 BP 128/59 L 06/27/24 11:04 BMI result Body Mass Index 28.2 Const General: cooperative and no acute distress Nutritional Appearance: well nourished Orientation/consciousness: patient oriented x3 Limitations: no limitations HEENT Head: Yes normocephalic and Yes atraumatic Ears: hearing grossly normal bilaterally Chest Other: Left breast: No skin change, no nipple retraction, no nipple discharge, no palpable mass, no enlarged lymph nodes. Right breast: Ecchymosis in the right breast with a well-healed incision in the upper outer quadrant. Palpable hematoma/seroma noted deep within the breast tissue. No skin necrosis or evidence infection is appreciated. Chest/axillae images: 2 1. Resp Effort & Inspection: normal respiratory effort, no audible wheezes, no cough and no respiratory distress Cardio Jugular venous distension: no JVD GI Inspection: Yes normal to inspection Skin Other: Warm, dry, no rash Neuro Other: Mobility Assessment: 1. 3 meter assessment time (seconds): 4 2. Gait observations: Normal balance and gait General: patient oriented x3 Extrem General: Yes no clubbing, cyanosis or edema Assessment & Plan Assessment & Plan (1) 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: Code(s): C50.911 - Malignant neoplasm of unspecified site of right female breast Category: Medical Plan 68-year-old female patient with a recently diagnosed right breast infiltrating ductal carcinoma with lobular features and DCIS status post right breast lumpectomy with sentinel node biopsy on 06/17/2024. She tolerated the procedure well but does have a small seroma/hematoma at the lumpectomy site. There is no evidence of wound infection in the incisions are healing nicely. I reviewed the pathology results and the genetic testing in detail with the patient. We discussed the need for medical oncology evaluation as well as radiation oncology. She expressed understanding and agrees with the plan. She will follow-up in 1 month, sooner p.r.n.. Orders: Referrals 2 Hematology & Oncology Referral C50.911 - Malignant neoplasm of unspecified site of right female breast Coding Level of Care Code Global (20330) Diagnoses 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 C50.911
[2024-06-27 11:04] VITALS: BP 128/59; PULSE 67; BMI 28.2
== END 2024-06-27 11:25 | disposition home or self-care (01) ==
PROVIDERS: PCP Internal Medicine; Visit Provider Surgery
DX: C50.911 Malignant neoplasm of unspecified site of right female breast (principal)
CPT/HCPCS: 99024

== ENCOUNTER → 2024-06-27 10:54 | Outpatient (BNVA) | payer MEDICARE, SELFPAY | PROVIDERS: PCP Internal Medicine; Visit Provider Surgery | DX: C50.911 Malignant neoplasm of unspecified site of right female breast (principal) | CPT/HCPCS: 99212 ==

== ENCOUNTER 2024-07-08 13:08 | Outpatient (AMB) | payer MEDICARE, SELFPAY ==
--- NOTE | 2024-07-08 13:26 | A.OFFVIS_ITS ---
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 Presents for 3 month post op visit. Weight today is 152.8 pounds, with a BMI of 27.1. There has been a 48.4 pound weight loss,(initial weight 201.2 pounds) since starting the program on 02/09/2024 reflecting a 24% total body weight loss and a weight loss of 44.7 pounds since surgery (operative weight 197.5 pounds) reflecting a 22.6% TBWL since surgery. No complaints of nausea, emesis, abdominal pain or reflux. Reports infrequent but normal bowel movements every 2- 3 days and uses stool softeners regularly. Taking celebrate MVI Found to have right breast cancer, followed by general surgery and oncology. She is going to have radiation treatment and oral meds, awaiting for path for +/- chemo. Wants to stop watering down shakes and wants to stop isopure. Present meal plan includes: premier protein rtd or fairlife 30 gm 4 oz with 4 oz almond milk at 8-10 Orgain bar 11-1 isopure 1/2 scoop 2-4 meal at 5 with 3 forks protein and 3 forks veg Drinking 16 oz water ? Exercise routine includes: walking 2-3 mi outside 2 x per week. 300 calories stationary bike 4 x per day, burning 300-400 ami per day PFSH Medical History 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 Presence of pessary Back pain History of one miscarriage Hypothyroidism GERD (gastroesophageal reflux disease) Anxiety Depression Hypertension Sleep apnea treated with continuous positive airway pressure (CPAP) Surgical History History of lumpectomy of right breast (06/17/24) S/P laparoscopic sleeve gastrectomy Hx of wisdom tooth extraction Hx of dilation and curettage Hx of esophagogastroduodenoscopy (03/05/24) Hx of colonoscopy Hx of tubal ligation Family History Mother Lung cancer Brother Multiple myeloma Sister PONV (postoperative nausea and vomiting) Breast CA, Onset Age: 40 Maternal Aunt Colon cancer Family/Other Breast CA, Onset Age: 40 Maternal Uncle Esophageal cancer Prostate cancer Maternal Aunt Lung cancer Maternal Aunt Cancer of kidney Maternal Aunt Breast CA Social History Household Members: Children Caregiver staying overnight: No Housing: Apartment Are you a primary medicare specialist to a significant other at home: No Do you presently have visiting nurse or other home services: No 75 years or older and lives alone: No Alcohol intake: current Alcohol intake frequency: holidays/special occasions only Comment: 1 wkly Patient Tobacco Use Status: Never used Tobacco e-Cigarette/Vaping Use: Never Used service: No Female Reproductive History Menstrual Age of Menarche: 14 Physical Exam Vital Signs: Last Vital Signs Temp 96.6 F L 07/08/24 13:30 Pulse 77 07/08/24 13:30 BP 118/58 L 07/08/24 13:30 Pulse Ox 98 07/08/24 13:30 Oxygen Delivery Method Room Air 07/08/24 13:30 BMI result Body Mass Index 27.1 Const General: healthy appearing and no acute distress Resp Effort & Inspection: normal respiratory effort Auscultation: clear to auscultation bilaterally Cardio Rate: regular rate Rhythm: regular rhythm GI Auscultation: normal bowel sounds Extrem General: Yes normal to inspection Assessment & Plan Assessment & Plan (1) S/P laparoscopic sleeve gastrectomy: Code(s): Z98.84 - Bariatric surgery status Category: Surgical Plan: Wants to change meal plan to avoid watering down her shakes and remove isopure premier protein rtd or fairlife 30 gm 6 oz at 8-10 Orgain bar 11-1 repeat shake 2-4 meal at 5 with 3 forks protein and 3 forks veg
[2024-07-08 13:30] VITALS: BP 118/58; PULSE 77; TEMP 35.9; O2SAT 98; BMI 27.1
== END 2024-07-08 14:08 | disposition home or self-care (01) ==
PROVIDERS: PCP Internal Medicine; Visit Provider Physician Assistant Surgical
DX: E66.3 Overweight (principal); Z68.27 Body mass index [BMI] 27.0-27.9, adult; Z98.84 Bariatric surgery status
CPT/HCPCS: 99024

== ENCOUNTER → 2024-07-08 13:08 | Outpatient (BNVA) | payer MEDICARE, SELFPAY | PROVIDERS: PCP Internal Medicine; Visit Provider Physician Assistant Surgical | DX: Z48.815 Encounter for surgical aftercare following surgery on the digestive system (principal); Z98.84 Bariatric surgery status | CPT/HCPCS: 99212 ==

== ENCOUNTER 2024-07-16 09:27 | Outpatient (AMB) | payer MEDICARE, SELFPAY ==
--- NOTE | 2024-07-16 09:15 | MHC.WMTHER ---
Intake Intake Visit Reasons: VIDEO PO LSG 04/10/24 Allergies adhesive Allergy (Intermediate, Verified 07/08/24 13:28) ITCHING, RASH Sulfa (Sulfonamide Antibiotics) Allergy (Intermediate, Verified 07/08/24 13:28) rash PFSH Medical History 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 Presence of pessary Back pain History of one miscarriage Hypothyroidism GERD (gastroesophageal reflux disease) Anxiety Depression Hypertension Sleep apnea treated with continuous positive airway pressure (CPAP) Surgical History History of lumpectomy of right breast (06/17/24) S/P laparoscopic sleeve gastrectomy Hx of wisdom tooth extraction Hx of dilation and curettage Hx of esophagogastroduodenoscopy (03/05/24) Hx of colonoscopy Hx of tubal ligation Family History Mother Lung cancer Brother Multiple myeloma Sister PONV (postoperative nausea and vomiting) Breast CA, Onset Age: 40 Maternal Aunt Colon cancer Family/Other Breast CA, Onset Age: 40 Maternal Uncle Esophageal cancer Prostate cancer Maternal Aunt Lung cancer Maternal Aunt Cancer of kidney Maternal Aunt Breast CA Social History Household Members: Children Caregiver staying overnight: No Housing: Apartment Are you a primary senior care provider to a significant other at home: No Do you presently have visiting nurse or other home services: No 75 years or older and lives alone: No Alcohol intake: current Alcohol intake frequency: holidays/special occasions only Comment: 1 wkly Patient Tobacco Use Status: Never used Tobacco e-Cigarette/Vaping Use: Never Used service: No Female Reproductive History Menstrual Age of Menarche: 14 Behavioral Health Assessment Weight Management Therapy Therapy Notes Details Subjective: Meet with oncologist last week, she's stage I breast cancer. She's waiting for more tests results but she will need radiation treatment (at least 5 weeks), unsure about chemo therapy (90% she won't need) PT shared she was sad last week about the lack of communication with her oldest daughter and how they don;t have an existent relationship at this time. PT reports she's not fully yet cleared for physical activity which has slowed her weight-loss. Objective: PT presents for a f/up visit via Telehealth Processed functioning, weight-loss journey and resent med appointments outcomes. Used CPT to process family relationships and dynamics with her son. Validated and normalized feelings, processed events under/out of her control and provided constructive feedback. Explored coping skills (such as writing letters, despite not having an address for daughter and keep them in a box) for sadness and negative thinking. Identified supports and how to use them for upcoming medical treatments. Assessment/Response: Mental status: WNL Risk reported/identified: None PT was active and receptive. she responded well to interventions. Food/Weight/Diet Expectations of change Initial weight pre-op: 201Lbs 04/16 - PO: 182Lbs 04/24 - PO: 179Lbs 05/15/2024- PO: 171Lbs 06/10/2024 - PO: 158Lbs 06/25/2024 - PO: 157Lbs - PO: 152Lbs Target weight: 150 lbs. New meal plan: 2 shakes, 1 bar and 1 meal (dinner protein/veggies). Exercise plan: Unable to do full exercise due to breast surgery. Assessment & Plan Assessment & Plan (1) Depression: Code(s): F32.A - Depression, unspecified Qualifiers: Depression Type: unspecified Qualified Code(s): F32.A - Depression, unspecified Plan Follow up in 3 weeks. Next del: 08/06/2024 at 1pm, [facility] Telehealth Telehealth Telehealth Platform: [employer] Location of provider rendering services: other Location of patient: address on file Patient Identification confirmed using: Name, : Yes Telehealth method: video Patient verbally consented to treatment: Yes Patient verbally consented to billing insurance company: Yes Patient informed of any privacy concerns related to visit: Yes Minutes spent on Phone/Video with Pt.: 45 Coding Level of Care Code Established Pt Tele Psytx 45 mins ([id number]) Patient Type Established Diagnoses Depression, unspecified depression type F32.A Depression Type: unspecified Time Spent (min) 45
== END 2024-07-16 10:09 | disposition home or self-care (01) ==
LOC: HO.HBST 09:27
PROVIDERS: PCP Internal Medicine; Visit Provider Counselor Mental Health
DX: F32.A Depression, unspecified (principal)
CPT/HCPCS: 90834

== ENCOUNTER → 2024-07-16 09:27 | Outpatient (BNVA) | payer MEDICARE, SELFPAY | PROVIDERS: PCP Internal Medicine; Visit Provider Counselor Mental Health ==

== ENCOUNTER 2024-07-23 09:46 | Outpatient (AMB) | payer MEDICARE, SELFPAY ==
--- NOTE | 2024-07-23 10:15 | MHC.OFFVIS ---
Vital Signs 07/23/24 10:22 Height 5 ft 3 in Weight 153 lb 6 oz BMI 27.2 BP 122/68 Blood Pressure Location Lt brachial Position Sitting Pulse 79 Intake Visit Reasons: S/P 1m Rt br lumpectomy Intake Note: Patient is seen in office for one month follow up visit, post right breast lumpectomy. Pt c/o: has an appt scheduled for next week at [facility] to discuss radiation, still waiting on test results before a decision can be made, has continued bruising on the right breast Pivot Maker Required: No Medical Records Tech: Medical Records Tech Present Accompanied by: Self / Same As Patient Allergies adhesive Allergy (Intermediate, Verified 07/23/24 10:22) ITCHING, RASH Sulfa (Sulfonamide Antibiotics) Allergy (Intermediate, Verified 07/23/24 10:22) rash Medication List - Last Reconciled 07/23/24 by Giacomo Lewis MD citalopram 10 mg PO DAILY citalopram 20 mg PO DAILY levothyroxine 100 mcg PO DAILY sennosides (senna) 17.2 mg (2 x 8.6 mg) PO BEDTIME PRN HPI Comments Details: 69-year-old female patient found to have a suspicious density in the right breast at the 9 o'clock position confirmed by ultrasound on 04/29/2024. Findings were felt to be suspicious for malignancy an ultrasound-guided core biopsy was recommended (BI-RADS 4). She denies a previous history of breast problems or breast surgery but does have a strong family history of breast cancer including her sister (40), maternal cousin, and maternal aunt all with breast cancer. She denies any breast symptoms including breast pain, skin changes, nipple discharge or palpable masses. She is 3 para 2 with 1 miscarriage and did not breastfeed her children. 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 She underwent a right breast lumpectomy with sentinel node biopsy on 06/17/2024. 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 Posterior margin was positive on the initial specimen. A 2nd specimen performed on the same day of the posterior and superior margin was negative for any additional tumor. Margins were approximately 3 mm at the closest margin. She tolerated the procedure well but did have a small hematoma postoperatively with ecchymosis which continues to resolve. She underwent genetic testing as well on 05/24/2024. This revealed no clinically significant mutations and no mutations of uncertain significance. She was provided with a copy of the pathology and genetic testing results. She will be evaluated by [facility] radiation therapy next week. She is awaiting for Oncotype testing to determine if chemotherapy is needed (Toro). [facility] Medical History 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 Presence of pessary Back pain History of one miscarriage Hypothyroidism GERD (gastroesophageal reflux disease) Anxiety Depression Hypertension Sleep apnea treated with continuous positive airway pressure (CPAP) Surgical History History of lumpectomy of right breast (06/17/24) S/P laparoscopic sleeve gastrectomy Hx of wisdom tooth extraction Hx of dilation and curettage Hx of esophagogastroduodenoscopy (03/05/24) Hx of colonoscopy Hx of tubal ligation Family History Mother Lung cancer Brother Multiple myeloma Sister PONV (postoperative nausea and vomiting) Breast CA, Onset Age: 40 Maternal Aunt Colon cancer Family/Other Breast CA, Onset Age: 40 Maternal Uncle Esophageal cancer Prostate cancer Maternal Aunt Lung cancer Maternal Aunt Cancer of kidney Maternal Aunt Breast CA Social History Household Members: Children Caregiver staying overnight: No Housing: Apartment Are you a primary health care marketing specialist to a significant other at home: No Do you presently have visiting nurse or other home services: No 75 years or older and lives alone: No Alcohol intake: current Alcohol intake frequency: holidays/special occasions only Comment: 1 wkly Patient Tobacco Use Status: Never used Tobacco e-Cigarette/Vaping Use: Never Used service: No Female Reproductive History Menstrual Age of Menarche: 14 Review of Systems Const All systems reviewed & are unremarkable except as noted in HPI and below Physical Exam Const General: cooperative and no acute distress Nutritional Appearance: well nourished Orientation/consciousness: patient oriented x3 Limitations: no limitations HEENT Head: Yes normocephalic and Yes atraumatic Ears: hearing grossly normal bilaterally Chest Other: Left breast: No skin change, no nipple retraction, no nipple discharge, no palpable mass, no enlarged lymph nodes. Right breast: Resolving ecchymosis, breast tissue soft, incision in the upper outer quadrant well healed without redness or discharge. No palpable mass, skin change or nipple discharge. No enlarged lymph nodes. Resp Effort & Inspection: normal respiratory effort, no audible wheezes, no cough and no respiratory distress Cardio Jugular venous distension: no JVD GI Inspection: Yes normal to inspection Skin Other: Warm, dry, no rash Neuro Other: Mobility Assessment: 1. 3 meter assessment time (seconds): 4 2. Gait observations: Normal balance and gait General: patient oriented x3 Extrem General: Yes no clubbing, cyanosis or edema Assessment & Plan Assessment & Plan (1) 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: Code(s): C50.911 - Malignant neoplasm of unspecified site of right female breast Category: Medical Plan 69-year-old female patient recently diagnosed with right breast infiltrating ductal carcinoma with lobular features and DCIS status post right breast lumpectomy with sentinel node biopsy on 06/17/2024. She continues to improve following the lumpectomy and sentinel node biopsy. She is awaiting evaluation by Radiation Oncology at [facility]. She will be placed on tamoxifen for 2-3 years followed by aromatase inhibitor. I recommended follow-up examination in 6 months, sooner p.r.n.. Coding Level of Care Code Est Pt Level 3 (22567) Complex EM visit Add On G2211 Diagnoses 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 C50.911
[2024-07-23 10:22] VITALS: BP 122/68; PULSE 79; BMI 27.2
--- OUTSIDE RECORDS SUMMARY | 2024-07-23 10:31 | XMS_ITS | Clinical Summary ---
Author Organization [address] [facility] Address [address] [place] [phone] Phone Care Team Providers Care Tracing Lathe Set Up Operator Name Role Phone Hector Soares Primary Care Provider [phone] Encounters Date Type Department Care Team Description 07/09/2024 Telephone [facility] Radiation Oncology [address] [phone] Sofie Claudio MA from Last 3 Months Immunizations Name Administration Dates Next Due Pfizer SARS-CoV-2 COVID-19, mRNA, LNP-S, preservative free 08/13/2020 Medical History Medical History Date Comments Hypothyroidism DX:Hypothyroidis m Covid-19 DX:COVID-19 Cough DX:Cough Family History Medical History Relation Name Comments Heart attack Father Hypertension Father Lung cancer Mother Breast cancer Sister Relation Name Status Comments Father Mother Sister Social History Tobacco Use Types Packs/Day Years Used Date Smoking Tobacco: Never Smokeless Tobacco: Never Alcohol Use Standard Drinks/Week Comments Yes 1 (1 standard drink = 0.6 oz pur e alcohol) Comments Unknown Sex and Gender Information Value Date Recorded Sex Assigned at Not on file Legal Sex Female 12:15 PM EST Gender Identity Not on file Sexual Orientation Not on file Obstetrics History Last Filed Vital Signs Vital Sign Reading Time Taken Comments Blood Pressure 140/85 06/13/2023 11:21 AM EST Pulse 76 06/13/2023 11:21 AM EST Temperature - - Respiratory Rate - - Oxygen Saturation - - Inhaled Oxygen Concentration - - Weight 91.7 kg (202 lb 4 oz) 06/13/2023 11:21 AM EST Height 162.6 cm (5' 4 ) 05/19/2023 1:55 PM EST Body Mass Index 34.72 05/19/2023 1:55 PM EST Plan of Treatment Upcoming Encounters Date Type Department Care Team (Late st Contact Info) Description 07/31/2024 8:30 AM EST Appointment [facility] Radiation Oncology [address] [phone] 07/31/2024 9:00 AM EST Appointment [facility] Radiation Oncology [address] [phone] Juana Le MD [address] [place] [address] Health Maintenance Due Date Last Done Comments Breast Cancer Screening 1955 RSV Immunization Patients 60+ Years Old (1 - Risk 60-74 years 1-dose series) 2016 Colorectal Cancer Screening: Colonoscopy 05/03/2022 Falls Risk Assessment 05/03/2022 Osteoporosis Screening (Bone Density Screening) 05/03/2022 Social Influencers of Health Screening 05/03/2022 Depression Screening 11/08/2023 11/07/2022 COVID-19 Vaccine ( season) 2024 06/13/2022, 05/02/2021, 09/03/2020, Additional history exists DTaP,Tdap,and Td Vaccines (2 - Td or Tdap) 03/03/2024 03/03/2014 Hypertension/CHF/CAD Annual BMP Blood Test 03/09/2024 03/09/2023, 09/14/2021, 03/04/2021, Additional history exists Cholesterol Screening (Lipid Panel) 03/09/2028 03/09/2023 Hepatitis C Screening Completed 09/14/2021 Zoster Vaccines Completed 09/21/2021, 07/05/2021 Influenza Vaccine Completed 03/07/2024, , 04/22/2022, Additional history exists Pneumococcal Vaccine: 50+ Years Completed 03/19/2024 HIB Vaccines Aged Out No longer eligi ble based on patient's age to complete this topic HPV Vaccines Aged Out No longer eligi ble based on patient's age to complete this topic Hepatitis A Vaccines Aged Out No long er eligible based on patient's age to complete this topic Hepatitis B Vaccines Aged Out No long er eligible based on patient's age to complete this topic IPV Vaccines Aged Out No longer eligi ble based on patient's age to complete this topic MMR Vaccines Aged Out No longer eligi ble based on patient's age to complete this topic Meningococcal ACWY Vaccine Aged Out N o longer eligible based on patient's age to complete this topic Meningococcal B Vacine Aged Out No lo nger eligible based on patient's age to complete this topic RSV Immunization Patients Under 20 months Aged Out No longer eligible based on patient's age to complete this topic Varicella Vaccines Aged Out No longer eligible based on patient's age to complete this topic Procedures Procedure Name Priority Date/Time Associated Diagnosis Comments THYROID STIMULATING HORMONE Routine 05/06/2024 8:04 AM EST Hypothyroid from Last 3 Months Results * Thyroid stimulating hormone (05/06/2024 8:04 AM EST) TSH 3.21 0.40 - 4.00 mcIU/mL LAB CHEMISTRY METHOD 05/06/2024 11:24 AM EST [facility] Blood Venous blood specimen / Unknown Venipuncture / Unknown 05/06/2024 8:04 AM EST 05/06/2024 8:04 AM EST us Nelson Barillas LAB BLOOD ORDERABLES Final Resul t [facility] [address] [place] [address], from Last 3 Months Insurance [facility] Care Teams Tracing Lathe Set Up Operator Relationship Specialty Start Date End Date Hector Soares DO [address] [place] [phone] PCP - General Internal Medicine 07/09/24
--- OUTSIDE RECORDS SUMMARY | 2024-07-23 10:31 | XMS_ITS | Encounter Summary ---
Author Organization [facility] Address [address] [place] [address] Care Team Providers Care Lining Stuffer Name Role Phone Hector Soares DO Primary Care Provider [phone] Encounter Details Date Type Department Care Team (Late Contact Info) Description 07/09/2024 Telephone [facility] Radiation Oncology [address] [place] [phone] Sofie Claudio MA Social History Tobacco Use Types Packs/Day Years Used Date Smoking Tobacco: Never Smokeless Tobacco: Never Alcohol Use Standard Drinks/Week Comments Yes 1 (1 standard drink = 0.6 oz pur e alcohol) Comments Unknown Sex and Gender Information Value Date Recorded Sex Assigned at Not on file Legal Sex Female 12:15 PM EST Gender Identity Not on file Sexual Orientation Not on file documented as of this encounter Progress Notes * Sofie Claudio MA - 07/09/2024 11:39 AM EST Spoke with pt aware of consult appt date/time. documented in this encounter Plan of Treatment Upcoming Encounters Date Type Department Care Team (Late Contact Info) Description 07/31/2024 8:30 AM EST Appointment [facility] Radiation Oncology [address] [place] [phone] 07/31/2024 9:00 AM EST Appointment [facility] Radiation Oncology [address] [phone] Juana Le MD [address] [place] [address] documented as of this encounter Visit Diagnoses Not on filedocumented in this encounter Care Teams Lining Stuffer Relationship Specialty Start Date End Date Hector Soares DO [address] [place] [phone] PCP - General Internal Medicine 07/09/24 documented as of this encounter
== END 2024-07-23 10:32 | disposition home or self-care (01) ==
PROVIDERS: PCP Internal Medicine; Visit Provider Surgery
DX: C50.911 Malignant neoplasm of unspecified site of right female breast (principal)
CPT/HCPCS: 99024

== ENCOUNTER 2024-08-05 06:49 | Day surgery (SDC) | payer MEDICARE, SELFPAY ==
--- OUTSIDE RECORDS SUMMARY | 2024-07-30 14:52 | XMS_ITS | Encounter Summary ---
Author Organization [facility] Address [address] [place] [address] Care Team Providers Care Ice Cream Machine Operator Name Role Phone Antonyhilary Hector Primary Care Provider [phone] Encounter Details Date Type Department Care Team (Late Contact Info) Description 07/09/[address] [facility] Radiation Oncology [address] [place] [phone] Sofie Claudio MA Social History Tobacco Use [...] Info) Description 07/31/2024 8:[address] [facility] Radiation Oncology [address] [phone] 07/31/2024 9:[address] [facility] Radiation Oncology [address] [phone] Juana Le MD [address] [place] [address] documented as of this encounter Visit Diagnoses Not on filedocumented in this encounter Care Teams Ice Cream Machine Operator Relationship Specialty Start Date End Date Hector Soares DO [address] [place] [phone] PCP - General Internal Medicine 07/09/24 documented as of this encounter
--- OUTSIDE RECORDS SUMMARY | 2024-07-30 14:52 | XMS_ITS | Clinical Summary ---
Author Organization [address] Address [address] [place] [phone] Phone Care Team Providers Care Extrusion Utility Worker Name Role Phone Hector Soares DO Primary Care Provider [phone] Allergies Active Allergy Reactions Criticality Noted Date Comments Sulfa (Sulfonamide Antibiotics) Rash Low 11/2017 Medications acetaminophen (TYLENOL) 500 mg tablet Take 1 tablet (500 mg total) by mouth Every 4 hours as needed. Active albuterol HFA (PROAIR HFA ; PROVENTIL HFA ; VENTOLIN HFA) 90 mcg/actuation inhaler Inhale 2 puffs by mouth. Active amLODIPine (NORVASC) 5 mg tablet TAKE 1 TABLET(5 MG) BY MOUTH DAILY 07/18/19 24 Active calcium carbonate 1,500 mg (600 mg elemental calcium) tablet Take 1,200 mg by mouth daily. Active citalopram (CeleXA) 10 mg tablet Take 1 tablet (10 mg total) by mouth 1 (one) time each day. Active citalopram (CeleXA) 20 mg tablet Take 1 tablet (20 mg total) by mouth 1 (one) time each day. Active estradioL (Estrace) 0.01 % (0.1 mg/gram) vaginal cream See Instructions, 1 gram Vaginally at bedtime twice per week, # 42 Gm, 4 Refills, Maintenance, 04/26/23 10:07:00 AM EST, [id number], Partial fill upon patient request if the prescription is for a schedule II opioid drug., 160, cm, 04/20/23 7:42:00 EST, Height, 91, kg, 04/20/23 7:42:00 EST, Dry Weight 04/26/20 23 Active hydroCHLOROthiazid e (MICROZIDE) 12.5 mg capsule TAKE 1 CAPSULE(12.5 MG) BY MOUTH EVERY MORNING 04/27/20 21 Active hydrOXYzine HCL (ATARAX) 10 mg tablet Take 1 tablet (10 mg total) by mouth every 8 (eight) hours if needed. Active levothyroxine (SYNTHROID, LEVOTHROID) 100 mcg tablet TAKE 1 AND 1/2 TABLETS BY MOUTH MONDAY, MONDAY AND MONDAY, AND 1 TABLET EVERY OTHER DAY DIRECTED 07/18/19 24 Active mecobalamin, vitamin B12, 1,000 mcg tablet,disintegrat ing PLACE 1 TABLET UNDER TONGUE AND ALLOW TO DISSOLVE FOR 30 SECONDS ONCE A DAY 02/26/20 24 Active multivitamin tablet one daily Active mupirocin (BACTROBAN) 2 % ointment APPLY THIN LAYER TOPICALLY TO BIOPSY SITE TWICE DAILY UNTIL HEALED 03/08/20 24 Active omeprazole (PriLOSEC) [address] capsule take 1 capsule by mouth daily 30 minutes before breakfast Active omeprazole OTC (PriLOSEC OTC) 20 mg EC tablet Take 1 tablet (20 mg total) by mouth. 04/26/20 22 Active ondansetron ODT (ZOFRAN-ODT) [address] AND DISSOLVE 1 TABLET BY MOUTH EVERY 12 HOURS NEEDED 04/01/20 24 Active pantoprazole (PROTONIX) 40 mg EC tablet Take 1 tablet (40 mg total) by mouth 1 (one) time each day. 04/01/20 24 Active polyethylene glycol (PEG) 17 gram/dose oral powder 04/01/20 24 Active senna 8.6 mg tablet TAKE 2 TABLETS BY MOUTH EVERY NIGHT AT BEDTIME NEEDED CONSTIPATION 06/10/19 25 Active sucralfate (CARAFATE) 100 mg/mL suspension SHAKE LIQUID AND TAKE 10 ML BY MOUTH TWICE DAILY 06/04/20 24 Active Active Problems Problem Noted Date Diagnosed Date Binge eating disorder 07/24/2024 Class 1 obesity 07/24/2024 Cervical low risk human deepa llomavirus (HPV) DNA test positive 06/13/2023 Overview (07/24/2024): 2018 - nml cytology, HPV neg 2021 - nml cytology +HPV (16.18 neg) 2022 - nml cytology +HPV (16/18 neg) Colpo 06/2023 negative Repeat pap 2024 Midline cystocele 03/03/2023 Osteopenia 03/03/2023 Fall (on) (from) other stairs and steps, sequela 11/07/2022 Cough 04/19/2022 Overview (07/24/2024): Last Assessment & Plan: We did discuss her cough. It sounds like she is having reflux that is causing her dry cough as well as her dyspnea. She already started on a PPI which I have encouraged her to take for a month. She will be following up with you on Monday for this as well. We did discuss warning signs that she should monitor for if she has any of these. We did discuss that she may need to see GI or pulmonary if things do not improve. CHF (congestive heart failure) 12/24/2021 Overview (07/24/2024): Last Assessment & Plan: Patient's last echocardiogram showed a normal cardiac function with an LVEF of 60 to 65%. Patient does not present with any clinical symptoms of heart failure and she is euvolemic on physical examination. No changes to her medical therapies today. Hyperlipidemia 12/24/2021 Overview (07/24/2024): Last Assessment & Plan: We discussed her recent LDL cholesterol of 136 which is above goal of 130. She is working hard to eat healthy and exercise. She fully admits that her diet and exercise regimen have been lacking. Patient encouraged to continue with healthy dietary choices and regular exercise. I have reviewed with the patient the importance of a heart healthy lifestyle which includes eating a low-fat low-salt diet, getting regular exercise, maintaining a healthy weight, not smoking, and following up with routine medical care. Sleep apnea 12/24/2021 Overview (07/24/2024): Last Assessment & Plan: She is doing well with her CPAP at this time. Plantar fasciitis, left 01/20/2020 Hypertension 07/30/2018 Overview (07/24/2024): Last Assessment & Plan: Patient's blood pressure is under excellent control with a reading today of 116/76. Continue with medical therapies as prescribed. Class 2 obesity in adult 07/11/2017 Depression 07/11/2017 Overview (07/24/2024): [facility] on citalopram 40 mg daily. Weaned down to 20 mg and has been stable since earlier than 2012. Hypothyroidism 07/11/2017 Asthma 07/11/2017 Encounters Date Type Department Care Team Description 07/09/2024 Telephone [facility] Radiation Oncology [address] [facility] 2nd [place] [phone] Sofie Claudio MA from Last 3 Months Immunizations Name Administration Dates Next Due Influenza Quadravalent, 0.5m l (Fluzone High-dose) 65yo and older 03/03/2023,04/22/2022 Influenza Quadravalent, MDCK , 0.5ml, preservative free (Flucelvax) 6mo and older 04/13/2020 Influenza Quadrivalent, 0.5m l, preservative free (Fluarix; FluLaval; Fluzone) ages 6mo and older (Afluria) 3yo and older 03/02/2021,04/03/2019,04/11/2018,2017,04/10/2015 Influenza Quadrivalent, with preservative (Fluzone; Afluria) 6mo and older 03/03/2014 Influenza trivalent, 0.5mL ( Fluzone High-dose) 65yo and older 03/07/2024 Influenza trivalent, 0.5mL, preservative free (Fluarix; FluLaval; Fluzone) ages 6mo and older (Afluria) 3 years and older 04/21/2016 Pfizer SARS-CoV-2 COVID-19, mRNA, LNP-S, preservative free 08/13/2020 Pneumococcal conjugate 20 va lent (Prevnar 20, PCV 20) 2mo and older 03/19/2024 Tdap Tetanus diptheria acell ular pertussis (Boostrix; Adacel) 7yo and older 03/03/2014 Zoster recombinant (Shingrix ) 19yo and older 09/21/2021,07/05/2021 Medical History Medical History Date Comments Hypothyroidism DX:Hypothyroidis m Covid-19 DX:COVID-19 Cough DX:Cough Family History Medical History Relation Name Comments Multiple myeloma Brother Heart attack Father Hypertension Father Lung cancer Mother Esophageal cancer Mother's Brother Prostate cancer Mother's Brother Colon cancer Mother's Sister 1 Lung cancer Mother's Sister 2 Kidney cancer Mother's Sister 3 Breast cancer Sister Relation Name Status Comments Brother Father Mother Mother's Brother Mother's Sister 1 Mother's Sister 2 Mother's Sister 3 Sister Social History Tobacco Use Types Packs/Day [...] Sexual Orientation Not on file Obstetrics History Para Term AB IAB SAB Ectopic Multiple Livin g Live Births 3 2 Date Outcome GA Total Labor Labor/2nd/3rd Weight Sex Type Anes PTL Azucena A1 A5 Name Clin Para Para Last Filed Vital Signs Vital Sign Reading [...] Info) Description 07/31/2024 8:30 AM EST Appointment [facility] Radiation Oncology [address] [place] [phone] 07/31/2024 9:00 AM EST Appointment [facility] Radiation Oncology [address] [facility] [address] [place] [phone] Juana Le MD [address] [place] [address] Health Maintenance Due Date Last Done Comments [...] LAB CHEMISTRY METHOD 05/06/2024 11:24 AM EST [facility] Blood Venous blood specimen / Unknown Venipuncture / Unknown 05/06/2024 8:04 AM EST 05/06/2024 8:04 AM EST us Nelson Barillas LAB BLOOD ORDERABLES Final Resul t [facility] [address] [place] [address], from Last 3 Months Insurance [facility] Care Teams Extrusion Utility Worker Relationship Specialty Start Date End Date Rodger DO Hector [address] [place] [phone] PCP - General Internal Medicine 07/09/24
[2024-08-05] VITALS (16 sets, daily range): BP systolic 107–142; BP diastolic 63–74; PULSE 49–60; RESP 10–18; TEMP 36.3; O2SAT 94–100; BMI 26.2
--- NOTE | ~2024-08-05 | IR_ITS ---
CLINICAL HISTORY: Right breast cancer. The patient presents to interventional radiology for placement of a port for chemotherapy. PROCEDURES: 1. Real-time ultrasound-guided access into the left internal jugular vein after documentation of selected vessel patency, and permanent image storing in the patient records. 2. Placement of a 6.0 Hungarian single-lumen power port. CLINICIAN: Matteo Elliott PA-C MEDICATIONS: - Versed 1.5 mg, Fentanyl 75 mcg, Lidocaine 1% 10 mL SQ -Antibiotics: Ancef 2g -For additional details, please see nursing flowsheet. Complications: None. Estimated blood loss: <5 ml Specimens: None. Contrast: None. Fluoroscopy time: 2.9 min MODERATE SEDATION TIME: 36 min PROCEDURE NOTE: The procedure, risks, benefits, and alternatives were carefully explained to the patient and written informed consent was obtained. The patient was placed supine on the fluoroscopy table. A timeout was performed. The left neck and chest was prepped and draped in usual sterile fashion. Maximum barrier technique was utilized. Local anesthesia was administered to the access site with 1% lidocaine. Under ultrasound guidance, the left internal jugular vein was accessed with a 5 fr micropuncture set. A 0.035 in wire was advanced into the IVC. A peel-away sheath was advanced over the wire and into the SVC, and the wire was removed. Next, subcutaneous lidocaine was administered to the chest. The port pocket was created after the skin incision, utilizing blunt dissection. Using blunt dissection, a subcutaneous tunnel was created that connects from the port pocket to the venotomy site. Through the peel-away sheath, the 6.0 Hungarian port catheter was placed. The catheter position was verified with fluoroscopy to be at the superior vena cava/right atrial junction. The port was connected to the catheter and was placed in the pocket. The venotomy site was closed with a 3-0 Vicryl subcutaneous suture. The port incision site was closed with interrupted 3-0 Vicryl subcutaneous sutures and surgical glue. Prior to closing the skin, 1 g of Ancef solution was placed in the pocket. The port was tested, flushed, and packed with heparin per routine protocol. The patient tolerated the procedure well. The patient was stable after the procedure and was transferred to the PACU. The procedure was performed under moderate sedation and with a dedicated nurse with continuous monitoring of vital signs. A permanent image of the ultrasound the neck and fluoroscopic image of the chest was saved and sent to PACS. FINDINGS: 1. Patent left internal jugular vein 2. Placement of a 6.0 Hungarian single lumen power port. 3. Port flushes and aspirates very well with a 10 mL syringe. No pneumothorax. IR/IR cvc insert tunnel w prt/outside sales IMPRESSION: Placement of a 6.0 Hungarian single-lumen power port. PLAN: - The patient will be discharged home when stable by sedation protocol. - Port may be used immediately. This procedure was performed by Matteo Elliott PA-C, and directly supervised by Dr. Moyer Electronically signed by: Myke Moyer MD 08/05/2024 03:05 PM [facility]
--- NOTE | ~2024-08-05 | IR_ITS ---
CLINICAL HISTORY: Right breast cancer. The patient presents to interventional radiology for placement of a port for chemotherapy. PROCEDURES: 1. Real-time ultrasound-guided access into the left internal jugular vein after documentation of selected vessel patency, and permanent image storing in the patient records. 2. Placement of a 6.0 Setswana single-lumen power port. CLINICIAN: Matteo Elliott PA-C MEDICATIONS: - Versed 1.5 mg, Fentanyl 75 mcg, Lidocaine 1% 10 mL SQ -Antibiotics: Ancef 2g -For additional details, please see nursing flowsheet. Complications: None. Estimated blood loss: <5 ml Specimens: None. Contrast: None. Fluoroscopy time: 2.9 min MODERATE SEDATION TIME: 36 min PROCEDURE NOTE: The procedure, risks, benefits, and alternatives were carefully explained to the patient and written informed consent was obtained. The patient was placed supine on the fluoroscopy table. A timeout was performed. The left neck and chest was prepped and draped in usual sterile fashion. Maximum barrier technique was utilized. Local anesthesia was administered to the access site with 1% lidocaine. Under ultrasound guidance, the left internal jugular vein was accessed with a 5 fr micropuncture set. A 0.035 in wire was advanced into the IVC. A peel-away sheath was advanced over the wire and into the SVC, and the wire was removed. Next, subcutaneous lidocaine was administered to the chest. The port pocket was created after the skin incision, utilizing blunt dissection. Using blunt dissection, a subcutaneous tunnel was created that connects from the port pocket to the venotomy site. Through the peel-away sheath, the 6.0 Setswana port catheter was placed. The catheter position was verified with fluoroscopy to be at the superior vena cava/right atrial junction. The port was connected to the catheter and was placed in the pocket. The venotomy site was closed with a 3-0 Vicryl subcutaneous suture. The port incision site was closed with interrupted 3-0 Vicryl subcutaneous sutures and surgical glue. Prior to closing the skin, 1 g of Ancef solution was placed in the pocket. The port was tested, flushed, and packed with heparin per routine protocol. The patient tolerated the procedure well. The patient was stable after the procedure and was transferred to the PACU. The procedure was performed under moderate sedation and with a dedicated nurse with continuous monitoring of vital signs. A permanent image of the ultrasound the neck and fluoroscopic image of the chest was saved and sent to PACS. FINDINGS: 1. Patent left internal jugular vein 2. Placement of a 6.0 Setswana single lumen power port. 3. Port flushes and aspirates very well with a 10 mL syringe. No pneumothorax. IR/IR us guide venous access IMPRESSION: Placement of a 6.0 Setswana single-lumen power port. PLAN: - The patient will be discharged home when stable by sedation protocol. - Port may be used immediately. This procedure was performed by Matteo Elliott PA-C, and directly supervised by Dr. Moyer Electronically signed by: Myke Moyer MD 08/05/2024 03:05 PM [facility]
--- NOTE | 2024-08-05 08:20 | MHC.SHP ---
Pre-Procedural Eval Section A - 24 Hr Update-Section A only Date of Service: 08/05/24 Section B - Complete if H&P > 30 days Chief Complaint: chemo--service date 08/02/24 Details of Present Illness: 69 y/o female with right breast cancer and poor iv access Relevant Family History (Specify if Yes): Yes Relevant Social History: None Present Medications: see Short Stay Collaborative assessment Medical History: Significant History History of Previous Operations: Relevant previous surgery/procedure and date(s) Allergies: Allergies Allergy/AdvReac Type Severity Reaction Status Date / Time adhesive Allergy Intermediate ITCHING, Verified 07/23/24 10:22 RASH Sulfa (Sulfonamide Allergy Intermediate rash Verified 07/23/24 10:22 Antibiotics) Review of Systems Sugical H&P ROS: Negative: Constitution, Cardiovascular and Respiratory Exam Surgical H&P Exam: Normal: Lungs, Normal: Skin and Normal: Neurological and Significant Findings: Heart (bradycardic, regular) Plan 69 y/o with right breast cancer and poor iv access -Left port Time Spent With Patient Time: Total time managing care of this patient today ____ minutes.
[2024-08-05] MEDS: ceFAZolin Sodium/Dextrose,Iso 2 GM/50 ML PIGGYBACK IV (08:45)
[2024-08-05] MEDS: fentaNYL citrate/PF 100 MCG/2 ML VIAL 50 MCG IVPUSH (08:53)
[2024-08-05] MEDS: Midazolam HCl 2 MG/2 ML VIAL 1 MG IVPUSH ×2 (08:56→09:01)
[2024-08-05] MEDS: fentaNYL citrate/PF 100 MCG/2 ML VIAL 25 MCG IVPUSH (09:01)
== END 2024-08-05 10:22 | disposition home or self-care (01) ==
PROVIDERS: Physician Assistant Surgical; PCP Internal Medicine; Visit Provider Internal Medicine
DX: Z45.2 Encounter for adjustment and management of vascular access device (principal); C50.411 Malignant neoplasm of upper-outer quadrant of right female breast; Z17.0 Estrogen receptor positive status [ER+]; I10 Essential (primary) hypertension; E03.9 Hypothyroidism, unspecified; G47.33 Obstructive sleep apnea (adult) (pediatric); F41.9 Anxiety disorder, unspecified; F32.A Depression, unspecified; Z79.899 Other long term (current) drug therapy; Z99.89 Dependence on other enabling machines and devices; Z98.890 Other specified postprocedural states; Z98.51 Tubal ligation status; Z88.2 Allergy status to sulfonamides; L23.1 Allergic contact dermatitis due to adhesives
CPT/HCPCS: 36561; 76937; 99152; 99153; C1769; C1788; J0690; J1642; J1644; J2003; J2250; J2310; J3010

== ENCOUNTER → 2024-08-05 07:47 | Outpatient (BNV) | payer MEDICARE, SELFPAY | PROVIDERS: PCP Internal Medicine; Visit Provider Physician Assistant Surgical | DX: C50.911 Malignant neoplasm of unspecified site of right female breast (principal) | CPT/HCPCS: 36561; 76937 ==

== ENCOUNTER 2024-08-19 10:29 | Outpatient (AMB) | payer MEDICARE, SELFPAY ==
--- NOTE | 2024-08-19 08:26 | A.OFFVIS_ITS ---
VS Expanded 08/19/24 08:27 Height 5 ft 3 in Weight 148 lb 1 oz BMI 26.2 Body Fat % 33.4 Fat Free Mass 98.6 Visceral Fat Rating 9 Body Water % 45.7 Muscle Mass/Score 92.7 Basal Metabolic Rate/Score 1,334 Intake Visit Reasons: (TV) PO LSG 04/10/24 Block Cableman Required: No Allergies adhesive Allergy (Intermediate, Verified 07/23/24 10:22) ITCHING, RASH Sulfa (Sulfonamide Antibiotics) Allergy (Intermediate, Verified 07/23/24 10:22) rash Medication List - Last Reconciled 08/19/24 by ZAIRA Rocha citalopram 10 mg PO DAILY citalopram 20 mg PO DAILY dexamethasone 4 mg PO BID levothyroxine 100 mcg PO DAILY ondansetron 8 mg PO Q8H PRN sennosides (senna) 17.2 mg (2 x 8.6 mg) PO BEDTIME PRN HPI Comments Details: This?a?69?yo female who is s/p LSG without hiatal hernia repair on?04/10/2024. Presents for 4 month post op visit. Weight today is 148.1 pounds, with a BMI of 26.2. There has been a 53.1 pound weight loss,(initial weight 201.2 pounds) since starting the program on 02/09/2024 reflecting a 26.3% total body weight loss and a weight loss of 49.4 pounds since surgery (operative weight 197.5 pounds) reflecting a 25% TBWL since surgery. No complaints of nausea, emesis, abdominal pain or reflux. Reports infrequent but normal bowel movements every 2-3 days and uses stool softeners regularly. Taking celebrate MVI Found to have right breast cancer, followed by general surgery and oncology. She is going to have radiation treatment after chemotherapy which started August 06, 2024 for four rounds. Wants to change plan to incorporate more food. She reports significant anorexia on the 1st week of her chemotherapy. She was told this is expected. She has now resumed her meal plan. She would like to incorporate more food. Present meal plan includes: premier protein rtd or fairlife 30 gm 6 oz at 8-10 Orgain bar 11-1 repeat shake 2-4 meal at 5 with 3 forks protein and 3 forks veg Drinking 48-64 oz water ? Exercise routine includes: walking 2-3 mi outside 2 x per week. 300 calories stationary bike 4 x per day, burning 200 ami per day PFSH Medical History 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 Presence of pessary Back pain History of one miscarriage Hypothyroidism GERD (gastroesophageal reflux disease) Anxiety Depression Hypertension Sleep apnea treated with continuous positive airway pressure (CPAP) Surgical History History of lumpectomy of right breast (06/17/24) S/P laparoscopic sleeve gastrectomy Hx of wisdom tooth extraction Hx of dilation and curettage Hx of esophagogastroduodenoscopy (03/05/24) Hx of colonoscopy Hx of tubal ligation Family History Mother Lung cancer Brother Multiple myeloma Sister PONV (postoperative nausea and vomiting) Breast CA, Onset Age: 40 Maternal Aunt Colon cancer Family/Other Breast CA, Onset Age: 40 Maternal Uncle Esophageal cancer Prostate cancer Maternal Aunt Lung cancer Maternal Aunt Cancer of kidney Maternal Aunt Breast CA Social History Household Members: Children Caregiver staying overnight: No Housing: Apartment Are you a primary social worker palliative care to a significant other at home: No Do you presently have visiting nurse or other home services: No 75 years or older and lives alone: No Alcohol intake: current Alcohol intake frequency: does not drink Comment: 1 wkly Patient Tobacco Use Status: Never used Tobacco e-Cigarette/Vaping Use: Never Used Second Hand Smoke Exposure: No service: No Female Reproductive History Menstrual Age of Menarche: 14 Telehealth Telehealth Telehealth Platform: Telephone Location of provider rendering services: practice address Location of patient: address on file Patient Identification confirmed using: Name, : Yes Telehealth method: voice only Patient verbally consented to treatment: Yes Patient verbally consented to billing insurance company: Yes Patient informed of any privacy concerns related to visit: Yes Minutes spent on Phone/Video with Pt.: 15 Assessment & Plan Assessment & Plan (1) S/P laparoscopic sleeve gastrectomy: Code(s): Z98.84 - Bariatric surgery status Category: Surgical Plan: premier protein rtd or fairlife 30 gm at 8-10 meal at noon with 4 forks protein and 4 forks vegetables meal at 5 with 5 forks protein and 5 forks veg She will try to increase exercise to 400 calories, 4 days a week at the gym and use her stationary bike at home on the other days for 200 calories per day. During the 1st week of her chemotherapy, she will do the best that she can to manage her p.o. intake. She has follow-up in the office in 2 months
[2024-08-19 08:27] VITALS: BMI 26.2
--- OUTSIDE RECORDS SUMMARY | 2024-08-19 11:49 | XMS_ITS | Encounter Summary ---
Author Organization [facility] Address [address] [place] [address] Care Team Providers Care Agriculture Specialist Name Role Phone Hector Soares DO Primary Care Provider [phone] Encounter Details Date Type Department Care Team (Latest Contact Info) Description 07/31/2024 8:02 AM EST - 07/31/2024 11:59 PM EST Hospital Encounter [facility] Radiation Oncology [address] [address] Discharge Disposition: Home or Self Care Social History Tobacco Use Types Packs/Day Years Used Date Smoking Tobacco: Never Smokeless Tobacco: Never Alcohol Use Standard Drinks/Week Comments Not Currently 0 (1 standard drink = 0.6 oz pur e alcohol) Comments Unknown Sex and Gender Information Value Date Recorded Sex Assigned at Not on file Legal Sex Female 12:15 PM EST Gender Identity Not on file Sexual Orientation Not on file documented as of this encounter Medications at Time of Discharge acetaminophen (TYLENOL) 500 mg tablet Take 1 tablet (500 mg total) by mouth Every 4 hours as needed. calcium carbonate 1,500 mg (600 mg elemental calcium) tablet Take 1,200 mg by mouth daily. citalopram (CeleXA) 10 mg tablet Take 1 tablet (10 mg total) by mouth 1 (one) time each day. citalopram (CeleXA) 20 mg tablet Take 1 tablet (20 mg total) by mouth 1 (one) time each day. estradioL (Estrace) 0.01 % (0.1 mg/gram) vaginal cream See Instructions, 1 gram Vaginally at bedtime twice per week, # 42 Gm, 4 Refills, Maintenance, 04/26/23 10:07:00 AM EST, [id number], Partial fill upon patient request if the prescription is for a schedule II opioid drug., 160, cm, 04/20/23 7:42:00 EST, Height, 91, kg, 04/20/23 7:42:00 EST, Dry Weight 3 levothyroxine (SYNTHROID, LEVOTHROID) 100 mcg tablet TAKE 1 AND 1/2 TABLETS BY MOUTH MONDAY, MONDAY AND MONDAY, AND 1 TABLET EVERY OTHER DAY DIRECTED 4 multivitamin tablet one daily ondansetron ODT (ZOFRAN-ODT) [address] AND DISSOLVE 1 TABLET BY MOUTH EVERY 12 HOURS NEEDED 4 senna 8.6 mg tablet TAKE 2 TABLETS BY MOUTH EVERY NIGHT AT BEDTIME NEEDED CONSTIPATION 5 documented as of this encounter Discharge Disposition Disposition Code Departure Means Destination Home or Self Care documented in this encounter Plan of Treatment Upcoming Encounters Date Type Department Care Team (Late st Contact Info) Description 11/19/2024 1:30 PM EDT Appointment [facility] Radiation Oncology [address] [phone] Juana Le MD [address] [place] [address] documented as of this encounter Visit Diagnoses Not on filedocumented in this encounter Care Teams Agriculture Specialist Relationship Specialty Start Date End Date Hector Soares DO [address] [place] [phone] PCP - General Internal Medicine 07/09/24 documented as of this encounter
--- OUTSIDE RECORDS SUMMARY | 2024-08-19 11:49 | XMS_ITS | Encounter Summary ---
Author Organization [facility] Address [address] [place] [address] Care Team Providers Care Dry House Operator Name Role Phone Hector Soares DO Primary Care Provider [phone] Reason for Referral * Consultation (Routine) - Closed Specialty Diagnoses / Procedures Referred By Contac t Referred To Contact Radiation Oncology Diagnoses Breast cancer (CMS/HCC) Jazz Engel MD [address] [place] [address] HEMATOLOGY / [place] [address] Phone: tel: fax: [facility] Radiation Oncology [address] [place] [phone] Phone: tel: fax: Referral ID Status Reason Start Date Expiration Date V isits Requested Visits Authorized [id number] Closed Specialty Services Required 07/09/2024 07/09/2025 1 1 Reason for Visit * Reason Comments Consult * Consultation (Routine) - Closed Specialty Diagnoses / Procedures Referred By Contac t Referred To Contact Radiation Oncology Diagnoses Breast cancer (CMS/HCC) Jazz Engel MD [address] [place] [address] HEMATOLOGY / [place] [address] Phone: tel: fax: [facility] Radiation Oncology [address] [address] Phone: tel: fax: Referral ID Status Reason Start Date Expiration Date V isits Requested Visits Authorized [id number] Closed Specialty Services Required 07/09/2024 07/09/2025 1 1 Encounter Details Date Type Department Care Team (Latest Contact Info) Description 07/31/2024 8:07 AM EST - 07/31/2024 11:59 PM EST Hospital Encounter [facility] Radiation Oncology [address] [phone] Juana Le MD [address] [place] [address] Malignant neoplasm of upper-outer quadrant of right breast in female, estrogen receptor positive (CMS/HCC) (Primary Dx); Breast cancer (CMS/HCC) Discharge Disposition: Home or Self Care Social [...] on file documented as of this encounter Last Filed Vital Signs Vital Sign Reading Time Taken Comments Blood Pressure 125/72 07/31/2024 8:48 AM EST Pulse 71 07/31/2024 8:48 AM EST Temperature 34.8 ??C (94.7 ??F) 07/31/2024 8:48 AM ES T Respiratory Rate 16 07/31/2024 8:48 AM EST Oxygen Saturation 99% 07/31/2024 8:48 AM EST Inhaled Oxygen Concentration - - Weight 68.8 kg (151 lb 9.6 oz) 07/31/2024 8:48 A M EST Height 160 cm (5' 3 ) 07/31/2024 8:48 AM EST Body Mass Index 26.85 07/31/2024 8:48 AM EST documented in this encounter Medications at Time of Discharge [...] 4 Refills, Maintenance, 04/26/23 10:07:00 AM EST, [id number], Partial fill upon patient request if the [...] or Self Care documented in this encounter Progress Notes * Juana Le MD - 07/31/2024 9:00 AM EST Images from the original note were not included. [address] [phone] Radiation Oncology Outpatient Consult Staff Physician: Juana Le MD Requesting Physician: Jazz Engel MD Date of Service: 07/31/2024 Accompanied by: cousin Karlene Diagnosis: 1. Malignant neoplasm of upper-outer quadrant of right breast in female, estrogen receptor positive(CMS/HCC) 2. Breast cancer (CMS/HCC) Ambulatory referral to Radiation Oncology Ambulatory referral to Radiation Oncology Rad Onc Appointment Request DIAGNOSIS: RIGHT BREAST invasive ductal carcinoma, ER +, [place] - Her 2 - 06/17/[address] biopsy Dr. Lewis Oncotype 26, 08/06/24 - starting chemo (TC x 4 ) with Dr. Engel Stage: Cancer Staging Malignant neoplasm of upper-outer quadrant of right breast in female, estrogen receptor positive (CMS/HCC) Staging form: Breast, AJCC 8th Edition - Pathologic: Stage IA (pT1c, pN0, cM0, G1, ER+, [place]-, HER2-, Oncotype DX score: 26) - Signed by Juana Le MD on 07/31/2024 Assessment/Plan IMPRESSION: I recommend adjuvant RT to right breast to decrease chance of local recurrence. RT daily M-F for 20fractions (4 weeks) Short term side effects: fatigue, skin reaction (dry, red, itchy, hollingsworth or peeling), swelling or soreness of breast or nipple. buttermaker continuous churn side effects: decreased cosmesis, there may be areas of firmness or swelling, treated breast may appear smaller. Most people are pleased but small percentage of people seek further therapy or surgery to improve cosmesis. There is 1% risk of developing rib fracture on the treated side. There is possibility of developing scarring along the periphery of the lung underneath the treated breast which may be seen on CXR or CT scan but would be unlikely to affect Ms. Osito's breathing. There is a rare risk of developing malignancy in the treatment field. The goal of radiation would be local control. There are no guarantees however and despite treatmentpatient could have recurrence in the region treated or elsewhere. If patient recurs in the radiation treatment field, then most likely further radiation therapy to that area would not be recommended.If local recurrence after RT, would likely need mastectomy. Discussed use of CT Sim with tattoos. Patient expressed understanding. Agrees to proceed. PLAN: FU in mid-November 2024 Start RT ~ 4-6 weeks after chemo. Subjective HISTORY OF PRESENT ILLNESS: Huma Cespedes is a 69 y.o. female who presents with right breast cancer and is seen in consultation today for to discuss adjuvant RT to right breast. Oncological History: Asymptomatic breasts 03/01/2024 Routine mammogram focal asymmetry in upper outer quadrant of right breast. 04/29/2024 Diagnostic mammogram /ultrasound right breast 0900 axis 0.8 x 0.9 cm oval lesion with mixed echogenicity and irregular margins. Left breast showed cysts measuring up to 1.3 cm. 05/16/2024 Ultrasound guided biopsy of right breast 06/17/2024 Right breast lumpectomy with sentinel node biopsy with Dr. Lewis. ER + [place] - Her 2 - Margins negative. 07/08/[address] Engel Oncotype DX 26 per pt so pt getting chemo 08/06/24 - starting chemo. Will be getting docetaxel and cyclophosphamide x 4 Right breast overall healing well. Mild bruising noted. No breast pain or swelling. SH: lives alone in [place], [place]. 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 PRIOR RT: none PRIOR CHEMO: none PROBLEM LIST: Patient Active Problem List Diagnosis Binge eating disorder Cervical low risk human papillomavirus (HPV) DNA test positive CHF (congestive heart failure) (CMS/HCC) Class 2 obesity in adult Class 1 obesity Cough Depression Fall (on) (from) other stairs and steps, sequela Hyperlipidemia Hypertension Hypothyroidism Midline cystocele Osteopenia Plantar fasciitis, left Asthma Malignant neoplasm of upper-outer quadrant of right breast in female, estrogen receptor positive (CMS/HCC) PAST MEDICAL HISTORY: Past Medical History: Diagnosis Date Cancer (CMS/HCC) Cough DX:Cough COVID-19 DX:COVID-19 Hypothyroidism DX:Hypothyroidism Sleep apnea 12/24/2021 Last Assessment & Plan: She is doing well with her CPAP at this time. PAST SURGICAL HISTORY: Past Surgical History: Procedure Laterality Date BREAST SURGERY 06/17/2024 STOMACH SURGERY 04/10/2024 gastric sleeve TUBAL LIGATION Bilateral 1993 GYNECOLOGICAL HISTORY (if applicable): Bowstring Maker History LMP: Age at Menarche: 14 Age at First : 35 Age at Menopause: 51 Bowstring Maker History Comments: Sexual Activity: Not Currently; No partner data on record Contraception: No contraception data on record OB History Para Term AB Living 3 2 SAB IAB Ectopic Multiple Live Births # Outcome Date GA Lbr Navin/2nd Weight Sex Type Anes PTL Lv 3 2 Para 1 Para FAMILY HISTORY: Family History Problem Relation Name Age of Onset Lung cancer Mother Hypertension Father Heart attack Father Breast cancer Sister Multiple myeloma Brother Colon cancer Mother's Sister Lung cancer Mother's Sister also with bladder cancer Breast cancer Mother's Sister Esophageal cancer Mother's Brother Prostate cancer Mother's Brother Lung cancer Father's Sister Colon cancer Father's Brother or stomach cancer? Daughter is BRCA1 positive. SOCIAL HISTORY: Social History Socioeconomic History Marital status: Single Spouse name: Not on file Number of children: Not on file Years of education: Not on file Highest education level: Not on file Occupational History Not on file Tobacco Use Smoking status: Never Smokeless tobacco: Never Substance and Sexual Activity Alcohol use: Not Currently Drug use: Never Sexual activity: Not Currently Other Topics Concern Not on file Social History Narrative Not on file ALLERGIES: Allergies as of 07/31/2024 - Reviewed 07/31/2024 Allergen Reaction Noted Adhesive tape-silicones Rash 07/31/2024 Sulfa (sulfonamide antibiotics) Rash 07/11/2017 MEDICATIONS: Current Outpatient Medications: acetaminophen (TYLENOL) 500 mg tablet, Take 1 tablet (500 mg total) by mouth Every 4 hours as needed., Disp: , Rfl: calcium carbonate 1,500 mg (600 mg elemental calcium) tablet, Take 1,200 mg by mouth daily., Disp: , Rfl: citalopram (CeleXA) 10 mg tablet, Take 1 tablet (10 mg total) by mouth 1 (one) time each day., Disp: , Rfl: citalopram (CeleXA) 20 mg tablet, Take 1 tablet (20 mg total) by mouth 1 (one) time each day., Disp: , Rfl: estradioL (Estrace) 0.01 % (0.1 mg/gram) vaginal cream, See Instructions, 1 gram Vaginally at bedtime twice per week, # 42 Gm, 4 Refills, Maintenance, 04/26/23 10:07:00 AM EST, [facility] #[id number], Partial fill upon patient request if the prescription is for a schedule II opioid drug., 160,cm, 04/20/23 7:42:00 EST, Height, 91, kg, 04/20/23 7:42:00 EST, Dry Weight, Disp: , Rfl: levothyroxine (SYNTHROID, LEVOTHROID) 100 mcg tablet, TAKE 1 AND 1/2 TABLETS BY MOUTH MONDAY, MONDAY AND MONDAY, AND 1 TABLET EVERY OTHER DAY DIRECTED, Disp: , Rfl: multivitamin tablet, one daily, Disp: , Rfl: senna 8.6 mg tablet, TAKE 2 TABLETS BY MOUTH EVERY NIGHT AT BEDTIME NEEDED CONSTIPATION, Disp: ,Rfl: ondansetron ODT (ZOFRAN-ODT) 4 mg disintegrating tablet, PLACE AND DISSOLVE 1 TABLET BY MOUTH EVERY12 HOURS NEEDED (Patient not taking: Reported on 07/31/2024), Disp: , Rfl: REVIEW OF SYSTEMS: Review of Systems Constitutional: Negative for fatigue. HENT: Negative for sore throat and trouble swallowing. Eyes: Negative for eye problems. Respiratory: Negative for cough and shortness of breath. Cardiovascular: Negative for palpitations. Gastrointestinal: Negative for constipation and diarrhea. Endocrine: Negative for hot flashes. Genitourinary: Negative for dysuria and hematuria. Musculoskeletal: Former fracture of L3. Did PT. Now does stretches to help with back pain. Skin: Negative for rash. Neurological: Negative for headaches. Psychiatric/Behavioral: Positive for sleep disturbance. Due to diagnosis Breast: Negative for breast pain. The Karnofsky performance scale today is 100, Fully active, able to carry on all pre-disease performed without restriction (ECOG equivalent 0). ADL: ADL Screening Patient's Vision Adequate to Safely Complete Daily Activities: Yes Patient's Judgment Adequate to Safely Complete Daily Activities: Yes Patient's Memory Adequate to Safely Complete Daily Activities: Yes Patient's concentration adequate to safely complete daily activities: Yes Patient Able to Express Needs/Desires: Yes Patient's ability to complete errands: Independent Which is your dominant hand?: Right Upper Body Dressing: Independent Lower Body Dressing: Independent Grooming: Independent Oral Care: Independent Feeding: Independent Bathing: Independent Toileting: Independent Putting on/taking off footwear: Independent In/Out Bed: Independent Walks in Home: Independent Climbing stairs: Independent Weakness of Legs: None Weakness of Arms/Hands: None Hearing - Right Ear: Functional Hearing - Left Ear: Functional Objective PHYSICAL EXAM: Visit Vitals BP 125/72 (BP Location: Left arm, Patient Position: Sitting, BP Cuff Size: Adult) Pulse 71 Temp (!) 34.8 ??C (94.7 ??F) (Temporal) Resp 16 Ht 1.6 m (63 ) Wt 68.8 kg (151 lb 9.6 oz) SpO2 99% BMI 26.85 kg/m?? Smoking Status Never BSA 1.72 m?? Body mass index is 26.85 kg/m??. No data recorded Physical Exam Constitutional: General: She is not in acute distress. Appearance: Normal appearance. Chest: Breasts: Right: No inverted nipple or mass. Left: Normal. No inverted nipple or mass. Comments: Mod size breasts. Right breast has vertical 4cm well healed scar at 9:00, minimal postop changes. Single incision. Mild bruising central breast. Lymphadenopathy: Cervical: No cervical adenopathy. Upper Body: Right upper body: No supraclavicular or axillary adenopathy. Left upper body: No supraclavicular or axillary adenopathy. Neurological: General: No focal deficit present. Mental Status: She is alert and oriented to person, place, and time. Psychiatric: Mood and Affect: Mood normal. Behavior: Behavior normal. documented in this encounter Plan of Treatment Upcoming Encounters Date Type Department Care Team (Late st Contact Info) Description 11/19/2024 1:30 PM EDT Appointment [facility] Radiation Oncology [address] [place] [phone] Juana Le MD [address] [place] [id number] Scheduled Referrals Name Type Priority Associated Diagnoses Order Schedule Ambulatory referral to Radiation Oncology Outpatient Referral Routine Breast cancer (CMS/HCC) Once for 1 Occurrences starting 07/31/2024 until 07/31/2024 documented as of this encounter Visit Diagnoses Diagnosis Malignant neoplasm of upper-outer quadrant of right breast in female, estrogen receptor positive (CMS/HCC)- Primary Breast cancer (CMS/HCC) Malignant neoplasm of breast (female), unspecified site documented in this encounter Discontinued Medications Medication Sig Discontinue Reason Start Date End Da te albuterol HFA (PROAIR HFA ; PROVENTIL HFA ; VENTOLIN HFA) 90 mcg/actuation inhaler Inhale 2 puffs by mouth. Therapy completed 07/31/2024 amLODIPine (NORVASC) 5 mg tablet TAKE 1 TABLET(5 MG) BY MOUTH DAILY Therapy completed 07/18/2023 07/31/2024 hydroCHLOROthiazide (MICROZIDE) 12.5 mg capsule TAKE 1 CAPSULE(12.5 MG) BY MOUTH EVERY MORNING Therapy completed 04/27/2021 07/31/2024 hydrOXYzine HCL (ATARAX) 10 mg tablet Take 1 tablet (10 mg total) by mouth every 8 (eight) hours if needed. Therapy completed 07/31/2024 mecobalamin, vitamin B12, 1,000 mcg tablet,disintegrating PLACE 1 TABLET UNDER TONGUE AND ALLOW TO DISSOLVE FOR 30 SECONDS ONCE A DAY Therapy completed 02/26/2024 07/31/2024 mupirocin (BACTROBAN) 2 % ointment APPLY THIN LAYER TOPICALLY TO BIOPSY SITE TWICE DAILY UNTIL HEALED Therapy completed 03/08/2024 07/31/2024 omeprazole (PriLOSEC) [address] capsule take 1 capsule by mouth daily 30 minutes before breakfast Therapy completed 07/31/2024 omeprazole OTC (PriLOSEC OTC) 20 mg EC tablet Take 1 tablet (20 mg total) by mouth. Therapy completed 04/26/2022 07/31/2024 pantoprazole (PROTONIX) 40 mg EC tablet Take 1 tablet (40 mg total) by mouth 1 (one) time each day. Therapy completed 04/01/2024 07/31/2024 polyethylene glycol (PEG) 17 gram/dose oral powder Therapy completed 04/01/2024 07/31/2024 sucralfate (CARAFATE) 100 mg/mL suspension SHAKE LIQUID AND TAKE 10 ML BY MOUTH TWICE DAILY Therapy completed 06/04/2024 07/31/2024 documented as of this encounter Historical Medications * This list may reflect changes made after this encounter. senna 8.6 mg tablet TAKE 2 TABLETS BY MOUTH EVERY NIGHT AT BEDTIME NEEDED CONSTIPATION ondansetron ODT (ZOFRAN-ODT) [address] AND DISSOLVE 1 TABLET BY MOUTH EVERY 12 HOURS NEEDED multivitamin tablet one daily levothyroxine (SYNTHROID, LEVOTHROID) 100 mcg tablet TAKE 1 AND 1/2 TABLETS BY MOUTH MONDAY, MONDAY AND MONDAY, AND 1 TABLET EVERY OTHER DAY DIRECTED 4 estradioL (Estrace) 0.01 % (0.1 mg/gram) vaginal cream See Instructions, 1 gram Vaginally at bedtime twice per week, # 42 Gm, 4 Refills, Maintenance, 04/26/23 10:07:00 AM EST, [id number], Partial fill upon patient request if the prescription is for a schedule II opioid drug., 160, cm, 04/20/23 7:42:00 EST, Height, 91, kg, 04/20/23 7:42:00 EST, Dry Weight 3 citalopram (CeleXA) 20 mg tablet Take 1 tablet (20 mg total) by mouth 1 (one) time each day. citalopram (CeleXA) 10 mg tablet Take 1 tablet (10 mg total) by mouth 1 (one) time each day. calcium carbonate 1,500 mg (600 mg elemental calcium) tablet Take 1,200 mg by mouth daily. acetaminophen (TYLENOL) 500 mg tablet Take 1 tablet (500 mg total) by mouth Every 4 hours as needed. sucralfate (CARAFATE) 100 mg/mL suspension SHAKE LIQUID AND TAKE 10 ML BY MOUTH TWICE DAILY 4 07/31/19 25 polyethylene glycol (PEG) 17 gram/dose oral powder 4 07/31/19 25 pantoprazole (PROTONIX) 40 mg EC tablet Take 1 tablet (40 mg total) by mouth 1 (one) time each day. 4 07/31/19 25 omeprazole OTC (PriLOSEC OTC) 20 mg EC tablet Take 1 tablet (20 mg total) by mouth. 2 07/31/19 25 omeprazole (PriLOSEC) [address] capsule take 1 capsule by mouth daily 30 minutes before breakfast 07/31/19 25 mupirocin (BACTROBAN) 2 % ointment APPLY THIN LAYER TOPICALLY TO BIOPSY SITE TWICE DAILY UNTIL HEALED 4 07/31/19 25 mecobalamin, vitamin B12, 1,000 mcg tablet,disintegrati ng PLACE 1 TABLET UNDER TONGUE AND ALLOW TO DISSOLVE FOR 30 SECONDS ONCE A DAY 4 07/31/19 25 hydrOXYzine HCL (ATARAX) 10 mg tablet Take 1 tablet (10 mg total) by mouth every 8 (eight) hours if needed. 07/31/19 25 hydroCHLOROthiazide (MICROZIDE) 12.5 mg capsule TAKE 1 CAPSULE(12.5 MG) BY MOUTH EVERY MORNING 1 07/31/19 25 amLODIPine (NORVASC) 5 mg tablet TAKE 1 TABLET(5 MG) BY MOUTH DAILY 4 07/31/19 25 albuterol HFA (PROAIR HFA ; PROVENTIL HFA ; VENTOLIN HFA) 90 mcg/actuation inhaler Inhale 2 puffs by mouth. 07/31/19 25 added in this encounter Orders Appointment Requests Count Last Ordered Date Fi rst Ordered Date RAD ONC APPOINTMENT REQUEST 1 07/31/2024 documented in this encounter Care Teams Dry House Operator Relationship Specialty Start Date End Date Hector Soares DO [address] [place] [phone] PCP - General Internal Medicine 07/09/24 documented as of this encounter
--- OUTSIDE RECORDS SUMMARY | 2024-08-19 11:49 | XMS_ITS | Clinical Summary ---
Author Organization [address] Address [address] [place] [phone] Phone Care Team Providers Care Quality Director Name Role Phone Hector Soares DO Primary Care Provider [phone] Allergies Active Allergy Reactions Criticality Noted Date Comments Adhesive Tape-Silicones Rash 07/31/2024 Sulfa (Sulfonamide Antibiotics) Rash Low 11/2017 Medications acetaminophen (TYLENOL) 500 mg tablet Take 1 tablet (500 mg total) by mouth Every 4 hours as needed. Active calcium carbonate 1,500 mg (600 mg [...] 4 Refills, Maintenance, 04/26/23 10:07:00 AM EST, [id number], Partial fill upon patient request if the prescription is for a schedule II opioid drug., 160, cm, 04/20/23 7:42:00 EST, Height, 91, kg, 04/20/23 7:42:00 EST, Dry Weight 04/26/20 23 Active levothyroxine (SYNTHROID, LEVOTHROID) 100 mcg tablet TAKE 1 AND 1/2 TABLETS BY MOUTH MONDAY, MONDAY AND MONDAY, AND 1 TABLET EVERY OTHER DAY DIRECTED 07/18/19 24 Active multivitamin tablet one daily Active ondansetron ODT (ZOFRAN-ODT) [address] AND DISSOLVE 1 TABLET BY MOUTH EVERY 12 HOURS NEEDED 04/01/20 24 Active senna 8.6 mg tablet TAKE 2 TABLETS BY MOUTH EVERY NIGHT AT BEDTIME NEEDED CONSTIPATION 06/10/19 25 Active albuterol HFA (PROAIR HFA ; PROVENTIL HFA ; VENTOLIN HFA) 90 mcg/actuation inhaler Inhale 2 puffs by mouth. 025 Discontin ued(Thera py completed ) amLODIPine (NORVASC) 5 mg tablet TAKE 1 TABLET(5 MG) BY MOUTH DAILY 07/18/19 24 025 Discontin ued(Thera py completed ) hydroCHLOROthiazid e (MICROZIDE) 12.5 mg capsule TAKE 1 CAPSULE(12.5 MG) BY MOUTH EVERY MORNING 04/27/20 21 025 Discontin ued(Thera py completed ) hydrOXYzine HCL (ATARAX) 10 mg tablet Take 1 tablet (10 mg total) by mouth every 8 (eight) hours if needed. 025 Discontin ued(Thera py completed ) mecobalamin, vitamin B12, 1,000 mcg tablet,disintegrat ing PLACE 1 TABLET UNDER TONGUE AND ALLOW TO DISSOLVE FOR 30 SECONDS ONCE A DAY 02/26/20 24 025 Discontin ued(Thera py completed ) mupirocin (BACTROBAN) 2 % ointment APPLY THIN LAYER TOPICALLY TO BIOPSY SITE TWICE DAILY UNTIL HEALED 03/08/20 24 025 Discontin ued(Thera py completed ) omeprazole (PriLOSEC) [address] capsule take 1 capsule by mouth daily 30 minutes before breakfast 025 Discontin ued(Thera py completed ) omeprazole OTC (PriLOSEC OTC) 20 mg EC tablet Take 1 tablet (20 mg total) by mouth. 04/26/20 22 025 Discontin ued(Thera py completed ) pantoprazole (PROTONIX) 40 mg EC tablet Take 1 tablet (40 mg total) by mouth 1 (one) time each day. 04/01/20 24 025 Discontin ued(Thera py completed ) polyethylene glycol (PEG) 17 gram/dose oral powder 04/01/20 24 025 Discontin ued(Thera py completed ) sucralfate (CARAFATE) 100 mg/mL suspension SHAKE LIQUID AND TAKE 10 ML BY MOUTH TWICE DAILY 06/04/20 025 Discontin ued(Thera py completed ) Active Problems Problem Noted Date Diagnosed Date Malignant neoplasm of upper- outer quadrant of right breast in female, estrogen receptor positive 07/31/2024 Cancer Staging:Pathologic:Stage IA(pT1c, pN0, cM0, G1, ER+, DC-, HER2-, Oncotype DX score: 26) - Signed by Juana Le MD on 07/31/2024 Binge eating disorder 07/24/2024 Class 1 obesity [...] and following up with routine medical care. Plantar fasciitis, left 01/20/2020 Hypertension 07/30/2018 Overview (07/24/2024): Last Assessment & Plan: Patient's blood pressure is under excellent control with a reading today of 116/76. Continue with medical therapies as prescribed. Class 2 obesity in adult 07/11/2017 Depression 07/11/2017 Overview (07/24/2024): Previously managed by [facility] on citalopram 40 mg daily. Weaned down to 20 mg and has been stable since earlier than 2012. Hypothyroidism 07/11/2017 Asthma 07/11/2017 Resolved Problems Problem Noted Date Diagnosed Date Resolved Date Sleep apnea 12/24/2021 07/31/2024 Overview (07/24/2024): Last Assessment & Plan: She is doing well with her CPAP at this time. Encounters Date Type Department Care Team Description 07/31/2024 8:07 AM EST - 07/31/2024 11:59 PM EST Hospital Encounter [facility] Radiation Oncology [address] [facility] 2nd [place] [address] Juana Le MD Malignant neoplasm of upper-outer quadrant of right breast in female, estrogen receptor positive (CMS/HCC) (Primary Dx); Breast cancer (CMS/HCC) Discharge Disposition: Home or Self Care 07/31/2024 8:02 AM EST - 07/31/2024 11:59 PM EST Hospital Encounter [facility] Radiation Oncology [address] [address] Discharge Disposition: Home or Self Care 07/09/2024 Telephone [facility] Radiation Oncology [address] [address] Sofie Claudio MA from Last [...] recombinant (Shingrix ) 19yo and older 09/21/2021,07/05/2021 Surgical History Surgery Date Site/Laterality Comments TUBAL LIGATION 06/05/1992 - 06/04/1993 Bilateral BREAST SURGERY 06/17/2024 STOMACH SURGERY 04/10/2024 gastric sleeve Medical History Medical History Date Comments Hypothyroidism DX:Hypothyroidis m Covid-19 DX:COVID-19 Cough DX:Cough Cancer (CMS/HCC) Sleep apnea 12/24/2021 Last Assessment & Plan: She is doing well with her CPAP at this time. Family History Medical History Relation Name Comments Multiple myeloma Brother Heart attack Father Hypertension Father Colon cancer Father's Brother or stomach cancer? Lung cancer Father's Sister Lung cancer Mother Esophageal cancer Mother's Brother Prostate cancer Mother's Brother Colon cancer Mother's Sister 1 Lung cancer Mother's Sister 2 also with bladder cancer Breast cancer Mother's Sister 3 Breast cancer Sister Relation Name Status Comments Brother Father Father's Brother Father's Sister Mother Mother's Brother Mother's Sister 1 Mother's Sister 2 Mother's Sister 3 Alive Sister Social History Tobacco Use Types Packs/Day [...] Mass Index 26.85 07/31/2024 8:48 AM EST Plan of Treatment Upcoming Encounters Date Type Department Care Team (Late st Contact Info) Description 11/19/2024 1:30 PM EDT Appointment [facility] Radiation Oncology [address] [facility] [address] [place] [address] Juana Le MD [address] [place] [address] Health Maintenance Due Date Last Done Comments [...] Additional history exists Cholesterol Screening (Lipid Panel) 08/01/2029 08/01/2024, 03/09/2023 Hepatitis C Screening Completed 09/14/2021 Zoster [...] Procedure Name Priority Date/Time Associated Diagnosis Comments LIPID PANEL WITH REFLEX TO DIRECT LDL Routine 08/01/2024 12:07 PM EST HLD (hyperlipidemia) Breast cancer (CMS/HCC) from Last 3 Months Results * (ABNORMAL) Lipid panel with reflex to direct LDL (08/01/2024 12:07 PM EST) Cholesterol 212(H) 0 - 200 mg/dL LAB CHEMISTRY METHOD 08/01/2024 5:37 PM [facility] Triglycerides 103 0 - 150 mg/dL LAB CHEMISTRY METHOD 08/01/2024 5:37 PM [facility] HDL 62 >=40 mg/dL LAB CHEMISTRY METHOD 08/01/2024 5:37 PM [facility] LDL Calculated 129(H) 0 - 100 mg/dL LAB CHEMISTRY METHOD 08/01/2024 5:37 PM [facility] VLDL Cholesterol Gary 20.6 mg/dL LAB CHEMISTRY METHOD 08/01/2024 5:37 PM [facility] Non HDL Chol. (LDL+VLDL) 150(H) <145 mg/dL LAB CHEMISTRY METHOD 08/01/2024 5:37 PM [facility] Chol/HDL Ratio 3.4 0.0 - 4.4 LAB CHEMISTRY METHOD 08/01/2024 5:37 PM [facility] Blood Venous blood specimen / Unknown Venipuncture / Unknown 08/01/2024 12:07 PM EST 08/01/2024 12:07 PM EST Nelson Carvajalj LAB BLOOD ORDERABLES Final Resul t [facility] [address] [place] [address], from Last 3 Months Insurance [employer] MEDICARE Care Teams Quality Director Relationship Specialty Start Date End Date Hector Soares DO [address] [place] [phone] PCP - General Internal Medicine 07/09/24
== END 2024-08-19 10:50 | disposition home or self-care (01) ==
LOC: HO.HBS 10:29
PROVIDERS: PCP Internal Medicine; Visit Provider Physician Assistant Surgical
DX: E66.3 Overweight (principal); Z68.26 Body mass index [BMI] 26.0-26.9, adult; Z90.3 Acquired absence of stomach [part of]; Z98.84 Bariatric surgery status
CPT/HCPCS: 99213

== ENCOUNTER → 2024-08-19 12:22 | Outpatient (AMB) | payer MEDICARE, SELFPAY ==
--- NOTE | 2024-08-19 12:05 | A.OFFWM_ITS ---
Intake Intake Visit Reasons: VIDEO PO LSG 04/10/24 Allergies adhesive Allergy (Intermediate, Verified 07/23/24 10:22) ITCHING, RASH Sulfa (Sulfonamide Antibiotics) Allergy (Intermediate, Verified 07/23/24 10:22) rash PFSH Medical History 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 Presence of pessary Back pain History of one miscarriage Hypothyroidism GERD (gastroesophageal reflux disease) Anxiety Depression Hypertension Sleep apnea treated with continuous positive airway pressure (CPAP) Surgical History History of lumpectomy of right breast (06/17/24) S/P laparoscopic sleeve gastrectomy Hx of wisdom tooth extraction Hx of dilation and curettage Hx of esophagogastroduodenoscopy (03/05/24) Hx of colonoscopy Hx of tubal ligation Family History Mother Lung cancer Brother Multiple myeloma Sister PONV (postoperative nausea and vomiting) Breast CA, Onset Age: 40 Maternal Aunt Colon cancer Family/Other Breast CA, Onset Age: 40 Maternal Uncle Esophageal cancer Prostate cancer Maternal Aunt Lung cancer Maternal Aunt Cancer of kidney Maternal Aunt Breast CA Social History Household Members: Children Caregiver staying overnight: No Housing: Apartment Are you a primary care assistant to a significant other at home: No Do you presently have visiting nurse or other home services: No 75 years or older and lives alone: No Alcohol intake: current Alcohol intake frequency: does not drink Comment: 1 wkly Patient Tobacco Use Status: Never used Tobacco e-Cigarette/Vaping Use: Never Used Second Hand Smoke Exposure: No service: No Female Reproductive History Menstrual Age of Menarche: 14 Behavioral Health Assessment Weight Management Therapy Therapy Notes Details Subjective: Doing well in terms of weight-loss. PT started chemo on 08/06/2024, she has to do 4 rounds in 1 day every 3 weeks. She has 3 more to go, and then has to do radiation for 4 weeks. 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 PT reports she has been doing well and have had a lot of support and company, which has helped to manage strong feelings. Objective: PT presents for a f/up visit via Telehealth. . Talk therapy to process health challenges, progress and needs. Reflected on healthy coping skills, different victories and her support system. Worked in creating a coping plan by using daily journaling, grounding and daily physical activity. constructive feedback provided. Assessment/Response: * Mental status: WNL * Risk reported/identified: None PT was open and engaged, seemed in good spirits and functioning well. Food/Weight/Diet Expectations of change Initial weight pre-op: 201Lbs 04/16 - PO: 182Lbs 04/24 - PO: 179Lbs 05/15/2024- PO: 171Lbs 06/10/2024 - PO: 158Lbs 06/25/2024 - PO: 157Lbs - PO: 152Lbs 08/19/2024 - PO: 148Lbs. Target weight: 150 lbs. New meal plan: 1 shake AM, Lunch 4FTprotein/ 4FTveggies, Dinner 5FTprotein/ 5FTveggies. After dinner: 1 serving of fruit or a protein bar. Exercise plan: outdoor walking, gym 2-3 days a week, multiple machines. Also had her bike at home. her goal is to do 4-5 days at week. Assessment & Plan Assessment & Plan (1) Depression: Code(s): F32.A - Depression, unspecified Qualifiers: Depression Type: unspecified Qualified Code(s): F32.A - Depression, unspecified Plan Follow up in 3 weeks. Next del: 09/09/2024 at 9am, TH Telehealth Telehealth [facility]health [facility] Location of provider rendering services: other Location of patient: address on file Patient Identification confirmed using: Name, : Yes Telehealth method: video Patient verbally consented to treatment: Yes Patient verbally consented to billing insurance company: Yes Patient informed of any privacy concerns related to visit: Yes Minutes spent on Phone/Video with Pt.: 45 Coding Level of Care Code Established Pt Tele Psytx 45 mins (36905) Patient Type Established Diagnoses Depression, unspecified depression type F32.A Depression Type: unspecified Time Spent (min) 45
--- OUTSIDE RECORDS SUMMARY | 2024-08-19 14:30 | XMS_ITS | Encounter Summary ---
Author Organization [facility] Address [address] [place] [address] Care Team Providers Care Events Traffic Controller Name Role Phone Hector Soares DO Primary Care Provider [phone] Encounter Details Date Type Department Care Team (Latest Contact Info) Description 07/31/2024 8:02 AM EST - 07/31/2024 11:59 PM EST Hospital Encounter [facility] Radiation Oncology [address] [address] Discharge Disposition: Home or Self [...] 4 Refills, Maintenance, 04/26/23 10:07:00 AM EST, [facility] #[id number], Partial fill upon patient request if the [...] Info) Description 11/19/2024 1:30 PM EDT Appointment [facility] Radiation Oncology [address] [phone] Juana Le MD [address] [place] [address] documented as of this encounter Visit Diagnoses Not on filedocumented in this encounter Care Teams Events Traffic Controller Relationship Specialty Start Date End Date Hector Soares DO [address] [place] [phone] PCP - General Internal Medicine 07/09/24 documented as of this encounter
--- OUTSIDE RECORDS SUMMARY | 2024-08-19 14:30 | XMS_ITS | Encounter Summary ---
Author Organization [facility] Address [address] [place] [address] Care Team Providers Care Physicist Cryogenics Name Role Phone Hector Soares DO Primary Care Provider [phone] Reason for Referral * Consultation (Routine) - Closed Specialty Diagnoses / Procedures Referred By Contac t Referred To Contact Radiation Oncology Diagnoses Breast cancer (CMS/HCC) Jazz Engel MD [address] [place] [address] HEMATOLOGY / [place] [address] Phone: tel: fax: [facility] Radiation Oncology [address] [place] [phone] Phone: tel: fax: Referral ID Status Reason Start Date Expiration Date V isits Requested Visits Authorized [id number] Closed Specialty Services Required 07/09/2024 07/09/2025 1 1 Reason for Visit * Reason Comments Consult * Consultation (Routine) - Closed Specialty Diagnoses / Procedures Referred By Contac t Referred To Contact Radiation Oncology Diagnoses Breast cancer (CMS/HCC) Jazz Engel MD [address] [place] [address] HEMATOLOGY / [place] [address] Phone: tel: fax: [facility] Radiation Oncology [address] [phone] Phone: tel: fax: Referral ID Status Reason Start Date Expiration Date V isits Requested Visits Authorized [id number] Closed Specialty Services Required 07/09/2024 07/09/2025 1 1 Encounter Details Date Type Department Care Team (Latest Contact Info) Description 07/31/2024 8:07 AM EST - 07/31/2024 11:59 PM EST Hospital Encounter [facility] Radiation Oncology [address] [address] Juana Le MD [address] [place] [address] Malignant neoplasm of upper-outer quadrant of right [...] 4 Refills, Maintenance, 04/26/23 10:07:00 AM EST, [facility] #[id number], Partial fill upon patient request if the [...] from the original note were not included. [address] [phone] Radiation Oncology Outpatient Consult Staff Physician: Juana Le MD Requesting Physician: Jazz Engel MD Date of Service: 07/31/2024 Accompanied by: cousin Karlene Diagnosis: 1. Malignant neoplasm of upper-outer quadrant of right breast in female, estrogen receptor positive(CMS/HCC) 2. Breast cancer (CMS/HCC) Ambulatory referral to Radiation Oncology Ambulatory referral to Radiation Oncology Rad Onc Appointment Request DIAGNOSIS: RIGHT BREAST invasive ductal carcinoma, ER +, UT - Her 2 - 06/17/[address] biopsy Dr. Lewis Oncotype 26, 08/06/24 - starting chemo (TC x 4 ) with Dr. Engel Stage: Cancer Staging Malignant neoplasm of upper-outer quadrant of right breast in female, estrogen receptor positive (CMS/HCC) Staging form: Breast, AJCC 8th Edition - Pathologic: Stage IA (pT1c, pN0, cM0, G1, ER+, UT-, HER2-, Oncotype DX score: 26) - Signed by Juana Le MD on 07/31/2024 Assessment/Plan IMPRESSION: I recommend adjuvant RT to right breast to decrease chance of local recurrence. RT daily M-F for 20fractions (4 weeks) Short term side effects: fatigue, skin reaction (dry, red, itchy, hollingsworth or peeling), swelling or soreness of breast or nipple. meterman side effects: decreased cosmesis, there may be [...] node biopsy with Dr. Lewis. ER + UT - Her 2 - Margins negative. 07/08/[address] Engel Oncotype DX 26 per pt so pt getting chemo 08/06/24 - starting chemo. Will be getting docetaxel and cyclophosphamide x 4 Right breast overall healing well. Mild bruising noted. No breast pain or swelling. SH: lives alone in [place], [place]. 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 [...] LIGATION Bilateral 1993 GYNECOLOGICAL HISTORY (if applicable): Substation Technician History LMP: Age at Menarche: 14 Age at First : 35 Age at Menopause: 51 Substation Technician History Comments: Sexual Activity: Not Currently; No [...] 4 Refills, Maintenance, 04/26/23 10:07:00 AM EST, [facility] #[id number], Partial fill upon patient request if the [...] Info) Description 11/19/2024 1:30 PM EDT Appointment [facility] Radiation Oncology [address] [place] [phone] Juana Le MD [address] [place] [phone] Scheduled Referrals Name Type Priority Associated Diagnoses [...] 4 Refills, Maintenance, 04/26/23 10:07:00 AM EST, [id number], Partial fill upon patient request if the [...] 07/31/2024 documented in this encounter Care Teams Physicist Cryogenics Relationship Specialty Start Date End Date Hector Soares DO [address] [place] [phone] PCP - General Internal Medicine 07/09/24 documented as of this encounter
--- OUTSIDE RECORDS SUMMARY | 2024-08-19 14:30 | XMS_ITS | Clinical Summary ---
Author Organization [address] Address [address] [place] [phone] Phone Care Team Providers Care Senior Sales Director Name Role Phone Hector Soares DO Primary Care Provider [phone] Allergies Active Allergy Reactions Criticality Noted Date [...] 4 Refills, Maintenance, 04/26/23 10:07:00 AM EST, [facility] #[id number], Partial fill upon patient request if the [...] Cancer Staging:Pathologic:Stage IA(pT1c, pN0, cM0, G1, ER+, [place]-, HER2-, Oncotype DX score: 26) - Signed [...] Depression 07/11/2017 Overview (07/24/2024): Previously managed by [facility] on citalopram 40 mg daily. Weaned down [...] 07/31/2024 11:59 PM EST Hospital Encounter [facility] Radiation Oncology [address] [facility] 2nd [place] [address] Juana Le MD Malignant neoplasm of upper-outer quadrant of right breast in female, estrogen receptor positive (CMS/HCC) (Primary Dx); Breast cancer (CMS/HCC) Discharge Disposition: Home or Self Care 07/31/2024 8:02 AM EST - 07/31/2024 11:59 PM EST Hospital Encounter [facility] Radiation Oncology [address] [phone] Discharge Disposition: Home or Self Care 07/09/2024 Telephone [facility] Radiation Oncology [address] [phone] Sofie Claudio MA from Last [...] Description 11/19/2024 1:30 PM EDT Appointment [facility] Radiation Oncology [address] [facility] [address] [place] [address] Juana Le MD [address] [place] [address] Health Maintenance Due Date Last Done Comments [...] mg/dL LAB CHEMISTRY METHOD 08/01/2024 5:37 PM [facility] Triglycerides 103 0 - 150 mg/dL LAB CHEMISTRY METHOD 08/01/2024 5:37 PM [facility] HDL 62 >=40 mg/dL LAB CHEMISTRY METHOD 08/01/2024 5:37 PM [facility] LDL Calculated 129(H) 0 - 100 mg/dL LAB CHEMISTRY METHOD 08/01/2024 5:37 PM [facility] VLDL Cholesterol Gary 20.6 mg/dL LAB CHEMISTRY METHOD 08/01/2024 5:37 PM [facility] Non HDL Chol. (LDL+VLDL) 150(H) <145 mg/dL LAB CHEMISTRY METHOD 08/01/2024 5:37 PM [facility] Chol/HDL Ratio 3.4 0.0 - 4.4 LAB CHEMISTRY METHOD 08/01/2024 5:37 PM [facility] Blood Venous blood specimen / Unknown Venipuncture / Unknown 08/01/2024 12:07 PM EST 08/01/2024 12:07 PM EST Nelson Carvajalj LAB BLOOD ORDERABLES Final Resul t [facility] [address] [place] [address], from Last 3 Months Insurance [employer] MEDICARE Care Teams Senior Sales Director Relationship Specialty Start Date End Date Hector Soares DO [address] [place] [phone] PCP - General Internal Medicine 07/09/24
== END ==
PROVIDERS: PCP Internal Medicine; Visit Provider Counselor Mental Health
DX: F32.A Depression, unspecified (principal)
CPT/HCPCS: 90834

== ENCOUNTER 2024-09-09 09:11 | Outpatient (AMB) | payer OTHER, SELFPAY ==
--- NOTE | 2024-09-09 09:05 | MHC.WMTHER ---
Intake Intake Visit Reasons: VIDEO PO LSG 04/10/24 Allergies adhesive Allergy (Intermediate, Verified 07/23/24 10:22) ITCHING, RASH Sulfa (Sulfonamide Antibiotics) Allergy (Intermediate, Verified 07/23/24 10:22) rash PFSH Medical History 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 Presence of pessary Back pain History of one miscarriage Hypothyroidism GERD (gastroesophageal reflux disease) Anxiety Depression Hypertension Sleep apnea treated with continuous positive airway pressure (CPAP) Surgical History History of lumpectomy of right breast (06/17/24) S/P laparoscopic sleeve gastrectomy Hx of wisdom tooth extraction Hx of dilation and curettage Hx of esophagogastroduodenoscopy (03/05/24) Hx of colonoscopy Hx of tubal ligation Family History Mother Lung cancer Brother Multiple myeloma Sister PONV (postoperative nausea and vomiting) Breast CA, Onset Age: 40 Maternal Aunt Colon cancer Family/Other Breast CA, Onset Age: 40 Maternal Uncle Esophageal cancer Prostate cancer Maternal Aunt Lung cancer Maternal Aunt Cancer of kidney Maternal Aunt Breast CA Social History Household Members: Children Housing: Apartment Are you a primary family day carer to a significant other at home: No Do you presently have visiting nurse or other home services: No Alcohol intake: current Alcohol intake frequency: does not drink Comment: 1 wkly Patient Tobacco Use Status: Never used Tobacco e-Cigarette/Vaping Use: Never Used Second Hand Smoke Exposure: No service: No Female Reproductive History Menstrual Age of Menarche: 14 Behavioral Health Assessment Weight Management Therapy Therapy Notes Details Subjective: The patient reports feeling emotionally distressed due to hair loss from chemotherapy, having completed 3 out of 4 treatments. She mentions experiencing fluctuations in her weight, with a 3-pound variance, which she feels is beyond her control. Additionally, the patient reports some difficulty with sleep and expresses ongoing concerns about the potential recurrence of cancer in the future. Objective: The patient presents for a follow-up visit. During the session, we explored her functioning, emotional state, and the challenges related to adjusting to chemotherapy side effects and the associated losses. Cognitive Processing Therapy (CPT) and Cognitive Behavioral Therapy (CBT) techniques were employed to validate and normalize her feelings. Holistic approaches, including grounding exercises and mindfulness techniques, were introduced to help her focus on the present moment. Discussions also centered around identifying things within and outside of her control, with support in reframing negative thoughts and fears related to her condition. Assessment/Response: Mental status: Patient appeared sad but expressed hopefulness. She demonstrated good overall functioning despite emotional distress. Risk: No immediate risks identified. Assessment & Plan Assessment & Plan (1) Depression: Code(s): F32.A - Depression, unspecified Qualifiers: Depression Type: unspecified Qualified Code(s): F32.A - Depression, unspecified Plan The patient requested a follow-up appointment in one month. The next session is scheduled for 10/07/24 at 1:00 PM via telehealth. Telehealth Telehealth Telehealth Platform: [facility] Location of provider rendering services: other Location of patient: address on file Patient Identification confirmed using: Name, : Yes Telehealth method: video Patient verbally consented to treatment: Yes Patient verbally consented to billing insurance company: Yes Patient informed of any privacy concerns related to visit: Yes Minutes spent on Phone/Video with Pt.: 55 Coding Level of Care Code Established Pt Tele Psytx >53 mins (23247) Patient Type Established Diagnoses Depression, unspecified depression type F32.A Depression Type: unspecified Time Spent (min) 55
--- OUTSIDE RECORDS SUMMARY | 2024-09-09 10:11 | XMS_ITS | Clinical Summary ---
Author Organization [address] lding Address [address] [place] [phone] Phone Care Team Providers Care Dance Studio Manager Name Role Phone Hector Soares DO Primary Care Provider [phone] Allergies Active Allergy Reactions Criticality Noted Date [...] 4 Refills, Maintenance, 04/26/23 10:07:00 AM EST, [id number], Partial fill upon patient request if the [...] AT BEDTIME NEEDED CONSTIPATION 06/10/19 25 Active Active Problems Problem Noted Date Diagnosed Date Malignant neoplasm of upper- outer quadrant of right breast in female, estrogen receptor positive 07/31/2024 Cancer Staging:Pathologic:Stage IA(pT1c, pN0, cM0, G1, ER+, [place]-, HER2-, Oncotype DX score: 26) - Signed [...] Depression 07/11/2017 Overview (07/24/2024): Previously managed by [facility] on citalopram 40 mg daily. Weaned down [...] - 07/31/2024 11:59 PM EST Hospital Encounter [facility] Radiation Oncology [address] [facility] 2nd [place] [address] Juana Le MD Malignant neoplasm of upper-outer quadrant of right breast in female, estrogen receptor positive (CMS/HCC) (Primary Dx); Breast cancer (CMS/HCC) Discharge Disposition: Home or Self Care 07/31/2024 8:02 AM EST - 07/31/2024 11:59 PM EST Hospital Encounter [facility] Radiation Oncology [address] [phone] Discharge Disposition: Home or Self Care 07/09/2024 Telephone [facility] Radiation Oncology [address] [phone] Sofie Claudio MA from Last [...] Info) Description 11/19/2024 1:30 PM EDT Appointment [facility] Radiation Oncology [address] [phone] Juana Le MD [address] [place] [address] Health Maintenance Due Date Last Done Comments Breast Cancer Screening 1955 RSV Immunization Adult Patients (1 - Risk 60-74 years 1-dose series) 2016 Colorectal Cancer Screening: Colonoscopy 05/03/2022 Falls Risk Assessment 05/03/2022 Medicare Annual Wellness Visit 05/03/2022 Osteoporosis Screening (Bone Density Screening) 05/03/2022 [...] mg/dL LAB CHEMISTRY METHOD 08/01/2024 5:37 PM [facility] Triglycerides 103 0 - 150 mg/dL LAB CHEMISTRY METHOD 08/01/2024 5:37 PM [facility] HDL 62 >=40 mg/dL LAB CHEMISTRY METHOD 08/01/2024 5:37 PM [facility] LDL Calculated 129(H) 0 - 100 mg/dL LAB CHEMISTRY METHOD 08/01/2024 5:37 PM [facility] VLDL Cholesterol Gary 20.6 mg/dL LAB CHEMISTRY METHOD 08/01/2024 5:37 PM [facility] Non HDL Chol. (LDL+VLDL) 150(H) <145 mg/dL LAB CHEMISTRY METHOD 08/01/2024 5:37 PM [facility] Chol/HDL Ratio 3.4 0.0 - 4.4 LAB CHEMISTRY METHOD 08/01/2024 5:37 PM [facility] Blood Venous blood specimen / Unknown Venipuncture / Unknown 08/01/2024 12:07 PM EST 08/01/2024 12:07 PM EST us Nelson Barillas LAB BLOOD ORDERABLES Final Resul t [facility] [address] [place] [address], [place] [phone] from Last 3 Months Insurance [employer] MEDICARE Care Teams Dance Studio Manager Relationship Specialty Start Date End Date Hector Soares DO [address] [place] [phone] PCP - General Internal Medicine 07/09/24
== END 2024-09-09 10:15 | disposition home or self-care (01) ==
LOC: HO.HBST 09:11
PROVIDERS: PCP Internal Medicine; Visit Provider Counselor Mental Health
DX: F32.A Depression, unspecified (principal)
CPT/HCPCS: 90837

== ENCOUNTER → 2024-09-09 09:11 | Outpatient (BNVA) | payer MEDICARE, SELFPAY | PROVIDERS: PCP Internal Medicine; Visit Provider Counselor Mental Health ==

== ENCOUNTER 2024-10-07 08:45 | Outpatient (AMB) | payer MEDICARE, SELFPAY ==
--- NOTE | 2024-10-07 08:49 | MHC.OFFVISWM ---
VS Expanded 10/07/24 08:59 BP 118/62 Blood Pressure Location Rt brachial Blood Pressure Position Sitting Pulse 77 Pulse Source Pulse Oximeter Temp 97.8 F Temperature Source Temporal Artery Scan Pulse Oximetry 99 Oxygen Delivery Method Room Air Height 5 ft 3 in Weight 147 lb 3.2 oz BMI 26.1 Body Fat % 30.3 Body Fat Mass 44.6 Fat Free Mass 102.6 Visceral Fat Rating 8.0 Body Water % 49.2 Body Water Mass 72.4 Muscle Mass/Score 97.2 Basal Metabolic Rate/Score 1,365 Intake Visit Reasons: (OV) PO LSG 04/10/24 Design Printing Machine Setter Required: No Allergies adhesive Allergy (Intermediate, Verified 10/07/24 08:51) ITCHING, RASH Sulfa (Sulfonamide Antibiotics) Allergy (Intermediate, Verified 10/07/24 08:51) rash Medication List - Last Reconciled 10/07/24 by ZAIRA Rocha citalopram 10 mg PO DAILY citalopram 20 mg PO DAILY dexamethasone 4 mg PO BID levothyroxine 100 mcg PO DAILY ondansetron 8 mg PO Q8H PRN prochlorperazine maleate (Compazine) 10 mg PO Q8H PRN sennosides (senna) 17.2 mg (2 x 8.6 mg) PO BEDTIME PRN HPI Comments Details: This?a?69?yo female who is s/p LSG without hiatal hernia repair on?04/10/2024. Presents for 6 month post op visit. Weight today is 147.2 pounds, with a BMI of 26.1. There has been a 54 pound weight loss,(initial weight 201.2 pounds) since starting the program on 02/09/2024 reflecting a 26.8% total body weight loss and a weight loss of 50.3 pounds since surgery (operative weight 197.5 pounds) reflecting a 25.4% TBWL since surgery. No complaints of nausea, emesis, abdominal pain or reflux. Reports infrequent but normal bowel movements every 2-3 days and uses stool softeners regularly. Taking celebrate MVI Found to have right breast cancer, followed by general surgery and oncology. She is going to have radiation treatment after chemotherapy which started August 06, 2024 for four rounds. Wants to change plan to incorporate more food. She reports significant anorexia on the 1st week of her chemotherapy. She was told this is expected. She has now resumed her meal plan. She would like to incorporate more food. She states she has her last of 4 chemo sessions tomorrow then 4 weeks off then radiation tx begins. Present meal plan includes: fairlife 30 gm at 8-10 meal at noon with 4 forks protein and 4 forks vegetables meal at 5 with 5 forks protein and 5 forks veg Drinking 48-64 oz water ? Exercise routine includes: walking 2-3 mi outside 2 x per week. 300 calories stationary bike 4 x per day, burning 300 ami per day yoga weekly Any post op complications: none TOM: resolved DM: never HTN: resolved Hyperlipidemia: improved GERD:?0-5 scale ??0 = no symptoms ??1 = symptoms noticeable but not bothersome 2 =symptoms bothersome but not daily ? 3 = symptoms bothersome and daily 4 = symptoms affect daily activities 5 = symptoms are incapacitating, unable to do daily activities ? How bad is the heartburn: 0 ? Heartburn while lying down: 0 ? Heartburn when standing up: 0 ? Heartburn after meals: 0 ? Does heartburn change your diet: 0 ? Does heartburn wake you up from sleep: 0 ? Do you have difficulty swallowin ? Do you have pain with swallowin ? If you take medicine for your reflux, does this affect your daily life: 0 Satisfaction with present condition - satisfied or not satisfied: very satisfied [facility] Medical History 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 Presence of pessary Back pain History of one miscarriage Hypothyroidism GERD (gastroesophageal reflux disease) Anxiety Depression Hypertension Sleep apnea treated with continuous positive airway pressure (CPAP) Surgical History History of lumpectomy of right breast (06/17/24) S/P laparoscopic sleeve gastrectomy Hx of wisdom tooth extraction Hx of dilation and curettage Hx of esophagogastroduodenoscopy (03/05/24) Hx of colonoscopy Hx of tubal ligation Family History Mother Lung cancer Brother Multiple myeloma Sister PONV (postoperative nausea and vomiting) Breast CA, Onset Age: 40 Maternal Aunt Colon cancer Family/Other Breast CA, Onset Age: 40 Maternal Uncle Esophageal cancer Prostate cancer Maternal Aunt Lung cancer Maternal Aunt Cancer of kidney Maternal Aunt Breast CA Social History Household Members: Children Caregiver staying overnight: No Housing: Apartment Are you a primary spiritual care coordinator to a significant other at home: No Do you presently have visiting nurse or other home services: No 75 years or older and lives alone: No Alcohol intake: current Alcohol intake frequency: does not drink Comment: 1 wkly Patient Tobacco Use Status: Never used Tobacco e-Cigarette/Vaping Use: Never Used Second Hand Smoke Exposure: No service: No Female Reproductive History Menstrual Age of Menarche: 14 Physical Exam Const General: cooperative and no acute distress Orientation/consciousness: patient oriented x3 Resp Effort & Inspection: normal respiratory effort Auscultation: clear to auscultation bilaterally Cardio Rate: regular rate Rhythm: regular rhythm GI Inspection: Yes normal to inspection and Yes incision (well healed) Palpation (GI): Soft to palpation and no masses Neuro General: patient oriented x3 Assessment & Plan Assessment & Plan (1) S/P laparoscopic sleeve gastrectomy: Code(s): Z98.84 - Bariatric surgery status Category: Surgical Plan: Very pleasant 69-year-old female returns to the office today in follow-up. She is a proximally six-month post sleeve gastrectomy. Continues to undergo chemotherapy treatment for breast cancer. We will check six-month postop labs. Continue current meal plan and exercise plan as she is able to given undergoing chemotherapy. She is scheduled for radiation therapy in approximately a month. She will continue to text weekly with weights and with any questions or concerns. Plan for return to the office in 3 months Orders: Orders Insulin Today E03.9 - Hypothyroidism, unspecified, F32.A - Depression, unspecified, I10 - Essential (primary) hypertension, K76.0 - Fatty (change of) liver, not elsewhere classified, Z98.84 - Bariatric surgery status Hemoglobin A1c Today E03.9 - Hypothyroidism, unspecified, F32.A - Depression, unspecified, I10 - Essential (primary) hypertension, K76.0 - Fatty (change of) liver, not elsewhere classified, Z98.84 - Bariatric surgery status Zinc Today E03.9 - Hypothyroidism, unspecified, F32.A - Depression, unspecified, I10 - Essential (primary) hypertension, K76.0 - Fatty (change of) liver, not elsewhere classified, Z98.84 - Bariatric surgery status Vitamin B1 Today E03.9 - Hypothyroidism, unspecified, F32.A - Depression, unspecified, I10 - Essential (primary) hypertension, K76.0 - Fatty (change of) liver, not elsewhere classified, Z98.84 - Bariatric surgery status Vitamin A Today E03.9 - Hypothyroidism, unspecified, F32.A - Depression, unspecified, I10 - Essential (primary) hypertension, K76.0 - Fatty (change of) liver, not elsewhere classified, Z98.84 - Bariatric surgery status Lipid Panel Today E03.9 - Hypothyroidism, unspecified, F32.A - Depression, unspecified, I10 - Essential (primary) hypertension, K76.0 - Fatty (change of) liver, not elsewhere classified, Z98.84 - Bariatric surgery status IRON PROFILE Today E03.9 - Hypothyroidism, unspecified, F32.A - Depression, unspecified, I10 - Essential (primary) hypertension, K76.0 - Fatty (change of) liver, not elsewhere classified, Z98.84 - Bariatric surgery status Vitamin B12 and Folate Today E03.9 - Hypothyroidism, unspecified, F32.A - Depression, unspecified, I10 - Essential (primary) hypertension, K76.0 - Fatty (change of) liver, not elsewhere classified, Z98.84 - Bariatric surgery status C Reactive Protein Today E03.9 - Hypothyroidism, unspecified, F32.A - Depression, unspecified, I10 - Essential (primary) hypertension, K76.0 - Fatty (change of) liver, not elsewhere classified, Z98.84 - Bariatric surgery status TSH reflex Free T4 Today E03.9 - Hypothyroidism, unspecified, F32.A - Depression, unspecified, I10 - Essential (primary) hypertension, K76.0 - Fatty (change of) liver, not elsewhere classified, Z98.84 - Bariatric surgery status Ferritin Today E03.9 - Hypothyroidism, unspecified, F32.A - Depression, unspecified, I10 - Essential (primary) hypertension, K76.0 - Fatty (change of) liver, not elsewhere classified, Z98.84 - Bariatric surgery status Vitamin D 25-OH Total Today E03.9 - Hypothyroidism, unspecified, F32.A - Depression, unspecified, I10 - Essential (primary) hypertension, K76.0 - Fatty (change of) liver, not elsewhere classified, Z98.84 - Bariatric surgery status
[2024-10-07 08:59] VITALS: BP 118/62; PULSE 77; TEMP 36.6; O2SAT 99; BMI 26.1
--- OUTSIDE RECORDS SUMMARY | 2024-10-07 09:09 | XMS_ITS | Clinical Summary ---
Author Organization [address] l[address] Address [address] [place] [phone] Phone Care Team Providers Care Division Plant Engineer Name Role Phone Hector Soares DO Primary Care Provider [phone] Allergies Active Allergy Reactions Criticality Noted Date [...] 4 Refills, Maintenance, 04/26/23 10:07:00 AM EST, [id number], Partial fill upon patient request if the [...] right breast in female, estrogen receptor positive (CMS/HCC V24, CMS/HCC V28) 07/31/2024 Cancer Staging:Pathologic:Stage IA(pT1c, pN0, cM0, G1, ER+, [place]-, HER2-, Oncotype DX score: 26) - Signed [...] do not improve. CHF (congestive heart failure) ([facility] V24, [facility] V28) 12/24/2021 Overview (07/24/2024): Last Assessment & Plan: [...] Depression 07/11/2017 Overview (07/24/2024): Previously managed by [facility] on citalopram 40 mg daily. Weaned [...] 8:07 AM EST - 07/31/2024 11:59 PM [facility] Hospital Encounter [facility] Radiation Oncology [address] [phone] Juana Le MD Malignant neoplasm of upper-outer quadrant of right breast in female, estrogen receptor positive ([facility] V24, [facility] V28) (Primary Dx); Breast cancer ([facility] V24, [facility] V28) Discharge Disposition: Home or Self Care 07/31/2024 8:02 AM EST - 07/31/2024 11:59 PM EST Hospital Encounter [facility] Radiation Oncology [address] [phone] Discharge Disposition: Home or Self Care from Last 3 Months Immunizations Name Administration [...] DX:Hypothyroidis m Covid-19 DX:COVID-19 Cough DX:Cough Cancer ([facility]/HCC V24, CMS/HCC V28) Sleep apnea 12/24/2021 Last Assessment & Plan: [...] Care Team (Late st Contact Info) Description 11/12/2024 10:30 AM EDT Appointment [facility] Radiation Oncology [address] [phone] Juana Le MD [address] [place] [address] Health Maintenance Due Date Last Done Comments [...] age to complete this topic Meningococcal B Vaccine Aged Out No l onger eligible based on patient's age to complete [...] 12:07 PM EST HLD (hyperlipidemia) Breast cancer ([facility] V24, [facility] V28) from Last 3 Months Results * (ABNORMAL) Lipid panel with reflex to direct LDL (08/01/2024 12:07 PM EST) Cholesterol 212(H) 0 - 200 mg/dL LAB CHEMISTRY METHOD 08/01/2024 5:37 PM [facility] Triglycerides 103 0 - 150 mg/dL LAB CHEMISTRY METHOD 08/01/2024 5:37 PM [facility] HDL 62 >=40 mg/dL LAB CHEMISTRY METHOD 08/01/2024 5:37 PM [facility] LDL Calculated 129(H) 0 - 100 mg/dL LAB CHEMISTRY METHOD 08/01/2024 5:37 PM [facility] VLDL Cholesterol Gary 20.6 mg/dL LAB CHEMISTRY METHOD 08/01/2024 5:37 PM [facility] Non HDL Chol. (LDL+VLDL) 150(H) <145 mg/dL LAB CHEMISTRY METHOD 08/01/2024 5:37 PM [facility] Chol/HDL Ratio 3.4 0.0 - 4.4 LAB CHEMISTRY METHOD 08/01/2024 5:37 PM [facility] Blood Venous blood specimen / Unknown Venipuncture / Unknown 08/01/2024 12:07 PM EST 08/01/2024 12:07 PM EST us Nelson Eran LAB BLOOD ORDERABLES Final Resul t [facility] [address] [place] [address], [place] [phone] from Last 3 Months Insurance [place] [address] Care Teams Division Plant Engineer Relationship Specialty Start Date End Date Hector Soares DO [address] [place] [phone] PCP - General Internal Medicine 07/09/24
== END 2024-10-07 09:26 | disposition home or self-care (01) ==
LOC: HO.HBS 08:46
PROVIDERS: PCP Internal Medicine; Visit Provider Physician Assistant Surgical
DX: E66.3 Overweight (principal); Z68.26 Body mass index [BMI] 26.0-26.9, adult; Z90.3 Acquired absence of stomach [part of]; Z98.84 Bariatric surgery status
CPT/HCPCS: 99213

== ENCOUNTER → 2024-10-07 08:45 | Outpatient (BNVA) | payer MEDICARE, SELFPAY | PROVIDERS: PCP Internal Medicine; Visit Provider Physician Assistant Surgical | DX: Z98.84 Bariatric surgery status (principal) | CPT/HCPCS: 99212 ==

== ENCOUNTER 2024-10-08 09:12 | Outpatient (REF) | payer MEDICARE, SELFPAY ==
--- OUTSIDE RECORDS SUMMARY | 2024-10-08 10:01 | XMS_ITS | Clinical Summary ---
Author Organization [address] lding Address [address] [place] [phone] Phone Care Team Providers Care Supervisor Carbon Paper Coating Name Role Phone Hector Soares DO Primary Care Provider [phone] Allergies Active Allergy Reactions Criticality Noted Date [...] 4 Refills, Maintenance, 04/26/23 10:07:00 AM EST, [facility] #[id number], Partial fill upon patient request if the [...] Cancer Staging:Pathologic:Stage IA(pT1c, pN0, cM0, G1, ER+, [place]-, HER2-, Oncotype DX score: 26) - Signed [...] do not improve. CHF (congestive heart failure) ([facility] V24, [facility] V28) 12/24/2021 Overview (07/24/2024): Last Assessment & [...] Depression 07/11/2017 Overview (07/24/2024): Previously managed by [facility] on citalopram 40 mg daily. [...] 8:07 AM EST - 07/31/2024 11:59 PM [facility] Hospital Encounter [facility] Radiation Oncology [address] [phone] Juana Le MD Malignant neoplasm of upper-outer quadrant of right breast in female, estrogen receptor positive ([facility] V24, [facility] V28) (Primary Dx); Breast cancer ([facility] V24, [facility] V28) Discharge Disposition: Home or Self Care 07/31/2024 8:02 AM EST - 07/31/2024 11:59 PM EST Hospital Encounter [facility] Radiation Oncology [address] [phone] Discharge Disposition: Home or Self Care from [...] DX:Hypothyroidis m Covid-19 DX:COVID-19 Cough DX:Cough Cancer ([facility]/HCC V24, CMS/HCC V28) Sleep apnea 12/24/2021 Last [...] Info) Description 11/12/2024 10:30 AM EDT Appointment [facility] Radiation Oncology [address] [phone] Juana Le MD [address] [place] [address] Health Maintenance Due Date Last Done Comments [...] 12:07 PM EST HLD (hyperlipidemia) Breast cancer ([facility] V24, [facility] V28) from Last 3 Months Results * (ABNORMAL) Lipid panel with reflex to direct LDL (08/01/2024 12:07 PM EST) Cholesterol 212(H) 0 - 200 mg/dL LAB CHEMISTRY METHOD 08/01/2024 5:37 PM [facility] Triglycerides 103 0 - 150 mg/dL LAB CHEMISTRY METHOD 08/01/2024 5:37 PM [facility] HDL 62 >=40 mg/dL LAB CHEMISTRY METHOD 08/01/2024 5:37 PM [facility] LDL Calculated 129(H) 0 - 100 mg/dL LAB CHEMISTRY METHOD 08/01/2024 5:37 PM [facility] VLDL Cholesterol Gary 20.6 mg/dL LAB CHEMISTRY METHOD 08/01/2024 5:37 PM [facility] Non HDL Chol. (LDL+VLDL) 150(H) <145 mg/dL LAB CHEMISTRY METHOD 08/01/2024 5:37 PM [facility] Chol/HDL Ratio 3.4 0.0 - 4.4 LAB CHEMISTRY METHOD 08/01/2024 5:37 PM [facility] Blood Venous blood specimen / Unknown Venipuncture / Unknown 08/01/2024 12:07 PM EST 08/01/2024 12:07 PM EST us Nelson Eran LAB BLOOD ORDERABLES Final Resul t [facility] [address] [place] [address], [place] [phone] from Last 3 Months Insurance [employer] MEDICARE Care Teams Supervisor Carbon Paper Coating Relationship Specialty Start Date End Date Hector Soares DO [address] [place] [phone] PCP - General Internal Medicine 07/09/24
[2024-10-08 10:28] LABS: C Reactive Protein 0.25 mg/dL (< or = 0.50); Cholesterol 211 mg/dL (<200); Iron 63 mcg/dL (30-160); Percent Iron Saturation 30 % (15-50); Total Iron Binding Capacity 213 mcg/dL (228-428); Triglycerides 143 mg/dL (<150); Unsaturated Iron Binding 150 ug/dL
[2024-10-08 10:45] LABS: Estimated Average Glucose 111 mg/dL; Ferritin 480 ng/mL (10-250); Hemoglobin A1c % 5.5 % (<6.0); Insulin 5 uU/mL (2-29); TSH reflex Free T4 0.34 uIU/mL (0.32-4.0); Total Hemoglobin (HGBA1C) 2524.5721 umol/L; Vitamin D 25-OH Total 47.2 ng/mL (>30)
[2024-10-08 11:07] LABS: Folate 14.7 ng/mL (> or = 4.0); Vitamin B12 > 2000 pg/mL (200-900)
[2024-10-08 12:20] LABS: HDL Cholesterol 50 mg/dL (>40); LDL Cholesterol Calculated 133 mg/dL (<100)
[2024-10-11 08:13] LABS: Zinc 66 mcg/dL (60-130)
[2024-10-12 13:18] LABS: Vitamin B1 31 nmol/L (8-30)
[2024-10-12 13:53] LABS: Vitamin A 46 mcg/dL (38-98)
== END 2024-10-08 09:13 | disposition home or self-care (01) ==
LOC: HO.LAB 09:12
PROVIDERS: PCP Internal Medicine; Visit Provider Physician Assistant Surgical
DX: K76.0 Fatty (change of) liver, not elsewhere classified (principal); Z98.84 Bariatric surgery status; E03.9 Hypothyroidism, unspecified; I10 Essential (primary) hypertension; F32.A Depression, unspecified; Z13.1 Encounter for screening for diabetes mellitus
CPT/HCPCS: 36415; 80061; 82306; 82607; 82728; 82746; 83036; 83525; 83540; 84425; 84443; 84590; 84630; 86140

== ENCOUNTER 2024-10-17 09:22 | Outpatient (AMB) | payer MEDICARE, SELFPAY ==
--- NOTE | 2024-10-17 09:16 | MHC.WMTHER ---
Intake Intake Visit Reasons: VIDEO PO LSG 04/10/24 Allergies adhesive Allergy (Intermediate, Verified 10/07/24 08:51) ITCHING, RASH Sulfa (Sulfonamide Antibiotics) Allergy (Intermediate, Verified 10/07/24 08:51) rash PFSH Medical History 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 Presence of pessary Back pain History of one miscarriage Hypothyroidism GERD (gastroesophageal reflux disease) Anxiety Depression Hypertension Sleep apnea treated with continuous positive airway pressure (CPAP) Surgical History History of lumpectomy of right breast (06/17/24) S/P laparoscopic sleeve gastrectomy Hx of wisdom tooth extraction Hx of dilation and curettage Hx of esophagogastroduodenoscopy (03/05/24) Hx of colonoscopy Hx of tubal ligation Family History Mother Lung cancer Brother Multiple myeloma Sister PONV (postoperative nausea and vomiting) Breast CA, Onset Age: 40 Maternal Aunt Colon cancer Family/Other Breast CA, Onset Age: 40 Maternal Uncle Esophageal cancer Prostate cancer Maternal Aunt Lung cancer Maternal Aunt Cancer of kidney Maternal Aunt Breast CA Social History Household Members: Children Caregiver staying overnight: No Housing: Apartment Are you a primary special needs child caregiver to a significant other at home: No Do you presently have visiting nurse or other home services: No 75 years or older and lives alone: No Alcohol intake: current Alcohol intake frequency: does not drink Comment: 1 wkly Patient Tobacco Use Status: Never used Tobacco e-Cigarette/Vaping Use: Never Used Second Hand Smoke Exposure: No service: No Female Reproductive History Menstrual Age of Menarche: 14 Behavioral Health Assessment Weight Management Therapy Therapy Notes Details Subjective: PT completed her chemotherapy treatment two weeks ago and will begin radiation in a couple of weeks. She reports feeling calm and at peace that chemotherapy has ended. PT is actively trying to stay busy by planning her days and engaging in activities. She has been doing yoga on Mondays as part of her routine. However, she expresses concern about having too much ?free time? and is uncertain about how to fill it as she transitions into the next phase of her treatment. Objective: PT presents for a f/up visit. Utilized cognitive behavioral therapy (CBT) techniques to challenge any negative or anticipatory thoughts about the future, helping PT reframe her concerns around free time as an opportunity for personal growth or exploration. Provided mindfulness exercises to help PT stay grounded in the present moment and reduce anxiety about upcoming treatment and future uncertainty. Discussed the role of physical and emotional self-care, encouraging continued yoga practice and the exploration of other activities that promote relaxation and self-awareness. Assessment/Response: Mental status: calm but at times anxious.Good functioning. Risk reported/identified: None Assessment & Plan Assessment & Plan (1) Depression: Code(s): F32.A - Depression, unspecified Qualifiers: Depression Type: unspecified Qualified Code(s): F32.A - Depression, unspecified Plan Encouraged attendance at bariatric peer support groups for continued psychosocial support and connection during recovery. f/up in 3 weeks Telehealth Telehealth Telehealth Platform: [facility] Location of provider rendering services: practice address Location of patient: address on file Patient Identification confirmed using: Name, : Yes Telehealth method: video Patient verbally consented to treatment: Yes Patient verbally consented to billing insurance company: Yes Patient informed of any privacy concerns related to visit: Yes Minutes spent on Phone/Video with Pt.: 45 Coding Level of Care Code Established Pt Tele Psytx 45 mins ([id number]) Patient Type Established Diagnoses Depression, unspecified depression type F32.A Depression Type: unspecified Time Spent (min) 45
== END 2024-10-17 09:59 | disposition home or self-care (01) ==
LOC: HO.HBST 09:22
PROVIDERS: PCP Internal Medicine; Visit Provider Counselor Mental Health
DX: F32.A Depression, unspecified (principal)
CPT/HCPCS: 90834

== ENCOUNTER → 2024-10-17 09:22 | Outpatient (BNVA) | payer MEDICARE, SELFPAY | PROVIDERS: PCP Internal Medicine; Visit Provider Counselor Mental Health ==

== ENCOUNTER 2024-11-07 11:19 | Outpatient (AMB) | payer MEDICARE, SELFPAY ==
--- NOTE | 2024-11-07 11:10 | A.OFFWM_ITS ---
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 Presence of pessary Back pain History of one miscarriage Hypothyroidism GERD (gastroesophageal reflux disease) Anxiety Depression Hypertension Sleep apnea treated with continuous positive airway pressure (CPAP) Surgical History History of lumpectomy of right breast (06/17/24) S/P laparoscopic sleeve gastrectomy Hx of wisdom tooth extraction Hx of dilation and curettage Hx of esophagogastroduodenoscopy (03/05/24) Hx of colonoscopy Hx of tubal ligation Family History Mother Lung cancer Brother Multiple myeloma Sister PONV (postoperative nausea and vomiting) Breast CA, Onset Age: 40 Maternal Aunt Colon cancer Family/Other Breast CA, Onset Age: 40 Maternal Uncle Esophageal cancer Prostate cancer Maternal Aunt Lung cancer Maternal Aunt Cancer of kidney Maternal Aunt Breast CA Social History Household Members: Children Caregiver staying overnight: No Housing: Apartment Are you a primary care attendant to a significant other at home: No Do you presently have visiting nurse or other home services: No 75 years or older and lives alone: No Alcohol intake: current Alcohol intake frequency: does not drink Comment: 1 wkly Patient Tobacco Use Status: Never used Tobacco e-Cigarette/Vaping Use: Never Used Second Hand Smoke Exposure: No service: No Female Reproductive History Menstrual Age of Menarche: 14 Behavioral Health Assessment Weight Management Therapy Therapy Notes Details Subjective: Patient reports attending an appointment with her radiologist/oncologist and now has greater clarity regarding her treatment plan. She is scheduled to begin radiation on November 18, which will continue for four weeks. While she feels somewhat reassured by the clarity, she acknowledges experiencing increased anxiety about starting the new treatment. She notes occasional engagement in negative self-talk but is making an effort to remain positive. Patient shared that she recently participated in a peer support group, which she found helpful and motivating, especially as she works toward resuming healthier eating habits. She believes ongoing participation in the group will benefit both her emotional well-being and weight-loss efforts, as she has not been consistent with her meal planning due to the disruption caused by her cancer treatment. Objective: Patient attended a follow-up session via Telehealth. She was open, reflective, and engaged throughout the visit. The session focused on supporting her emotional adjustment to her upcoming radiation treatment and re-establishing hea lt behaviors impacted by her cancer diagnosis. * Psychoeducation was provided regarding the psychological impact of cancer- related anxiety and its potential to trigger cognitive distortions, including negative self-talk. * Cognitive restructuring techniques were introduced to help the patient identify and challenge unhelpful thoughts and reframe them in more balanced and self-compassionate ways. * Discussed the importance of self-care and self-kindness during active treatment, and validated the emotional difficulty of managing physical health goals while undergoing cancer therapy. * ACT (Acceptance and Commitment Therapy) principles were integrated to explore how values-driven behavior?such as continued peer support group participation?can serve as motivation and provide emotional grounding. * Introduced and reviewed the use of the [employer] platform to support structured meal planning, encouraging the patient to use it as a low-pressure tool for consistency rather than perfection. * Provided upcoming dates for local and virtual peer support groups to help the patient build a sustainable support routine. Emphasized community and accountability as protective factors for both emotional regulation and nutritional goals during treatment. Assessment/Response: * Mental status: Patient is alert and oriented to person, place, and time. Mood is anxious but hopeful; affect is appropriate and congruent. Thought processes are coherent, with occasional self-critical patterns identified. Insight and judgment are good. * Risk reported/identified: None Patient responded well to therapeutic interventions. She appeared motivated and showed insight into the connection between her mental and physical health. Engaged actively in exploring tools and strategies to maintain structure and emotional balance. Food/Weight/Diet Expectations of change Initial weight pre-op: 201Lbs 04/16 - PO: 182Lbs 04/24 - PO: 179Lbs 05/15/2024- PO: 171Lbs 06/10/2024 - PO: 158Lbs 06/25/2024 - PO: 157Lbs - PO: 152Lbs 08/19/2024 - PO: 148Lbs. 11/04/2024 - PO: 147Lbs Target weight: 150 lbs. New meal plan: nothing set due to life circumstances. Exercise plan: outdoor walking, gym 2-3 days a week, multiple machines. Also had her bike at home. her goal is to do 4-5 days at week. Assessment & Plan Assessment & Plan (1) Depression: Code(s): F32.A - Depression, unspecified Qualifiers: Depression Type: unspecified Qualified Code(s): F32.A - Depression, unspecified Plan Encourage continued use of structured meal planning tools and regular participation in peer support groups. Reinforce cognitive restructuring and ACT strategies to reduce negative self-talk and promote value-based action. Next appointment scheduled in 2 weeks, for 11/28/2024 at 11:00 AM via Telehealth. Telehealth Telehealth Telehealth Platform: [employer] Location of provider rendering services: other (Home office. [place], [place]) Location of patient: address on file Patient Identification confirmed using: Name, : Yes Telehealth method: video Patient verbally consented to treatment: Yes Patient verbally consented to billing insurance company: Yes Patient informed of any privacy concerns related to visit: Yes Minutes spent on Phone/Video with Pt.: 50 Coding Level of Care Code Established Pt Tele Psytx 45 mins (08250) Patient Type Established Diagnoses Depression, unspecified depression type F32.A Depression Type: unspecified Time Spent (min) 50
--- OUTSIDE RECORDS SUMMARY | 2024-11-07 13:30 | XMS_ITS | Encounter Summary ---
Author Organization [facility] Address [address] [place] [address] Care Team Providers Care Graphics Editor Name Role Phone RodgerHector Primary Care Provider [phone] Reason for Visit * Reason Comments Consult Re.con Encounter Details Date Type Department Care Team (Latest Contact Info) Description 11/05/2024 8:58 AM EDT Hospital Encounter [facility] Radiation Oncology [address] [place] [address] Bean Wang MD [address] [place] [address] Malignant neoplasm of upper-outer quadrant of right breast in female, estrogen receptor positive (CMS/HCC V24, CMS/HCC V28) (Primary Dx) Social History Tobacco Use Types Packs/Day Years Used Date Smoking Tobacco: Never Smokeless Tobacco: Never Tobacco Cessation:Counseling Given: Not Answered Alcohol Use Standard Drinks/Week Comments Not Currently 0 (1 standard drink = 0.6 oz pur e alcohol) Comments Unknown Sex and Gender Information Value Date Recorded Sex Assigned at Not on file Legal Sex Female 12:15 PM EST Gender Identity Not on file Sexual Orientation Not on file 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, 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 Not on file Not on fi le Not on file documented as of this encounter Last Filed Vital Signs Vital Sign Reading Time Taken Comments Blood Pressure 125/71 11/05/2024 9:02 AM EDT Pulse 62 11/05/2024 9:02 AM EDT Temperature 36.2 ??C (97.2 ??F) 11/05/2024 9:02 AM ED T Respiratory Rate 16 11/05/2024 9:02 AM EDT Oxygen Saturation 100% 11/05/2024 9:02 AM EDT Inhaled Oxygen Concentration - - Weight 68.9 kg (152 lb) 11/05/2024 9:02 AM EDT Height 160 cm (5' 3 ) 11/05/2024 9:02 AM EDT Body Mass Index 26.93 11/05/2024 9:02 AM EDT documented in this encounter Progress Notes * Jeannine Michaels NP - 11/05/2024 9:30 AM EDT Images from the original note were not included. Karlene - cousin present for appointment. Finished chemotherapy. Was very nauseous. Nausea is better this week. 10/08 was last chemotherapy infusion. No pain. Oncological History: 03/01/2024 Routine mammogram focal asymmetry in upper outer quadrant of right breast. 04/29/2024 Diagnostic mammogram /ultrasound right breast 0900 axis 0.8 x 0.9 cm oval lesion with mixed echogenicity and irregular margins. Left breast showed cysts measuring up to 1.3 cm. 05/16/2024 Ultrasound guided biopsy of right breast 06/17/2024 Right breast lumpectomy with sentinel lymph node biopsy with Dr. Lewis. ER + TN - Her 2 - Margins negative. 4 sentinel lymph nodes negative for carcinoma. 07/08/[address] Engel Oncotype DX 26 per pt so pt getting chemo 07/31/[address] Le. Radiation once completed with chemotherapy recommended. 08/06/24 - Started chemotherapy. Received Taxotere and Cytoxan. Tolerated fairly well. 10/08/2024 Dr. Engel discussed aromatase inhibitor along with Zometa every 6 months. pT1cN0 IDC RIGHT Breast, s/p BCT 06/17/2024 which showed IDC with lobular features, Gr1, 1.4cm size,+/+/-, 0/4 SLN positive, Oncotype 26, s/p TC x4 with Dr Engel, with plan to start AI + Zometa. - I would recommend 42.56 Gy in 16 fx, with a 10Gy in 4 fx boost - Short term side effects: fatigue, skin reaction (dry, red, itchy, hollingsworth or peeling), swelling or soreness of breast or nipple. 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 - RTC for CT simulation * Bean Wang MD - 11/05/2024 9:30 AM EDT Images from the original note were not included. [address] [phone] Radiation Oncology Outpatient Consult Staff Physician: Bean Wang MD Requesting Physician: Jazz Engel MD Date of Service: 11/05/2024 Accompanied by: cousin Karlene Diagnosis: No diagnosis found. Stage: Cancer Staging Malignant neoplasm of upper-outer quadrant of right breast in female, estrogen receptor positive (CMS/HCC V24, CMS/HCC V28) Staging form: Breast, AJCC 8th Edition - Pathologic: Stage IA (pT1c, pN0, cM0, G1, ER+, TN-, HER2-, Oncotype DX score: 26) - Signed by Juana Le MD on 07/31/2024 Assessment/Plan IMPRESSION: pT1cN0 IDC RIGHT Breast, s/p BCT 06/17/2024 which showed IDC with lobular features, Gr1, 1.4cm size,+/+/-, 0/4 SLN positive, Oncotype 26, s/p TC x4 with Dr Engel, with plan to start AI + Zometa. PLAN: - I would recommend 42.56 Gy in 16 fx, with a 10Gy in 4 fx boost - Short term side effects: fatigue, skin reaction (dry, red, itchy, hollingsworth or peeling), swelling or soreness of breast or nipple. long-term side effects: decreased cosmesis, there may be [...] but would be unlikely to affect Ms. Test's breathing. 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 - RTC for CT simulation - Indications for Radiation Therapy: RIGHT Breast IDC, BCT with high oncotype, s/p adjuvant TC - Indications for chemotherapy: none We discussed all treatment options and alternatives. The plan is Hypo fractionated RT + Boost. The rationale, logistics, risks, benefits and alternative treatments to radiation therapy were discussed in detail with the patient. Potential acute and late toxicities were explained to the patient's satisfaction using the site specific potential toxicities form. The goal of radiation would be local control. There are no guarantees however and despite treatment patient could have recurrence in the region treated or elsewhere. If patient recurs in the radiation treatment field, then most likelyfurther radiation therapy to that area would not be recommended. If local recurrence after RT, would likely need mastectomy. The patient accepted these risks and wished to proceed with radiotherapy.All questions were solicited and answered. I scheduled radiation simulation and planning appointments and the patient reviewed and signed the written informed consent. I have personally seen and examined this patient. I have fully participated in the care of this patient for all portions of the consultation and examination. I have reviewed all pertinent clinical information, including history, physical exam and laboratory findings. I reviewed the pertinent imaging findings over the PACs system. I formulated the impression and plan of care as documented. HISTORY OF PRESENT ILLNESS: Huma Cespedes is a 69 y.o. female who presents with Right Breast and is seen in consultation today. Oncological History: 03/01/2024 Routine mammogram focal asymmetry in upper outer quadrant of right breast. 04/29/2024 Diagnostic mammogram /ultrasound right breast 0900 axis 0.8 x 0.9 cm oval lesion with mixed echogenicity and irregular margins. Left breast showed cysts measuring up to 1.3 cm. 05/16/2024 Ultrasound guided biopsy of right breast 06/17/2024 Right breast lumpectomy with sentinel lymph node biopsy with Dr. Lewis. ER + TN - Her 2 - Margins negative. 4 sentinel lymph nodes negative for carcinoma. 07/08/[address] Engel Oncotype DX 26 per pt so pt getting chemo 07/31/[address] Le. Radiation once completed with chemotherapy recommended. 08/06/24 - Started chemotherapy. Received Taxotere and Cytoxan. Tolerated fairly well. 10/08/2024 Dr. Engel discussed aromatase inhibitor along with Zometa every 6 months. TODAY: Karlene - cousin present for appointment. Finished chemotherapy. Was very nauseous. Nausea is better this week. 10/08 was last chemotherapy infusion. No pain. PRIOR RT: no PRIOR CHEMO: adjuvant TC Hx of connective tissue disorder: no Hx of implanted device: no Hx of inflammatory bowel disease: no PROBLEM LIST: Patient Active Problem List Diagnosis Binge eating disorder Cervical low risk human papillomavirus (HPV) DNA test positive CHF (congestive heart failure) ([facility] V24, [facility] V28) Class 2 obesity in adult Class 1 obesity Cough Depression Fall (on) (from) other stairs and steps, sequela Hyperlipidemia Hypertension Hypothyroidism Midline cystocele Osteopenia Plantar fasciitis, left Asthma Malignant neoplasm of upper-outer quadrant of right breast in female, estrogen receptor positive ([facility] V24, [facility] V28) PAST MEDICAL HISTORY: Past Medical History: Diagnosis Date Cancer ([facility] V24, CMS/[facility] V28) Cough DX:Cough COVID-19 DX:COVID-19 Hypothyroidism DX:Hypothyroidism Sleep apnea 12/24/2021 Last Assessment & Plan: She is doing well with her CPAP at this time. 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 SOCIAL HISTORY: Social History Socioeconomic History Marital [...] Not on file ALLERGIES: Allergies as of 11/05/2024 - Reviewed 07/31/2024 Allergen Reaction Noted Adhesive [...] 4 Refills, Maintenance, 04/26/23 10:07:00 AM EST, [id number], Partial fill upon patient request if the [...] multivitamin tablet, one daily, Disp: , Rfl: ondansetron ODT (ZOFRAN-ODT) 4 mg disintegrating tablet, PLACE AND DISSOLVE 1 TABLET BY MOUTH EVERY12 HOURS NEEDED (Patient not taking: Reported on 07/31/2024), Disp: , Rfl: senna 8.6 mg tablet, TAKE 2 TABLETS BY MOUTH EVERY NIGHT AT BEDTIME NEEDED CONSTIPATION, Disp: ,Rfl: REVIEW OF SYSTEMS: Review of Systems All other systems reviewed and are negative. The Karnofsky performance scale today is 90, Able to carry on normal activity; minor signs or symptoms of disease (ECOG equivalent 0). PHYSICAL EXAM: Visit Vitals Smoking Status Never There is no height or weight on file to calculate BMI. No data recorded Physical Exam Constitutional: Appearance: Normal appearance. She is normal weight. HENT: Head: Normocephalic. Nose: Nose normal. Pulmonary: Effort: Pulmonary effort is normal. Musculoskeletal: Cervical back: Normal range of motion. Neurological: Mental Status: She is alert. DIAGNOSTIC REPORTS REVIEWED: Imaging Last chest CT: No valid procedures specified. Last MRI: No valid procedures specified. Laboratory/Pathology Compliance: We reviewed the pathology report related to this evaluation We emphasized the importance of not smoking and offered information about decreasing or avoiding tobacco use We emphasized the importance of not drinking alcohol excessively Electronically signed by Bean Wang MD Informed Consent: Huma Cespedes understands the treatment alternatives, including not receiving radiation therapy and that the risk of radiation therapy in this setting is severe, permanent damage to normal tissues. Specifically emphasized was the risk of radiation damage to the Nerves causing pain and paralysis Blood vessels causing severe bleeding or stroke Lungs causing major problems with breathing Esophagus causing major problems swallowing Heart causing heart attack or failure Bones causing fracture Normal cells causing cancer in the future Subjective Bean Wang MD Radiation Oncology DISCLAIMER: This document was created with the assistance of medical dictation software. Every effort was made to ensure that it is free from typographical errors. However, due to the nature of this software, some transcriptional inaccuracies may remain. documented in this encounter Plan of Treatment Upcoming Encounters Date Type Department Care Team (Late st Contact Info) Description 11/12/2024 10:15 AM EDT Appointment [facility] Radiation Oncology [address] [place] [phone] 11/12/2024 11:00 AM EDT Appointment [facility] Radiation Oncology [address] [place] [phone] Bean Wang MD [address] [place] [address] documented as of this encounter Visit Diagnoses Diagnosis Malignant neoplasm of upper-outer quadrant of right breast in female, estrogen receptor positive (CMS/HCC V24, CMS/HCC V28)- Primary documented in this encounter Historical Medications * This list may reflect changes made after this encounter. atorvastatin (LIPITOR) 20 mg tablet Take 1 tablet (20 mg total) by mouth 1 (one) time each day. 10/15/2024 added in this encounter Care Teams Graphics Editor Relationship Specialty Start Date End Date Hector Soares DO [address] [place] [phone] PCP - General Internal Medicine 07/09/24 documented as of this encounter
== END 2024-11-07 12:15 | disposition home or self-care (01) ==
LOC: HO.HBST 11:19
PROVIDERS: PCP Internal Medicine; Visit Provider Counselor Mental Health
DX: F32.A Depression, unspecified (principal)
CPT/HCPCS: 90834

== ENCOUNTER → 2024-11-07 11:19 | Outpatient (BNVA) | payer MEDICARE, SELFPAY | PROVIDERS: PCP Internal Medicine; Visit Provider Counselor Mental Health ==

== ENCOUNTER 2024-11-28 11:28 | Outpatient (AMB) | payer MEDICARE, SELFPAY ==
--- NOTE | 2024-11-28 11:16 | MHC.WMTHER ---
Intake Intake Visit Reasons: VIDEO PO LSG 04/10/24 Allergies adhesive Allergy (Intermediate, Verified 02/04/25 09:09) ITCHING, RASH Sulfa (Sulfonamide Antibiotics) Allergy (Intermediate, Verified 02/04/25 09:09) rash [facility] Medical History 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 Presence of pessary Back pain History of one miscarriage Hypothyroidism GERD (gastroesophageal reflux disease) Anxiety Depression Hypertension Sleep apnea treated with continuous positive airway pressure (CPAP) Surgical History History of lumpectomy of right breast (06/17/24) S/P laparoscopic sleeve gastrectomy Hx of wisdom tooth extraction Hx of dilation and curettage Hx of esophagogastroduodenoscopy (03/05/24) Hx of colonoscopy Hx of tubal ligation Family History Mother Lung cancer Brother Multiple myeloma Sister PONV (postoperative nausea and vomiting) Breast CA, Onset Age: 40 Maternal Aunt Colon cancer Family/Other Breast CA, Onset Age: 40 Maternal Uncle Esophageal cancer Prostate cancer Maternal Aunt Lung cancer Maternal Aunt Cancer of kidney Maternal Aunt Breast CA Social History Household Members: Children Caregiver staying overnight: No Housing: Apartment Are you a primary career development consultant to a significant other at home: No Do you presently have visiting nurse or other home services: No 75 years or older and lives alone: No Alcohol intake: current Alcohol intake frequency: does not drink Comment: 1 wkly Patient Tobacco Use Status: Never used Tobacco e-Cigarette/Vaping Use: Never Used Second Hand Smoke Exposure: No service: No Female Reproductive History Menstrual Age of Menarche: 14 Behavioral Health Assessment Weight Management Therapy Therapy Notes Details Subjective: Patient began radiation therapy this week and is expected to complete treatment by 12/17. She has been consistently attending her support group. Patient reports her lowest post-operative weight is 146 lbs; her goal weight is 140?145 lbs. She expresses frustration regarding her current weight and progress. Patient describes engaging in stress-eating, particularly in the late afternoon (around 5 pm) when she feels hungry and bored after a busy day. Objective: Patient attended a behavioral health post-op follow-up via telehealth, with the session structured around CBT principles. A brief mood check revealed sadness and frustration related to weight and stress-eating. The cognitive triangle was introduced to help the patient link thoughts, emotions, and behaviors, particularly overthinking and negative self-talk leading to stress-eating and snacking when tired or after skipped meals. Triggers such as late afternoon hunger and boredom were identified. Psychoeducation on the cognitive model was provided, and alternative coping strategies were discussed. Assessment/Response: Mental status: Patient appears sad and down, with some social withdrawal noted. Risk reported/identified: None Assessment & Plan Assessment & Plan (1) Depression: Code(s): F32.A - Depression, unspecified Qualifiers: Depression Type: unspecified Qualified Code(s): F32.A - Depression, unspecified Plan -Reinforce use of cognitive-behavioral strategies to address stress and negative thinking patterns. -Encourage structured meal planning to reduce late afternoon hunger and minimize stress-eating. -Support ongoing participation in the support group. -Continue monthly visits. Next del: 12/23/2024 via Telehealth. Telehealth Telehealth Telehealth Platform: [employer] Location of provider rendering services: other (Home office. [place], [place]) Location of patient: address on file Patient Identification confirmed using: Name, : Yes Telehealth method: video Patient verbally consented to treatment: Yes Patient verbally consented to billing insurance company: Yes Patient informed of any privacy concerns related to visit: Yes Minutes spent on Phone/Video with Pt.: 45 Coding Level of Care Code Established Pt Tele Psytx 45 mins (41104) Patient Type Established Diagnoses Depression, unspecified depression type F32.A Depression Type: unspecified Time Spent (min) 45
--- OUTSIDE RECORDS SUMMARY | 2024-11-28 13:51 | XMS_ITS ---
Author Organization [address] [facility] Address [address] [place] [phone] Phone Care Team Providers Care Volunteer Assistant Name Role Phone Rodger Hector Primary Care Provider [phone] Active Problems Problem Noted Date Diagnosed Date Malignant 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, estrogen receptor positive, unspecified site of breast (CMS/HCC V24, CMS/HCC V28) 11/05/2024 Malignant neoplasm of upper- outer quadrant of right breast in female, estrogen receptor positive (CMS/HCC V24, CMS/[facility] V28) 07/31/2024 Cancer Staging:Pathologic:Stage IA(pT1c, pN0, cM0, G1, ER+, KS-, HER2-, Oncotype DX score: 26) - Signed [...] do not improve. CHF (congestive heart failure) (CMS/[facility] V24, CMS /HCC V28) 12/24/2021 Overview (07/24/2024): Last Assessment & [...] Depression 07/11/2017 Overview (07/24/2024): Previously managed by [facility] on citalopram 40 mg daily. Weaned down to 20 mg and has been stable since earlier than 2012. Hypothyroidism 07/11/2017 Asthma 07/11/2017 Current Oncology Plans No current plan information found. Past Plans No past plan information found. Radiation Treatments * Treatment Site Started On Last Treated On Elapsed Days Fractions Complete Last Fraction Dose Given/Prescribed Total Dose Given/Prescribed Technique Right Breast 5 5 9 8 of 16 267 cGy / 267 cGy 2,136 cGy / 4, 272 cGy Tangents Resolved Problems Problem Noted Date Diagnosed Date Resolved Date Sleep apnea 12/24/2021 07/31/2024 Overview (07/24/2024): Last Assessment & Plan: She is doing well with her CPAP at this time.
== END 2024-11-28 12:02 | disposition home or self-care (01) ==
LOC: HO.HBST 11:28
PROVIDERS: PCP Internal Medicine; Visit Provider Counselor Mental Health
DX: F32.A Depression, unspecified (principal)
CPT/HCPCS: 90834

== ENCOUNTER 2024-12-23 09:10 | Outpatient (AMB) | payer MEDICARE, SELFPAY ==
--- OUTSIDE RECORDS SUMMARY | 2024-12-17 09:56 | XMS_ITS | Encounter Summary ---
Author Organization [facility] Address [address] [place] [address] Care Team Providers Care Casting Cleaner Name Role Phone Rodger Hectorduy LAKHANI Primary Care Provider [phone] Encounter Details Date Type Department Care Team (Latest Contact Info) Description 12/17/2024 9:56 AM EDT - 12/17/2024 11:59 PM EDT Hospital Encounter [facility] Radiation Oncology [address] [place] [id number] Jeannine Michaels, [place] [address] [place] [address] Malignant neoplasm of upper-outer quadrant of right breast in female, estrogen receptor positive ([facility]/HCC V24, [facility]/HCC V28) (Primary Dx) Discharge Disposition: Home or Self Care Social [...] Start Date Job End Date 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 atorvastatin (LIPITOR) 20 mg tablet Take 1 tablet (20 mg total) by mouth 1 (one) time each day. 5 calcium carbonate 1,500 mg (600 mg elemental calcium) tablet Take 1,200 mg by mouth daily. citalopram (CeleXA) 10 mg tablet Take 1 tablet (10 mg total) by mouth 1 (one) time each day. citalopram (CeleXA) 20 mg tablet Take 1 tablet (20 mg total) by mouth 1 (one) time each day. levothyroxine (SYNTHROID, LEVOTHROID) 100 mcg tablet TAKE 1 AND 1/2 TABLETS BY MOUTH MONDAY, MONDAY AND MONDAY, AND 1 TABLET EVERY OTHER DAY DIRECTED 4 multivitamin tablet one daily ondansetron ODT (ZOFRAN-ODT) 4 mg disintegrating tablet 4 senna 8.6 mg tablet TAKE 2 TABLETS BY MOUTH EVERY NIGHT AT BEDTIME NEEDED CONSTIPATION 5 documented as of this encounter Discharge Disposition Disposition Code Departure Means Destination Home or Self Care documented in this encounter Progress Notes * Roseann Smith RN - 12/17/2024 10:00 AM EDT Discharge Instructions after Radiation Treatments Side effects present at the end of treatment will usually improve in a few weeks. If you developed a skin reaction, it may continue to worsen for the next 7-10 days. Continue to be gentle with your skin. Your skin will be more sensitive to sunburn. Protect yourself from the sun. If needed, use sunscreen at least SPF 30. Fatigue and weakness may continue for several weeks. Be sure to get plenty of rest. Plan your activities accordingly. Continue healthy eating habits. Stay well hydrated, drink plenty of fluids. Follow-up visits will be scheduled so your Radiation physician can monitor your progress. Follow up in 4 - 6 weeks. Go to [facility] for follow up appointment. Please call [phone] and select option #2 with any questions or concerns prior to your next visit. documented in this encounter Plan of Treatment Upcoming Encounters Date Type Department Care Team (Late st Contact Info) Description 01/30/2025 10:30 AM EDT Appointment [facility] Radiation Oncology [address] [place] [phone] Jeannine Michaels NP [address] [place] [address] documented as of this encounter Visit Diagnoses Diagnosis Malignant neoplasm of upper-outer quadrant of right breast in female, estrogen receptor positive ([facility] V24, [facility] V28)- Primary documented in this encounter Discontinued Medications Medication Sig Discontinue Reason Start Date End Da te estradioL (Estrace) 0.01 % (0.1 mg/gram) vaginal cream See Instructions, 1 gram Vaginally at bedtime twice per week, # 42 Gm, 4 Refills, Maintenance, 04/26/23 10:07:00 AM EST, [id number], Partial fill upon patient request if the prescription is for a schedule II opioid drug., 160, cm, 04/20/23 7:42:00 EST, Height, 91, kg, 04/20/23 7:42:00 EST, Dry Weight Discontinued by another clinician 04/26/2023 12/17/2024 documented as of this encounter Care Teams Casting Cleaner Relationship Specialty Start Date End Date Hector Soares DO [address] [place] [phone] PCP - General Internal Medicine 07/09/24 documented as of this encounter
--- NOTE | 2024-12-23 09:05 | A.OFFWM_ITS ---
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 Presence of pessary Back pain History of one miscarriage Hypothyroidism GERD (gastroesophageal reflux disease) Anxiety Depression Hypertension Sleep apnea treated with continuous positive airway pressure (CPAP) Surgical History History of lumpectomy of right breast (06/17/24) S/P laparoscopic sleeve gastrectomy Hx of wisdom tooth extraction Hx of dilation and curettage Hx of esophagogastroduodenoscopy (03/05/24) Hx of colonoscopy Hx of tubal ligation Family History Mother Lung cancer Brother Multiple myeloma Sister PONV (postoperative nausea and vomiting) Breast CA, Onset Age: 40 Maternal Aunt Colon cancer Family/Other Breast CA, Onset Age: 40 Maternal Uncle Esophageal cancer Prostate cancer Maternal Aunt Lung cancer Maternal Aunt Cancer of kidney Maternal Aunt Breast CA Social History Household Members: Children Caregiver staying overnight: No Housing: Apartment Are you a primary manager home healthcare to a significant other at home: No Do you presently have visiting nurse or other home services: No 75 years or older and lives alone: No Alcohol intake: current Alcohol intake frequency: does not drink Comment: 1 wkly Patient Tobacco Use Status: Never used Tobacco e-Cigarette/Vaping Use: Never Used Second Hand Smoke Exposure: No service: No Female Reproductive History Menstrual Age of Menarche: 14 Behavioral Health Assessment Weight Management Therapy Therapy Notes Details Subjective: Client reports that her last radiation treatment was on Monday of last week and states, ?I feel like a heavy weight was lifted.? She describes feeling emotionally relieved but also acknowledges ongoing feelings of sadness, guilt, and emotional distress related to her relationship with her oldest daughter. She shared that this has been a longstanding source of emotional difficulty, contributing to her current mood. Objective: PT presents for a f/up visit via Telehealth. Discussed functioning, progress/needs. During the session, we focused on cognitive reframing and identifying unhelpful thought patterns. Used Acceptance and Commitment Therapy (ACT) to increase mindfulness and defusion from distressing thoughts. Cognitive Processing Therapy (CPT) techniques used to address core beliefs related to guilt and responsibility in interpersonal relationships. Assessment/Response: * Mental status: Alert and oriented x4. Mood: Depressed. Affect: Sad but appropriate. Insight: Fair. Judgment: Intact. No evidence of thought disorder or psychosis. * Risk reported/identified: None Client was engaged in therapy and able to apply techniques discussed in session. Reports some benefit from self-talk practice. Insight improving into the impact of her inner dialogue on mood and interpersonal stress. Assessment & Plan Assessment & Plan (1) Depression: Code(s): F32.A - Depression, unspecified Qualifiers: Depression Type: unspecified Qualified Code(s): F32.A - Depression, unspecified Plan Client plans to attend next week's peer support group focused on cancer survivorship and emotional recovery. Will resume individual therapy upon return from upcoming travel, with next session scheduled for 02/06/2025 at 9:00 AM (video). Coding Level of Care Code Established Pt Tele Psytx 45 mins (50617) Patient Type Established Diagnoses Depression, unspecified depression type F32.A Depression Type: unspecified Time Spent (min) 50
--- OUTSIDE RECORDS SUMMARY | 2024-12-23 09:30 | XMS_ITS | Clinical Summary ---
Author Organization [facility] Address Replaced by [facility] [address] [address] Phone Care Team Providers Care Electrical And Radio Mechanic Name Role Phone Unknown, Unknown MD Primary Care Provider Unavai lable Allergies Active Allergy Reactions Criticality Noted Date Comments Sulfa (Sulfonamide Antibiotics) Rash Low 11/2017 Medications multivitamin per tablet one daily Active calcium carbonate (OS-RITA) 1,500 mg (600 mg elemental) tablet Take 1,200 mg by mouth daily. Active acetaminophen (TYLENOL) 500 MG tablet Take 500 mg by mouth every 4 (four) hours as needed for fever. Active albuterol 90 mcg/actuation inhalerIndication s:Mild intermittent asthma without complication Inhale 2 puffs into the lungs every 6 (six) hours as needed for wheezing. 8.5 g 2 3 Active omeprazole (PRILOSEC) 20 MG capsule TAKE 1 CAPSULE(20 MG) BY MOUTH DAILY 90 capsule 3 3 Active citalopram (CELEXA) 10 MG tabletIndications :Depression TAKE 1 TABLET(10 MG) BY MOUTH DAILY 90 tablet 3 3 Active citalopram (CELEXA) 20 MG tabletIndications :Depression TAKE 1 TABLET BY MOUTH EVERY DAY WITH 10MG TABLET FOR TOTAL OF 30 MG 90 tablet 3 3 Active hydroCHLOROthiazi de (MICROZIDE) 12.5 mg capsuleIndication s:Hypertension TAKE 1 CAPSULE(12.5 MG) BY MOUTH EVERY MORNING 90 capsule 3 4 Active levothyroxine (SYNTHROID, LEVOTHROID) 100 MCG tabletIndications :Hypothyroidism TAKE 1 AND 1/2 TABLETS BY MOUTH MONDAY, MONDAY AND MONDAY, AND 1 TABLET EVERY OTHER DAY DIRECTED 106 tablet 3 4 Active amLODIPine (NORVASC) 5 MG tabletIndications :Essential hypertension TAKE 1 TABLET(5 MG) BY MOUTH DAILY 90 tablet 3 4 Active Active Problems Problem Noted Date Diagnosed Date 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 Recommend patient continue with physical therapy for now even if there are fractures. The fractures are more or less to document whether they are present or not but would not change the course of action might trigger though a rheumatology consult regarding the osteopenia. BMI 35.0-35.9,adult 01/20/2020 Assessment & Plan (03/02/2020 9:54 AM EDT): Continue phentermine at 30 mg daily. Will take in the morning and monitor for any s/e on increased dosing. Assessment & Plan (01/20/2020 7:15 AM EDT): Huma has tried diet and exercise changes as well as nutrition counseling, mindfulness without reduction in weight. She has elevated BP and new impaired fasting glucose on labs. She wants to prioritize weight loss this year. She is open to medication trial. Recommended consideration of phentermine as appetite suppressant. Could also consider Vyvanse for binge eating. Will consider. EKG performed today is baseline. NSR. Changes consistent with poorly controlled BP were reviewed with patient. Consider additional cardiac evaluation in the future and immediately consider reduction in BP a priority. Plantar fasciitis, left 01/20/2020 Assessment & Plan (03/02/2020 9:55 AM EDT): Continue home self-care. Diclofenac can be used prn, and biofreeze on all other days. Assessment & Plan (01/20/2020 7:16 AM EDT): Continue home management, has been rolling out foot but will try with iced/frozen water bottle. We will also trial a support brace overnight. Hypertension 07/30/2018 Assessment & Plan (11/07/2022 9:37 AM EDT): No changes to the antihypertensives but we will follow her blood pressure at home and she will bring in the log with her to her physical exam later in the fall. Assessment & Plan (03/02/2020 9:55 AM EDT): Begin HCTZ 12.5 mg every morning for essential HTN. She has a history of urinary frequency, will f/u if this medication worsens chronic symptoms. Assessment & Plan (01/20/2020 7:15 AM EDT): Stable Assessment & Plan (04/03/2019 2:13 PM EDT): Huma will work to increase exercise on a regular basis. Continue low sodium diet. Will continue to monitor home readings. If elevated beyond 140/90 on a consistent basis I recommend adding a medication in addition to non-pharmacologic management. Asthma 07/11/2017 Assessment & Plan (01/20/2020 7:15 AM EDT): Stable Depression 07/11/2017 Overview (07/14/2018): Previously managed by [facility] on citalopram 40 mg daily. Weaned down to 20 mg and has been stable since earlier than 2012. Assessment & Plan (01/20/2020 7:15 AM EDT): Stable Assessment & Plan (04/03/2019 2:19 PM EDT): Continue citalopram. Considering re-establishing with outpatient therapist. Suggested consideration of formal MBSR program. Will also continue searching for Meetup group options in the area; it may be beneficial to search for activity/fitness-related social groups as she enjoys being active. Hypothyroidism 07/11/2017 Assessment & Plan (01/20/2020 7:15 AM EDT): Stable Assessment & Plan (04/03/2019 2:19 PM EDT): Continue levothyroxine and assess TSH in 2 months. Class 2 obesity in adult 07/11/2017 Assessment & Plan (11/07/2022 9:37 AM EDT): Weight does bear down on the lumbar spine so weight loss going forward would be beneficial both for hypertension and for musculoskeletal pain. Assessment & Plan (04/03/2019 2:16 PM EDT): Discussed current diet and feelings of depletion with limiting carbs. I suggested she consider adding small amounts of healthy carbs at each meal, including cooked or raw vegetables and fiber-rich foods such as beans or less processed grains. For snacks she will try to pair carbs with fat and protein to add to satiety. Continue to limit junk foods in the home. Will try to limit after-dinner eating and afternoon unhealthy snacks. We will f/u in 6-8 weeks but the goal will be to achieve slow, healthy weight loss over the next 6 months with sustainable lifestyle changes. She will also be meeting with a supply chain design manager in the interim. Defer discussion of stimulant use for weight loss; discussed importance of sustainable changes initially. Immunizations Immunization Administration Dates Next Due COVID-19 (Pre-03/27) Pfizer Vaccine, mRNA, PF 09/03/2020,08/13/2020 Influenza High-Dose Quadriva lent Preservative Free IM 03/03/2023,04/22/2022 Influenza Quadrivalent MDCK Preservative Free IM 04/13/2020 Influenza Quadrivalent Prese rvative Free IM 03/02/2021,04/03/2019,07/11/2017,2014 Influenza Quadrivalent w/ Preservative IM 03/03/2014 Influenza Trivalent Preserva tive Free IM 04/21/2016 Influenza, Unspecified Formulation 04/11/2018 Tdap 03/03/2014 Zoster recombinant 09/21/2021,07/05/2021 Family History Medical History Relation Comments Bone cancer Brother Diverticulitis Brother Hypertension Brother Multiple myeloma Brother Heart attack Father Hypertension Father Hypothyroidism Mother Lung cancer Mother Diabetes Paternal Grandfather Hypertension Paternal Grandfather Breast cancer Sister Hypertension Sister Relation Status Comments Brother Daughter 1 Alive Daughter 2 Alive Father Maternal Grandfather Maternal Grandmother Mother Paternal Grandfather Paternal Grandmother Sister Alive Social History Tobacco Use Types Packs/Day Years Used Date Smoking Tobacco: Never Passive Smoke Exposure: Never Smokeless Tobacco: Never Alcohol Use Standard Drinks/Week Comments Yes 1 (1 standard drink = 0.6 oz pure alcohol) once a week if that, 1-2 glasses of red wine Child or Family Care Answer Date Record ed Do you have problems with on e of the following making it difficult for you to work, study, or receive health care? No 02/25/2023 Education Answer Date Recorded Are you interested in more education? Not on alonzo e 2023 Are you concerned about learning? Not on file 2023 No 2023 No 2023 Food Answer Date Recorded Within the past 6 months we worried whether our food would run out before we got money to buy more. Never True 02/25/2023 Within the past 6 months the food we bought just didn't last and we didn't have enough money to get more. Never True Residential Stability Answer Date Recor ded What is your housing situation today? I have yoko sing 02/25/2023 How many times have you move d in the past 12 months? Zero (I did not move) 02/25/2023 Paying for Meds Answer Date Recorded Do you have trouble paying for medicines? No 02/25/2023 Paying Utility Bills Answer Date Record ed Do you have trouble paying your heating or elect ricity bill? No 02/25/2023 Transportation Answer Date Recorded Has the lack of transportati on kept you from medical appointments or from getting medications? No 02/25/2023 Unemployment Answer Date Recorded Are you currently unemployed or working on a part-time or temporary basis, and looking for work? No 07/05/2021 Digital Access Answer Date Recorded No 02/25/2023 Yes 02/25/2023 Do you have reliable internet access at home? Ye s 02/25/2023 Do you have a device (e.g., phone, tablet, computer) with a working camera? Yes 02/25/2023 Intimate Partner Violence Answer Date R ecorded Denied Basic Needs Not on file 02/25/2023 In the past 12 months have y ou been in a relationship with a person who hurts, threatens, or tries to control you? No 02/25/2023 Worried food would run out Not on file 02/25 In the past 12 months have y ou been in a relationship with a person who hurts, threatens, or tries to control you? No 02/25/2023 Comments Unknown Sex and Gender Information Value Date Recorded Sex Assigned at Female 11/07/2022 9:08 AM EDT Legal Sex Female 9:53 PM EDT Gender Identity Female 11/07/2022 9:08 AM EDT Sexual Orientation Straight 11/07/2022 9: 08 AM EDT Last Filed Vital Signs Vital Sign Reading Time Taken Comments Blood Pressure 112/72 03/03/2023 1:31 PM EDT Pulse 76 03/03/2023 1:31 PM EDT Temperature 36.6 C (97.8 F) 03/03/2023 1:31 PM EDT Respiratory Rate 16 09/21/2021 8:24 AM EDT Oxygen Saturation 97% 03/03/2023 1:31 PM EDT Inhaled Oxygen Concentration - - Weight 90.4 kg (199 lb 6.4 oz) 03/03/2023 1:31 P M EDT Height 161 cm (5' 3.39 ) 03/03/2023 1:31 PM EDT Body Mass Index 34.89 03/03/2023 1:31 PM EDT Plan of Treatment Health Maintenance Due Date Last Done Comments PNEUMOCOCCAL VACCINES (50+ years) (1 of 2 - PCV) 1975 COLOGUARD 2001 FIT TEST 2001 FOBT 2001 SIGMOIDOSCOPY 2001 VIRTUAL COLONOSCOPY 2001 RSV VACCINE (1 - Risk 60-74 years 1-dose series) 2016 BLOOD PRESSURE 09/01/2023 03/03/2023 COVID-19 VACCINE ( season) 2024 06/13/2022, 05/02/2021, 09/03/2020, Additional history exists DEPRESSION SCREENING 02/26/2024 02/25/2023, 11/08/19 23 Adult Td,Tdap Booster 03/03/2024 03/03/2014 PAP SMEAR 03/03/2024 03/03/2023, 06/07, 05/02/2018, Additional history exists POTASSIUM LEVEL 03/09/2024 03/09/2023, 04/06, 09/14/2021, Additional history exists TSH LEVEL 03/09/2024 03/09/2023, 04/06, 09/14/2021, Additional history exists MAMMOGRAM 09/26/2024 09/26/2022, 03/0 02/2022, 05/05/2020, Additional history exists FOLLOW UP BONE DENSITY TESTING 03/03/2025 03/03/2023, 08/11/2021, 11/12/2014 SCREENING FOR DIABETES 03/09/2026 03/09/2023 LIPID PANEL 03/09/2028 03/09/2023, 12/04, 12/24/2021, Additional history exists COLONOSCOPY 04/20/2033 04/20/2023, 04/06, 06/30/2007 COLORECTAL CANCER SCREENING 04/20/2033 HEPATITIS C SCREENING Completed 09/14/2021, 019 ZOSTER VACCINES Completed 09/21/2021, 07/05/2021 OSTEOPOROSIS SCREENING INITIAL (ONE-TIME) Completed 03/03/2023, 08/11/2021, 11/12/2014 SMOKING STATUS SCREENING (Once After 26 Yrs) Completed 03/03/2023 HEPATITIS A VACCINES Aged Out No long er eligible based on patient's age to complete this topic HIB VACCINES Aged Out No longer eligi ble based on patient's age to complete this topic MENINGOCOCCAL VACCINES (ACWY) Aged Out No longer eligible based on patient's age to complete this topic MENINGOCOCCAL VACCINES (B) Aged Out N o longer eligible based on patient's age to complete this topic Medical Devices Not on file Procedures Procedure Name Priority Date/Time Associated Diagnosis Comments HM COLONOSCOPY FOR RESULT ENTRY ONLY Routine 04/20/2023 LIPID PANEL Routine 03/09/2023 9:40 AM EDT Primary hypertension TSH Routine 03/09/2023 9:40 AM EDT Acquired hypothyroidism COMPREHENSIVE METABOLIC PANEL Routine 03/09/2023 9:40 AM EDT Routine general medical examination at a health care facility BD DXA SCREENING Routine 03/03/2023 2:24 PM EDT Osteopenia, unspecified location PAP TEST Routine 03/03/2023 12:00 AM EDT MAMMOGRAPHY Routine 09/26/2022 HEPATITIS C ANTIBODY, QUALITATIVE Routine 09/14/2021 8:01 AM EDT Routine screening for STI (sexually transmitted infection) from Last 3 Months or Most Recently Relevant to Health Maintenance Results * COLONOSCOPY FOR RESULT ENTRY ONLY (04/20/2023) us Historical Provider HEALTH MAINTENANCE Final Result * Comprehensive metabolic panel (03/09/2023 9:40 AM EDT) SODIUM 138 133 - 146 mmol/L [facility] POTASSIUM 4.2 3.3 - 5.1 mmol/L [facility] Comment:Specimen slightly he molyzed, result may be falsely elevated. CHLORIDE 103 96 - 108 mmol/L [facility] CO2 26 21 - 35 mmol/L [facility] BUN 16 6 - 19 mg/dL [facility] CREATININE 0.80 0.5 - 1.5 mg/dL [facility] GLUCOSE 98 70 - 99 mg/dL [facility] ALBUMIN 4.5 3.9 - 4.8 g/dL [facility] TOTAL PROTEIN 7.9 6.5 - 8.0 g/dL [facility] CALCIUM 9.7 8.4 - 10.3 mg/dL [facility] ALKALINE PHOSPHATASE 65 39 - 117 U/L [facility] TOTAL BILIRUBIN 0.3 0.0 - 1.2 mg/dL [facility] AST 22 0 - 37 U/L [facility] ALT 16 0 - 40 U/L [facility] GLOBULIN 3.4 1 - 4.8 g/dL [facility] EGFR 81 >59 mL/min/1.7 3m2 [facility] Comment:Estimated glomerular filtration rate calculated using the CKD-EPI refit equation. ANION GAP 13 10 - 20 mmol/L [facility] Blood 03/09/2023 9:40 AM EDT 03/09/2023 9:44 AM EDT Latanya Hill NP LAB BLOOD ORDERABLES Final Resu lt Performing Organization Address [facility]/ZIP Co de Phone Number [address] [address] * TSH (03/09/2023 9:40 AM EDT) TSH 0.27 0.27 - 4.20 uIU/mL [facility] Blood 03/09/2023 9:40 AM EDT 03/09/2023 9:44 AM EDT Latanya Hill NP LAB BLOOD ORDERABLES Final Resu lt Performing Organization Address [facility] Co de Phone Number [address] [address] * (ABNORMAL) Lipid panel (03/09/2023 9:40 AM EDT) HDL 59 mg/dL [facility] Comment: Interpretation <40 mg/dL: Low HDL cholesterol (major risk factor for CHD) Greater than or equal to 60 mg/dL: High HDL cholesterol ( negative risk factor for CHD) HDL - cholesterol is affected by a number of factors, e.g. smoking, excerise, hormones, sex and age. CHOLESTEROL 216 0 - 240 mg/dL [facility] TRIGLYCERIDES 107 30 - 160 mg/dL [facility] LDL 136(H) 50 - 129 mg/dL [facility] Comment: LDL levels in terms of risk for coronary heart disease: <100 mg/dL: Optimal 100-129 mg/dL: Near or above optimal 130-159 mg/dL: Borderline high 160-189 mg/dL: High >190 mg/dL: Very High CARDIAC RISK RATIO 3.7 3.3 - 4.4 [facility] Blood 03/09/2023 9:40 AM EDT 03/09/2023 9:44 AM EDT us Latanya Hill NP LAB BLOOD ORDERABLES Final Resu lt [address] [address] * Pap Test (03/03/2023 12:00 AM EDT) 03/03/2023 03/06/2023 8:4 4 AM EDT Narrative SEE NARRATIVE - 03/08/2023 4:42 PM EDT [address] [address] Conference Assistant: Rayna Mccullough MD [facility] [employer] Cytology Report FINAL DIAGNOSIS A. PAP SMEAR ([facility]) CE: SPECIMEN ADEQUACY: Satisfactory for evaluation; transformation zone present. INTERPRETATION: NEGATIVE FOR INTRAEPITHELIAL LESION OR MALIGNANCY. Electronically Signed Out By: Maya Hauser MD By his/her signature above, the pathologist listed as making the Final Diagnosis certifies that he/she has personally reviewed this case and confirmed or corrected the diagnosis. The Pap test is a screening test primarily for squamous cancers and precursors and has associated false-negative and false-positive results. New technologies such as liquid-based preparations may decrease but will not eliminate all false-negative results. Regular sampling and follow-up of unexplained clinical signs and symptoms are recommended to minimize false negative results. PROCEDURES/ADDENDA HPV Testing (Requested) Ordered Date: 03/06/2023 A. PAP SMEAR ([facility]) CE: Human Papilloma Virus TEST POSITIVE for high-risk Human Papilloma Virus type Other high risk (non-type 16, 18, or 45) probe set (Includes 31, 33, 35, 39, 51, 52, 56, 58, 59, 66, 68) Note: Additional testing was necessary to identify the most virulent high-risk strains. Negative for high-risk Human Papilloma Virus types 16, 18 and 45. Testing performed by [facility] HR-HPV analysis. Clinical correlation is advised. This HPV test was performed at [facility], [address] [place] [address]. This test has been FDA approved for [facility] cervical cytology specimens. The accuracy and precision of this test for all other specimen sources has been verified in the Cytopathology Laboratory of the [facility] and has not been cleared or approved by the U.S. Food and Drug Administration. Clinical correlation is advised. CLINICAL HISTORY Date of Last Menstrual Period: Not Provided Menstrual History: Post Menopausal Infection History: HPV: OTHER HIGH RISK, Other Clinical Conditions: Screening Pap SPECIMEN SOURCE A: PAP SMEAR ([facility]) CE Patient Name: HUMA VIDALES : 1955 (Age: 67) Sex: F Institution: [facility] Location: [facility] Date of Collection: 03/03/2023 Date of Reported: 03/08/2023 16:42 Results to: Latanya Hill MSN, BSN Latanya Hill MANAGER OF SALES CYTOLOGY ORDERABLES Final Resul t SEE NARRATIVE * HM MAMMOGRAPHY FOR RESULT ENTRY ONLY (09/26/2022) Dana Mayberry [facility] HEALTH MAINTENANCE Emmanuel ailyn Result - Final * Hepatitis C antibody, qualitative (09/14/2021 8:01 AM EDT) HCV NON-REACTIV E NON-REACTI VE [facility] Blood 09/14/2021 8:01 AM EDT 09/14/2021 8:05 AM EDT Dana Mayberry [facility] LAB BLOOD ORDERABLES F inal Result Performing Organization Address City/[facility]/ZIP Co de Phone Number [address] [address] * OUTSIDE BONE DENSITY SCREENING (08/11/2021) [facility] Signature BONE DENSITY SCREENING - EXTERNAL osteopenia us Historical Provider MD HEALTH MAINTENANCE Final Result from Last 3 Months or Most Recently Relevant to Health Maintenance Insurance MEDICARE REPLACEMENT MEDICARE REPLACEMENT MEDICARE REPLACEMENT MEDICARE REPLACEMENT MEDICARE REPLACEMENT MEDICARE REPLACEMENT Care Teams Electrical And Radio Mechanic Relationship Specialty Start Date End Date Unknown, Unknown, PCP - General 08/11/23 Additional Source Comments The information contained in this document represents components of the legal health record. It is not the complete legal health record.[facility]
== END 2024-12-23 10:06 | disposition home or self-care (01) ==
LOC: HO.HBST 09:10
PROVIDERS: PCP Internal Medicine; Visit Provider Counselor Mental Health
DX: F32.A Depression, unspecified (principal)
CPT/HCPCS: 90834

== ENCOUNTER 2025-01-23 09:00 | Outpatient (AMB) | payer MEDICARE, SELFPAY ==
--- NOTE | 2025-01-23 08:05 | MHC.OFFVISWM ---
VS Expanded 01/23/25 08:06 Height 5 ft 3 in Weight 149 lb 4 oz BMI 26.4 Body Fat % 33.8 Fat Free Mass 98.9 Visceral Fat Rating 9 Body Water % 45.4 Muscle Mass/Score 92.9 Basal Metabolic Rate/Score 1,345 Intake Visit Reasons: TV PO LSG 04/10/24 Allergies adhesive Allergy (Intermediate, Verified 11/26/24 11:47) ITCHING, RASH Sulfa (Sulfonamide Antibiotics) Allergy (Intermediate, Verified 11/26/24 11:47) rash HPI Comments Details: This?a?69?yo female who is s/p LSG without hiatal hernia repair on?04/10/2024. Presents for 9 month post op visit. Weight today is 149.4 pounds, with a BMI of 26.4. There has been a 51.8 pound weight loss,(initial weight 201.2 pounds) since starting the program on 02/09/2024 reflecting a 25.7% total body weight loss and a weight loss of 48.1 pounds since surgery (operative weight 197.5 pounds) reflecting a 24.3% TBWL since surgery. No complaints of nausea, emesis, abdominal pain or reflux. Reports infrequent but normal bowel movements every 2-3 days and uses stool softeners regularly. Taking celebrate MVI Found to have right breast cancer, followed by general surgery and oncology. She finished radiation treatment after chemotherapy which started August 06, 2024 for four rounds. Wants to change plan to incorporate more food. She has morning nausea with improvement from a toast Present meal plan includes: dry toast w 1 egg or northern irish yogurt at 8-10 meal at noon with 4 forks protein and 4 forks vegetables or orgain protein bar meal at 5 with 5 forks protein and 5 forks veg Drinking 48-64 oz water ? Exercise routine includes: walking 3 mi outside 7 x per week. 300 calories yoga weekly with strength training after [facility] Medical History 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 Presence of pessary Back pain History of one miscarriage Hypothyroidism GERD (gastroesophageal reflux disease) Anxiety Depression Hypertension Sleep apnea treated with continuous positive airway pressure (CPAP) Surgical History History of lumpectomy of right breast (06/17/24) S/P laparoscopic sleeve gastrectomy Hx of wisdom tooth extraction Hx of dilation and curettage Hx of esophagogastroduodenoscopy (03/05/24) Hx of colonoscopy Hx of tubal ligation Family History Mother Lung cancer Brother Multiple myeloma Sister PONV (postoperative nausea and vomiting) Breast CA, Onset Age: 40 Maternal Aunt Colon cancer Family/Other Breast CA, Onset Age: 40 Maternal Uncle Esophageal cancer Prostate cancer Maternal Aunt Lung cancer Maternal Aunt Cancer of kidney Maternal Aunt Breast CA Social History Household Members: Children Caregiver staying overnight: No Housing: Apartment Are you a primary behavioral health care manager to a significant other at home: No Do you presently have visiting nurse or other home services: No 75 years or older and lives alone: No Alcohol intake: current Alcohol intake frequency: does not drink Comment: 1 wkly Patient Tobacco Use Status: Never used Tobacco e-Cigarette/Vaping Use: Never Used Second Hand Smoke Exposure: No service: No Female Reproductive History Menstrual Age of Menarche: 14 Telehealth Telehealth Telehealth Platform: Telephone Location of provider rendering services: practice address Location of patient: address on file Patient Identification confirmed using: Name, : Yes Telehealth method: voice only Patient verbally consented to treatment: Yes Patient verbally consented to billing insurance company: Yes Patient informed of any privacy concerns related to visit: Yes Minutes spent on Phone/Video with Pt.: 15 Assessment & Plan Assessment & Plan (1) S/P laparoscopic sleeve gastrectomy: Code(s): Z98.84 - Bariatric surgery status Category: Surgical Plan: Overall doing well. She has completed radiation treatment. She does continue to have some morning nausea. We will trial having her protein bar at night and if this is successful, removing the toast in the morning and having 1 egg and a Persian yogurt. She will continue to exercise as she is able. Add 1 year labs today to the order set such that she can get them drawn in coordination with her oncologist through her port. We will have her return to the office for her 1 year follow-up in April. Orders: Orders Vitamin B12 and Folate Today E03.9 - Hypothyroidism, unspecified, I10 - Essential (primary) hypertension, Z98.84 - Bariatric surgery status C Reactive Protein Today E03.9 - Hypothyroidism, unspecified, I10 - Essential (primary) hypertension, Z98.84 - Bariatric surgery status TSH reflex Free T4 Today E03.9 - Hypothyroidism, unspecified, I10 - Essential (primary) hypertension, Z98.84 - Bariatric surgery status Ferritin Today E03.9 - Hypothyroidism, unspecified, I10 - Essential (primary) hypertension, Z98.84 - Bariatric surgery status Insulin Today E03.9 - Hypothyroidism, unspecified, I10 - Essential (primary) hypertension, Z98.84 - Bariatric surgery status Hemoglobin A1c Today E03.9 - Hypothyroidism, unspecified, I10 - Essential (primary) hypertension, Z98.84 - Bariatric surgery status Complete Blood Count Auto Diff Today E03.9 - Hypothyroidism, unspecified, I10 - Essential (primary) hypertension, Z98.84 - Bariatric surgery status Lipid Panel Today E03.9 - Hypothyroidism, unspecified, I10 - Essential (primary) hypertension, Z98.84 - Bariatric surgery status IRON PROFILE Today E03.9 - Hypothyroidism, unspecified, I10 - Essential (primary) hypertension, Z98.84 - Bariatric surgery status Comprehensive Met. Panel Today E03.9 - Hypothyroidism, unspecified, I10 - Essential (primary) hypertension, Z98.84 - Bariatric surgery status Zinc Today E03.9 - Hypothyroidism, unspecified, I10 - Essential (primary) hypertension, Z98.84 - Bariatric surgery status Vitamin B1 Today E03.9 - Hypothyroidism, unspecified, I10 - Essential (primary) hypertension, Z98.84 - Bariatric surgery status Vitamin A Today E03.9 - Hypothyroidism, unspecified, I10 - Essential (primary) hypertension, Z98.84 - Bariatric surgery status Vitamin D 25-OH Total Today E03.9 - Hypothyroidism, unspecified, I10 - Essential (primary) hypertension, Z98.84 - Bariatric surgery status
[2025-01-23 08:06] VITALS: BMI 26.4
--- OUTSIDE RECORDS SUMMARY | 2025-01-23 10:27 | XMS_ITS | Clinical Summary ---
Author Organization [facility] Address [facility] [address] [address] Phone Care Team Providers Care Utility Tractor Operator Name Role Phone Unknown, Unknown MD Primary [...] Depression 07/11/2017 Overview (07/14/2018): Previously managed by [facility] on citalopram 40 mg daily. Weaned [...] She will also be meeting with a ell teacher in the interim. Defer discussion of stimulant use for weight loss; discussed importance of sustainable changes initially. Immunizations Immunization Administration Dates Next Due COVID-19 (Pre-03/27) Pfizer Vaccine, mRNA, PF 09/03/2020,08/13/2020 INFLUENZA, SPLIT VIRUS, TRIVALENT PF 04/21/2016 Influenza High-Dose Quadriva lent Preservative Free IM 03/03/2023,04/22/2022 Influenza Quadrivalent MDCK Preservative Free IM 04/13/2020 Influenza Quadrivalent Prese rvative Free IM 03/02/2021,04/03/2019,07/11/2017,2014 Influenza Quadrivalent w/ Preservative IM 03/03/2014 Influenza, Unspecified Formulation 04/11/2018 Tdap 03/03/2014 Zoster [...] your housing situation today? I have yoko cary 02/25/2023 How many times have you move [...] 2016 BLOOD PRESSURE 09/01/2023 03/03/2023 COVID-19 VACCINE (5 - 2024-25 season) 2024 06/13/2022, 05/02/2021, 09/03/2020, Additional history [...] EDT) SODIUM 138 133 - 146 mmol/L [facility] POTASSIUM 4.2 3.3 - 5.1 mmol/L [facility] Comment:Specimen slightly he molyzed, result may be falsely elevated. CHLORIDE 103 96 - 108 mmol/L [facility] CO2 26 21 - 35 mmol/L [facility] BUN 16 6 - 19 mg/dL [facility] CREATININE 0.80 0.5 - 1.5 mg/dL [facility] GLUCOSE 98 70 - 99 mg/dL [facility] ALBUMIN 4.5 3.9 - 4.8 g/dL [facility] TOTAL PROTEIN 7.9 6.5 - 8.0 g/dL [facility] CALCIUM 9.7 8.4 - 10.3 mg/dL [facility] ALKALINE PHOSPHATASE 65 39 - 117 U/L [facility] TOTAL BILIRUBIN 0.3 0.0 - 1.2 mg/dL [facility] AST 22 0 - 37 U/L [facility] ALT 16 0 - 40 U/L [facility] GLOBULIN 3.4 1 - 4.8 g/dL [facility] EGFR 81 >59 mL/min/1.7 3m2 [facility] Comment:Estimated glomerular filtration rate calculated using the CKD-EPI refit equation. ANION GAP 13 10 - 20 mmol/L [facility] Blood 03/09/2023 9:40 AM EDT 03/09/2023 9:44 AM EDT Latanya Hill NP LAB BLOOD ORDERABLES Final Resu lt Performing Organization Address [facility] Co de Phone Number [address] [address] * TSH (03/09/2023 9:40 AM EDT) TSH 0.27 0.27 - 4.20 uIU/mL [facility] Blood 03/09/2023 9:40 AM EDT 03/09/2023 9:44 AM EDT Latanya Hill NP LAB BLOOD ORDERABLES Final Resu lt Performing Organization Address [facility] Co de Phone Number [address] [address] * (ABNORMAL) Lipid panel (03/09/2023 9:40 AM EDT) HDL 59 mg/dL [facility] Comment: Interpretation <40 mg/dL: Low HDL cholesterol (major risk factor for CHD) Greater than or equal to 60 mg/dL: High HDL cholesterol ( negative risk factor for CHD) HDL - cholesterol is affected by a number of factors, e.g. smoking, excerise, hormones, sex and age. CHOLESTEROL 216 0 - 240 mg/dL [facility] TRIGLYCERIDES 107 30 - 160 mg/dL [facility] LDL 136(H) 50 - 129 mg/dL [facility] Comment: LDL levels in terms of risk for coronary heart disease: <100 mg/dL: Optimal 100-129 mg/dL: Near or above optimal 130-159 mg/dL: Borderline high 160-189 mg/dL: High >190 mg/dL: Very High CARDIAC RISK RATIO 3.7 3.3 - 4.4 [facility] Blood 03/09/2023 9:40 AM EDT 03/09/2023 9:44 AM EDT us Latanya Hill NP LAB BLOOD ORDERABLES Final Resu lt [address] [address] * Pap Test (03/03/2023 12:00 AM EDT) 03/03/2023 03/06/2023 8:4 4 AM EDT Narrative SEE NARRATIVE - 03/08/2023 4:42 PM EDT [address] [address] Parts Sales Manager: Rayna Mccullough MD DIAGNOSTICS SALES DEVELOPER Cytology Report FINAL DIAGNOSIS A. PAP SMEAR [...] 16, 18 and 45. Testing performed by [facility] [employer] [facility] HR-HPV analysis. Clinical correlation is advised. This HPV test was performed at [facility], [address] [place] [address]. This test has been FDA approved for [facility] cervical cytology specimens. The accuracy and precision of this test for all other specimen sources has been verified in the Cytopathology Laboratory of the [facility] and has not been cleared or approved by the U.S. Food and Drug Administration. Clinical correlation is advised. CLINICAL HISTORY Date of Last Menstrual Period: Not Provided Menstrual History: Post Menopausal Infection History: HPV: OTHER HIGH RISK, Other Clinical Conditions: Screening Pap SPECIMEN SOURCE A: PAP SMEAR (SUREPATH) CE Patient Name: HUMA CESPEDES : 1955 (Age: 67) Sex: F Institution: [facility] Location: [facility] Date of Collection: 03/03/2023 Date of Reported: 03/08/2023 16:42 Results to: Latanya Hill MSN, BSN Latanya Hill SOCK EXAMINER CYTOLOGY ORDERABLES Final Resul t SEE NARRATIVE * HM MAMMOGRAPHY FOR RESULT ENTRY ONLY (09/26/2022) Dana Mayberry [facility] MAINTENANCE Emmanuel ailyn Result - Final * Hepatitis C antibody, qualitative (09/14/2021 8:01 AM EDT) HCV NON-REACTIV E NON-REACTI VE [facility] Blood 09/14/2021 8:01 AM EDT 09/14/2021 8:05 AM EDT Dana Mayberry [facility] LAB BLOOD ORDERABLES F inal Result Performing Organization Address City/[facility]/ZIP Co de Phone Number [address] [address] * OUTSIDE BONE DENSITY SCREENING (08/11/2021) [facility] Signature BONE DENSITY SCREENING - EXTERNAL osteopenia us Historical Provider MD HEALTH MAINTENANCE Final Result from Last 3 Months or Most Recently Relevant to Health Maintenance Insurance MEDICARE REPLACEMENT MEDICARE REPLACEMENT MEDICARE REPLACEMENT MEDICARE REPLACEMENT MEDICARE REPLACEMENT MEDICARE REPLACEMENT Care Teams Utility Tractor Operator Relationship Specialty Start Date End Date Unknown, Unknown, PCP - General 08/11/23 Additional Source Comments The information contained in this document represents components of the legal health record. It is not the complete legal health record.[facility]
--- OUTSIDE RECORDS SUMMARY | 2025-01-23 10:27 | XMS_ITS | Clinical Summary ---
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 Active levothyroxine (SYNTHROID, LEVOTHROID) 100 mcg tablet TAKE 1 AND 1/2 TABLETS BY MOUTH MONDAY, MONDAY AND MONDAY, AND 1 TABLET EVERY OTHER DAY DIRECTED 07/18/19 24 Active multivitamin tablet one daily Active ondansetron ODT (ZOFRAN-ODT) 4 mg disintegrating tablet 04/01/20 24 Active senna 8.6 mg tablet TAKE 2 TABLETS BY MOUTH EVERY NIGHT AT BEDTIME NEEDED CONSTIPATION 06/10/19 25 Active atorvastatin (LIPITOR) 20 mg tablet Take 1 tablet (20 mg total) by mouth 1 (one) time each day. 10/16/19 25 Active Active Problems Problem Noted Date Diagnosed Date Malignant 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, estrogen receptor positive, unspecified site of breast ([facility] V24, [facility] V28) 11/05/2024 Malignant neoplasm of upper- outer quadrant of right breast in female, estrogen receptor positive ([facility] V24, [facility] V28) 07/31/2024 Cancer Staging:Pathologic:Stage IA(pT1c, pN0, cM0, G1, ER+, TX-, HER2-, Oncotype DX score: 26) - Signed [...] do not improve. CHF (congestive heart failure) ([facility] V24, [facility] V28) 12/24/2021 Overview (07/24/2024): [...] Depression 07/11/2017 Overview (07/24/2024): Previously managed by [facility] on citalopram 40 mg daily. Weaned down to 20 mg and has been stable since earlier than 2012. Hypothyroidism 07/11/2017 Asthma 07/11/2017 Resolved Problems Problem Noted Date Diagnosed Date Resolved Date Sleep apnea 12/24/2021 07/31/2024 Overview (07/24/2024): Last Assessment & Plan: She is doing well with her CPAP at this time. Encounters Date Type Department Care Team Description 12/17/2024 9:56 AM EDT - 12/17/2024 11:59 PM EDT Hospital Encounter [facility] Radiation Oncology [address] [place] [phone] Jeannine Michaels, [place] Malignant neoplasm of upper-outer quadrant of right breast in female, estrogen receptor positive (CMS/HCC V24, CMS/HCC V28) (Primary Dx) Discharge Disposition: Home or Self Care 12/17/2024 9:42 AM EDT - 12/17/2024 11:59 PM EDT Hospital Encounter [facility] Radiation Oncology [address] [place] [phone] Discharge Disposition: Home or Self Care 12/16/2024 9:50 AM EDT - 12/16/2024 11:59 PM EDT Hospital Encounter [facility] Radiation Oncology [address] [place] [phone] Bean Wang MD Malignant neoplasm of upper-outer quadrant of right breast in female, estrogen receptor positive (CMS/HCC V24, CMS/HCC V28) (Primary Dx) Discharge Disposition: Home or Self Care 12/16/2024 9:45 AM EDT - 12/16/2024 11:59 PM EDT Hospital Encounter [facility] Radiation Oncology [address] [place] [phone] Discharge Disposition: Home or Self Care 12/13/2024 9:37 AM EDT - 12/13/2024 11:59 PM EDT Hospital Encounter [facility] Radiation Oncology [address] [place] [phone] Discharge Disposition: Home or Self Care 12/12/2024 10:00 AM EDT - 12/12/2024 11:59 PM EDT Hospital Encounter [facility] Radiation Oncology [address] [place] [phone] Saulo Cueto MD Discharge Disposition: Home or Self Care 12/12/2024 9:45 AM EDT - 12/12/2024 11:59 PM EDT Hospital Encounter [facility] Radiation Oncology [address] [place] [phone] Discharge Disposition: Home or Self Care 12/11/2024 9:45 AM EDT - 12/11/2024 11:59 PM EDT Hospital Encounter [facility] Radiation Oncology [address] [place] [phone] Discharge Disposition: Home or Self Care 12/10/2024 9:36 AM EDT - 12/10/2024 11:59 PM EDT Hospital Encounter [facility] Radiation Oncology [address] [place] [phone] Discharge Disposition: Home or Self Care 12/09/2024 9:50 AM EDT - 12/09/2024 11:59 PM EDT Hospital Encounter [facility] Radiation Oncology [address] [place] [phone] Bean Wang MD Malignant neoplasm of upper-outer quadrant of right breast in female, estrogen receptor positive (CMS/HCC V24, CMS/HCC V28) (Primary Dx) Discharge Disposition: Home or Self Care 12/09/2024 9:37 AM EDT - 12/09/2024 11:59 PM EDT Hospital Encounter [facility] Radiation Oncology [address] [place] [phone] Discharge Disposition: Home or Self Care 12/09/2024 8:02 AM EDT - 12/09/2024 11:59 PM EDT Hospital Encounter [facility] Radiation Oncology [address] [place] [phone] Discharge Disposition: Home or Self Care 12/05/2024 8:13 AM EDT - 12/05/2024 11:59 PM EDT Hospital Encounter [facility] Radiation Oncology [address] [place] [phone] Discharge Disposition: Home or Self Care 12/04/2024 9:36 AM EDT - 12/04/2024 11:59 PM EDT Hospital Encounter [facility] Radiation Oncology [address] [place] [phone] Discharge Disposition: Home or Self Care 12/03/2024 9:55 AM EDT - 12/03/2024 11:59 PM EDT Hospital Encounter [facility] Radiation Oncology [address] [place] [phone] Bean Wang MD Malignant 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, estrogen receptor positive, unspecified site of breast (CMS/HCC V24, CMS/HCC V28) Discharge Disposition: Home or Self Care 12/03/2024 9:42 AM EDT - 12/03/2024 11:59 PM EDT Hospital Encounter [facility] Radiation Oncology [address] [place] [phone] Discharge Disposition: Home or Self Care 12/02/2024 9:50 AM EDT - 12/02/2024 11:59 PM EDT Hospital Encounter [facility] Radiation Oncology [address] [place] [phone] Bean Wang MD Malignant 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, estrogen receptor positive, unspecified site of breast (CMS/HCC V24, CMS/HCC V28) (Primary Dx) Discharge Disposition: Home or Self Care 12/02/2024 9:31 AM EDT - 12/02/2024 11:59 PM EDT Hospital Encounter [facility] Radiation Oncology [address] [place] [phone] Discharge Disposition: Home or Self Care 11/29/2024 9:45 AM EDT - 11/29/2024 11:59 PM EDT Hospital Encounter [facility] Radiation Oncology [address] [place] [phone] Discharge Disposition: Home or Self Care 11/28/2024 9:37 AM EDT - 11/28/2024 11:59 PM EDT Hospital Encounter [facility] Radiation Oncology [address] [place] [phone] Discharge Disposition: Home or Self Care 11/27/2024 9:36 AM EDT - 11/27/2024 11:59 PM EDT Hospital Encounter [facility] Radiation Oncology [address] [place] [phone] Discharge Disposition: Home or Self Care 11/26/2024 9:08 AM EDT - 11/26/2024 11:59 PM EDT Hospital Encounter [facility] Radiation Oncology [address] [place] [phone] Discharge Disposition: Home or Self Care 11/25/2024 9:15 AM EDT - 11/25/2024 11:59 PM EDT Hospital Encounter [facility] Radiation Oncology [address] [place] [phone] Bean Wang MD Malignant 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, estrogen receptor positive, unspecified site of breast (CMS/HCC V24, CMS/HCC V28) (Primary Dx) Discharge Disposition: Home or Self Care 11/25/2024 9:06 AM EDT - 11/25/2024 11:59 PM EDT Hospital Encounter [facility] Radiation Oncology [address] [place] [phone] Discharge Disposition: Home or Self Care 11/22/2024 8:36 AM EDT - 11/22/2024 11:59 PM EDT Hospital Encounter [facility] Radiation Oncology [address] [place] [phone] Discharge Disposition: Home or Self Care 11/21/2024 9:37 AM EDT - 11/21/2024 11:59 PM EDT Hospital Encounter [facility] Radiation Oncology [address] [place] [phone] Discharge Disposition: Home or Self Care 11/20/2024 9:10 AM EDT - 11/20/2024 11:59 PM EDT Hospital Encounter [facility] Radiation Oncology [address] [place] [phone] Discharge Disposition: Home or Self Care 11/19/2024 11:30 AM EDT - 11/19/2024 11:59 PM EDT Hospital Encounter [facility] Radiation Oncology [address] [place] [phone] Lety Bryant MD Discharge Disposition: Home or Self Care 11/19/2024 11:15 AM EDT - 11/19/2024 11:59 PM EDT Hospital Encounter [facility] Radiation Oncology [address] [place] [phone] Discharge Disposition: Home or Self Care 11/14/2024 3:39 PM EDT - 11/14/2024 11:59 PM EDT Hospital Encounter [facility] Radiation Oncology [address] [place] [phone] Discharge Disposition: Home or Self Care 11/12/2024 10:55 AM EDT - 11/12/2024 11:59 PM EDT Hospital Encounter [facility] Radiation Oncology [address] [place] [phone] Bean Wang MD Malignant 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, estrogen receptor positive, unspecified site of breast ([facility] V24, [facility] V28) Discharge Disposition: Home or Self Care 11/12/2024 10:15 AM EDT - 11/12/2024 11:59 PM EDT Hospital Encounter [facility] Radiation Oncology [address] [place] [phone] Malignant 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, estrogen receptor positive, unspecified site of breast ([facility] V24, [facility] V28) (Primary Dx) Discharge Disposition: Home or Self Care 11/05/2024 8:58 AM EDT - 11/05/2024 11:59 PM EDT Hospital Encounter [facility] Radiation Oncology [address] [place] [phone] Bean Wang MD Malignant neoplasm of upper-outer quadrant of right breast in female, estrogen receptor positive ([facility] V24, [facility] V28) (Primary Dx) Discharge Disposition: Home or Self Care from [...] older (Afluria) 3 years and older 04/21/2016 [facility] SARS-CoV-2 COVID-19, mRNA, LNP-S, preservative free 08/13/2020 Pneumococcal conjugate 20 va lent (Prevnar 20, PCV 20) 2mo and older 03/19/2024 Tdap Tetanus diptheria acell ular pertussis (Boostrix; Adacel) 7yo and older 03/03/2014 Zoster recombinant (Shingrix ) 19yo and older 09/21/2021,07/05/2021 Surgical History Surgery Date Site/Laterality Comments TUBAL LIGATION 06/05/1992 - 06/04/1993 Bilateral BREAST SURGERY 06/17/2024 STOMACH SURGERY 04/10/2024 gastric sleeve BREAST BIOPSY 05/28 BARIATRIC SURGERY 04/10/24 Medical History Medical History Date Comments Hypothyroidism DX:Hypothyroidis m Covid-19 DX:COVID-19 Cough DX:Cough Cancer ([facility] V24, [facility] V28) Sleep apnea 12/24/2021 Last Assessment & Plan: She is doing well with her CPAP at this time. Breast cancer (CMS/[facility] V24, CMS/[facility] V28) 05/28 Uterine prolapse Prolapse of female pelvic organs 2021 Family History Medical History Relation Name Comments Cancer Brother Horacio Cespedes Multiple myeloma Brother Horacio Cespedes Heart attack Father Rosas Cespedes Heart disease Father Rosas Cespedes Hypertension Father Rosas Cespedes Colon cancer Father's Brother or stomach cancer? Lung cancer Father's Sister Cancer Mother Nuha Cespedes Lung cancer Mother Nuha Cespedes Thyroid disease Mother Nuha Cespedes Esophageal cancer Mother's Brother 1 Prostate cancer Mother's Brother 1 Cancer Mother's Brother 2 Magdiel Israel [facility] Cancer Mother's Sister 1 Guera Queiros Colon cancer Mother's Sister 1 Guera Queiros Cancer Mother's Sister 2 Breast cancer. Mohini Israel Lung cancer Mother's Sister 2 Breast cancer. Mohini Israel also with bladder cancer Cancer Mother's Sister 3 Colon cancer. Melissa Astorga Breast cancer Mother's Sister 4 Diabetes Mother's Sister 5 Melissa Astorga Thyroid disease Mother's Sister 6 Guera Queiros. Aunt Breast cancer Sister Joellen Brashear. Linda reast cancer Cancer Sister Joellen Malik. B reast cancer Thyroid disease Sister Joellen [place]. B reast cancer Relation Name Status Comments Brother Horacio Cespedes Father Rosas Cespedes Father's Brother Father's Sister Mother Nuha Cespedes Mother's Brother 1 Mother's Brother 2 Magdiel Israel troat cancer Mother's Sister 1 Guera Azariros Mother's Sister 2 Breast cancer. Mohini Israel Mother's Sister 3 Colon cancer. Melissa Astorga Mother's Sister 4 Alive Mother's Sister 5 Melissa Astorga Mother's Sister 6 Guera Queiros. Aunt Sister Joellen Gan. 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 on file Not on fi le Not on file Obstetrics History Para Term AB IAB SAB Ectopic Multiple Livin g Live Births 3 2 Date Outcome GA Total Labor Labor/2nd/3rd Weight Sex Type Anes PTL Azucena A1 A5 Name Clin Para Para Last Filed Vital Signs Vital Sign Reading Time Taken Comments Blood Pressure 125/71 11/05/2024 9:02 AM EDT Pulse 62 11/05/2024 9:02 AM EDT Temperature 36.2 C (97.2 F) 11/05/2024 9:02 AM EDT Respiratory Rate 16 11/05/2024 9:02 AM EDT Oxygen Saturation 100% 11/05/2024 9:02 AM EDT Inhaled Oxygen Concentration - - Weight 68.9 kg (152 lb) 11/05/2024 9:02 AM EDT Height 160 cm (5' 3 ) 11/05/2024 9:02 AM EDT Body Mass Index 26.93 11/05/2024 9:02 AM EDT Plan of Treatment Upcoming Encounters Date Type Department Care Team (Late st Contact Info) Description 01/28/2025 11:30 AM EDT Appointment [facility] Radiation Oncology [address] [place] [phone] Jeannine Michaels NP [address] [place] [address] Health Maintenance Due Date Last Done Comments Breast Cancer Screening 1955 RSV Immunization Adult Patients (1 - Risk 60-74 years 1-dose series) 2016 Colorectal Cancer Screening: Colonoscopy 05/03/2022 Falls Risk Assessment 05/03/2022 Medicare Annual Wellness Visit 05/03/2022 Osteoporosis Screening (Bone Density Screening) 05/03/2022 Social Influencers of Health Screening 05/03/2022 COVID-19 Vaccine ( season) 2024 06/13/2022, 05/02/2021, 09/03/2020, Additional history exists DTaP,Tdap,and Td Vaccines (2 - Td or Tdap) 03/03/2024 03/03/2014 Hypertension/CHF/CAD Annual BMP Blood Test 03/09/2024 03/09/2023, 09/14/2021, 03/04/2021, Additional history exists Depression Screening 06/05/2024 Influenza Vaccine (#1) 2025 , 03/03/2023, 04/22/2022, Additional history exists Cholesterol Screening (Lipid Panel) 12/02/2029 12/02/2024, 08/01/2024, 03/09/2023 Hepatitis C Screening Completed 09/14/2021 Zoster Vaccines Completed 09/21/2021, 07/05/2021 Pneumococcal Vaccine: 50+ Years Completed 03/19/2024 HIB [...] Procedure Name Priority Date/Time Associated Diagnosis Comments RAD ONC MSQ TREATMENT SUMMARY Routine 12/17/2024 9:53 AM EDT RAD ONC MSQ TREATMENT SUMMARY Routine 12/16/2024 9:56 AM EDT RAD ONC MSQ TREATMENT SUMMARY Routine 12/13/2024 9:52 AM EDT RAD ONC MSQ TREATMENT SUMMARY Routine 12/12/2024 10:05 AM EDT RAD ONC MSQ TREATMENT SUMMARY Routine 12/11/2024 10:05 AM EDT RAD ONC MSQ TREATMENT SUMMARY Routine 12/10/2024 9:47 AM EDT RAD ONC MSQ TREATMENT SUMMARY Routine 12/09/2024 9:55 AM EDT RAD ONC MSQ TREATMENT SUMMARY Routine 12/05/2024 8:20 AM EDT RAD ONC MSQ TREATMENT SUMMARY Routine 12/04/2024 9:55 AM EDT RAD ONC MSQ TREATMENT SUMMARY Routine 12/03/2024 9:54 AM EDT RAD ONC MSQ TREATMENT SUMMARY Routine 12/02/2024 9:57 AM EDT CREATINE KINASE Routine 12/02/2024 7:20 AM EDT 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 ALANINE AMINOTRANSFERASE Routine 7:20 AM EDT 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 ASPARTATE AMINOTRANSFERASE Routine 12/02/2024 7:20 AM EDT 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 LIPID PANEL WITH REFLEX TO DIRECT LDL Routine 12/02/2024 7:20 AM EDT 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 RAD ONC MSQ TREATMENT SUMMARY Routine 11/29/2024 9:57 AM EDT RAD ONC MSQ TREATMENT SUMMARY Routine 11/28/2024 9:52 AM EDT RAD ONC MSQ TREATMENT SUMMARY Routine 11/27/2024 9:49 AM EDT RAD ONC MSQ TREATMENT SUMMARY Routine 11/26/2024 9:23 AM EDT RAD ONC MSQ TREATMENT SUMMARY Routine 11/25/2024 9:14 AM EDT RAD ONC MSQ TREATMENT SUMMARY Routine 11/22/2024 8:44 AM EDT RAD ONC MSQ TREATMENT SUMMARY Routine 11/21/2024 9:54 AM EDT RAD ONC MSQ TREATMENT SUMMARY Routine 11/20/2024 9:20 AM EDT RAD ONC MSQ TREATMENT SUMMARY Routine 11/19/2024 11:41 AM EDT from Last 3 Months Results * Rad Onc Msq Treatment Summary (12/17/2024 9:53 AM EDT) Treatment Site Right Breast Boost MOSAIQ RADIATION ONCOLOGY Course Number 1 MOSAIQ RADIATION ONCOLOGY Prescribed Fractional Dose 250 cGray MOSAIQ RADIATION ONCOLOGY Prescribed Total Dose 1,000 cGray MOSAIQ RADIATION ONCOLOGY Actual Fractions Delivered 4 MOSAIQ RADIATION ONCOLOGY Actual Session Delivered Dose 250 cGray MOSAIQ RADIATION ONCOLOGY Actual Total Dose 1,000 cGray MOSAIQ RADIATION ONCOLOGY Prescribed Technique Electron boost MOSAIQ RADIATION ONCOLOGY Elapsed Days 5 MOSAIQ RADIATION ONCOLOGY Start Date 12/12/2024 MOSAIQ RADIATION ONCOLOGY Last Date 12/17/2024 MOSAIQ RADIATION ONCOLOGY Prescribed Number of Fractions 4 MOSAIQ RADIATION ONCOLOGY 12/17/2024 9:53 AM EDT Physician Radiation Oncology RADIATION ONCOLO GY ORDERABLES Final Result MOSAIQ RADIATION ONCOLOGY * Rad Onc Msq Treatment Summary (12/16/2024 9:56 AM EDT) Treatment Site Right Breast Boost MOSAIQ RADIATION ONCOLOGY Course Number 1 MOSAIQ RADIATION ONCOLOGY Prescribed Fractional Dose 250 cGray MOSAIQ RADIATION ONCOLOGY Prescribed Total Dose 1,000 cGray MOSAIQ RADIATION ONCOLOGY Actual Fractions Delivered 3 MOSAIQ RADIATION ONCOLOGY Actual Session Delivered Dose 250 cGray MOSAIQ RADIATION ONCOLOGY Actual Total Dose 750 cGray MOSAIQ RADIATION ONCOLOGY Prescribed Technique Electron boost MOSAIQ RADIATION ONCOLOGY Elapsed Days 4 MOSAIQ RADIATION ONCOLOGY Start Date 12/12/2024 MOSAIQ RADIATION ONCOLOGY Last Date 12/16/2024 MOSAIQ RADIATION ONCOLOGY Prescribed Number of Fractions 4 MOSAIQ RADIATION ONCOLOGY 12/16/2024 9:56 AM EDT Physician Radiation Oncology RADIATION ONCMARCOS GY ORDERABLES Final Result MOSAIQ RADIATION ONCOLOGY * Rad Onc Msq Treatment Summary (12/13/2024 9:52 AM EDT) Treatment Site Right Breast Boost MOSAIQ RADIATION ONCOLOGY Course Number 1 MOSAIQ RADIATION ONCOLOGY Prescribed Fractional Dose 250 cGray MOSAIQ RADIATION ONCOLOGY Prescribed Total Dose 1,000 cGray MOSAIQ RADIATION ONCOLOGY Actual Fractions Delivered 2 MOSAIQ RADIATION ONCOLOGY Actual Session Delivered Dose 250 cGray MOSAIQ RADIATION ONCOLOGY Actual Total Dose 500 cGray MOSAIQ RADIATION ONCOLOGY Prescribed Technique Electron boost MOSAIQ RADIATION ONCOLOGY Elapsed Days 1 MOSAIQ RADIATION ONCOLOGY Start Date 12/12/2024 MOSAIQ RADIATION ONCOLOGY Last Date 12/13/2024 MOSAIQ RADIATION ONCOLOGY Prescribed Number of Fractions 4 MOSAIQ RADIATION ONCOLOGY 12/13/2024 9:52 AM EDT us Physician Radiation Oncology RADIATION ONCOLO GY ORDERABLES Final Result MOSAIQ RADIATION ONCOLOGY * Rad Onc Msq Treatment Summary (12/12/2024 10:05 AM EDT) Treatment Site Right Breast Boost MOSAIQ RADIATION ONCOLOGY Course Number 1 MOSAIQ RADIATION ONCOLOGY Prescribed Fractional Dose 250 cGray MOSAIQ RADIATION ONCOLOGY Prescribed Total Dose 1,000 cGray MOSAIQ RADIATION ONCOLOGY Actual Fractions Delivered 1 MOSAIQ RADIATION ONCOLOGY Actual Session Delivered Dose 250 cGray MOSAIQ RADIATION ONCOLOGY Actual Total Dose 250 cGray MOSAIQ RADIATION ONCOLOGY Prescribed Technique Electron boost MOSAIQ RADIATION ONCOLOGY Elapsed Days 0 MOSAIQ RADIATION ONCOLOGY Start Date 12/12/2024 MOSAIQ RADIATION ONCOLOGY Last Date 12/12/2024 MOSAIQ RADIATION ONCOLOGY Prescribed Number of Fractions 4 MOSAIQ RADIATION ONCOLOGY 12/12/2024 10:0 5 AM EDT Physician Radiation Oncology RADIATION ONCOLO GY ORDERABLES Final Result MOSAIQ RADIATION ONCOLOGY * Rad Onc Msq Treatment Summary (12/11/2024 10:05 AM EDT) Treatment Site Right Breast MO SAIQ RADIATION ONCOLOGY Course Number 1 MOSAIQ RADIATION ONCOLOGY Prescribed Fractional Dose 267 cGray MOSAIQ RADIATION ONCOLOGY Prescribed Total Dose 4,272 cGray MOSAIQ RADIATION ONCOLOGY Actual Fractions Delivered 16 MOSAIQ RADIATION ONCOLOGY Actual Session Delivered Dose 267 cGray MOSAIQ RADIATION ONCOLOGY Actual Total Dose 4,272 cGray MOSAIQ RADIATION ONCOLOGY Prescribed Technique Tangents MOSAIQ RADIATION ONCOLOGY Elapsed Days 22 MOSAIQ RADIATION ONCOLOGY Start Date 11/19/2024 MOSAIQ RADIATION ONCOLOGY Last Date 12/11/2024 MOSAIQ RADIATION ONCOLOGY Prescribed Number of Fractions 16 MOSAIQ RADIATION ONCOLOGY 12/11/2024 10:0 5 AM EDT Physician Radiation Oncology RADIATION ONCOLO GY ORDERABLES Final Result MOSAIQ RADIATION ONCOLOGY * Rad Onc Msq Treatment Summary (12/10/2024 9:47 AM EDT) Treatment Site Right Breast MO SAIQ RADIATION ONCOLOGY Course Number 1 MOSAIQ RADIATION ONCOLOGY Prescribed Fractional Dose 267 cGray MOSAIQ RADIATION ONCOLOGY Prescribed Total Dose 4,272 cGray MOSAIQ RADIATION ONCOLOGY Actual Fractions Delivered 15 MOSAIQ RADIATION ONCOLOGY Actual Session Delivered Dose 267 cGray MOSAIQ RADIATION ONCOLOGY Actual Total Dose 4,005 cGray MOSAIQ RADIATION ONCOLOGY Prescribed Technique Tangents MOSAIQ RADIATION ONCOLOGY Elapsed Days 21 MOSAIQ RADIATION ONCOLOGY Start Date 11/19/2024 MOSAIQ RADIATION ONCOLOGY Last Date 12/10/2024 MOSAIQ RADIATION ONCOLOGY Prescribed Number of Fractions 16 MOSAIQ RADIATION ONCOLOGY 12/10/2024 9:47 AM EDT Physician Radiation Oncology RADIATION ONCMARCOS GY ORDERABLES Final Result MOSAIQ RADIATION ONCOLOGY * Rad Onc Msq Treatment Summary (12/09/2024 9:55 AM EDT) Treatment Site Right Breast MO SAIQ RADIATION ONCOLOGY Course Number 1 MOSAIQ RADIATION ONCOLOGY Prescribed Fractional Dose 267 cGray MOSAIQ RADIATION ONCOLOGY Prescribed Total Dose 4,272 cGray MOSAIQ RADIATION ONCOLOGY Actual Fractions Delivered 14 MOSAIQ RADIATION ONCOLOGY Actual Session Delivered Dose 267 cGray MOSAIQ RADIATION ONCOLOGY Actual Total Dose 3,738 cGray MOSAIQ RADIATION ONCOLOGY Prescribed Technique Tangents MOSAIQ RADIATION ONCOLOGY Elapsed Days 20 MOSAIQ RADIATION ONCOLOGY Start Date 11/19/2024 MOSAIQ RADIATION ONCOLOGY Last Date 12/09/2024 MOSAIQ RADIATION ONCOLOGY Prescribed Number of Fractions 16 MOSAIQ RADIATION ONCOLOGY 12/09/2024 9:55 AM EDT Physician Radiation Oncology RADIATION ONCMARCOS GY ORDERABLES Final Result MOSAIQ RADIATION ONCOLOGY * Rad Onc Msq Treatment Summary (12/05/2024 8:20 AM EDT) Treatment Site Right Breast MO SAIQ RADIATION ONCOLOGY Course Number 1 MOSAIQ RADIATION ONCOLOGY Prescribed Fractional Dose 267 cGray MOSAIQ RADIATION ONCOLOGY Prescribed Total Dose 4,272 cGray MOSAIQ RADIATION ONCOLOGY Actual Fractions Delivered 13 MOSAIQ RADIATION ONCOLOGY Actual Session Delivered Dose 267 cGray MOSAIQ RADIATION ONCOLOGY Actual Total Dose 3,471 cGray MOSAIQ RADIATION ONCOLOGY Prescribed Technique Tangents MOSAIQ RADIATION ONCOLOGY Elapsed Days 16 MOSAIQ RADIATION ONCOLOGY Start Date 11/19/2024 MOSAIQ RADIATION ONCOLOGY Last Date 12/05/2024 MOSAIQ RADIATION ONCOLOGY Prescribed Number of Fractions 16 MOSAIQ RADIATION ONCOLOGY 12/05/2024 8:20 AM EDT Physician Radiation Oncology RADIATION ONCMARCOS GY ORDERABLES Final Result MOSAIQ RADIATION ONCOLOGY * Rad Onc Msq Treatment Summary (12/04/2024 9:55 AM EDT) Treatment Site Right Breast MO SAIQ RADIATION ONCOLOGY Course Number 1 MOSAIQ RADIATION ONCOLOGY Prescribed Fractional Dose 267 cGray MOSAIQ RADIATION ONCOLOGY Prescribed Total Dose 4,272 cGray MOSAIQ RADIATION ONCOLOGY Actual Fractions Delivered 12 MOSAIQ RADIATION ONCOLOGY Actual Session Delivered Dose 267 cGray MOSAIQ RADIATION ONCOLOGY Actual Total Dose 3,204 cGray MOSAIQ RADIATION ONCOLOGY Prescribed Technique Tangents MOSAIQ RADIATION ONCOLOGY Elapsed Days 15 MOSAIQ RADIATION ONCOLOGY Start Date 11/19/2024 MOSAIQ RADIATION ONCOLOGY Last Date 12/04/2024 MOSAIQ RADIATION ONCOLOGY Prescribed Number of Fractions 16 MOSAIQ RADIATION ONCOLOGY 12/04/2024 9:55 AM EDT Physician Radiation Oncology RADIATION ONCMARCOS GY ORDERABLES Final Result MOSAIQ RADIATION ONCOLOGY * Rad Onc Msq Treatment Summary (12/03/2024 9:54 AM EDT) Treatment Site Right Breast MO SAIQ RADIATION ONCOLOGY Course Number 1 MOSAIQ RADIATION ONCOLOGY Prescribed Fractional Dose 267 cGray MOSAIQ RADIATION ONCOLOGY Prescribed Total Dose 4,272 cGray MOSAIQ RADIATION ONCOLOGY Actual Fractions Delivered 11 MOSAIQ RADIATION ONCOLOGY Actual Session Delivered Dose 267 cGray MOSAIQ RADIATION ONCOLOGY Actual Total Dose 2,937 cGray MOSAIQ RADIATION ONCOLOGY Prescribed Technique Tangents MOSAIQ RADIATION ONCOLOGY Elapsed Days 14 MOSAIQ RADIATION ONCOLOGY Start Date 11/19/2024 MOSAIQ RADIATION ONCOLOGY Last Date 12/03/2024 MOSAIQ RADIATION ONCOLOGY Prescribed Number of Fractions 16 MOSAIQ RADIATION ONCOLOGY 12/03/2024 9:54 AM EDT Physician Radiation Oncology RADIATION ONCOLO GY ORDERABLES Final Result TRACY RADIATION ONCOLOGY * Rad Onc Msq Treatment Summary (12/02/2024 9:57 AM EDT) Treatment Site Right Breast MO SAIQ RADIATION ONCOLOGY Course Number 1 MOSAIQ RADIATION ONCOLOGY Prescribed Fractional Dose 267 cGray MOSAIQ RADIATION ONCOLOGY Prescribed Total Dose 4,272 cGray MOSAIQ RADIATION ONCOLOGY Actual Fractions Delivered 10 MOSAIQ RADIATION ONCOLOGY Actual Session Delivered Dose 267 cGray MOSAIQ RADIATION ONCOLOGY Actual Total Dose 2,670 cGray MOSAIQ RADIATION ONCOLOGY Prescribed Technique Tangents MOSAIQ RADIATION ONCOLOGY Elapsed Days 13 MOSAIQ RADIATION ONCOLOGY Start Date 11/19/2024 MOSAIQ RADIATION ONCOLOGY Last Date 12/02/2024 MOSAIQ RADIATION ONCOLOGY Prescribed Number of Fractions 16 MOSAIQ RADIATION ONCOLOGY 12/02/2024 9:57 AM EDT Physician Radiation Oncology RADIATION ONCOLO GY ORDERABLES Final Result TRACY RADIATION ONCOLOGY * Lipid panel with reflex to direct LDL (12/02/2024 7:20 AM EDT) Cholesterol 166 0 - 200 mg/dL LAB CHEMISTRY METHOD 12/02/2024 12:[address] [facility] Triglycerides 63 0 - 150 mg/dL LAB CHEMISTRY METHOD 12/02/2024 12:[address] [facility] HDL 74 >=40 mg/dL LAB CHEMISTRY METHOD 12/02/2024 12:[address] [facility] LDL Calculated 79 0 - 100 mg/dL LAB CHEMISTRY METHOD 12/02/2024 12:[address] [facility] VLDL Cholesterol Gary 12.6 mg/dL LAB CHEMISTRY METHOD 12/02/2024 12:[address] [facility] Non HDL Chol. (LDL+VLDL) 92 <145 mg/dL LAB CHEMISTRY METHOD 12/02/2024 12:[address] [facility] Chol/HDL Ratio 2.2 0.0 - 4.4 LAB CHEMISTRY METHOD 12/02/2024 12:[address] [facility] Blood Venous blood specimen / Unknown Venipuncture / Unknown 12/02/2024 7:20 AM EDT 12/02/2024 7:20 AM EDT [facility] LAB BLOOD ORDERABLES Final Resul t Performing Organization Address City/[facility]/ZIP Co de Phone Number [facility] [address] [place] [address], [place] [phone] * Alanine aminotransferase (12/02/2024 7:20 AM EDT) ALT (SGPT) 17 10 - 60 unit/L LAB CHEMISTRY METHOD 12/02/2024 12:[address] [facility] Blood Venous blood specimen / Unknown Venipuncture / Unknown 12/02/2024 7:20 AM EDT 12/02/2024 7:20 AM EDT [facility] LAB BLOOD ORDERABLES Final Resul t [facility] [address] [place] [address], [place] [phone] * Aspartate aminotransferase (12/02/2024 7:20 AM EDT) AST (SGOT) 10 10 - 42 unit/L LAB CHEMISTRY METHOD 12/02/2024 12:[address] [facility] Blood Venous blood specimen / Unknown Venipuncture / Unknown 12/02/2024 7:20 AM EDT 12/02/2024 7:20 AM EDT [employer] LAB BLOOD ORDERABLES Final Resul t Performing Organization Address [facility]/ZIP Co de Phone Number [facility] [address] [place] [address], [place] [phone] * Creatine kinase (12/02/2024 7:20 AM EDT) Total CK 41 22 - 269 unit/L LAB CHEMISTRY METHOD 12/02/2024 12:[address] [facility] Blood Venous blood specimen / Unknown Venipuncture / Unknown 12/02/2024 7:20 AM EDT 12/02/2024 7:20 AM EDT [facility] LAB BLOOD ORDERABLES Final Resul t Performing Organization Address [facility] Co de Phone Number [facility] [address] [place] [address], [place] [phone] * Rad Onc Msq Treatment Summary (11/29/2024 9:57 AM EDT) Treatment Site Right Breast MO SAIQ RADIATION ONCOLOGY Course Number 1 MOSAIQ RADIATION ONCOLOGY Prescribed Fractional Dose 267 cGray MOSAIQ RADIATION ONCOLOGY Prescribed Total Dose 4,272 cGray MOSAIQ RADIATION ONCOLOGY Actual Fractions Delivered 9 MOSAIQ RADIATION ONCOLOGY Actual Session Delivered Dose 267 cGray MOSAIQ RADIATION ONCOLOGY Actual Total Dose 2,403 cGray MOSAIQ RADIATION ONCOLOGY Prescribed Technique Tangents MOSAIQ RADIATION ONCOLOGY Elapsed Days 10 MOSAIQ RADIATION ONCOLOGY Start Date 11/19/2024 MOSAIQ RADIATION ONCOLOGY Last Date 11/29/2024 MOSAIQ RADIATION ONCOLOGY Prescribed Number of Fractions 16 MOSAIQ RADIATION ONCOLOGY 11/29/2024 9:57 AM EDT Physician Radiation Oncology RADIATION ONCOLO GY ORDERABLES Final Result Performing Organization Address City/[facility]/ZIP Co de Phone Number MOSAIQ RADIATION ONCOLOGY * Rad Onc Msq Treatment Summary (11/28/2024 9:52 AM EDT) Treatment Site Right Breast MO SAIQ RADIATION ONCOLOGY Course Number 1 MOSAIQ RADIATION ONCOLOGY Prescribed Fractional Dose 267 cGray MOSAIQ RADIATION ONCOLOGY Prescribed Total Dose 4,272 cGray MOSAIQ RADIATION ONCOLOGY Actual Fractions Delivered 8 MOSAIQ RADIATION ONCOLOGY Actual Session Delivered Dose 267 cGray MOSAIQ RADIATION ONCOLOGY Actual Total Dose 2,136 cGray MOSAIQ RADIATION ONCOLOGY Prescribed Technique Tangents MOSAIQ RADIATION ONCOLOGY Elapsed Days 9 MOSAIQ RADIATION ONCOLOGY Start Date 11/19/2024 MOSAIQ RADIATION ONCOLOGY Last Date 11/28/2024 MOSAIQ RADIATION ONCOLOGY Prescribed Number of Fractions 16 MOSAIQ RADIATION ONCOLOGY 11/28/2024 9:52 AM EDT Physician Radiation Oncology RADIATION ONCMARCOS GY ORDERABLES Final Result MOSAIQ RADIATION ONCOLOGY * Rad Onc Msq Treatment Summary (11/27/2024 9:49 AM EDT) Treatment Site Right Breast MO SAIQ RADIATION ONCOLOGY Course Number 1 MOSAIQ RADIATION ONCOLOGY Prescribed Fractional Dose 267 cGray MOSAIQ RADIATION ONCOLOGY Prescribed Total Dose 4,272 cGray MOSAIQ RADIATION ONCOLOGY Actual Fractions Delivered 7 MOSAIQ RADIATION ONCOLOGY Actual Session Delivered Dose 267 cGray MOSAIQ RADIATION ONCOLOGY Actual Total Dose 1,869 cGray MOSAIQ RADIATION ONCOLOGY Prescribed Technique Tangents MOSAIQ RADIATION ONCOLOGY Elapsed Days 8 MOSAIQ RADIATION ONCOLOGY Start Date 11/19/2024 MOSAIQ RADIATION ONCOLOGY Last Date 11/27/2024 MOSAIQ RADIATION ONCOLOGY Prescribed Number of Fractions 16 MOSAIQ RADIATION ONCOLOGY 11/27/2024 9:49 AM EDT Physician Radiation Oncology RADIATION ONCMARCOS GY ORDERABLES Final Result MOSAIQ RADIATION ONCOLOGY * Rad Onc Msq Treatment Summary (11/26/2024 9:23 AM EDT) Treatment Site Right Breast MO SAIQ RADIATION ONCOLOGY Course Number 1 MOSAIQ RADIATION ONCOLOGY Prescribed Fractional Dose 267 cGray MOSAIQ RADIATION ONCOLOGY Prescribed Total Dose 4,272 cGray MOSAIQ RADIATION ONCOLOGY Actual Fractions Delivered 6 MOSAIQ RADIATION ONCOLOGY Actual Session Delivered Dose 267 cGray MOSAIQ RADIATION ONCOLOGY Actual Total Dose 1,602 cGray MOSAIQ RADIATION ONCOLOGY Prescribed Technique Tangents MOSAIQ RADIATION ONCOLOGY Elapsed Days 7 MOSAIQ RADIATION ONCOLOGY Start Date 11/19/2024 MOSAIQ RADIATION ONCOLOGY Last Date 11/26/2024 MOSAIQ RADIATION ONCOLOGY Prescribed Number of Fractions 16 MOSAIQ RADIATION ONCOLOGY 11/26/2024 9:23 AM EDT Physician Radiation Oncology RADIATION ONCMARCOS GY ORDERABLES Final Result MOSAIQ RADIATION ONCOLOGY * Rad Onc Msq Treatment Summary (11/25/2024 9:14 AM EDT) Treatment Site Right Breast MO SAIQ RADIATION ONCOLOGY Course Number 1 MOSAIQ RADIATION ONCOLOGY Prescribed Fractional Dose 267 cGray MOSAIQ RADIATION ONCOLOGY Prescribed Total Dose 4,272 cGray MOSAIQ RADIATION ONCOLOGY Actual Fractions Delivered 5 MOSAIQ RADIATION ONCOLOGY Actual Session Delivered Dose 267 cGray MOSAIQ RADIATION ONCOLOGY Actual Total Dose 1,335 cGray MOSAIQ RADIATION ONCOLOGY Prescribed Technique Tangents MOSAIQ RADIATION ONCOLOGY Elapsed Days 6 MOSAIQ RADIATION ONCOLOGY Start Date 11/19/2024 MOSAIQ RADIATION ONCOLOGY Last Date 11/25/2024 MOSAIQ RADIATION ONCOLOGY Prescribed Number of Fractions 16 MOSAIQ RADIATION ONCOLOGY 11/25/2024 9:14 AM EDT Physician Radiation Oncology RADIATION ONCOLO GY ORDERABLES Final Result Performing Organization Address City/[facility]/ZIP Co de Phone Number MOSAIQ RADIATION ONCOLOGY * Rad Onc Msq Treatment Summary (11/22/2024 8:44 AM EDT) Treatment Site Right Breast MO SAIQ RADIATION ONCOLOGY Course Number 1 MOSAIQ RADIATION ONCOLOGY Prescribed Fractional Dose 267 cGray MOSAIQ RADIATION ONCOLOGY Prescribed Total Dose 4,272 cGray MOSAIQ RADIATION ONCOLOGY Actual Fractions Delivered 4 MOSAIQ RADIATION ONCOLOGY Actual Session Delivered Dose 267 cGray MOSAIQ RADIATION ONCOLOGY Actual Total Dose 1,068 cGray MOSAIQ RADIATION ONCOLOGY Prescribed Technique Tangents MOSAIQ RADIATION ONCOLOGY Elapsed Days 3 MOSAIQ RADIATION ONCOLOGY Start Date 11/19/2024 MOSAIQ RADIATION ONCOLOGY Last Date 11/22/2024 MOSAIQ RADIATION ONCOLOGY Prescribed Number of Fractions 16 MOSAIQ RADIATION ONCOLOGY 11/22/2024 8:44 AM EDT Physician Radiation Oncology RADIATION ONCOLO GY ORDERABLES Final Result MOSAIQ RADIATION ONCOLOGY * Rad Onc Msq Treatment Summary (11/21/2024 9:54 AM EDT) Treatment Site Right Breast MO SAIQ RADIATION ONCOLOGY Course Number 1 MOSAIQ RADIATION ONCOLOGY Prescribed Fractional Dose 267 cGray MOSAIQ RADIATION ONCOLOGY Prescribed Total Dose 4,272 cGray MOSAIQ RADIATION ONCOLOGY Actual Fractions Delivered 3 MOSAIQ RADIATION ONCOLOGY Actual Session Delivered Dose 267 cGray MOSAIQ RADIATION ONCOLOGY Actual Total Dose 801 cGray MOSAIQ RADIATION ONCOLOGY Prescribed Technique Tangents MOSAIQ RADIATION ONCOLOGY Elapsed Days 2 MOSAIQ RADIATION ONCOLOGY Start Date 11/19/2024 MOSAIQ RADIATION ONCOLOGY Last Date 11/21/2024 MOSAIQ RADIATION ONCOLOGY Prescribed Number of Fractions 16 MOSAIQ RADIATION ONCOLOGY 11/21/2024 9:54 AM EDT Physician Radiation Oncology RADIATION ONCOLO GY ORDERABLES Final Result MOSAIQ RADIATION ONCOLOGY * Rad Onc Msq Treatment Summary (11/20/2024 9:20 AM EDT) Treatment Site Right Breast MO SAIQ RADIATION ONCOLOGY Course Number 1 MOSAIQ RADIATION ONCOLOGY Prescribed Fractional Dose 267 cGray MOSAIQ RADIATION ONCOLOGY Prescribed Total Dose 4,272 cGray MOSAIQ RADIATION ONCOLOGY Actual Fractions Delivered 2 MOSAIQ RADIATION ONCOLOGY Actual Session Delivered Dose 267 cGray MOSAIQ RADIATION ONCOLOGY Actual Total Dose 534 cGray MOSAIQ RADIATION ONCOLOGY Prescribed Technique Tangents MOSAIQ RADIATION ONCOLOGY Elapsed Days 1 MOSAIQ RADIATION ONCOLOGY Start Date 11/19/2024 MOSAIQ RADIATION ONCOLOGY Last Date 11/20/2024 MOSAIQ RADIATION ONCOLOGY Prescribed Number of Fractions 16 MOSAIQ RADIATION ONCOLOGY 11/20/2024 9:20 AM EDT Physician Radiation Oncology RADIATION ONCOLO GY ORDERABLES Final Result MOSAIQ RADIATION ONCOLOGY * Rad Onc Msq Treatment Summary (11/19/2024 11:41 AM EDT) Treatment Site Right Breast MO SAIQ RADIATION ONCOLOGY Course Number 1 MOSAIQ RADIATION ONCOLOGY Prescribed Fractional Dose 267 cGray MOSAIQ RADIATION ONCOLOGY Prescribed Total Dose 4,272 cGray MOSAIQ RADIATION ONCOLOGY Actual Fractions Delivered 1 MOSAIQ RADIATION ONCOLOGY Actual Session Delivered Dose 267 cGray MOSAIQ RADIATION ONCOLOGY Actual Total Dose 267 cGray MOSAIQ RADIATION ONCOLOGY Prescribed Technique Tangents MOSAIQ RADIATION ONCOLOGY Elapsed Days 0 MOSAIQ RADIATION ONCOLOGY Start Date 11/19/2024 MOSAIQ RADIATION ONCOLOGY Last Date 11/19/2024 MOSAIQ RADIATION ONCOLOGY Prescribed Number of Fractions 16 MOSAIQ RADIATION ONCOLOGY 11/19/2024 11:4 1 AM EDT Physician Radiation Oncology RADIATION ONCOLO GY ORDERABLES Final Result Performing Organization Address City/State/[facility] Co de Phone Number MOSAIQ RADIATION ONCOLOGY from Last 3 Months Insurance [facility] MEDICARE MEDICARE Care 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
== END 2025-01-23 09:22 | disposition home or self-care (01) ==
LOC: HO.HBS 09:21
PROVIDERS: PCP Internal Medicine; Visit Provider Physician Assistant Surgical
DX: E66.3 Overweight (principal); Z68.26 Body mass index [BMI] 26.0-26.9, adult; Z90.3 Acquired absence of stomach [part of]; Z98.84 Bariatric surgery status
CPT/HCPCS: 99213; G2211

== ENCOUNTER 2025-02-04 09:01 | Outpatient (AMB) | payer MEDICARE, SELFPAY ==
[2025-02-04 09:07] VITALS: BP 138/71; PULSE 73; BMI 26.9
--- NOTE | 2025-02-04 09:07 | MHC.OFFVIS ---
Vital Signs 02/04/25 09:07 Height 5 ft 3 in Weight 152 lb BMI 26.9 BP 138/71 Blood Pressure Location Lt brachial Position Sitting Pulse 73 Intake Visit Reasons: 6 month breast exam Intake Note: Patient is seen in office for 6 month follow up visit, breast exam. Pt c/o: no concerns w/ breasts. Started Letrozole treatment. 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: No Accompanied by: Self / Same As Patient Allergies adhesive Allergy (Intermediate, Verified 02/04/25 09:09) ITCHING, RASH Sulfa (Sulfonamide Antibiotics) Allergy (Intermediate, Verified 02/04/25 09:09) rash Medication List - Last Reconciled 02/04/25 by Giacomo Lewis MD atorvastatin 20 mg PO DAILY citalopram 10 mg PO DAILY citalopram 20 mg PO DAILY dexamethasone 4 mg PO BID econazole nitrate 1% appl topical letrozole 2.5 mg PO DAILY levothyroxine 100 mcg PO DAILY mometasone 0.1% topical ondansetron 8 mg PO Q8H PRN prochlorperazine maleate (Compazine) 10 mg PO Q8H PRN sennosides (senna) 17.2 mg (2 x 8.6 mg) PO BEDTIME PRN HPI Comments Details: 69-year-old female patient found to have a suspicious density in the right breast at the 9 o'clock position confirmed by ultrasound on 04/29/2024. She denies a previous history of breast problems or breast surgery but does have a strong family history of breast cancer including her sister (40), maternal cousin, and maternal aunt all with breast cancer. She is 3 para 2 with 1 miscarriage and did not breastfeed her children. 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 She underwent a right breast lumpectomy with sentinel node biopsy on 06/17/2024. 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 Posterior margin was positive on the initial specimen. A 2nd specimen performed on the same day of the posterior and superior margin was negative for any additional tumor. Margins were approximately 3 mm at the closest margin. 0 of 4 sentinel lymph nodes were positive for metastases. She underwent genetic testing as well on 05/24/2024 which revealed no clinically significant mutations and no mutations of uncertain significance. She was evaluated by Dr. Enegl and underwent adjuvant chemotherapy with Taxotere and Cytoxan followed by radiation therapy at [facility] which she tolerated well. She is now on letrozole and tolerating this well. [facility] Medical History 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 Presence of pessary Back pain History of one miscarriage Hypothyroidism GERD (gastroesophageal reflux disease) Anxiety Depression Hypertension Sleep apnea treated with continuous positive airway pressure (CPAP) Surgical History History of lumpectomy of right breast (06/17/24) S/P laparoscopic sleeve gastrectomy Hx of wisdom tooth extraction Hx of dilation and curettage Hx of esophagogastroduodenoscopy (03/05/24) Hx of colonoscopy Hx of tubal ligation Family History Mother Lung cancer Brother Multiple myeloma Sister PONV (postoperative nausea and vomiting) Breast CA, Onset Age: 40 Maternal Aunt Colon cancer Family/Other Breast CA, Onset Age: 40 Maternal Uncle Esophageal cancer Prostate cancer Maternal Aunt Lung cancer Maternal Aunt Cancer of kidney Maternal Aunt Breast CA Social History Household Members: Children Caregiver staying overnight: No Housing: Apartment Are you a primary medicare nurse to a significant other at home: No Do you presently have visiting nurse or other home services: No 75 years or older and lives alone: No Alcohol intake: current Alcohol intake frequency: does not drink Comment: 1 wkly Patient Tobacco Use Status: Never used Tobacco e-Cigarette/Vaping Use: Never Used Second Hand Smoke Exposure: No service: No Female Reproductive History Menstrual Age of Menarche: 14 Review of Systems Const All systems reviewed & are unremarkable except as noted in HPI and below Physical Exam Vital Signs: Last Vital Signs Pulse 73 02/04/25 09:07 BP 138/71 02/04/25 09:07 BMI result Body Mass Index 26.9 Const General: cooperative and no acute distress Nutritional Appearance: well nourished Orientation/consciousness: patient oriented x3 Limitations: no limitations HEENT Head: Yes normocephalic and Yes atraumatic Ears: hearing grossly normal bilaterally Chest Other: Left breast: No skin change, no nipple retraction, no nipple discharge, no palpable mass, no enlarged lymph nodes. Right breast: Well-healed incision in the upper outer quadrant and axilla with no palpable mass, skin change, nipple discharge or tenderness. Slight inversion of the right nipple Chest/axillae images:  1. 2. 3. Resp Effort & Inspection: normal respiratory effort, no audible wheezes, no cough and no respiratory distress Cardio Jugular venous distension: no JVD GI Inspection: Yes normal to inspection Skin Other: Warm, dry, no rash Neuro Other: Mobility Assessment: 1. 3 meter assessment time (seconds): 4 2. Gait observations: Normal balance and gait General: patient oriented x3 Extrem General: Yes no clubbing, cyanosis or edema Assessment & Plan Assessment & Plan (1) 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: Code(s): C50.911 - Malignant neoplasm of unspecified site of right female breast Category: Medical Plan 69-year-old female patient diagnosed with a right breast infiltrating ductal carcinoma with lobular features and DCIS, status post right breast lumpectomy with sentinel node biopsy on 06/17/2024. She completed adjuvant chemotherapy with Cytoxan and Taxotere (Dr. Engel) and radiation therapy ([facility]), and now is on letrozole which she is tolerating well. Her last screening mammogram was on 02/29/2024 but we will hold off on her follow-up mammogram until June 2025 due to the recent radiation therapy. I recommended she return in approximately 6 months for routine breast examination. She is welcome to call sooner for any new concerns. Coding Level of Care Code Est Pt Level 3 (22551) Complex EM visit Add On G2211 Diagnoses 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 C50.911
--- OUTSIDE RECORDS SUMMARY | 2025-02-04 09:51 | XMS_ITS ---
Author Organization [address] [facility] Address [address] [place] [phone] Phone Care Team Providers Care Sales Leader Name Role Phone Rodger Hector Primary Care Provider [phone] Active Problems Problem Noted Date Diagnosed Date Malignant 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, estrogen receptor positive, unspecified site of breast (CMS/HCC V24, CMS/HCC V28) 11/05/2024 Malignant neoplasm of upper- outer quadrant of right breast in female, estrogen receptor positive (CMS/HCC V24, CMS/[facility] V28) 07/31/2024 Cancer Staging:Pathologic:Stage IA(pT1c, pN0, cM0, G1, ER+, [place]-, HER2-, Oncotype DX score: 26) - Signed [...] do not improve. CHF (congestive heart failure) (CMS/[facility] V24, CMS /HCC V28) 12/24/2021 Overview (07/24/2024): [...] Depression 07/11/2017 Overview (07/24/2024): Previously managed by [facility] on citalopram 40 mg daily. Weaned down to 20 mg and has been stable since earlier than 2013. Hypothyroidism 07/11/2017 Asthma 07/11/2017 Current Oncology Plans No current plan information found. Past Plans No past plan information found. Radiation Treatments * Treatment Site Started On Last Treated On Elapsed Days Fractions Complete Last Fraction Dose Given/Prescribed Total Dose Given/Prescribed Technique Right Breast Boost 5 5 5 4 of 4 250 cGy / 250 cGy 1,000 cGy / 1, 000 cGy Electron boost Right Breast 5 12/11/2024 22 16 of 16 267 cGy / 267 cGy 4,272 cGy / 4,272 cGy Tangents Resolved Problems Problem Noted Date Diagnosed Date Resolved Date Sleep apnea 12/24/2021 07/31/2024 Overview (07/24/2024): Last Assessment & Plan: She is doing well with her CPAP at this time.
--- OUTSIDE RECORDS SUMMARY | 2025-02-04 09:51 | XMS_ITS | Clinical Summary ---
Author Organization [facility] Address [facility] [address] [address] Phone Care Team Providers Care Barber Instructor Name Role Phone Unknown, Unknown MD Primary [...] Depression 07/11/2017 Overview (07/14/2018): Previously managed by [facility] on citalopram 40 mg daily. Weaned down [...] She will also be meeting with a potline monitor in the interim. Defer discussion of stimulant [...] 1-dose series) 2016 BLOOD PRESSURE 09/01/2023 03/03/2023 DEPRESSION SCREENING 02/26/2024 02/25/2023, 11/08/19 23 Adult Td,Tdap Booster 03/03/2024 03/03/2014 PAP SMEAR 03/03/2024 03/03/2023, 06/07, 05/02/2018, Additional history exists POTASSIUM LEVEL 03/09/2024 03/09/2023, 04/06, 09/14/2021, Additional history exists TSH LEVEL 03/09/2024 03/09/2023, 04/06, 09/14/2021, Additional history exists MAMMOGRAM 09/26/2024 09/26/2022, 03/0 02/2022, 05/05/2020, Additional history exists INFLUENZA VACCINE (#1) 2025 , 04/22/2022, 03/02/2021, Additional history exists COVID-19 VACCINE ( season) 2025 06/13/2022, 05/02/2021, 09/03/2020, Additional history exists FOLLOW UP BONE DENSITY [...] Procedure Name Priority Date/Time Associated Diagnosis Comments COLONOSCOPY FOR RESULT ENTRY ONLY Routine 04/20/2023 [...] EDT) SODIUM 138 133 - 146 mmol/L [facility] POTASSIUM 4.2 3.3 - 5.1 mmol/L [facility] Comment:Specimen slightly he molyzed, result may be falsely elevated. CHLORIDE 103 96 - 108 mmol/L [facility] CO2 26 21 - 35 mmol/L [facility] BUN 16 6 - 19 mg/dL [facility] CREATININE 0.80 0.5 - 1.5 mg/dL [facility] GLUCOSE 98 70 - 99 mg/dL [facility] ALBUMIN 4.5 3.9 - 4.8 g/dL [facility] TOTAL PROTEIN 7.9 6.5 - 8.0 g/dL [facility] CALCIUM 9.7 8.4 - 10.3 mg/dL [facility] ALKALINE PHOSPHATASE 65 39 - 117 U/L [facility] TOTAL BILIRUBIN 0.3 0.0 - 1.2 mg/dL [facility] AST 22 0 - 37 U/L [facility] ALT 16 0 - 40 U/L [facility] GLOBULIN 3.4 1 - 4.8 g/dL [facility] EGFR 81 >59 mL/min/1.7 3m2 [facility] Comment:Estimated glomerular filtration rate calculated using the CKD-EPI refit equation. ANION GAP 13 10 - 20 mmol/L [facility] Blood 03/09/2023 9:40 AM EDT 03/09/2023 9:44 AM EDT Latanya Hill NP LAB BLOOD ORDERABLES Final Resu lt Performing Organization Address City/[facility]/ZIP Co de Phone Number [address] [address] * TSH (03/09/2023 9:40 AM EDT) TSH 0.27 0.27 - 4.20 uIU/mL [facility] Blood 03/09/2023 9:40 AM EDT 03/09/2023 9:44 AM EDT Latanya Hill NP LAB BLOOD ORDERABLES Final Resu lt Performing Organization Address City/[facility]/ZIP Co de Phone Number [address] [address] * (ABNORMAL) Lipid panel (03/09/2023 9:40 AM EDT) HDL 59 mg/dL [facility] Comment: Interpretation <40 mg/dL: Low HDL cholesterol (major risk factor for CHD) Greater than or equal to 60 mg/dL: High HDL cholesterol ( negative risk factor for CHD) HDL - cholesterol is affected by a number of factors, e.g. smoking, excerise, hormones, sex and age. CHOLESTEROL 216 0 - 240 mg/dL [facility] TRIGLYCERIDES 107 30 - 160 mg/dL [facility] LDL 136(H) 50 - 129 mg/dL [facility] Comment: LDL levels in terms of risk for coronary heart disease: <100 mg/dL: Optimal 100-129 mg/dL: Near or above optimal 130-159 mg/dL: Borderline high 160-189 mg/dL: High >190 mg/dL: Very High CARDIAC RISK RATIO 3.7 3.3 - 4.4 [facility] Blood 03/09/2023 9:40 AM EDT 03/09/2023 9:44 AM EDT us Latanya Hill NP LAB BLOOD ORDERABLES Final Resu lt [address] [address] * Pap Test (03/03/2023 12:00 AM EDT) 03/03/2023 03/06/2023 8:4 4 AM EDT Narrative SEE NARRATIVE - 03/08/2023 4:42 PM EDT [address] [address] Senior Credit Analyst: Rayna Mccullough MD CASE MANAGEMENT ASSOCIATE Cytology Report FINAL DIAGNOSIS A. PAP SMEAR [...] 16, 18 and 45. Testing performed by [employer] On[employer]arity HR-HPV analysis. Clinical correlation is advised. This HPV test was performed at [facility], [address] [place] [address]. This test has been FDA approved for [facility] cervical cytology specimens. The accuracy and precision of this test for all other specimen sources has been verified in the Cytopathology Laboratory of the [facility] and has not been cleared or approved by the U.S. Food and Drug Administration. Clinical correlation is advised. CLINICAL HISTORY Date of Last Menstrual Period: Not Provided Menstrual History: Post Menopausal Infection History: HPV: OTHER HIGH RISK, Other Clinical Conditions: Screening Pap SPECIMEN SOURCE A: PAP SMEAR (SUREPATH) CE Patient Name: HUMA CESPEDES : 1955 (Age: 67) Sex: F Institution: [facility] Location: [facility] Date of Collection: 03/03/2023 Date of Reported: 03/08/2023 16:42 Results to: Latanya Hill MSN, BSN Latanya Hill COOK VACUUM KETTLE CYTOLOGY ORDERABLES Final Resul t SEE NARRATIVE * MAMMOGRAPHY FOR RESULT ENTRY ONLY (09/26/2022) Dana Mayberry CNP HEALTH MAINTENANCE Emmanuel ailyn Result - Final * Hepatitis C antibody, qualitative (09/14/2021 8:01 AM EDT) HCV NON-REACTIV E NON-REACTI VE [facility] Blood 09/14/2021 8:01 AM EDT 09/14/2021 8:05 AM EDT Dana Hoad Chenausky LOCAL CITY DRIVER LAB BLOOD ORDERABLES F inal Result [facility] [address] [place], [place] [id number] * OUTSIDE BONE DENSITY SCREENING (08/11/2021) [facility] BONE DENSITY SCREENING - EXTERNAL osteopenia us Historical Provider MD HEALTH MAINTENANCE Final Result from Last 3 Months or Most Recently Relevant to Health Maintenance Insurance MEDICARE REPLACEMENT MEDICARE REPLACEMENT MEDICARE REPLACEMENT MEDICARE REPLACEMENT MEDICARE REPLACEMENT MEDICARE REPLACEMENT Care Teams Barber Instructor Relationship Specialty Start Date End Date Unknown, Unknown, PCP - General 08/11/23 Additional Source Comments The information contained in this document represents components of the legal health record. It is not the complete legal health record.[facility]
--- OUTSIDE RECORDS SUMMARY | 2025-02-04 09:51 | XMS_ITS | Clinical Summary ---
Author Organization [address] Address [address] [place] [phone] Phone Care Team Providers Care Car Manager Name Role Phone Hector Soares DO Primary Care Provider [phone] Allergies Active Allergy Reactions Criticality Noted Date [...] (one) time each day. 10/16/19 25 Active letrozole (FEMARA) 2.5 mg tablet Take 1 tablet (2.5 mg total) by mouth 1 (one) time each day Active Active Problems Problem Noted Date Diagnosed Date Malignant 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, estrogen receptor positive, unspecified site of breast ([facility] V24, [facility] V28) 11/05/2024 Malignant neoplasm of upper- outer quadrant of right breast in female, estrogen receptor positive ([facility] V24, [facility] V28) 07/31/2024 Cancer Staging:Pathologic:Stage IA(pT1c, pN0, cM0, G1, ER+, CO-, HER2-, Oncotype DX score: 26) - Signed [...] do not improve. CHF (congestive heart failure) ([facility] V24, [facility] V28) 12/24/2021 Overview (07/24/2024): Last [...] Depression 07/11/2017 Overview (07/24/2024): Previously managed by [facility] on citalopram 40 mg daily. Weaned down to 20 mg and has been stable since earlier than 2012. Hypothyroidism 07/11/2017 Asthma 07/11/2017 Resolved Problems Problem Noted Date Diagnosed Date Resolved Date Sleep apnea 12/24/2021 07/31/2024 Overview (07/24/2024): Last Assessment & Plan: She is doing well with her CPAP at this time. Encounters Date Type Department Care Team Description 01/28/2025 11:23 AM EDT - 01/28/2025 11:59 PM EDT Hospital Encounter [facility] Radiation Oncology [address] [place] [phone] Jeannine Michaels, [place] Malignant neoplasm of upper-outer quadrant of right breast in female, estrogen receptor positive (CMS/HCC V24, CMS/HCC V28) (Primary Dx) Discharge Disposition: Home or Self Care 12/17/2024 9:56 AM EDT - 12/17/2024 11:59 PM EDT Hospital Encounter [facility] Radiation Oncology [address] [place] [phone] Jeannine Michaels, [place] Malignant neoplasm of upper-outer quadrant of right breast in female, estrogen receptor positive (CMS/HCC V24, CMS/HCC V28) (Primary Dx) Discharge Disposition: Home or Self Care 12/17/2024 9:42 AM EDT - 12/17/2024 11:59 PM EDT Hospital Encounter [facility] Radiation Oncology [address] [place] [phone] Discharge Disposition: Home or Self Care 12/16/2024 9:50 AM EDT - 12/16/2024 11:59 PM EDT Hospital Encounter [facility] Radiation Oncology [address] [place] [phone] Bean Wang MD Malignant neoplasm of upper-outer quadrant of right breast in female, estrogen receptor positive ([facility]/HCC V24, CMS/HCC V28) (Primary Dx) Discharge Disposition: Home or Self Care 12/16/2024 9:45 AM EDT - 12/16/2024 11:59 PM EDT Hospital Encounter [facility] Radiation Oncology [address] [place] [phone] Discharge Disposition: Home or Self Care 12/13/2024 9:37 AM EDT - 12/13/2024 11:59 PM EDT Hospital Encounter [facility] Radiation Oncology [address] [place] [phone] Discharge Disposition: Home or Self Care 12/12/2024 10:00 AM EDT - 12/12/2024 11:59 PM EDT Hospital Encounter [facility] Radiation Oncology [address] [place] [phone] Saulo Cueto MD Discharge Disposition: Home or Self Care 12/12/2024 9:45 AM EDT - 12/12/2024 11:59 PM EDT Hospital Encounter [facility] Radiation Oncology [address] [place] [phone] Discharge Disposition: Home or Self Care 12/11/2024 9:45 AM EDT - 12/11/2024 11:59 PM EDT Hospital Encounter [facility] Radiation Oncology [address] [place] [phone] Discharge Disposition: Home or Self Care 12/10/2024 9:36 AM EDT - 12/10/2024 11:59 PM EDT Hospital Encounter [facility] Radiation Oncology [address] [place] [phone] Discharge Disposition: Home or Self Care 12/09/2024 9:50 AM EDT - 12/09/2024 11:59 PM EDT Hospital Encounter [facility] Radiation Oncology [address] [place] [phone] Bean Wang MD Malignant neoplasm of upper-outer quadrant of right breast in female, estrogen receptor positive (CMS/HCC V24, CMS/HCC V28) (Primary Dx) Discharge Disposition: Home or Self Care 12/09/2024 9:37 AM EDT - 12/09/2024 11:59 PM EDT Hospital Encounter [facility] Radiation Oncology [address] [place] [phone] Discharge Disposition: Home or Self Care 12/09/2024 8:02 AM EDT - 12/09/2024 11:59 PM EDT Hospital Encounter [facility] Radiation Oncology [address] [place] [phone] Discharge Disposition: Home or Self Care 12/05/2024 8:13 AM EDT - 12/05/2024 11:59 PM EDT Hospital Encounter [facility] Radiation Oncology [address] [place] [phone] Discharge Disposition: Home or Self Care 12/04/2024 9:36 AM EDT - 12/04/2024 11:59 PM EDT Hospital Encounter [facility] Radiation Oncology [address] [place] [phone] Discharge Disposition: Home or Self Care 12/03/2024 9:55 AM EDT - 12/03/2024 11:59 PM EDT Hospital Encounter [facility] Radiation Oncology [address] [place] [phone] Bean Wang MD Malignant 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, estrogen receptor positive, unspecified site of breast (CMS/HCC V24, CMS/HCC V28) Discharge Disposition: Home or Self Care 12/03/2024 9:42 AM EDT - 12/03/2024 11:59 PM EDT Hospital Encounter [facility] Radiation Oncology [address] [place] [phone] Discharge Disposition: Home or Self Care 12/02/2024 9:50 AM EDT - 12/02/2024 11:59 PM EDT Hospital Encounter [facility] Radiation Oncology [address] [place] [phone] Bean Wang MD Malignant 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, estrogen receptor positive, unspecified site of breast (CMS/HCC V24, CMS/HCC V28) (Primary Dx) Discharge Disposition: Home or Self Care 12/02/2024 9:31 AM EDT - 12/02/2024 11:59 PM EDT Hospital Encounter [facility] Radiation Oncology [address] [place] [phone] Discharge Disposition: Home or Self Care 11/29/2024 9:45 AM EDT - 11/29/2024 11:59 PM EDT Hospital Encounter [facility] Radiation Oncology [address] [place] [phone] Discharge Disposition: Home or Self Care 11/28/2024 9:37 AM EDT - 11/28/2024 11:59 PM EDT Hospital Encounter [facility] Radiation Oncology [address] [place] [phone] Discharge Disposition: Home or Self Care 11/27/2024 9:36 AM EDT - 11/27/2024 11:59 PM EDT Hospital Encounter [facility] Radiation Oncology [address] [place] [phone] Discharge Disposition: Home or Self Care 11/26/2024 9:08 AM EDT - 11/26/2024 11:59 PM EDT Hospital Encounter [facility] Radiation Oncology [address] [place] [phone] Discharge Disposition: Home or Self Care 11/25/2024 9:15 AM EDT - 11/25/2024 11:59 PM EDT Hospital Encounter [facility] Radiation Oncology [address] [place] [phone] Bean Wang MD Malignant 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, estrogen receptor positive, unspecified site of breast (CMS/HCC V24, CMS/HCC V28) (Primary Dx) Discharge Disposition: Home or Self Care 11/25/2024 9:06 AM EDT - 11/25/2024 11:59 PM EDT Hospital Encounter [facility] Radiation Oncology [address] [place] [phone] Discharge Disposition: Home or Self Care 11/22/2024 8:36 AM EDT - 11/22/2024 11:59 PM EDT Hospital Encounter [facility] Radiation Oncology [address] [place] [phone] Discharge Disposition: Home or Self Care 11/21/2024 9:37 AM EDT - 11/21/2024 11:59 PM EDT Hospital Encounter [facility] Radiation Oncology [address] [place] [phone] Discharge Disposition: Home or Self Care 11/20/2024 9:10 AM EDT - 11/20/2024 11:59 PM EDT Hospital Encounter [facility] Radiation Oncology [address] [place] [phone] Discharge Disposition: Home or Self Care 11/19/2024 11:30 AM EDT - 11/19/2024 11:59 PM EDT Hospital Encounter [facility] Radiation Oncology [address] [place] [phone] Lety Bryant MD Discharge Disposition: Home or Self Care 11/19/2024 11:15 AM EDT - 11/19/2024 11:59 PM EDT Hospital Encounter [facility] Radiation Oncology [address] [place] [phone] Discharge Disposition: Home or Self Care 11/14/2024 3:39 PM EDT - 11/14/2024 11:59 PM EDT Hospital Encounter [facility] Radiation Oncology [address] [place] [phone] Discharge Disposition: Home or Self Care 11/12/2024 10:55 AM EDT - 11/12/2024 11:59 PM EDT Hospital Encounter [facility] Radiation Oncology [address] [place] [phone] Bean Wang MD Malignant 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, estrogen receptor positive, unspecified site of breast ([facility] V24, [facility] V28) Discharge Disposition: Home or Self Care 11/12/2024 10:15 AM EDT - 11/12/2024 11:59 PM EDT Hospital Encounter [facility] Radiation Oncology [address] [place] [phone] Malignant 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, estrogen receptor positive, unspecified site of breast ([facility]/HCC V24, [facility] V28) (Primary Dx) Discharge Disposition: Home or Self Care 11/05/2024 8:58 AM EDT - 11/05/2024 11:59 PM EDT Hospital Encounter [facility] Radiation Oncology [address] [place] [phone] Bean Wang MD Malignant neoplasm of upper-outer quadrant of right breast in female, estrogen receptor positive ([facility] V24, [facility] V28) (Primary Dx) Discharge Disposition: [...] DX:Hypothyroidis m Covid-19 DX:COVID-19 Cough DX:Cough Cancer ([facility] V24, [facility] V28) Sleep apnea 12/24/2021 Last Assessment & Plan: She is doing well with her CPAP at this time. Breast cancer ([facility] V24, [facility] V28) 05/28 Uterine prolapse Prolapse [...] Brother 1 Cancer Mother's Brother 2 [facility]diel [facility] Mother's Sister 1 Guera Queiros [...] Guera Queiros. Aunt Breast cancer Sister Joellen Palaciosr. B reast cancer Cancer Sister Joellen Palaciosr. B reast cancer Thyroid disease Sister Joellen Malik. B reast cancer Relation Name Status Comments Brother Horacio Cespedes Father Rosas Cespedes Father's Brother Father's Sister Mother Nuha Rubina Mother's Brother 1 Mother's Brother 2 Magdiel Israel troat cancer Mother's Sister 1 Guera Queiros Mother's Sister 2 Breast cancer. 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 Not on file Not on fi le Not on file Obstetrics History Para Term AB IAB SAB Ectopic Multiple Livin g Live Births 3 2 Date Outcome GA Total Labor Labor/2nd/3rd Weight Sex Type Anes PTL Azucena A1 A5 Name Clin Para Para Last Filed Vital Signs Vital Sign Reading Time Taken Comments Blood Pressure 134/82 01/28/2025 11:27 AM EDT Pulse 66 01/28/2025 11:27 AM EDT Temperature 36 C (96.8 F) 01/28/2025 11:27 AM EDT Respiratory Rate 16 01/28/2025 11:27 AM EDT Oxygen Saturation 96% 01/28/2025 11:27 AM EDT Inhaled Oxygen Concentration - - Weight 69 kg (152 lb 3.2 oz) 01/28/2025 11:27 AM EDT Height 160 cm (5' 3 ) 01/28/2025 11:27 AM EDT Body Mass Index 26.96 01/28/2025 11:27 AM EDT Plan of Treatment Health Maintenance Due [...] V24) New medication added ALANINE AMINOTRANSFERASE Routine 025 7:20 AM EDT HLD (hyperlipidemia) Luder-gio syndrome [...] 9:56 AM EDT Physician Radiation Oncology RADIATION ONCOLO [...] MOSAIQ RADIATION ONCOLOGY 12/13/2024 9:52 AM EDT Physician Radiation Oncology RADIATION ONCOLO [...] GY ORDERABLES Final Result Performing Organization Address City/[facility]/ZIP Co de Phone Number MOSAIQ RADIATION ONCOLOGY [...] 9:47 AM EDT Physician Radiation Oncology RADIATION ONCOLO [...] 9:55 AM EDT Physician Radiation Oncology RADIATION ONCOLO [...] GY ORDERABLES Final Result Performing Organization Address City/[facility] Co de Phone Number MOSAIQ RADIATION ONCOLOGY * Lipid panel with reflex to direct LDL (12/02/2024 7:20 AM EDT) Cholesterol 166 0 - 200 mg/dL LAB CHEMISTRY METHOD 12/02/2024 12:10 PM EDT [facility] Triglycerides 63 0 - 150 mg/dL LAB CHEMISTRY METHOD 12/02/2024 12:10 PM EDT [facility] HDL 74 >=40 mg/dL LAB CHEMISTRY METHOD 12/02/2024 12:10 PM EDT [facility] LDL Calculated 79 0 - 100 mg/dL LAB CHEMISTRY METHOD 12/02/2024 12:10 PM EDT [facility] VLDL Cholesterol Gary 12.6 mg/dL LAB CHEMISTRY METHOD 12/02/2024 12:10 PM EDT [facility] Non HDL Chol. (LDL+VLDL) 92 <145 mg/dL LAB CHEMISTRY METHOD 12/02/2024 12:10 PM EDT [facility] Chol/HDL Ratio 2.2 0.0 - 4.4 LAB CHEMISTRY METHOD 12/02/2024 12:10 PM EDT [facility] Blood Venous blood specimen / Unknown Venipuncture / Unknown 12/02/2024 7:20 AM EDT 12/02/2024 7:20 AM EDT Nelson Barillas LAB BLOOD ORDERABLES Final Resul t Performing Organization Address City/[facility]/ZIP Co de Phone Number [facility] [address] [place] [address], [place] [phone] * Alanine aminotransferase (12/02/2024 7:20 AM EDT) ALT (SGPT) 17 10 - 60 unit/L LAB CHEMISTRY METHOD 12/02/2024 12:10 PM EDT [facility] Blood Venous blood specimen / Unknown Venipuncture / Unknown 12/02/2024 7:20 AM EDT 12/02/2024 7:20 AM EDT Nelson Barillas LAB BLOOD ORDERABLES Final Resul t [facility] [address] [place] [address], [place] [phone] * Aspartate aminotransferase (12/02/2024 7:20 AM EDT) AST (SGOT) 10 10 - 42 unit/L LAB CHEMISTRY METHOD 12/02/2024 12:05 PM EDT [facility] Blood Venous blood specimen / Unknown Venipuncture / Unknown 12/02/2024 7:20 AM EDT 12/02/2024 7:20 AM EDT Nelson Orozco LAB BLOOD ORDERABLES Final Resul t [facility] [address] [place] [address], [place] [phone] * Creatine kinase (12/02/2024 7:20 AM EDT) Pathologist [facility] Total CK 41 22 - 269 unit/L LAB CHEMISTRY METHOD 12/02/2024 12:10 PM EDT [facility] Blood Venous blood specimen / Unknown Venipuncture / Unknown 12/02/2024 7:20 AM EDT 12/02/2024 7:20 AM EDT Nelson Elizabethmera LAB BLOOD ORDERABLES Final Resul t Performing Organization Address City/[facility]/ZIP Co de Phone Number [facility] [address] [place] [address], [place] [phone] * Rad Onc Msq Treatment Summary (11/29/2024 9:57 AM EDT) Pathologist [facility] Treatment Site Right Breast MO SAIQ RADIATION [...] MOSAIQ RADIATION ONCOLOGY 11/29/2024 9:57 AM EDT us Physician Radiation Oncology RADIATION [...] 9:52 AM EDT Physician Radiation Oncology RADIATION ONCOLO GY ORDERABLES Final Result Performing Organization Address City/[facility]/ZIP Co de Phone Number MOSAIQ RADIATION ONCOLOGY [...] 9:14 AM EDT Physician Radiation Oncology RADIATION ONCMARCOS [...] 8:44 AM EDT Physician Radiation Oncology RADIATION ONCMARCOS [...] 9:54 AM EDT Physician Radiation Oncology RADIATION ONCMARCOS [...] GY ORDERABLES Final Result Performing Organization Address City/State/[facility] Co de Phone Number MOS[facility]Q RADIATION ONCOLOGY from Last 3 Months Insurance [facility] MEDICARE MEDICARE Care Teams Car Manager Relationship Specialty Start Date End Date Hector Soares DO [address] [place] [phone] PCP - General Internal Medicine 07/09/24
== END 2025-02-04 09:20 | disposition home or self-care (01) ==
PROVIDERS: PCP Internal Medicine; Visit Provider Surgery
DX: C50.911 Malignant neoplasm of unspecified site of right female breast (principal)
CPT/HCPCS: 99213; G2211

== ENCOUNTER → 2025-02-04 09:01 | Outpatient (BNVA) | payer OTHER, MEDICARE, SELFPAY | PROVIDERS: PCP Internal Medicine; Visit Provider Surgery | DX: Z85.3 Personal history of malignant neoplasm of breast (principal) | CPT/HCPCS: 99212 ==

== ENCOUNTER 2025-02-06 09:12 | Outpatient (AMB) | payer MEDICARE, SELFPAY ==
--- NOTE | 2025-02-06 09:05 | MHC.WMTHER ---
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 Presence of pessary Back pain History of one miscarriage Hypothyroidism GERD (gastroesophageal reflux disease) Anxiety Depression Hypertension Sleep apnea treated with continuous positive airway pressure (CPAP) Surgical History History of lumpectomy of right breast (06/17/24) S/P laparoscopic sleeve gastrectomy Hx of wisdom tooth extraction Hx of dilation and curettage Hx of esophagogastroduodenoscopy (03/05/24) Hx of colonoscopy Hx of tubal ligation Family History Mother Lung cancer Brother Multiple myeloma Sister PONV (postoperative nausea and vomiting) Breast CA, Onset Age: 40 Maternal Aunt Colon cancer Family/Other Breast CA, Onset Age: 40 Maternal Uncle Esophageal cancer Prostate cancer Maternal Aunt Lung cancer Maternal Aunt Cancer of kidney Maternal Aunt Breast CA Social History Household Members: Children Housing: Apartment Are you a primary hospice care transitions coordinator to a significant other at home: No Do you presently have visiting nurse or other home services: No Alcohol intake: current Alcohol intake frequency: does not drink Comment: 1 wkly Patient Tobacco Use Status: Never used Tobacco e-Cigarette/Vaping Use: Never Used Second Hand Smoke Exposure: No service: No Female Reproductive History Menstrual Age of Menarche: 14 Behavioral Health Assessment Weight Management Therapy Therapy Notes Details Subjective: Patient reports walking daily and playing pickleball1-2 x week. 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 She has completed radiation therapy and is now on oral therapy for 5?10 years. She is scheduled to see her surgeon in 6 months. Patient met with [facility] and has a new meal plan that includes more food. She notes increased hunger but also reports decreased water intake. Recent weight is 150 lbs; her goal is 145 lbs. Patient reports improved mood and tries to stay busy; however, she experiences negative thinking and sadness during downtime. Objective: On today?s telehealth follow-up, the patient appeared alert, appropriately dressed, and cooperative, with a euthymic mood and logical thought process. No evidence of psychosis, suicidal, or homicidal ideation was present. The session included a review of how ?being busy? can serve as an avoidance mechanism, and she was encouraged to incorporate calm activities such as reading, sewing, and listening to podcasts to allow for restful downtime. Additional interventions included psychoeducation on the importance of balanced activity and rest, discussion of strategies for mindful hydration and setting reminders to increase water intake, review of meal plan adherence with attention to hunger cues and satiety, reinforcement of mood tracking to identify patterns related to activity and downtime, encouragement of brief mindfulness or grounding exercises during periods of negative thinking, and review of coping strategies for managing sadness and negative thoughts during unstructured time. Assessment/Response: Mental status: WNL Risk reported/identified: None. Assessment & Plan Assessment & Plan (1) Depression: Code(s): F32.A - Depression, unspecified Qualifiers: Depression Type: unspecified Qualified Code(s): F32.A - Depression, unspecified Plan The plan is to follow up in one month, with the next appointment scheduled for 03/12/25 at 2:00 pm via video. She will continue to monitor mood and activity levels, use coping strategies, engage in both active and restful activities, reinforce hydration and meal plan adherence, and ongoing assessment for changes in mood or risk at each visit. Telehealth Telehealth Telehealth Platform: [employer] Location of provider rendering services: other (Home office. [place], [place]) Location of patient: address on file Patient Identification confirmed using: Name, : Yes Telehealth method: video Patient verbally consented to treatment: Yes Patient verbally consented to billing insurance company: Yes Patient informed of any privacy concerns related to visit: Yes Minutes spent on Phone/Video with Pt.: 55 Coding Level of Care Code Established Pt Tele Psytx >53 mins (48496) Patient Type Established Diagnoses Depression, unspecified depression type F32.A Depression Type: unspecified Time Spent (min) 55
--- OUTSIDE RECORDS SUMMARY | 2025-02-06 09:43 | XMS_ITS ---
Author Organization [facility] Address [address] [place] [phone] Phone Care Team Providers Care Director Of Science Name Role Phone Rodger Hector Primary Care Provider [phone] Active Problems Problem Noted Date Diagnosed Date Malignant 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, estrogen receptor positive, unspecified site of breast (CMS/HCC V24, CMS/HCC V28) 11/05/2024 Malignant neoplasm of upper- outer quadrant of right breast in female, estrogen receptor positive (CMS/HCC V24, CMS/[facility] V28) 07/31/2024 Cancer Staging:Pathologic:Stage IA(pT1c, pN0, cM0, G1, ER+, TN-, HER2-, Oncotype [...] do not improve. CHF (congestive heart failure) (CMS/[facility] V24, CMS /HCC V28) 12/24/2021 Overview (07/24/2024): [...] Depression 07/11/2017 Overview (07/24/2024): Previously managed by [facility] on citalopram 40 mg daily. Weaned down [...]
--- OUTSIDE RECORDS SUMMARY | 2025-02-06 09:43 | XMS_ITS | Clinical Summary ---
Author Organization [facility] Address [facility] [employer] [address] [address] Phone Care Team Providers Care Chief Technician X Ray Name Role Phone Unknown, Unknown MD Primary [...] Depression 07/11/2017 Overview (07/14/2018): Previously managed by [facility] on [...] She will also be meeting with a air hose coupler in the interim. Defer discussion of stimulant [...] EDT) SODIUM 138 133 - 146 mmol/L [facility] POTASSIUM 4.2 3.3 - 5.1 mmol/L [facility] Comment:Specimen slightly he molyzed, result may be falsely elevated. CHLORIDE 103 96 - 108 mmol/L [facility] CO2 26 21 - 35 mmol/L [facility] BUN 16 6 - 19 mg/dL [facility] CREATININE 0.80 0.5 - 1.5 mg/dL [facility] GLUCOSE 98 70 - 99 mg/dL [facility] ALBUMIN 4.5 3.9 - 4.8 g/dL [facility] TOTAL PROTEIN 7.9 6.5 - 8.0 g/dL [facility] CALCIUM 9.7 8.4 - 10.3 mg/dL [facility] ALKALINE PHOSPHATASE 65 39 - 117 U/L [facility] TOTAL BILIRUBIN 0.3 0.0 - 1.2 mg/dL [facility] AST 22 0 - 37 U/L [facility] ALT 16 0 - 40 U/L [facility] GLOBULIN 3.4 1 - 4.8 g/dL [facility] EGFR 81 >59 mL/min/1.7 3m2 [facility] Comment:Estimated glomerular filtration rate calculated using the CKD-EPI refit equation. ANION GAP 13 10 - 20 mmol/L [facility] Blood 03/09/2023 9:40 AM EDT 03/09/2023 9:44 AM EDT Latanya Hill NP LAB BLOOD ORDERABLES Final Resu lt Performing Organization Address City/[facility]/ZIP Co de Phone Number [address] [address] * TSH (03/09/2023 9:40 AM EDT) TSH 0.27 0.27 - 4.20 uIU/mL [facility] Blood 03/09/2023 9:40 AM EDT 03/09/2023 9:44 AM EDT Latanya Hill NP LAB BLOOD ORDERABLES Final Resu lt Performing Organization Address [facility]/ZIP Co de Phone Number [address] [address] * (ABNORMAL) Lipid panel (03/09/2023 9:40 AM EDT) HDL 59 mg/dL [facility] Comment: Interpretation <40 mg/dL: Low HDL cholesterol (major risk factor for CHD) Greater than or equal to 60 mg/dL: High HDL cholesterol ( negative risk factor for CHD) HDL - cholesterol is affected by a number of factors, e.g. smoking, excerise, hormones, sex and age. CHOLESTEROL 216 0 - 240 mg/dL [facility] TRIGLYCERIDES 107 30 - 160 mg/dL [facility] LDL 136(H) 50 - 129 mg/dL [facility] Comment: LDL levels in terms of risk for coronary heart disease: <100 mg/dL: Optimal 100-129 mg/dL: Near or above optimal 130-159 mg/dL: Borderline high 160-189 mg/dL: High >190 mg/dL: Very High CARDIAC RISK RATIO 3.7 3.3 - 4.4 C [facility] Blood 03/09/2023 9:40 AM EDT 03/09/2023 9:44 AM EDT us Latanya Hill NP LAB BLOOD ORDERABLES Final Resu lt [address] [address] * Pap Test (03/03/2023 12:00 AM EDT) 03/03/2023 03/06/2023 8:4 4 AM EDT Narrative SEE NARRATIVE - 03/08/2023 4:42 PM EDT [address] [address] Signal Tower Director: Rayna Mccullough MD EDGER TECHNICIAN Cytology Report FINAL DIAGNOSIS A. PAP SMEAR [...] 16, 18 and 45. Testing performed by [employer] On[facility]arity HR-HPV analysis. Clinical correlation is advised. This HPV test was performed at [facility], [address] [place] [address]. This test has been FDA approved for [facility] cervical cytology specimens. The accuracy and precision of this test for all other specimen sources has been verified in the Cytopathology Laboratory of the [facility] and has not been cleared or approved by the U.S. Food and Drug Administration. Clinical correlation is advised. CLINICAL HISTORY Date of Last Menstrual Period: Not Provided Menstrual History: Post Menopausal Infection History: HPV: OTHER HIGH RISK, Other Clinical Conditions: Screening Pap SPECIMEN SOURCE A: PAP SMEAR (SUREPATH) CE Patient Name: HUMA CESPEDES : 1955 (Age: 67) Sex: F Institution: [facility] Location: [facility] Date of Collection: 03/03/2023 Date of Reported: 03/08/2023 16:42 Results to: Latanya Hill MSN, BSN Latanya Hill [facility] CYTOLOGY ORDERABLES Final Resul t SEE NARRATIVE * MAMMOGRAPHY FOR RESULT ENTRY ONLY (09/26/2022) Dana Mayberry CNP HEALTH MAINTENANCE Emmanuel ailyn Result - Final * Hepatitis C antibody, qualitative (09/14/2021 8:01 AM EDT) HCV NON-REACTIV E NON-REACTI VE [facility] Blood 09/14/2021 8:01 AM EDT 09/14/2021 8:05 AM EDT Dana Hoda Chenausky SUPERVISOR [employer] LAB BLOOD ORDERABLES F inal Result [facility] [address] [place], [place] [id number] * OUTSIDE BONE DENSITY SCREENING (08/11/2021) [facility] BONE DENSITY SCREENING - EXTERNAL osteopenia us Historical Provider MD HEALTH MAINTENANCE Final Result from Last 3 Months or Most Recently Relevant to Health Maintenance Insurance MEDICARE REPLACEMENT MEDICARE REPLACEMENT MEDICARE REPLACEMENT MEDICARE REPLACEMENT MEDICARE REPLACEMENT MEDICARE REPLACEMENT Care Teams Chief Technician X Ray Relationship Specialty Start Date End Date Unknown, Unknown, PCP - General 08/11/23 Additional Source Comments The information contained in this document represents components of the legal health record. It is not the complete legal health record.[facility]
--- OUTSIDE RECORDS SUMMARY | 2025-02-06 09:43 | XMS_ITS | Clinical Summary ---
Author Organization [address] Address [address] [place] [phone] Phone Care Team Providers Care Underground Foreman Name Role Phone Hector Soares DO Primary Care Provider [phone] Allergies Active Allergy Reactions Criticality Noted Date [...] estrogen receptor positive, unspecified site of breast ([facility] V24, [facility] V28) 11/05/2024 Malignant neoplasm of upper- outer quadrant of right breast in female, estrogen receptor positive ([facility] V24, [facility] V28) 07/31/2024 Cancer Staging:Pathologic:Stage IA(pT1c, pN0, cM0, G1, ER+, VA-, HER2-, Oncotype DX score: 26) - Signed [...] do not improve. CHF (congestive heart failure) ([facility] V24, [facility] V28) 12/24/2021 Overview (07/24/2024): Last Assessment [...] Depression 07/11/2017 Overview (07/24/2024): Previously managed by [facility] on citalopram 40 mg daily. Weaned [...] - 01/28/2025 11:59 PM EDT Hospital Encounter [facility] [address] [place] [phone] Jeannine Michaels, [place] Malignant neoplasm of upper-outer quadrant of right breast in female, estrogen receptor positive (CMS/HCC V24, CMS/HCC V28) (Primary Dx) Discharge Disposition: Home or Self Care 12/17/2024 9:56 AM EDT - 12/17/2024 11:59 PM EDT Hospital Encounter [facility] [address] [place] [phone] Jeannine Michaels, [place] Malignant neoplasm of upper-outer quadrant of right breast in female, estrogen receptor positive (CMS/HCC V24, CMS/HCC V28) (Primary Dx) Discharge Disposition: Home or Self Care 12/17/2024 9:42 AM EDT - 12/17/2024 11:59 PM EDT Hospital Encounter [facility] [address] [place] [phone] Discharge Disposition: Home or Self Care 12/16/2024 9:50 AM EDT - 12/16/2024 11:59 PM EDT Hospital Encounter [facility] [address] [place] [phone] Bean Wang MD Malignant neoplasm of upper-outer quadrant of right breast in female, estrogen receptor positive ([facility]/HCC V24, CMS/HCC V28) (Primary Dx) Discharge Disposition: Home or Self Care 12/16/2024 9:45 AM EDT - 12/16/2024 11:59 PM EDT Hospital Encounter [facility] [address] [place] [phone] Discharge Disposition: Home or Self Care 12/13/2024 9:37 AM EDT - 12/13/2024 11:59 PM EDT Hospital Encounter [facility] [address] [place] [phone] Discharge Disposition: Home or Self Care 12/12/2024 10:00 AM EDT - 12/12/2024 11:59 PM EDT Hospital Encounter [facility] [address] [place] [phone] Saulo Cueto MD Discharge Disposition: Home or Self Care 12/12/2024 9:45 AM EDT - 12/12/2024 11:59 PM EDT Hospital Encounter [facility] [address] [place] [phone] Discharge Disposition: Home or Self Care 12/11/2024 9:45 AM EDT - 12/11/2024 11:59 PM EDT Hospital Encounter [facility] [address] [place] [phone] Discharge Disposition: Home or Self Care 12/10/2024 9:36 AM EDT - 12/10/2024 11:59 PM EDT Hospital Encounter [facility] [address] [place] [phone] Discharge Disposition: Home or Self Care 12/09/2024 9:50 AM EDT - 12/09/2024 11:59 PM EDT Hospital Encounter [facility] [address] [place] [phone] Bean Wang MD Malignant neoplasm of upper-outer quadrant of right breast in female, estrogen receptor positive (CMS/HCC V24, CMS/HCC V28) (Primary Dx) Discharge Disposition: Home or Self Care 12/09/2024 9:37 AM EDT - 12/09/2024 11:59 PM EDT Hospital Encounter [facility] [address] [place] [phone] Discharge Disposition: Home or Self Care 12/09/2024 8:02 AM EDT - 12/09/2024 11:59 PM EDT Hospital Encounter [facility] [address] [place] [phone] Discharge Disposition: Home or Self Care 12/05/2024 8:13 AM EDT - 12/05/2024 11:59 PM EDT Hospital Encounter [facility] [address] [place] [phone] Discharge Disposition: Home or Self Care 12/04/2024 9:36 AM EDT - 12/04/2024 11:59 PM EDT Hospital Encounter [facility] [address] [place] [phone] Discharge Disposition: Home or Self Care 12/03/2024 9:55 AM EDT - 12/03/2024 11:59 PM EDT Hospital Encounter [facility] [address] [place] [phone] Bean Wang MD Malignant 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, estrogen receptor positive, unspecified site of breast (CMS/HCC V24, CMS/HCC V28) Discharge Disposition: Home or Self Care 12/03/2024 9:42 AM EDT - 12/03/2024 11:59 PM EDT Hospital Encounter [facility] [address] [place] [phone] Discharge Disposition: Home or Self Care 12/02/2024 9:50 AM EDT - 12/02/2024 11:59 PM EDT Hospital Encounter [facility] [address] [place] [phone] Bean Wang MD Malignant 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, estrogen receptor positive, unspecified site of breast (CMS/HCC V24, CMS/HCC V28) (Primary Dx) Discharge Disposition: Home or Self Care 12/02/2024 9:31 AM EDT - 12/02/2024 11:59 PM EDT Hospital Encounter [facility] [address] [place] [phone] Discharge Disposition: Home or Self Care 11/29/2024 9:45 AM EDT - 11/29/2024 11:59 PM EDT Hospital Encounter [facility] [address] [place] [phone] Discharge Disposition: Home or Self Care 11/28/2024 9:37 AM EDT - 11/28/2024 11:59 PM EDT Hospital Encounter [facility] [address] [place] [phone] Discharge Disposition: Home or Self Care 11/27/2024 9:36 AM EDT - 11/27/2024 11:59 PM EDT Hospital Encounter [facility] [address] [place] [phone] Discharge Disposition: Home or Self Care 11/26/2024 9:08 AM EDT - 11/26/2024 11:59 PM EDT Hospital Encounter [facility] [address] [place] [phone] Discharge Disposition: Home or Self Care 11/25/2024 9:15 AM EDT - 11/25/2024 11:59 PM EDT Hospital Encounter [facility] [address] [place] [phone] Bean Wang MD Malignant 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, estrogen receptor positive, unspecified site of breast (CMS/HCC V24, CMS/HCC V28) (Primary Dx) Discharge Disposition: Home or Self Care 11/25/2024 9:06 AM EDT - 11/25/2024 11:59 PM EDT Hospital Encounter [facility] [address] [place] [phone] Discharge Disposition: Home or Self Care 11/22/2024 8:36 AM EDT - 11/22/2024 11:59 PM EDT Hospital Encounter [facility] [address] [place] [phone] Discharge Disposition: Home or Self Care 11/21/2024 9:37 AM EDT - 11/21/2024 11:59 PM EDT Hospital Encounter [facility] [address] [place] [phone] Discharge Disposition: Home or Self Care 11/20/2024 9:10 AM EDT - 11/20/2024 11:59 PM EDT Hospital Encounter [facility] [address] [place] [phone] Discharge Disposition: Home or Self Care 11/19/2024 11:30 AM EDT - 11/19/2024 11:59 PM EDT Hospital Encounter [facility] [address] [place] [phone] Lety Bryant MD Discharge Disposition: Home or Self Care 11/19/2024 11:15 AM EDT - 11/19/2024 11:59 PM EDT Hospital Encounter [facility] [address] [place] [phone] Discharge Disposition: Home or Self Care 11/14/2024 3:39 PM EDT - 11/14/2024 11:59 PM EDT Hospital Encounter [facility] [address] [place] [phone] Discharge Disposition: Home or Self Care 11/12/2024 10:55 AM EDT - 11/12/2024 11:59 PM EDT Hospital Encounter [facility] [address] [place] [phone] Bean Wang MD Malignant 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, estrogen receptor positive, unspecified site of breast ([facility] V24, [facility] V28) Discharge Disposition: Home or Self Care 11/12/2024 10:15 AM EDT - 11/12/2024 11:59 PM EDT Hospital Encounter [facility] [address] [place] [phone] Malignant 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, estrogen receptor positive, unspecified site of breast (CMS/HCC V24, CMS/[facility] V28) (Primary Dx) Discharge Disposition: Home or [...] DX:Hypothyroidis m Covid-19 DX:COVID-19 Cough DX:Cough Cancer (CMS/HCC V24, CMS/HCC V28) Sleep apnea 12/24/2021 Last Assessment & Plan: She is doing well with her CPAP at this time. Breast cancer (CMS/HCC V24, CMS/HCC V28) 05/28 Uterine prolapse Prolapse of female pelvic organs 2021 Family History Medical History Relation Name Comments Cancer Brother Horacio Cespedes Multiple myeloma Brother Horacio Cespedes Heart attack Father Rosas Cespedes Heart disease Father Rosas Cespedse Hypertension Father Rosas Cespedes Colon cancer Father's Brother or stomach cancer? Lung cancer Father's Sister Cancer Mother Nuharenetta Cespedes Lung cancer Mother Nuharenetta Thomasi Thyroid disease Mother Nuha Cespedes Esophageal cancer Mother's Brother 1 Prostate cancer Mother's Brother 1 Cancer Mother's Brother 2 Magdiel Israel kylie [facility] Cancer Mother's Sister 1 Guera Queiros Colon cancer Mother's Sister 1 Guear Queiros Cancer Mother's Sister 2 Breast cancer. Mohini Israel Lung cancer Mother's Sister 2 Breast cancer. Mohini Israel also with bladder cancer Cancer Mother's Sister 3 Colon cancer. Melissa Astorga Breast cancer Mother's Sister 4 Diabetes Mother's Sister 5 Melissa Astorga Thyroid disease Mother's Sister 6 Guera Queiros. Aunt Breast cancer Sister Joellen Hunthear. B reast cancer Cancer Sister Joellen Gan. B reast cancer Thyroid disease Sister Joellen Gan. B reast cancer Relation Name Status Comments Brother Horacio Cespedes Father Rosas Cespedes Father's Brother Father's Sister Mother Nuha Cespedes Mother's Brother 1 Mother's Brother 2 Magdiel Israel troat cancer Mother's Sister 1 Guera Hollidays Mother's Sister 2 Breast cancer. Mohini Israel Mother's Sister 3 Colon cancer. Melissa Astorga Mother's Sister 4 Alive Mother's Sister 5 Melissa Astorga Mother's Sister 6 Guera Queiros. Aunt Sister Joellen Gna. 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 Not on fi [...] 05/03/2022 Social Influencers of Health Screening 05/03/2022 DTaP,Tdap,and Td Vaccines (2 - Td or Tdap) 03/03/2024 03/03/2014 Hypertension/CHF/CAD Annual BMP Blood Test 03/09/2024 03/09/2023, 09/14/2021, 03/04/2021, Additional history exists Depression Screening 06/05/2024 COVID-19 Vaccine ( season) 2025 06/13/2022, 05/02/2021, 09/03/2020, Additional history exists Influenza Vaccine (#1) 2025 , 03/03/2023, 04/22/2022, [...] 5 AM EDT Physician Radiation Oncology RADIATION ONCMARCOS [...] 5 AM EDT Physician Radiation Oncology RADIATION ONCMARCOS [...] 8:20 AM EDT Physician Radiation Oncology RADIATION ONCOLO [...] 12/02/2024 9:57 AM EDT Physician Radiation Oncology MD RADIATION ONCOLO GY ORDERABLES Final Result [facility] RADIATION ONCOLOGY * Lipid panel with reflex to direct LDL (12/02/2024 7:20 AM EDT) Cholesterol 166 0 - 200 mg/dL LAB CHEMISTRY METHOD 12/02/2024 12:10 PM EDT [facility] Triglycerides 63 0 - 150 mg/dL LAB CHEMISTRY METHOD 12/02/2024 12:10 PM EDT [facility] HDL 74 >=40 mg/dL LAB CHEMISTRY METHOD 12/02/2024 12:10 PM EDT [facility] LDL Calculated 79 0 - 100 mg/dL LAB CHEMISTRY METHOD 12/02/2024 12:10 PM EDT [facility] VLDL Cholesterol Gary 12.6 mg/dL LAB CHEMISTRY METHOD 12/02/2024 12:10 PM EDT [facility] Non HDL Chol. (LDL+VLDL) 92 <145 mg/dL LAB CHEMISTRY METHOD 12/02/2024 12:10 PM EDT [facility] Chol/HDL Ratio 2.2 0.0 - 4.4 LAB CHEMISTRY METHOD 12/02/2024 12:10 PM EDT [facility] Blood Venous blood specimen / Unknown Venipuncture / Unknown 12/02/2024 7:20 AM EDT 12/02/2024 7:20 AM EDT [facility] [employer] LAB BLOOD ORDERABLES Final Resul t Performing Organization Address City/[facility]/ZIP Co de Phone Number [facility] [address] [place] [address], [place] [phone] * Alanine aminotransferase (12/02/2024 7:20 AM EDT) ALT (SGPT) 17 10 - 60 unit/L LAB CHEMISTRY METHOD 12/02/2024 12:10 PM EDT [facility] Blood Venous blood specimen / Unknown Venipuncture / Unknown 12/02/2024 7:20 AM EDT 12/02/2024 7:20 AM EDT [facility] LAB BLOOD ORDERABLES Final Resul t Performing Organization Address [facility]/ZIP Co de Phone Number [facility] [address] [place] [address], [place] [phone] * Aspartate aminotransferase (12/02/2024 7:20 AM EDT) AST (SGOT) 10 10 - 42 unit/L LAB CHEMISTRY METHOD 12/02/2024 12:05 PM EDT [facility] Blood Venous blood specimen / Unknown Venipuncture / Unknown 12/02/2024 7:20 AM EDT 12/02/2024 7:20 AM EDT [employer] LAB BLOOD ORDERABLES Final Resul t Performing Organization Address [facility]/ZIP Co de Phone Number [facility] [address] [place] [address], [place] [phone] * Creatine kinase (12/02/2024 7:20 AM EDT) Total CK 41 22 - 269 unit/L LAB CHEMISTRY METHOD 12/02/2024 12:10 PM EDT [facility] Blood Venous blood specimen / Unknown Venipuncture / Unknown 12/02/2024 7:20 AM EDT 12/02/2024 7:20 AM EDT [facility] LAB BLOOD ORDERABLES Final Resul t [facility] [address] [place] [address], [place] [phone] * Rad Onc Msq Treatment Summary (11/29/2024 9:57 AM EDT) Pathologist [facility] [place] Treatment Site Right Breast MO SAIQ RADIATION [...] Oncology RADIATION ONCMARCOS GY ORDERABLES Final Result Performing Organization Address City[facility]/ZIP Co de Phone Number [facility] RADIATION ONCOLOGY [...] 9:23 AM EDT Physician Radiation Oncology RADIATION ONCOLO [...] 9:20 AM EDT Physician Radiation Oncology RADIATION ONCMARCOS [...] GY ORDERABLES Final Result [facility] RADIATION ONCOLOGY from Last 3 Months Insurance [facility] MEDICARE MEDICARE Care Teams Underground Foreman Relationship Specialty Start Date End Date Hector Soares DO [address] [place] [phone] PCP - General Internal Medicine 07/09/24
== END 2025-02-06 09:52 | disposition home or self-care (01) ==
LOC: HO.HBST 09:12
PROVIDERS: PCP Internal Medicine; Visit Provider Counselor Mental Health
DX: F32.A Depression, unspecified (principal)
CPT/HCPCS: 90837

== ENCOUNTER 2025-03-12 14:14 | Outpatient (AMB) | payer MEDICARE, SELFPAY ==
--- NOTE | 2025-03-12 14:00 | A.OFFWM_ITS ---
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 Presence of pessary Back pain History of one miscarriage Hypothyroidism GERD (gastroesophageal reflux disease) Anxiety Depression Hypertension Sleep apnea treated with continuous positive airway pressure (CPAP) Surgical History History of lumpectomy of right breast (06/17/24) S/P laparoscopic sleeve gastrectomy Hx of wisdom tooth extraction Hx of dilation and curettage Hx of esophagogastroduodenoscopy (03/05/24) Hx of colonoscopy Hx of tubal ligation Family History Mother Lung cancer Brother Multiple myeloma Sister PONV (postoperative nausea and vomiting) Breast CA, Onset Age: 40 Maternal Aunt Colon cancer Family/Other Breast CA, Onset Age: 40 Maternal Uncle Esophageal cancer Prostate cancer Maternal Aunt Lung cancer Maternal Aunt Cancer of kidney Maternal Aunt Breast CA Social History Household Members: Children Caregiver staying overnight: No Housing: Apartment Are you a primary managed care manager to a significant other at home: No Do you presently have visiting nurse or other home services: No 75 years or older and lives alone: No Alcohol intake: current Alcohol intake frequency: does not drink Comment: 1 wkly Patient Tobacco Use Status: Never used Tobacco e-Cigarette/Vaping Use: Never Used Second Hand Smoke Exposure: No service: No Female Reproductive History Menstrual Age of Menarche: 14 Behavioral Health Assessment Weight Management Therapy Therapy Notes Details Subjective: The patient reports a recent period of being very busy, which has led to suboptimal food choices. She has decided to resume using meal replacement shakes and bars, and today noted a lack of hunger. Her most recent weight is 150 lbs. She reports that her mood has improved. Objective: The patient attended her post-operative behavioral health visit via telehealth. Interventions focused on identifying barriers to consistent healthy eating during busy periods and reinforcing the importance of planning and preparation. CBT-based strategies were used to help her recognize patterns of automatic eating and to develop mindful eating practices. We discussed the use of structured meal plans, including shakes and bars, to support her goals and maintain consistency. The patient was encouraged to monitor her hunger and satiety cues and to implement self-compassion when setbacks occur. Ps ychoeducation was provided on the importance of ongoing self-monitoring and flexibility in her post-op nutrition plan. Assessment/Response: * Mental status: Alert and oriented, mood is improved, affect congruent, thought process logical and goal-directed, no evidence of psychosis. * Risk reported/identified: No suicidal or homicidal ideation, no self-harm behaviors reported. Food/Weight/Diet Expectations of change Initial weight pre-op: 201Lbs 04/16 - PO: 182Lbs 04/24 - PO: 179Lbs 05/15/2024- PO: 171Lbs 06/10/2024 - PO: 158Lbs 06/25/2024 - PO: 157Lbs - PO: 152Lbs 08/19/2024 - PO: 148Lbs. 11/04/2024 - PO: 147Lbs 03/12/2025 - PO:152Lbs Target weight: 145 lbs. New meal plan: combination of 1-2 shakes, and 2 meals at day. Exercise plan: Gym 2 days a week for strength workout, daily walk 3 miles, 1 day is circuit class, and yoga after. Assessment & Plan Assessment & Plan (1) Depression: Code(s): F32.A - Depression, unspecified Qualifiers: Depression Type: unspecified Qualified Code(s): F32.A - Depression, unspecified Plan Continue monthly post-operative behavioral health support. * Next appointment scheduled for 04/08/2025 via telehealth. Telehealth Telehealth Telehealth Platform: Public Mobile Location of provider rendering services: other (Home office. [place], [place]) Location of patient: address on file Patient Identification confirmed using: Name, : Yes Telehealth method: video Patient verbally consented to treatment: Yes Patient verbally consented to billing insurance company: Yes Patient informed of any privacy concerns related to visit: Yes Minutes spent on Phone/Video with Pt.: 55 [place] [address] Tele Psytx >53 mins Patient Type Established Diagnoses Depression, unspecified depression type F32.A Depression Type: unspecified Time Spent (min) 55
== END 2025-03-12 15:19 | disposition home or self-care (01) ==
LOC: HO.HBST 14:14
PROVIDERS: PCP Internal Medicine; Visit Provider Counselor Mental Health
DX: F32.A Depression, unspecified (principal)
CPT/HCPCS: 90837

== ENCOUNTER 2025-03-28 08:46 | Outpatient (REF) | payer MEDICARE, SELFPAY ==
[2025-03-28 09:08] LABS: Hematocrit 35.9 % (37.0-47.0); Hemoglobin 11.8 g/dl (12.0-16.0); Imm Gran Abs Auto 0.01 X10*3/uL (0.00-0.03); Imm Gran Pct Auto 0.2 % (0.0-0.4); Lymphocytes Absolute Auto 1.0 X10*3/uL (1.2-4.9); MANUAL DIFF FLAG NO; Mean Corpuscular HGB Conc 32.9 g/dl (31.0-35.0); Mean Corpuscular Hemoglobin 30.4 pg (27.0-33.0); Mean Corpuscular Volume 92.5 fL (80.0-98.0); NRBC Abs Auto 0.000 X10*3/uL (0.0-0.012); NRBC Pct Auto 0.0 /100WBC (0.0-0.2); Platelet Count 139 X10*3/uL (160-400); Red Blood Count 3.88 X10*6/uL (4.20-5.50); White Blood Count 4.0 X10*3/uL (4.8-10.8)
--- OUTSIDE RECORDS SUMMARY | 2025-03-28 09:24 | XMS_ITS | Clinical Summary ---
Author Organization [address] Address [address] [place] [phone] Phone Care Team Providers Care Stripper Cutter Machine Name Role Phone Hector Soares DO Primary Care Provider [phone] Allergies Active Allergy Reactions Criticality Noted Date [...] estrogen receptor positive, unspecified site of breast ([facility] V24, [facility] V28) 11/05/2024 Malignant neoplasm of upper- outer quadrant of right breast in female, estrogen receptor positive ([facility] V24, [facility] V28) 07/31/2024 Cancer Staging:Pathologic:Stage IA(pT1c, pN0, cM0, G1, ER+, CA-, HER2-, Oncotype DX score: 26) - Signed [...] do not improve. CHF (congestive heart failure) ([facility] V24, [facility] V28) 12/24/2021 Overview (07/24/2024): Last Assessment [...] Depression 07/11/2017 Overview (07/24/2024): Previously managed by [facility] on citalopram 40 mg daily. [...] - 01/28/2025 11:59 PM EDT Hospital Encounter [facility] Radiation Oncology [address] [place] [address] Jeannine Michaels, [place] Malignant neoplasm of upper-outer quadrant of right breast in female, estrogen receptor positive (CMS/HCC V24, [facility] V28) (Primary Dx) Discharge Disposition: Home or Self Care from Last 3 Months Immunizations Immunization Administration Dates Next Due Influenza Quadravalent, 0.5m [...] DX:Hypothyroidis m Covid-19 DX:COVID-19 Cough DX:Cough Cancer ([facility] V24, [facility] V28) Sleep apnea 12/24/2021 Last Assessment & Plan: She is doing well with her CPAP at this time. Breast cancer ([facility] V24, [facility] V28) 05/28 Uterine prolapse Prolapse of female [...] 1 Cancer Mother's Brother 2 Magdiel Israel troat canc er Cancer Mother's Sister 1 Guera Queiros [...] Guera Queiros. Aunt Breast cancer Sister Joellen Erwin. B reast cancer Cancer Sister Joellen Malik. B [...] Sister 6 Guera Queiros. Aunt Sister Joellen Erwin. 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) New medication added from Last 3 Months or Most Recently Relevant to Health Maintenance Results * Lipid panel with reflex to direct LDL (12/02/2024 7:20 AM EDT) Cholesterol 166 0 - 200 mg/dL LAB CHEMISTRY METHOD 12/02/2024 12:10 PM EDT [facility] Triglycerides 63 0 - 150 mg/dL LAB CHEMISTRY METHOD 12/02/2024 12:10 PM EDT [facility] HDL 74 >=40 mg/dL LAB CHEMISTRY METHOD 12/02/2024 12:10 PM EDT [facility] LDL Calculated 79 0 - 100 mg/dL LAB CHEMISTRY METHOD 12/02/2024 12:10 PM EDT [facility] VLDL Cholesterol Gary 12.6 mg/dL LAB CHEMISTRY METHOD 12/02/2024 12:10 PM EDT [facility] Non HDL Chol. (LDL+VLDL) 92 <145 mg/dL LAB CHEMISTRY METHOD 12/02/2024 12:10 PM EDT [facility] Chol/HDL Ratio 2.2 0.0 - 4.4 LAB CHEMISTRY METHOD 12/02/2024 12:10 PM EDT [facility] Blood Venous blood specimen / Unknown Venipuncture / Unknown 12/02/2024 7:20 AM EDT 12/02/2024 7:20 AM EDT us Nelson Barillas LAB BLOOD ORDERABLES Final Resul t [facility] ([facility] [address] [place] [address], [place] [phone] from Last 3 Months or Most Recently Relevant to Health Maintenance Insurance [facility] MEDICARE MEDICARE Care Teams Stripper Cutter Machine Relationship Specialty Start Date End Date Hector Soares DO [address] [place] [phone] PCP - General Internal Medicine 07/09/24
--- OUTSIDE RECORDS SUMMARY | 2025-03-28 09:24 | XMS_ITS ---
Author Organization [address] [facility] Address [address] [place] [phone] Phone Care Team Providers Care Therapeutic Recreation Specialist Name Role Phone Rodger Hector Primary Care Provider [phone] Active Problems Problem Noted Date Diagnosed Date Malignant 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, estrogen receptor positive, unspecified site of breast (CMS/HCC V24, CMS/HCC V28) 11/05/2024 Malignant neoplasm of upper- outer quadrant of right breast in female, estrogen receptor positive (CMS/HCC V24, [facility] V28) 07/31/2024 Cancer Staging:Pathologic:Stage IA(pT1c, pN0, cM0, G1, ER+, [place]-, HER2-, Oncotype DX score: 26) - Signed [...] do not improve. CHF (congestive heart failure) ([facility] V24, CMS /HCC V28) 12/24/2021 Overview (07/24/2024): [...] Depression 07/11/2017 Overview (07/24/2024): Previously managed by [facility] on citalopram 40 mg daily. Weaned down to 20 mg and has been stable since earlier than 2012. Hypothyroidism 07/11/2017 Asthma 07/11/2017 Current Treatment and Therapy Plans No current plan information found. Past Treatment and Therapy Plans No past plan information found. Current Radiation Episodes * Radiation Therapy: BreastOverview* First Treatment Date Latest Treatment Date Treatment Site Technique Goal Episode Provider 11/19/2024 12/17/2024 Breast Curative Jeannine Michaels NP * Linked Problems Treatment Courses* Course 1 11/19/2024 - 12/17/2024 Treatment Sites Treatment Period Fraction Dose Fractions Total Dose Right Breast Boost 12/12/2024 - 12/17/2024 250 / 250 cGy 1,000 / 1,000 cGy Right Breast 11/19/2024 - 12/11/2024 267 / 267 cGy 4,272 / 4,272 cGy Resolved Problems Problem Noted Date Diagnosed Date Resolved Date Sleep apnea 12/24/2021 07/31/2024 Overview (07/24/2024): Last Assessment & Plan: She is doing well with her CPAP at this time.
[2025-03-28 09:28] LABS: Alanine Aminotransferase 18 U/L (0-31); Albumin Level 4.4 g/dL (3.5-5.0); Alkaline Phosphatase 47 U/L (39-117); Anion Gap 10 (12-20); Aspartate Amino Transferase 19 U/L (5-31); Blood Urea Nitrogen 22 mg/dL (9-16); Calcium 9.5 mg/dL (8.4-10.2); Carbon Dioxide 29 mmol/L (22-29); Chloride 109 mmol/L (96-108); Estimated Glomerular Filt Rate > 60; Potassium 4.3 mmol/L (3.3-5.1); Sodium 144 mmol/L (135-145); Total Protein 7.1 g/dL (6.5-8.0)
== END 2025-03-28 08:47 | disposition home or self-care (01) ==
LOC: HO.LAB 08:46
PROVIDERS: Internal Medicine; PCP Internal Medicine; Visit Provider Physician Assistant Surgical
DX: C50.911 Malignant neoplasm of unspecified site of right female breast (principal)
CPT/HCPCS: 36415; 80053; 85025

== ENCOUNTER 2025-04-14 09:26 | Outpatient (AMB) | payer MEDICARE, SELFPAY ==
--- NOTE | 2025-04-14 09:16 | A.OFFVIS_ITS ---
VS Expanded 04/14/25 09:19 Height 5 ft 3 in Weight 151 lb 4 oz BMI 26.8 Intake Visit Reasons: TV PO LSG 04/10/24 Allergies adhesive Allergy (Intermediate, Verified 02/04/25 09:09) ITCHING, RASH Sulfa (Sulfonamide Antibiotics) Allergy (Intermediate, Verified 02/04/25 09:09) rash Medication List - Last Reconciled 04/14/25 by ZAIRA Child atorvastatin 20 mg PO DAILY citalopram 10 mg PO DAILY citalopram 20 mg PO DAILY dexamethasone 4 mg PO BID econazole nitrate 1% appl topical letrozole 2.5 mg PO DAILY levothyroxine 100 mcg PO DAILY mometasone 0.1% topical ondansetron 8 mg PO Q8H PRN prochlorperazine maleate (Compazine) 10 mg PO Q8H PRN sennosides (senna) 17.2 mg (2 x 8.6 mg) PO BEDTIME PRN HPI Comments Details: This a 69 yo female who is s/p LSG without hiatal hernia repair on 04/10/2024. Presents for 1 year post op visit. Weight gain of 2lb since last OV 3mo ago. Initial weight 201.2 pounds starting the program on 02/09/2024 and operative weight 197.5 pounds. No complaints of nausea, emesis, abdominal pain or reflux. Reports infrequent but normal bowel movements every 2-3 days and uses stool softeners regularly. Taking celebrate MVI and calcium. Found to have right breast cancer, followed by general surgery and oncology. She finished radiation treatment after chemotherapy which started August 06, 2024 for four rounds. She finished chemo in October, started radiation in November and finished December 17. I'm back to myself now, feeling much better. No nausea now. Ideally would like to get down to 145-147 again. Present meal plan includes: eggs or lithuanian yogurt or (Premier premade or powder) protein shake at 8-10 meal at noon with 4 forks protein and 4 forks vegetables meal at 5 with 5 forks protein and 5 forks veg Orgain or Built protein bar in evening added at last visit occasional fruit Drinking 48-64 oz water Exercise routine includes: walking 3 mi outside 1-2 x per week. 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 Presence of pessary Back pain History of one miscarriage Hypothyroidism GERD (gastroesophageal reflux disease) Anxiety Depression Hypertension Sleep apnea treated with continuous positive airway pressure (CPAP) Surgical History History of lumpectomy of right breast (06/17/24) S/P laparoscopic sleeve gastrectomy Hx of wisdom tooth extraction Hx of dilation and curettage Hx of esophagogastroduodenoscopy (03/05/24) Hx of colonoscopy Hx of tubal ligation Family History Mother Lung cancer Brother Multiple myeloma Sister PONV (postoperative nausea and vomiting) Breast CA, Onset Age: 40 Maternal Aunt Colon cancer Family/Other Breast CA, Onset Age: 40 Maternal Uncle Esophageal cancer Prostate cancer Maternal Aunt Lung cancer Maternal Aunt Cancer of kidney Maternal Aunt Breast CA Social History Household Members: Children Caregiver staying overnight: No Housing: Apartment Are you a primary career based intervention coordinator to a significant other at home: No Do you presently have visiting nurse or other home services: No 75 years or older and lives alone: No Alcohol intake: current Alcohol intake frequency: does not drink Comment: 1 wkly Patient Tobacco Use Status: Never used Tobacco e-Cigarette/Vaping Use: Never Used Second Hand Smoke Exposure: No service: No Female Reproductive History Menstrual Age of Menarche: 14 Telehealth Telehealth Telehealth Platform: Telephone Location of provider rendering services: other Location of patient: address on file Patient Identification confirmed using: Name, : Yes Telehealth method: voice only Patient verbally consented to treatment: Yes Patient verbally consented to billing insurance company: Yes Patient informed of any privacy concerns related to visit: Yes Minutes spent on Phone/Video with Pt.: 16 Assessment & Plan Assessment & Plan (1) S/P laparoscopic sleeve gastrectomy: Code(s): Z98.84 - Bariatric surgery status Category: Surgical (2) Overweight: Code(s): E66.3 - Overweight Category: Medical Plan Pt understands that she would benefit from a meal plan with a bit more structure, perhaps incorporating more protein products rather than solid food to help with additional weight loss. She previously used [facility] so I recommended she follow a plan from that. She is planning to increase exercise. Labs reviewed today, she will get MVI with 45mg iron, discuss TSH with PCP (s eeing Monday) and have PCP order lipid panel. RTC Jul 23 4pm for 30 min TV (pt aware).
[2025-04-14 09:19] VITALS: BMI 26.8
--- OUTSIDE RECORDS SUMMARY | 2025-04-14 10:25 | XMS_ITS | Clinical Summary ---
Author Organization [address] Address [address] [place] [phone] Phone Care Team Providers Care Production Supervisor Trainee Name Role Phone Hector Soares DO Primary Care Provider [phone] Allergies Active Allergy Reactions Criticality Noted Date [...] estrogen receptor positive, unspecified site of breast ([facility] V24, [facility] V28) 11/05/2024 Malignant neoplasm of upper- outer quadrant of right breast in female, estrogen receptor positive ([facility] V24, [facility] V28) 07/31/2024 Cancer Staging:Pathologic:Stage IA(pT1c, pN0, cM0, G1, ER+, [place]-, HER2-, Oncotype DX score: 26) - Signed [...] improve. CHF (congestive heart failure) ([facility] V24, [facility] V28) 12/24/2021 Overview [...] Depression 07/11/2017 Overview (07/24/2024): [facility] managed [facility] on citalopram 40 mg daily. Weaned [...] - 01/28/2025 11:59 PM EDT Hospital Encounter [facility] Radiation Oncology [address] [place] [phone] Jeannine Michaels, [place] Malignant neoplasm of upper-outer quadrant of right breast in female, estrogen receptor positive (CMS/HCC V24, [facility] V28) (Primary Dx) Discharge [...] Covid-19 DX:COVID-19 Cough DX:Cough Cancer ([facility] V24, [facility] V28) Sleep apnea 12/24/2021 Last Assessment & Plan: She is doing well with her CPAP at this time. Breast cancer ([facility] V24, [facility] V28) 05/28 Uterine prolapse Prolapse of [...] Guera Queiros. Aunt Breast cancer Sister Joellen [place]. B reast cancer Cancer Sister Joellen Malik. [...] Sister 6 Guera Queiros. Aunt Sister Joellen [place]. 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) New medication added from Last 3 Months or Most Recently Relevant to Health Maintenance Results * Lipid panel with reflex to direct LDL (12/02/2024 7:20 AM EDT) Cholesterol 166 0 - 200 mg/dL LAB CHEMISTRY METHOD 12/02/2024 12:10 PM EDT [facility] Triglycerides 63 0 - 150 mg/dL LAB CHEMISTRY METHOD 12/02/2024 12:10 PM EDT [facility] HDL 74 >=40 mg/dL LAB CHEMISTRY METHOD 12/02/2024 12:10 PM EDT [facility] LDL Calculated 79 0 - 100 mg/dL LAB CHEMISTRY METHOD 12/02/2024 12:10 PM EDT [facility] VLDL Cholesterol Gary 12.6 mg/dL LAB CHEMISTRY METHOD 12/02/2024 12:10 PM EDT [facility] Non HDL Chol. (LDL+VLDL) 92 <145 mg/dL LAB CHEMISTRY METHOD 12/02/2024 12:10 PM EDT [facility] Chol/HDL Ratio 2.2 0.0 - 4.4 LAB CHEMISTRY METHOD 12/02/2024 12:10 PM EDT [facility] Blood Venous blood specimen / Unknown Venipuncture / Unknown 12/02/2024 7:20 AM EDT 12/02/2024 7:20 AM EDT us Nelson Barillas LAB BLOOD ORDERABLES Final Resul t [facility] ([facility] [address] [place] [address], [place] [phone] from Last 3 Months or Most Recently Relevant to Health Maintenance Insurance [facility] MEDICARE MEDICARE Care Teams Production Supervisor Trainee Relationship Specialty Start Date End Date Hector Soares DO [address] [place] [phone] PCP - General Internal Medicine 07/09/24
--- OUTSIDE RECORDS SUMMARY | 2025-04-14 10:25 | XMS_ITS ---
Author Organization [address] [facility] Address [address] [place] [phone] Phone Care Team Providers Care Product Safety Head Name Role Phone Rodger Hector Primary Care Provider [phone] Active Problems Problem Noted Date Diagnosed Date Malignant 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, estrogen receptor positive, unspecified site of breast (CMS/HCC V24, CMS/HCC V28) 11/05/2024 Malignant neoplasm of upper- outer quadrant of right breast in female, estrogen receptor positive (CMS/HCC V24, CMS/[facility] V28) 07/31/2024 Cancer Staging:Pathologic:Stage [...] do not improve. CHF (congestive heart failure) (CMS/[facility] V24, CMS /HCC V28) 12/24/2021 Overview (07/24/2024): [...] Depression 07/11/2017 Overview (07/24/2024): Previously managed by [facility] on citalopram 40 mg daily. Weaned down [...]
--- OUTSIDE RECORDS SUMMARY | 2025-04-14 10:25 | XMS_ITS | Data Portability ---
Author Organization [place] - [facility], Allergy Address [address] [place] [phone] Care Team Providers Care Crude Oil Driver Name Role Phone MANOHAR VILLARREAL Primary Care Provider MANOHAR VILLARREAL Referring Provider Assessment Encounter Date Assessment Date Assessment LastModified by Organization Details LastModified Time 12/05/2024 12/05/2024 1. Presbycusis The patient's hearing test indicates mild hearing loss. Hmgw-hlu-viemza r hearing aids are an option if symptoms worsen. Reassessment is advised every one to two years based on symptom changes. 2. Breast Cancer, undergoing Radiation Therapy Currently in the course of radiation therapy. Management continues with a focus on completion and response monitoring. 3. Mild hyposmia Mild reduction in smell noticed after chemotherapy. Further monitoring is advised, as it may gradually improve post-therapy. [email or web address] Not available 12/05/2024 09:57:06 Plan of Treatment Reminders Order Date Submit Date Provider Last Modified By Organization Details Last Modified Time Details Appointments None record ed. Lab None record ed. Referral None record ed. Procedures None record ed. Surgeries None record ed. Imaging None record ed. Medication Orders None record ed. Patient TargetsNo targets recorded. Patient Instructions Encounter Date Encounter Id Patient Instructions Last Modified By Organization Details Last Modified Time 12/05/2024 [id number] Please note: Parts of this encounter note have been generated by AI based on audio conversation. Patient consent was required prior to utilizing this technology. Content review was required prior to finalizing the note. [email or web address] Not available 12/05/2024 09:55:38 Reason for Referral None Reported. Results Created Date Observation Date Name Description Value Unit Range Abnormal Flag Note LastModifiedBy Organization Detail LastModifiedTime 12/06/19 25 audio gram No observ ation record ed. BARCODE Not Available 2024 17:53:21 Result Notes None recorded. Problems Name Problem SNOMED Code Status Onset Date Resolution Date Notes Provider Name and Address Organization Details Recorded Time Sensorineural hearing loss of bilateral ears 373615834 Active 2024 TIMO SMITH [place], [facility] [address] [place] [address],[place] [address], [place], [phone], [facility] - [facility] 09:40:57 Sense of smell impaired 43320287 Active 2024 FRANK RENTERIA MD [address] [place] [address],[place] [address], [place], [phone], [facility] - [facility] 09:55:46 Problem Notes None recorded. Procedures Surgical History Date Name Laterality Status Provider Name and Address Organization Details Recorded Time Comp Audio with Tymps - 99735 & 61811 completed TIMO SMITH [place], [facility] [address] [facility],[place] [address], [place], [phone], [facility] - [facility] 12/05/2024 09:41:04 ligation of fallopian tube completed JOLENE WONG [place] - [facility] 12/05/2024 09:11:08 Imaging Results None recorded. Procedure Notes None recorded. Medical Equipment None Reported. Allergies Allergen ID Allergen Name Allergen Category Reaction Reaction Severity Criticality Documentation Date Start Date Code Code System Note Provider Name and Address Organization Details Recorded Time 695108 Substance with sulfonami de structure and antibacte rial mechanism of action (substanc e) medicatio n Not available Not available Not available 12/05/2024 94864 8003 SNOMED JOLENE diop [facility] 09:09:08 Medications Name Sig Start Date Stop Date Status Note LastModified by Organization Details LastModified Time atorvastati n 20 mg tablet TAKE 1 TABLET BY MOUTH DAILY active Not Available Not Available No t Available citalopram 10 mg tablet TAKE 1 TABLET BY MOUTH DAILY 12/05 completed Not Available Not Available Not Available senna 8.6 mg tablet TAKE 2 TABLETS BY MOUTH EVERY NIGHT AT BEDTIME NEEDED CONSTIPAT ION active Not Available Not Available No t Available sucralfate 100 mg/mL oral suspension SHAKE LIQUID AND TAKE 10 ML BY MOUTH TWICE DAILY active Not Available Not Available No t Available amlodipine 5 mg tablet 12/05 completed Not Available Not Available Not Available prochlorper azine maleate 10 mg tablet TAKE 1 TABLET BY MOUTH EVERY 8 HOURS NEEDED FOR NAUSEA OR VOMITING active Not Available Not Available No t Available ciprofloxac in 500 mg tablet TAKE 1 TABLET BY MOUTH EVERY 12 HOURS FOR 3 DAYS 12/05 completed Not Available Not Available Not Available ondansetron 8 mg disintegrat ing tablet DISSOLVE 1 TABLET ON THE TONGUE EVERY 8 HOURS NEEDED FOR NAUSEA OR VOMITING active Not Available Not Available No t Available levothyroxi ne 100 mcg tablet TAKE 1 TABLET BY MOUTH DAILY IN THE MORNING ON AN EMPTY STOMACH 12/05 completed Not Available Not Available Not Available citalopram 20 mg tablet TAKE 1 TABLET BY MOUTH DAILY active Not Available Not Available No t Available pantoprazol e 40 mg tablet,maynor yed release TAKE 1 TABLET BY MOUTH DAILY 12/05 completed Not Available Not Available Not Available dexamethaso ne 4 mg tablet 12/05 completed Not Available Not Available Not Available hydrochloro thiazide 12.5 mg capsule 12/05 completed Not Available Not Available Not Available omeprazole 20 mg capsule,del ayed release TAKE 1 CAPSULE BY MOUTH DAILY 30 MINUTES BEFORE BREAKFAST 12/05 completed Not Available Not Available Not Available mupirocin 2 % topical ointment APPLY THIN LAYER TOPICALLY TO BIOPSY SITE TWICE DAILY UNTIL HEALED active Not Available Not Available No t Available polyethylen e glycol 3350 17 gram/dose oral powder 12/05 completed Not Available Not Available Not Available letrozole 2.5 mg tablet TAKE 1 TABLET BY MOUTH DAILY active Not Available Not Available No t Available ondansetron 4 mg disintegrat ing tablet PLACE AND DISSOLVE 1 TABLET BY MOUTH EVERY 12 HOURS NEEDED active Not Available Not Available No t Available levothyroxi ne 100 mcg capsule Take 1 capsule every day by oral route. active Not Available Not Available No t Available mecobalamin (vitamin B12) 1,000 mcg disintegrat ing tablet,subl ingual PLACE 1 TABLET UNDER TONGUE AND ALLOW TO DISSOLVE FOR 30 SECONDS ONCE A DAY 12/05 completed Not Available Not Available Not Available BinaxNOW COVID-19 Ag Self Test kit TEST DIRECTED TODAY 12/05 completed Not Available Not Available Not Available Vitals Date Recorded Body height Body mass index (BMI) Body weight Provider Name and Address Organization Details Last Updated DateTime 12/05/2024 160.02 cm 26.2 kg/m2 34777.67 g JOLENE WONG [place] - [facility] 12/05/2024 09:08:52 Social History None recorded. Functional Status Question Answer Note LastModified by Organization D etails LastModified Time What is your level of alcohol consumption? None [email or web address] Information not available 12/05/2024 Mental Status None recorded. Family History Nothing Reported Notes:- Family medical histo ry details were not discussed. Medical History Condition Response Cancer Y Anxiety Y Thyroid Problems Y Gynecological HistoryNo gynecological history recorded. Obstetrics History GPAL:G 0 P 0 0 0 0 Past Encounters Encounter ID Performer Location Encounter Start Date Encounter Closed Date Diagnosis/Indication Diagnosis SNOMED-CT Code Diagnosis ICD10 Code Diagnosis IMO Codes Diagnosis Note [id number] FRANK RENTERIA MD [facility] [address] [address] 12/05/2024 08:41:18 12/05/2024 09:59:12 Sensorineural hearing loss of bilateral ears 275280888 H90.3 [id number] Audiologic al evaluation results: Right ear: Normal hearing thru 1500Hz sloping to mild-moder ate SNHL with excellent word recognitio n. Left ear: Normal / borderline normal hearing thru 3000Hz sloping to a mild SNHL with excellent word recognitio n. Tympanomet ry: Right Ear:Type Ad ( 5.0) Left Ear:Type Ad ( 2.4) Sense of s pierre impaired 94014095 R43.8 47851 Health Concerns Section Related Observation LastModified by Organization Detai ls LastModified Time None Recorded Concern Status LastModified by Organization Details LastModified Time None Recorded Advance Directives Directive None Recorded Payers Insurance Date Sequence Insurance Name Policy Number Policy Nichols Covered Member ID Nichols Member ID Guarantor Name 12/05/2024 1 [facility] (MEDICARE REPLACEMENT/A DVANTAGE - HMO) [id number] Huma Cespedes [id number] Huma Cespedes Notes Date Note Type Note Provider Name and Address Organization Details Recorded Time 12/05/2024 text/html decreased hearing The patient is a 69-year-old female presenting with hearing challenges that she began experiencing over the past year. She describes difficulty in understanding conversations amidst background noise, though there is no notable history of sustained loud noise exposure or ear surgery, despite having multiple ear infections as a child. This hearing condition was not exacerbated or caused by chemotherapy. Furthermore, she reports noticing changes in her sense of smell following chemotherapy for breast cancer. The patient can still identify spoiled foods, indicating a reduced, yet present olfactory function. FRANK RENTERIA MD [address] [place] [address], [phone], [facility] - [facility] 12/05/2024 09:57:12 OBGyn Episode No OBEpisode recorded.
--- OUTSIDE RECORDS SUMMARY | 2025-04-14 10:25 | XMS_ITS | Clinical Summary ---
Author Organization [facility] Address Critical access hospital [facility] [address] [address] Phone Care Team Providers Care Pharm Spec Name Role Phone Unknown, Unknown MD Primary [...] Depression 07/11/2017 Overview (07/14/2018): Previously managed by [facility] on citalopram 40 mg daily. Weaned down [...] She will also be meeting with a industrial plant custodian in the interim. Defer discussion of stimulant [...] 07/05/2021 Digital Access Answer Date Recorded No 03/04/2025 No 03/04/2025 Reliable internet access at home? Not on file 03/04/2025 Device with a working camera? Not on file Intimate Partner Violence Answer Date R ecorded [...] COLONOSCOPY 2001 RSV VACCINE (1 - Risk 50-74 years 1-dose series) 2006 BLOOD PRESSURE 09/01/2023 03/03/2023 DEPRESSION SCREENING 02/26/2024 [...] patient's age to complete this topic IPV VACCINES Aged Out No longer eligi ble [...] Routine 03/09/2023 9:40 AM EDT Primary hypertension THYROID STIMULATING HORMONE (TSH) Routine 03/09/2023 9:40 AM EDT Acquired hypothyroidism COMPREHENSIVE METABOLIC PANEL (CMP) Routine 03/09/2023 9:40 AM EDT Routine general [...] * COLONOSCOPY FOR RESULT ENTRY ONLY (04/20/2023) Historical Provider MD HEALTH MAINTENANCE Final Result * Comprehensive metabolic panel (03/09/2023 9:40 AM EDT) SODIUM 138 133 - 146 mmol/L [facility] POTASSIUM 4.2 3.3 - 5.1 mmol/L [facility] Comment:Specimen slightly he molyzed, result may be falsely elevated. CHLORIDE 103 96 - 108 mmol/L [facility] CO2 26 21 - 35 mmol/L [facility] BUN 16 6 - 19 mg/dL [facility] CREATININE 0.80 0.5 - 1.5 mg/dL [facility] GLUCOSE 98 70 - 99 mg/dL [facility] ALBUMIN 4.5 3.9 - 4.8 g/dL [facility] TOTAL PROTEIN 7.9 6.5 - 8.0 g/dL [facility] CALCIUM 9.7 8.4 - 10.3 mg/dL [facility] ALKALINE PHOSPHATASE 65 39 - 117 U/L [facility] TOTAL BILIRUBIN 0.3 0.0 - 1.2 mg/dL [facility] AST 22 0 - 37 U/L [facility] ALT 16 0 - 40 U/L [facility] GLOBULIN 3.4 1 - 4.8 g/dL [facility] EGFR 81 >59 mL/min/1.7 3m2 [facility] Comment:Estimated glomerular filtration rate calculated using the CKD-EPI refit equation. ANION GAP 13 10 - 20 mmol/L [facility] Blood 03/09/2023 9:40 AM EDT 03/09/2023 9:44 AM EDT Latanya Hill NP LAB BLOOD BKR ORDERABLES Final Result Performing Organization Address [facility] Co de Phone Number [address] [address] * TSH (03/09/2023 9:40 AM EDT) TSH 0.27 0.27 - 4.20 uIU/mL [facility] Blood 03/09/2023 9:40 AM EDT 03/09/2023 9:44 AM EDT Latanya Hill NP LAB BLOOD BKR ORDERABLES Final Result Performing Organization Address City/[facility]/ZIP Co de Phone Number [address] [address] * (ABNORMAL) Lipid panel (03/09/2023 9:40 AM EDT) HDL 59 mg/dL [facility] Comment: Interpretation <40 mg/dL: Low HDL cholesterol (major risk factor for CHD) Greater than or equal to 60 mg/dL: High HDL cholesterol ( negative risk factor for CHD) HDL - cholesterol is affected by a number of factors, e.g. smoking, excerise, hormones, sex and age. CHOLESTEROL 216 0 - 240 mg/dL [facility] TRIGLYCERIDES 107 30 - 160 mg/dL [facility] LDL 136(H) 50 - 129 mg/dL [facility] Comment: LDL levels in terms of risk for coronary heart disease: <100 mg/dL: Optimal 100-129 mg/dL: Near or above optimal 130-159 mg/dL: Borderline high 160-189 mg/dL: High >190 mg/dL: Very High CARDIAC RISK RATIO 3.7 3.3 - 4.4 [facility] Blood 03/09/2023 9:40 AM EDT 03/09/2023 9:44 AM EDT us Latanya Hill NP LAB BLOOD BKR ORDERABLES Final Result [address] [address] * Pap Test (03/03/2023 12:00 AM EDT) 03/03/2023 03/06/2023 8:4 4 AM EDT Narrative SEE NARRATIVE - 03/08/2023 4:42 PM EDT [address] [address] [employer]: Rayna Mccullough MD PERSONAL DEVELOPMENT EDUCATOR Cytology Report FINAL DIAGNOSIS A. PAP SMEAR [...] 16, 18 and 45. Testing performed by [employer] [facility] HR-HPV analysis. Clinical correlation is advised. This HPV test was performed at [facility], [address] [place] [address]. This test has been FDA approved for [facility] cervical cytology specimens. The accuracy and precision of this test for all other specimen sources has been verified in the Cytopathology Laboratory of the [facility] and has not been cleared or approved by the U.S. Food and Drug Administration. Clinical correlation is advised. CLINICAL HISTORY Date of Last Menstrual Period: Not Provided Menstrual History: Post Menopausal Infection History: HPV: OTHER HIGH RISK, Other Clinical Conditions: Screening Pap SPECIMEN SOURCE A: PAP SMEAR (SUREPATH) CE Patient Name: HUMA CESPEDES : 1955 (Age: 67) Sex: F Institution: [facility] Location: [facility] Date of Collection: 03/03/2023 Date of Reported: 03/08/2023 16:42 Results to: Laatnya Hill MSN, BSN us Latanya Hill NP CYTOLOGY ORDERABLES Final Resul t SEE NARRATIVE * MAMMOGRAPHY FOR RESULT ENTRY ONLY (09/26/2022) us Dana Mayberry [facility] HEALTH MAINTENANCE Emmanuel ailyn Result - Final * Hepatitis C antibody, qualitative (09/14/2021 8:01 AM EDT) HCV NON-REACTIV E NON-REACTI VE [facility] Blood 09/14/2021 8:01 AM EDT 09/14/2021 8:05 AM EDT us Dana Mayberry HR SYSTEMS ANALYST LAB BLOOD BKR ORDERABL ES Final Result [facility] [address] [place], [place] [id number] * OUTSIDE BONE DENSITY SCREENING (08/11/2021) [facility] BONE DENSITY SCREENING - EXTERNAL osteopenia Historical Provider HEALTH MAINTENANCE Final Result from Last 3 Months or Most Recently Relevant to Health Maintenance Insurance MEDICARE REPLACEMENT MEDICARE REPLACEMENT MEDICARE REPLACEMENT MEDICARE REPLACEMENT MEDICARE REPLACEMENT MEDICARE REPLACEMENT Care Teams Pharm Spec Relationship Specialty Start Date End Date Unknown, Unknown, PCP - General 08/11/23 Additional Source Comments The information contained in this document represents components of the legal health record. It is not the complete legal health record.[facility]
== END 2025-04-14 09:49 | disposition home or self-care (01) ==
LOC: HO.HBS 09:26
PROVIDERS: PCP Internal Medicine; Visit Provider Physician Assistant Surgical
DX: E66.3 Overweight (principal); Z68.26 Body mass index [BMI] 26.0-26.9, adult; Z90.3 Acquired absence of stomach [part of]; Z98.84 Bariatric surgery status
CPT/HCPCS: 99213; G2211

== ENCOUNTER 2025-05-05 09:17 | Outpatient (AMB) | payer MEDICARE, SELFPAY ==
--- NOTE | 2025-05-05 09:05 | MHC.WMTHER ---
Intake Intake Visit Reasons: VIDEO PO LSG 04/10/24 Allergies adhesive Allergy (Intermediate, Verified 02/04/25 09:09) ITCHING, RASH Sulfa (Sulfonamide Antibiotics) Allergy (Intermediate, Verified 02/04/25 09:09) rash [facility] Medical History 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 Presence of pessary Back pain History of one miscarriage Hypothyroidism GERD (gastroesophageal reflux disease) Anxiety Depression Hypertension Sleep apnea treated with continuous positive airway pressure (CPAP) Surgical History History of lumpectomy of right breast (06/17/24) S/P laparoscopic sleeve gastrectomy Hx of wisdom tooth extraction Hx of dilation and curettage Hx of esophagogastroduodenoscopy (03/05/24) Hx of colonoscopy Hx of tubal ligation Family History Mother Lung cancer Brother Multiple myeloma Sister PONV (postoperative nausea and vomiting) Breast CA, Onset Age: 40 Maternal Aunt Colon cancer Family/Other Breast CA, Onset Age: 40 Maternal Uncle Esophageal cancer Prostate cancer Maternal Aunt Lung cancer Maternal Aunt Cancer of kidney Maternal Aunt Breast CA Social History Household Members: Children Caregiver staying overnight: No Housing: Apartment Are you a primary women's health care nurse practitioner to a significant other at home: No Do you presently have visiting nurse or other home services: No 75 years or older and lives alone: No Alcohol intake: current Alcohol intake frequency: does not drink Comment: 1 wkly Patient Tobacco Use Status: Never used Tobacco e-Cigarette/Vaping Use: Never Used Second Hand Smoke Exposure: No service: No Female Reproductive History Menstrual Age of Menarche: 14 Behavioral Health Assessment Weight Management Therapy Therapy Notes Details Subjective: The patient has initiated a food journal as a strategy to support her return to healthy eating habits. She is planning to visit her daughter for [place] and is anticipating potential challenges related to holiday eating. She continues to participate in the [facility] Strong program at the [facility], attends yoga and core classes, and regularly uses her stationary bike at home. Objective: The patient attended today?s follow-up visit via Telehealth. Discussion focused on her current functioning, symptoms of seasonal affective changes (?winter blues?), and challenges experienced during Thanks. She reported that being around food provides comfort but can also lead to feelings of deprivation. Cognitive reframing techniques were utilized to address tcy-ue-ypcenqt thinking patterns related to food and self-care. Assessment/Response: Mental status: alert and oriented x3. Mood mildly subdued but appropriate. Thought process logical and goal-directed. No evidence of psychosis or cognitive impairment. Risk reported/identified: None Assessment & Plan Assessment & Plan (1) Depression: Code(s): F32.A - Depression, unspecified Qualifiers: Depression Type: unspecified Qualified Code(s): F32.A - Depression, unspecified Plan -Continue food journaling and participation in physical activity programs. -Utilize cognitive-behavioral strategies to manage holiday-related stress and maintain progress. -Follow up in 6?8 weeks. Next appointment scheduled for 06/30/2024 at 9:00 am via video. Telehealth Telehealth Telehealth Platform: [email or web address]. [email or web address] cn Location of provider rendering services: other (Home office. [place], [place]) Location of patient: address on file Patient Identification confirmed using: Name, : Yes Telehealth method: video Patient verbally consented to treatment: Yes Patient verbally consented to billing insurance company: Yes Patient informed of any privacy concerns related to visit: Yes Minutes spent on Phone/Video with Pt.: 55 [place] [address] Tele Psytx >53 mins Patient Type Established Diagnoses Depression, unspecified depression type F32.A Depression Type: unspecified Time Spent (min) 55
--- OUTSIDE RECORDS SUMMARY | 2025-05-05 10:57 | XMS_ITS ---
Author Organization [facility] Address [address] [place] [phone] Phone Care Team Providers Care Kosher Dietary Service Manager Name Role Phone Rodger Hector Primary Care Provider [phone] Active Problems Problem Noted Date Diagnosed Date Malignant 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, estrogen receptor positive, unspecified site of breast (CMS/HCC V24, CMS/HCC V28) 11/05/2024 Malignant neoplasm of upper- outer quadrant of right breast in female, estrogen receptor positive (CMS/HCC V24, CMS/[facility]ER[facility] V28) 07/31/2024 Cancer Staging:Pathologic:Stage IA(pT1c, pN0, cM0, G1, ER+, RI-, HER2-, Oncotype DX score: 26) - Signed [...] not improve. CHF (congestive heart failure) (CMS/[facility] V24, CMS /HCC V28) 12/24/2021 Overview (07/24/2024): [...] Depression 07/11/2017 Overview (07/24/2024): Previously managed by [facility] on citalopram 40 mg [...] Goal Episode Provider 11/19/2024 12/17/2024 Breast Curative * Linked Problems Treatment Courses* Course 1 [...]
--- OUTSIDE RECORDS SUMMARY | 2025-05-05 10:57 | XMS_ITS | Clinical Summary ---
Author Organization [facility] Address [facility] [employer] [address] [address] Phone Care Team Providers Care Edge Setter Name Role Phone Unknown, Unknown MD Primary [...] Depression 07/11/2017 Overview (07/14/2018): Previously managed by [facility] on citalopram 40 mg daily. [...] She will also be meeting with a optical scientist in the interim. Defer discussion of stimulant [...] EDT Routine general medical examination at a the [facility] care facility BD DXA SCREENING Routine 03/03/2023 [...] SODIUM 138 133 - 146 mmol/L [facility] POTASSIUM 4.2 3.3 - 5.1 mmol/L [facility] Comment:Specimen slightly he molyzed, result may be falsely elevated. CHLORIDE 103 96 - 108 mmol/L [facility] CO2 26 21 - 35 mmol/L [facility] BUN 16 6 - 19 mg/dL [facility] CREATININE 0.80 0.5 - 1.5 mg/dL [facility] GLUCOSE 98 70 - 99 mg/dL [facility] ALBUMIN 4.5 3.9 - 4.8 g/dL [facility] TOTAL PROTEIN 7.9 6.5 - 8.0 g/dL [facility] CALCIUM 9.7 8.4 - 10.3 mg/dL [facility] ALKALINE PHOSPHATASE 65 39 - 117 U/L [facility] TOTAL BILIRUBIN 0.3 0.0 - 1.2 mg/dL [facility] AST 22 0 - 37 U/L [facility] ALT 16 0 - 40 U/L [facility] GLOBULIN 3.4 1 - 4.8 g/dL [facility] EGFR 81 >59 mL/min/1.7 3m2 [facility] Comment:Estimated glomerular filtration rate calculated using the CKD-EPI refit equation. ANION GAP 13 10 - 20 mmol/L [facility] Blood 03/09/2023 9:40 AM EDT 03/09/2023 9:44 AM EDT Latanya Hill NP LAB BLOOD BKR ORDERABLES Final Result Performing Organization Address City/[facility]/ZIP Co de Phone Number [address] [address] * TSH (03/09/2023 9:40 AM EDT) TSH 0.27 0.27 - 4.20 uIU/mL [facility] Blood 03/09/2023 9:40 AM EDT 03/09/2023 9:44 AM EDT Latanya Hill NP LAB BLOOD BKR ORDERABLES Final Result Performing Organization Address [facility] Co de Phone Number [address] [address] * (ABNORMAL) Lipid panel (03/09/2023 9:40 AM EDT) HDL 59 mg/dL [facility] Comment: Interpretation <40 mg/dL: Low HDL cholesterol (major risk factor for CHD) Greater than or equal to 60 mg/dL: High HDL cholesterol ( negative risk factor for CHD) HDL - cholesterol is affected by a number of factors, e.g. smoking, excerise, hormones, sex and age. CHOLESTEROL 216 0 - 240 mg/dL [facility] TRIGLYCERIDES 107 30 - 160 mg/dL [facility] LDL 136(H) 50 - 129 mg/dL [facility] Comment: LDL levels in terms of risk for coronary heart disease: <100 mg/dL: Optimal 100-129 mg/dL: Near or above optimal 130-159 mg/dL: Borderline high 160-189 mg/dL: High >190 mg/dL: Very High CARDIAC RISK RATIO 3.7 3.3 - 4.4 [facility] Blood 03/09/2023 9:40 AM EDT 03/09/2023 9:44 AM EDT us Latanya Hill NP LAB BLOOD BKR ORDERABLES Final Result [address] [address] * Pap Test (03/03/2023 12:00 AM EDT) 03/03/2023 03/06/2023 8:4 4 AM EDT Narrative SEE NARRATIVE - 03/08/2023 4:42 PM EDT [address] [address] Puller Machine: Rayna Mccullough MD METAL POLISHER Cytology Report FINAL DIAGNOSIS A. PAP SMEAR [...] 16, 18 and 45. Testing performed by [employer] On[employer]arity HR-HPV analysis. Clinical correlation is advised. This HPV test was performed at [facility], [address] [place] [address]. This test has been FDA approved for [employer] cervical cytology specimens. The accuracy and precision of this test for all other specimen sources has been verified in the Cytopathology Laboratory of the [facility] and has not been cleared or approved by the U.S. Food and Drug Administration. Clinical correlation is advised. CLINICAL HISTORY Date of Last Menstrual Period: Not Provided Menstrual History: Post Menopausal Infection History: HPV: OTHER HIGH RISK, 2021,2022 Other Clinical Conditions: Screening Pap SPECIMEN SOURCE A: PAP SMEAR (SUREPATH) CE Patient Name: HUMA CESPEDES : 1955 (Age: 67) Sex: F Institution: [facility] Location: [facility] Date of Collection: 03/03/2023 Date of Reported: 03/08/2023 16:42 Results to: Latanya Hill MSN, BSN Latanya Hill CONTINUOUS TOWEL ROLLER CYTOLOGY ORDERABLES Final Resul t SEE NARRATIVE * MAMMOGRAPHY FOR RESULT ENTRY ONLY (09/26/2022) Dana Mayberry [facility] HEALTH MAINTENANCE Emmanuel ailyn Result - Final * Hepatitis C antibody, qualitative (09/14/2021 8:01 AM EDT) HCV NON-REACTIV E NON-REACTI VE [facility] Blood 09/14/2021 8:01 AM EDT 09/14/2021 8:05 AM EDT Dana Mayberry CNP LAB BLOOD BKR ORDERABL ES Final Result [facility] [address] [place] [address] * OUTSIDE BONE DENSITY SCREENING (08/11/2021) [facility] Signature BONE DENSITY SCREENING - EXTERNAL osteopenia us Historical Provider HEALTH MAINTENANCE Final Result from Last 3 Months or Most Recently Relevant to Health Maintenance Insurance MEDICARE REPLACEMENT MEDICARE REPLACEMENT MEDICARE REPLACEMENT MEDICARE REPLACEMENT MEDICARE REPLACEMENT MEDICARE REPLACEMENT [place] [id number] Care Teams Edge Setter Relationship Specialty Start Date End Date Unknown, Unknown, PCP - General 08/11/23 Additional Source Comments The information contained in this document represents components of the legal health record. It is not the complete legal health record.[facility]
--- OUTSIDE RECORDS SUMMARY | 2025-05-05 10:57 | XMS_ITS | Clinical Summary ---
Author Organization [address] Address [address] [place] [phone] Phone Care Team Providers Care Sales Representative Consultant Name Role Phone Hector Soares DO Primary Care Provider [phone] Allergies Active Allergy Reactions Criticality Noted Date [...] estrogen receptor positive, unspecified site of breast ([facility] V24, [facility] V28) 11/05/2024 Malignant neoplasm of upper- outer quadrant of right breast in female, estrogen receptor positive ([facility] V24, [facility] V28) 07/31/2024 Cancer Staging:Pathologic:Stage IA(pT1c, pN0, cM0, G1, ER+, MO-, HER2-, Oncotype DX score: 26) - Signed [...] do not improve. CHF (congestive heart failure) ([facility] V24, [facility] V28) 12/24/2021 Overview (07/24/2024): Last Assessment [...] Depression 07/11/2017 Overview (07/24/2024): Previously managed by [facility] [place] on citalopram 40 mg daily. Weaned down to 20 mg and has been stable since earlier than 2012. Hypothyroidism 07/11/2017 Asthma 07/11/2017 Resolved Problems Problem Noted Date Diagnosed Date Resolved Date Sleep apnea 12/24/2021 07/31/2024 Overview (07/24/2024): Last Assessment & Plan: She is doing well with her CPAP at this time. Encounters Date Type Department Care Team Description 04/18/2025 11:00 AM EST Lab Draw Station - [address] [address] Hyperlipidemia, unspecified 04/18/2025 Telephone [facility] Radiation Oncology [address] [place] [phone] Michaels, Jeannine Mickey, SENIOR GL ACCOUNTANT from Last 3 Months Immunizations Immunization Administration [...] DX:Hypothyroidis m Covid-19 DX:COVID-19 Cough DX:Cough Cancer ([facility] V24, [facility] V28) Sleep apnea 12/24/2021 Last Assessment & Plan: She is doing well with her CPAP at this time. Breast cancer ([facility] V24, [facility] V28) 05/28 Uterine prolapse Prolapse of [...] Guera Queiros. Aunt Breast cancer Sister Joellen Malik. B reast cancer Cancer Sister Joellen Malik. B reast cancer Thyroid disease Sister Joellen Meeteetse. B reast cancer Relation Name Status Comments [...] Sister 6 Guera Queiros. Aunt Sister Joellen Malik. 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 Not on fi le [...] 01/28/2025 11:27 AM EDT Plan of Treatment Upcoming Encounters Date Type Department Care Team (Late st Contact Info) Description 09/08/2025 9:00 AM EDT Office Visit Urogynecology - [place] [address] [place] [address] Pilar Dodson MD [address] [facility] [address] [place] [address] Health Maintenance Due Date Last Done Comments Breast Cancer Screening 1955 Colorectal Cancer Screening: Colonoscopy 1955 RSV Immunization Adult Patients (1 - Risk 50-74 years 1-dose series) 2006 Falls Risk Assessment 05/03/2022 Medicare Annual Wellness Visit 05/03/2022 Osteoporosis Screening (Bone Density Screening) 05/03/2022 Social Influencers of Health Screening 05/03/2022 Hypertension/CHF/CAD Annual BMP Blood Test 03/09/2024 03/09/2023, 09/14/2021, 03/04/2021, Additional history exists Depression Screening 06/05/2024 COVID-19 Vaccine ( season) 2025 06/13/2022, 05/02/2021, 09/03/2020, Additional history exists Cholesterol Screening (Lipid Panel) 04/18/2030 04/18/2025, 12/02/2024, 08/01/2024, Additional history exists DTaP,Tdap,and Td Vaccines (3 - Td or Tdap) 03/10/2035 03/10/2025, 03/03/2014 Hepatitis C Screening Completed 09/14/2021 Zoster Vaccines Completed 09/21/2021, 07/05/2021 Pneumococcal Vaccine: 50+ Years Completed 03/19/2024 Influenza Vaccine Completed 03/06/2025, , 03/03/2023, Additional history exists HIB Vaccines Aged Out No longer eligi [...] PANEL WITH REFLEX TO DIRECT LDL Routine 04/18/2025 10:58 AM EST Hyperlipidemia, unspecified from Last 3 Months Results * Lipid panel with reflex to direct LDL (04/18/2025 10:58 AM EST) Cholesterol 168 0 - 200 mg/dL LAB CHEMISTRY METHOD 04/18/2025 5:04 PM EST [facility] Triglycerides 87 0 - 150 mg/dL LAB CHEMISTRY METHOD 04/18/2025 5:04 PM EST [facility] HDL 78 >=40 mg/dL LAB CHEMISTRY METHOD 04/18/2025 5:04 PM EST [facility] LDL Calculated 73 0 - 100 mg/dL LAB CHEMISTRY METHOD 04/18/2025 5:04 PM EST [facility] Comment:Estimated LDL Calcul ated using equation: Total cholesterol - HDL cholesterol - (Triglycerides/5) VLDL Cholesterol Gary 17.4 mg/dL LAB CHEMISTRY METHOD 04/18/2025 5:04 PM EST [facility] Non HDL Chol. (LDL+VLDL) 90 <145 mg/dL LAB CHEMISTRY METHOD 04/18/2025 5:04 PM EST [facility] Chol/HDL Ratio 2.2 0.0 - 4.4 LAB CHEMISTRY METHOD 04/18/2025 5:04 PM [facility] Blood Venipuncture / Unknown 04/18/2025 10:58 AM EST 04/18/2025 10:58 AM EST us Nelson Barillas LAB BLOOD ORDERABLES Final Resul t [facility] [address] [place] [address], [place] [phone] from Last 3 Months Insurance [facility] MEDICARE MEDICARE Care Teams Sales Representative Consultant Relationship Specialty Start Date End Date Hector Soares DO [address] [place] [phone] PCP - General Internal Medicine 07/09/24
== END 2025-05-05 10:08 | disposition home or self-care (01) ==
LOC: HO.HBST 09:17
PROVIDERS: PCP Internal Medicine; Visit Provider Counselor Mental Health
DX: F32.A Depression, unspecified (principal)
CPT/HCPCS: 90837

== ENCOUNTER → 2025-05-05 09:17 | Outpatient (BNVA) | payer MEDICARE, SELFPAY | PROVIDERS: PCP Internal Medicine; Visit Provider Counselor Mental Health | DX: Z08 Encounter for follow-up examination after completed treatment for malignant neoplasm (principal); Z85.3 Personal history of malignant neoplasm of breast; Z92.3 Personal history of irradiation; Z98.890 Other specified postprocedural states | CPT/HCPCS: 99212 ==

== ENCOUNTER 2025-05-05 13:00 | Outpatient (AMB) | payer MEDICARE, SELFPAY ==
--- NOTE | 2025-05-05 13:10 | A.OFFVIS_ITS ---
Vital Signs 3 05/05/25 13:21 Height 5 ft 3 in Weight 156 lb 8 oz BMI 27.7 BP 146/71 H Blood Pressure Location Lt brachial Position Sitting Pulse 73 Intake Visit Reasons: breast pain Intake Note: Patient is seen in office for breast pain. Pt c/o:onset 2 weeks ago notice right breast painful, hard, sore and swollen, was given [address]x by Dr Brannon, states is doing better after abx mm:06/23/24 @ 11am f/up 6m B: 09/09/24 Printed Circuit Board Panels Developer Required: No Environmental Geologist: Environmental Geologist Present Accompanied by: Self / Same As Patient Allergies adhesive Allergy (Intermediate, Verified 05/05/25 13:11) ITCHING, RASH Sulfa (Sulfonamide Antibiotics) Allergy (Intermediate, Verified 05/05/25 13:11) rash Medication List - Last Reconciled 05/05/25 by Giacomo Lewis MD amoxicillin 875 mg PO Q12H atorvastatin 20 mg PO DAILY citalopram 10 mg PO DAILY citalopram 20 mg PO DAILY dexamethasone 4 mg PO BID econazole nitrate 1% appl topical letrozole 2.5 mg PO DAILY levothyroxine 100 mcg PO DAILY mometasone 0.1% topical ondansetron 8 mg PO Q8H PRN prochlorperazine maleate (Compazine) 10 mg PO Q8H PRN sennosides (senna) 17.2 mg (2 x 8.6 mg) PO BEDTIME PRN HPI Comments Details: 69-year-old female patient found to have a suspicious density in the right breast at the 9 o'clock position confirmed by ultrasound on 04/29/2024. She denies a previous history of breast problems or breast surgery but does have a strong family history of breast cancer including her sister (40), maternal cousin, and maternal aunt all with breast cancer. She is 3 para 2 with 1 miscarriage and did not breastfeed her children. 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 She underwent a right breast lumpectomy with sentinel node biopsy on 06/17/2024. 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 Posterior margin was positive on the initial specimen. A 2nd specimen performed on the same day of the posterior and superior margin was negative for any additional tumor. Margins were approximately 3 mm at the closest margin. 0 of 4 sentinel lymph nodes were positive for metastases. She underwent genetic testing as well on 05/24/2024 which revealed no clinically significant mutations and no mutations of uncertain significance. She was evaluated by Dr. Engel and underwent adjuvant chemotherapy with Taxotere and Cytoxan followed by radiation therapy at [facility] which she tolerated well. She is now on letrozole and tolerating this well. She developed increased redness and swelling in the right breast reported increased pain especially in the lower and outer portions of the breast. She was evaluated by Dr. Engel and started on oral antibiotics for possible skin infection. Today she returns feeling improved but still having some soreness. She denies any bleeding or discharge. Her 1st mammogram postop is scheduled for 06/13/2025. [facility] Medical History 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 Presence of pessary Back pain History of one miscarriage Hypothyroidism GERD (gastroesophageal reflux disease) Anxiety Depression Hypertension Sleep apnea treated with continuous positive airway pressure (CPAP) Surgical History History of lumpectomy of right breast (06/17/24) S/P laparoscopic sleeve gastrectomy Hx of wisdom tooth extraction Hx of dilation and curettage Hx of esophagogastroduodenoscopy (03/05/24) Hx of colonoscopy Hx of tubal ligation Family History Mother Lung cancer Brother Multiple myeloma Sister PONV (postoperative nausea and vomiting) Breast CA, Onset Age: 40 Maternal Aunt Colon cancer Family/Other Breast CA, Onset Age: 40 Maternal Uncle Esophageal cancer Prostate cancer Maternal Aunt Lung cancer Maternal Aunt Cancer of kidney Maternal Aunt Breast CA Social History Household Members: Children Caregiver staying overnight: No Housing: Apartment Are you a primary transition of care specialist to a significant other at home: No Do you presently have visiting nurse or other home services: No 75 years or older and lives alone: No Alcohol intake: current Alcohol intake frequency: does not drink Comment: 1 wkly Patient Tobacco Use Status: Never used Tobacco e-Cigarette/Vaping Use: Never Used Second Hand Smoke Exposure: No service: No Female Reproductive History Menstrual Age of Menarche: 14 Review of Systems Const All systems reviewed & are unremarkable except as noted in HPI and below Physical Exam Vital Signs: Last Vital Signs Pulse 73 05/05/25 13:21 BP 146/71 H 05/05/25 13:21 BMI result Body Mass Index 27.7 Const General: cooperative and no acute distress Nutritional Appearance: well nourished Orientation/consciousness: patient oriented x3 Limitations: no limitations HEENT Head: Yes normocephalic and Yes atraumatic Ears: hearing grossly normal bilaterally Chest Other: Left breast: No skin change, no nipple retraction, no nipple discharge, no palpable mass, no enlarged lymph nodes. Right breast: Radiation change to the entire right breast with no current erythema to indicate cellulitis. Well-healed incision in the upper outer quadrant and axilla with no palpable mass, skin change, nipple discharge or tenderness. Slight inversion of the right nipple. Mild tenderness especially in the upper outer quadrant. Chest/axillae images: 2 1. Incision upper outer quadrant right breast Resp Effort & Inspection: normal respiratory effort, no audible wheezes, no cough and no respiratory distress Cardio Jugular venous distension: no JVD GI Inspection: Yes normal to inspection Skin Other: Warm, dry, no rash Neuro Other: Mobility Assessment: 1. 3 meter assessment time (seconds): 4 2. Gait observations: Normal balance and gait General: patient oriented x3 Extrem General: Yes no clubbing, cyanosis or edema Assessment & Plan Assessment & Plan (1) 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: Code(s): C50.911 - Malignant neoplasm of unspecified site of right female breast Category: Medical Plan 69-year-old female patient diagnosed with a right breast infiltrating ductal carcinoma with lobular features and DCIS, status post right breast lumpectomy with sentinel node biopsy on 06/17/2024. She completed adjuvant chemotherapy with Cytoxan and Taxotere (Dr. Engel) and radiation therapy ([facility]), and now is on letrozole which she is tolerating well. Her last screening mammogram was on 02/29/2024 but we will hold off on her follow-up mammogram until June 2025 due to the recent radiation therapy. She developed increased redness several weeks ago with the associated pain but this has subsequently subsided. Examination today revealed no suspicious findings in either breast. I recommended she return following her next mammogram for follow-up examination. She is welcome to call sooner for any new concerns. Coding Level of Care Code Est Pt Level 3 (75203) Complex visit Add On G2211 Diagnoses 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 C50.911
[2025-05-05 13:21] VITALS: BP 146/71; PULSE 73; BMI 27.7
--- OUTSIDE RECORDS SUMMARY | 2025-05-05 16:40 | XMS_ITS | Data Portability ---
Author Organization [place] - [facility], Allergy Address [address] [place] [phone] Care Team Providers Care Body And Frame Man Name Role Phone MANOHAR VILLARREAL Primary Care Provider MANOHAR VILLARREAL Referring Provider Assessment Encounter Date Assessment Date Assessment LastModified by Organization Details LastModified Time 12/05/2024 12/05/2024 1. Presbycusis The patient's hearing test indicates mild hearing loss. [id number] r hearing aids are an option if [...] By Organization Details Last Modified Time 12/05/2024 [id number] Please note: Parts of this encounter note [...] Time Sensorineural hearing loss of bilateral ears [id number] Active 2024 TIMO SMITH [place], [facility] [address] [place] [address],[place] [address], [place], [phone], [facility] - [facility] 09:40:57 Sense of smell impaired [id number] Active 2024 FRANK RENTERIA MD [address] [place] [address],[place] [address], [place], [phone], [facility] - [facility] 09:55:46 Problem Notes None recorded. Procedures Surgical History Date Name Laterality Status Provider Name and Address Organization Details Recorded Time Comp Audio with Tymps - 91702 & 90563 completed TIMO SMITH [place], [facility] [address] [facility],[place] [address], [place], [address], [facility] - [facility] 12/05/2024 09:41:04 ligation of fallopian tube completed JOLENE WONG [place] - [facility] 12/05/2024 09:11:08 Imaging Results None recorded. Procedure Notes None recorded. Medical Equipment None Reported. Allergies Allergen ID Allergen Name Allergen Category Reaction Reaction Severity Criticality Documentation Date Start Date Code Code System Note Provider Name and Address Organization Details Recorded Time 340036 Substance with sulfonami de structure and antibacte rial mechanism of action (substanc e) medicatio n Not available Not available Not available 12/05/2024 90796 8003 SNOMED JOLENE diop [facility] 09:09:08 Medications Name Sig Start Date Stop [...] Updated DateTime 12/05/2024 160.02 cm 26.2 kg/m2 54472.67 g JOLENE WONG [place] - [facility] 12/05/2024 09:08:52 Social History None recorded. Functional [...] ICD10 Code Diagnosis IMO Codes Diagnosis Note [id number] FRANK RENTERIA MD [facility] [address] [phone] 12/05/2024 08:41:18 12/05/2024 09:59:12 Sensorineural hearing loss of bilateral ears [id number] H90.3 [id number] Audiologic al evaluation results: Right ear: Normal hearing thru 1500Hz sloping to mild-moder ate SNHL with excellent word recognitio n. Left ear: Normal / borderline normal hearing thru 3000Hz sloping to a mild SNHL with excellent word recognitio n. Tympanomet ry: Right Ear:Type Ad ( 5.0) Left Ear:Type Ad ( 2.4) Sense of s pierre impaired [id number] R43.8 31916 Health Concerns Section Related Observation LastModified by Organization Detai ls LastModified Time None Recorded Concern Status LastModified by Organization Details LastModified Time None Recorded Advance Directives Directive None Recorded Payers Insurance Date Sequence Insurance Name Policy Number Policy Nichols Covered Member ID Nichols Member ID Guarantor Name 12/05/2024 1 [facility] (MEDICARE REPLACEMENT/A DVANTAGE - HMO) [id number] Huma Cespedes [id number] Huma Cespedes Notes Date Note Type Note [...] yet present olfactory function. FRANK RENTERIA MD [address] [place] [address], [phone], [facility] - [facility] 12/05/2024 09:57:12 OBGyn Episode No OBEpisode recorded.
== END 2025-05-05 13:32 | disposition home or self-care (01) ==
LOC: HO.HGS 13:01
PROVIDERS: PCP Internal Medicine; Visit Provider Surgery
DX: C50.911 Malignant neoplasm of unspecified site of right female breast (principal)
CPT/HCPCS: 99213; G2211